=== PATIENT | male | born 1960 | race Caucasian/White ===

== ENCOUNTER 2018-08-15 10:07 | Outpatient (REF) | payer MEDICAID, SELFPAY ==
[2018-08-15 12:31] LABS: HCT 42.4 % (40.0-50.0); HGB 14.6 g/dL (13.5-17.5); Mean Corp. HGB Concentration 34.4 g/dL (32.0-36.0); Mean Corpuscular Hemoglobin 33.4 pg (27.0-33.0); Mean Platelet Volume 11.3 fL (8.0-11.0); Platelet Count 315 x1000/uL (130-400); RBC 4.37 m/cumm (4.50-6.00); RBC Distribution Width 13.1 % (11.8-14.1); White Blood Cell Count 11.29 k/cumm (4.4-10.8)
[2018-08-15 13:15] LABS: ALT 32 U/L (12-78); AST 19 U/L (15-37); Albumin 4.2 g/dL (3.4-5.0); Alkaline Phosphatase 64 U/L (46-116); Anion Gap 7.3 mmol/L (3-11); BUN 10 mg/dL (7-18); Bilirubin, Total 0.5 mg/dL (0.2-1.0); CO2 28.7 mmol/L (21.0-32.0); CREATININE 0.86 mg/dL (0.70-1.30); Calcium 9.1 mg/dL (8.5-10.1); Chloride 99 mmol/L (98-107); Folate 10.2 ng/mL (8.6-20.0); Glucose 83 mg/dL (70-100); Potassium 5.2 mmol/L (3.5-5.1); Sodium 135 mmol/L (136-145); Total Protein 7.4 g/dL (6.4-8.2); Vitamin B12 463 pg/mL (193-986)
[2018-08-15 13:32] LABS: ESR 15 MM/HR (1-20)
[2018-08-16 09:24] LABS: Cyclic Citrullinated Peptide <2.5 U/mL (<5.0)
== END 2018-08-15 10:27 ==
LOC: NCHCN 10:07
PROVIDERS: PCP Nurse Practitioner Family; Visit Provider Family Medicine
DX: M79.641 Pain in right hand (principal)
CPT/HCPCS: 80053; 85027; 85652; 86200; 82607; 82746; 85025

== ENCOUNTER 2018-09-18 15:27 | Outpatient (CLI) | payer MEDICAID, SELFPAY ==
--- NOTE | 2018-09-18 15:16 | DI.RAD_ITS ---
SYMPTOMS/DIAGNOSIS: RIGHT WRIST PAIN, RIGHT SHOULDER PAIN RIGHT SHOULDER: Mild degenerative changes involving the glenohumeral joint are demonstrated. Moderate AC joint DJD is identified. There is no evidence of a fracture or dislocation. RIGHT WRIST: There are severe degenerative changes at the 1st metacarpal multangular and multangular navicular joints. Elsewhere, mild DJD is evident. There is no evidence of a superimposed acute fracture or dislocation.
== END 2018-09-18 15:47 ==
PROVIDERS: PCP Nurse Practitioner Family; Visit Provider Physician Assistant
DX: M25.531 Pain in right wrist (principal); M19.031 Primary osteoarthritis, right wrist; M25.511 Pain in right shoulder; M19.011 Primary osteoarthritis, right shoulder
CPT/HCPCS: 73030; 73110

== ENCOUNTER 2019-02-26 13:21 | Outpatient (CLI) | payer MEDICAID, SELFPAY ==
--- NOTE | 2019-02-26 13:16 | DI.RAD_ITS ---
SYMPTOM/DIAGNOSIS: LT SHOULDER PAIN LEFT SHOULDER: Three views. There are no priors. Old post surgical or post traumatic changes are seen in the distal left clavicle. There is a 2.5 cm. distal left clavicular fragment noted. The cortical surfaces are well maintained suggesting an old injury. No evidence of an acute fracture or dislocation is seen. There are mild degenerative changes see at the acromioclavicular joint and the greater tuberosity. The glenohumeral joint appears well maintained. The bones are normally mineralized. The soft tissues are unremarkable. IMPRESSION: 1. Mild osteoarthritis of the left shoulder. 2. Non united old fracture or post surgical changes involving the distal left clavicle. These findings appear chronic. Please correlate with the patient's traumatic or surgical history.
== END 2019-02-26 13:41 ==
PROVIDERS: PCP Nurse Practitioner Family; Visit Provider Physician Assistant
DX: M25.512 Pain in left shoulder (principal); M19.012 Primary osteoarthritis, left shoulder
CPT/HCPCS: 73030

== ENCOUNTER 2019-03-18 07:48 | Outpatient (REF) | payer MEDICAID, SELFPAY ==
[2019-03-18 12:29] LABS: HCT 44.1 % (40.0-50.0); HGB 15.1 g/dL (13.5-17.5); Mean Corp. HGB Concentration 34.2 g/dL (32.0-36.0); Mean Corpuscular Hemoglobin 33.1 pg (27.0-33.0); Mean Corpuscular Volume 96.7 fL (80-95); Mean Platelet Volume 11.7 fL (8.0-11.0); Platelet Count 266 x1000/uL (130-400); RBC 4.56 m/cumm (4.50-6.00); RBC Distribution Width 13.9 % (11.8-14.1); White Blood Cell Count 13.53 k/cumm (4.4-10.8)
[2019-03-18 13:24] LABS: ALT 42 U/L (12-78); AST 22 U/L (15-37); Alkaline Phosphatase 56 U/L (46-116); Anion Gap 11.9 mmol/L (3-11); BUN 9 mg/dL (7-18); Bilirubin, Total 0.5 mg/dL (0.2-1.0); CO2 26.1 mmol/L (21.0-32.0); CREATININE 0.84 mg/dL (0.70-1.30); Calcium 9.5 mg/dL (8.5-10.1); Chloride 100 mmol/L (98-107); Cholesterol 165 mg/dL (50-200); Glucose 107 mg/dL (70-100); HDL Cholesterol 50 mg/dL (40-60); LDL CHOLESTEROL 104 mg/dL (<100); Potassium 4.7 mmol/L (3.5-5.1); Sodium 138 mmol/L (136-145); Total Protein 7.2 g/dL (6.4-8.2); Triglyceride 108 mg/dL (30-150)
== END 2019-03-18 08:08 ==
LOC: NCHCN 07:48
PROVIDERS: PCP Nurse Practitioner Family; Visit Provider Nurse Practitioner Family
DX: R68.89 Other general symptoms and signs (principal); I10 Essential (primary) hypertension; E78.5 Hyperlipidemia, unspecified
CPT/HCPCS: 80053; 80061; 83721; 85027

== ENCOUNTER 2019-04-29 08:10 | Outpatient (REF) | payer MEDICAID, SELFPAY ==
[2019-04-29 12:39] LABS: Abs Immature Grans 0.03 k/cumm (0.0-0.09); Absolute Basophil Count 0.07 k/cumm (0.0-0.2); Absolute Eosinophil Count 0.05 k/cumm (0.0-0.7); Absolute Lymphocyte Count 1.68 k/cumm (1.2-3.4); Absolute Monocyte Count 1.41 k/cumm (0.11-0.7); Absolute Neutrophil Count 5.82 k/cumm (1.2-6.7); Basophils % 0.8; Eosinophils % 0.6; HCT 44.2 % (40.0-50.0); HGB 15.8 g/dL (13.5-17.5); Immature Grans % 0.3; Lymphocytes % 18.5; Mean Corp. HGB Concentration 35.7 g/dL (32.0-36.0); Mean Corpuscular Hemoglobin 33.8 pg (27.0-33.0); Mean Corpuscular Volume 94.4 fL (80-95); Mean Platelet Volume 11.8 fL (8.0-11.0); Monocytes % 15.6; Neutrophils % 64.2; Platelet Count 167 x1000/uL (130-400); RBC 4.68 m/cumm (4.50-6.00); White Blood Cell Count 9.06 k/cumm (4.4-10.8)
[2019-04-29 13:22] LABS: Anion Gap 15.4 mmol/L (3-11); BUN 12 mg/dL (7-18); CO2 23.6 mmol/L (21.0-32.0); CREATININE 0.88 mg/dL (0.70-1.30); Calcium 9.5 mg/dL (8.5-10.1); Chloride 90 mmol/L (98-107); Glucose 124 mg/dL (70-100); Potassium 4.1 mmol/L (3.5-5.1); Sodium 129 mmol/L (136-145)
[2019-04-29 13:57] LABS: Hemoglobin A1C 5.8 % (4.5-6.2)
== END 2019-04-29 08:30 ==
LOC: NCHCN 08:10
PROVIDERS: PCP Nurse Practitioner Family; Visit Provider Nurse Practitioner Family
DX: R68.89 Other general symptoms and signs (principal); R73.9 Hyperglycemia, unspecified; I10 Essential (primary) hypertension
CPT/HCPCS: 80048; 83036; 85025

== ENCOUNTER 2020-10-19 12:46 | Outpatient (REF) | payer MEDICAID, SELFPAY ==
[2020-10-19 18:27] LABS: HGB 14.8 g/dL (13.5-17.5); MCH 37.2 pg (27.0-33.0); MCHC 36.1 % (32.0-36.0); MPV 10.9 fL (8.0-11.0); Platelet Count 305 10^3/uL (130-400); RBC 3.98 10^6/uL (4.36-5.78); RDW 12.5 % (11.8-14.1); RDW-SD 47.5 fL; WBC 12.81 10^3/uL (4.4-10.8)
[2020-10-19 19:33] LABS: ALT 87 U/L (16-63); AST 52 U/L (15-37); Albumin 4.3 g/dL (3.4-5.0); Alkaline Phosphatase 56 U/L (46-116); Anion Gap 11.3 mmol/L (3-11); BUN 9 mg/dL (7-18); Bilirubin, Total 0.6 mg/dL (0.2-1.0); CO2 23.7 mmol/L (21.0-32.0); CREATININE 0.82 mg/dL (0.70-1.30); Calcium 9.4 mg/dL (8.5-10.1); Calculated LDL 120 mg/dL (<100); Chloride 95 mmol/L (98-107); Cholesterol 197 mg/dL (<200); Glucose 107 mg/dL (74-106); HDL Cholesterol 60 mg/dL (40-60); Potassium 4.6 mmol/L (3.5-5.1); Sodium 130 mmol/L (136-145); Total Protein 7.7 g/dL (6.4-8.2); Triglyceride 89 mg/dL (<150)
[2020-10-19 20:16] LABS: Hemoglobin A1C 5.2 % (<5.7)
== END 2020-10-19 13:06 ==
LOC: NCHCN 12:46
PROVIDERS: PCP Nurse Practitioner Family; Visit Provider Nurse Practitioner Family
DX: I10 Essential (primary) hypertension (principal); E78.5 Hyperlipidemia, unspecified; R73.03 Prediabetes; F10.10 Alcohol abuse, uncomplicated; F17.209 Nicotine dependence, unspecified, with unspecified nicotine-induced disorders; J44.9 Chronic obstructive pulmonary disease, unspecified; Z00.00 Encounter for general adult medical examination without abnormal findings
CPT/HCPCS: 80053; 80061; 85027; 83036

== ENCOUNTER 2020-10-28 09:12 | Outpatient (REF) | payer MEDICAID, SELFPAY ==
[2020-10-28 19:07] LABS: Abs Immature Grans 0.06 10^3/uL (0.0-0.06); Absolute Basophil Count 0.15 10^3/uL (0.0-0.2); Absolute Eosinophil Count 0.42 10^3/uL (0.0-0.7); Absolute Lymphocyte Count 2.49 10^3/uL (1.2-3.4); Absolute Monocyte Count 1.13 10^3/uL (0.1-0.8); Absolute Neutrophil Count 8.03 10^3/uL (1.2-6.7); Basophils % 1.2; Eosinophils % 3.4; HCT 42.7 % (40.0-50.0); HGB 14.9 g/dL (13.5-17.5); Immature Grans % 0.5; Lymphocytes % 20.3; MCH 36.3 pg (27.0-33.0); MCHC 34.9 % (32.0-36.0); MCV 103.9 fL (80-95); MPV 10.5 fL (8.0-11.0); Monocytes % 9.2; Neutrophils % 65.4; Nucleated RBC 0 %; Platelet Count 332 10^3/uL (130-400); RBC 4.11 10^6/uL (4.36-5.78); RDW 12.6 % (11.8-14.1); WBC 12.28 10^3/uL (4.4-10.8)
== END 2020-10-28 09:32 ==
LOC: NCHCN 09:12
PROVIDERS: PCP Nurse Practitioner Family; Visit Provider Nurse Practitioner Family
DX: D72.829 Elevated white blood cell count, unspecified (principal)
CPT/HCPCS: 85025

== ENCOUNTER 2021-01-05 11:32 | Outpatient (REF) | payer MEDICAID, SELFPAY ==
--- NOTE | 2021-01-05 10:30 | SKI_PTH ---
PATIENT: Vipin Massey LOC: [facility] U#:[id number] AGE/SX: 60/M ROOM: RE01/05/[address]: Subhash Alfaro : 1960 BED: DIS: 01/05/2021 SPEC #: [id number] RECD: 01/05/21 12:51 STATUS: DONOVAN REDaniella #: [id number] FENG: 01/05/21 10:[address]: Subhash Alfaro DEPT: Surgical Specimen RECD BY: Shannan Cortez ENTERED: 01/05/21 12:51 SP TYPE: ANDRES HYLTON DR: Madison Tineo Tissues: 1 - SKIN BIOPSY(SHAVE/PUNCH) Procedures: SKIN LEVEL 4 Comments: [id number]
== END 2021-01-05 11:33 | disposition home or self-care (01) ==
LOC: NCHCN 11:32
PROVIDERS: PCP Nurse Practitioner Family; Visit Provider Family Medicine
DX: L30.8 Other specified dermatitis (principal)
CPT/HCPCS: 88305

== ENCOUNTER 2021-07-19 11:48 | Outpatient (REF) | payer MEDICAID, SELFPAY ==
[2021-07-19 15:07] LABS: Abs Immature Grans 0.03 10^3/uL (0.0-0.06); Absolute Eosinophil Count 0.02 10^3/uL (0.0-0.7); Absolute Lymphocyte Count 1.11 10^3/uL (1.2-3.4); Absolute Monocyte Count 0.87 10^3/uL (0.1-0.8); Absolute Neutrophil Count 5.95 10^3/uL (1.2-6.7); Basophils % 1.2; Eosinophils % 0.2; HCT 43.5 % (40.0-50.0); HGB 15.6 g/dL (13.5-17.5); Immature Grans % 0.4; Lymphocytes % 13.7; MCH 35.1 pg (27.0-33.0); MCHC 35.9 % (32.0-36.0); MPV 12.5 fL (8.0-11.0); Monocytes % 10.8; Neutrophils % 73.7; Nucleated RBC 0 %; Platelet Count 135 10^3/uL (130-400); RBC 4.44 10^6/uL (4.36-5.78); RDW 14.6 % (11.8-14.1); RDW-SD 52.9 fL; WBC 8.08 10^3/uL (4.4-10.8)
[2021-07-19 15:50] LABS: ALT 214 U/L (16-63); AST 146 U/L (15-37); Albumin 4.4 g/dL (3.4-5.0); Alkaline Phosphatase 85 U/L (46-116); Anion Gap 17.2 mmol/L (3-11); BUN 4 mg/dL (7-18); Bilirubin, Total 0.6 mg/dL (0.2-1.0); CO2 24.8 mmol/L (21.0-32.0); CREATININE 0.7 mg/dL (0.70-1.30); Calcium 9.2 mg/dL (8.5-10.1); Calculated LDL 123 mg/dL (<100); Chloride 96 mmol/L (98-107); Cholesterol 239 mg/dL (<200); Glucose 141 mg/dL (74-106); HDL Cholesterol 105 mg/dL (40-60); Potassium 3.5 mmol/L (3.5-5.1); Sodium 138 mmol/L (136-145); Triglyceride 57 mg/dL (<150)
== END 2021-07-19 11:49 | disposition home or self-care (01) ==
LOC: NCHCN 11:48
PROVIDERS: PCP Nurse Practitioner Family; Visit Provider Nurse Practitioner Family
DX: D72.829 Elevated white blood cell count, unspecified (principal); I10 Essential (primary) hypertension; E78.5 Hyperlipidemia, unspecified; F10.10 Alcohol abuse, uncomplicated
CPT/HCPCS: 80053; 80061; 85025

== ENCOUNTER 2021-07-28 01:46 | Outpatient (CLI) | payer MEDICAID, SELFPAY ==
--- NOTE | 2021-07-28 | DI.CTLCSR_ITS ---
Exam(s) CT CHEST LUNG CANCER SCREEN EXAM: CT CHEST LUNG CANCER SCREEN CLINICAL HISTORY: SCREENING FOR LUNG CA, CURRENT SMOKER, F17.209. TECHNIQUE: Imaging Protocol: Low Dose Technique CONTRAST MATERIAL: None COMPARISON: CT CHEST ABD PELVIS WITH CONTRAST from 04/08/2017 FINDINGS: CHEST: LUNGS: There is a small thin-walled bulla in the sub apical region of the left upper lobe, unchanged from 2017.. There benign-appearing subpleural markings in the anterior basal segment of the right lo wer lobe, these so seated with a subpleural bulla at this level, unchanged. No new right lung findin gs nor pleural effusion. In the opposite-left lung there is mild increased markings in the inferior lingular segment, more prominent than previous. Few tiny calcified granulomas lung. MEDIASTINUM: There is no obvious hilar nor mediastinal adenopathy. Calcified subcarinal lymph nodes are again noted. Shotty lymph nodes in both axillary regions noted. CARDIAC: Heart size is normal. There is no pericardial effusion.Coronary artery calcifications noted . Diameter of the ascending thoracic aorta is enlarged, measuring 4 cm. This has increased since 2016 study OTHER: OSSEOUS: No significant osseous lesions.. IMPRESSION: 1. No new significant pulmonary findings. Stable benign-appearing findings as described above. Calc ified subcarinal lymph nodes are again noted. 2. Compared to 2017 the diameter of the ascending thoracic aorta is now appears enlarged, measuring 4 cm. This requires appropriate cardiology follow-up. 3. Lung RADS Cat 1 - Negative: No nodules and definitely benign nodules. However, needs cardiology f ollow-up for enlarged ascending thoracic aorta. Lung-RADS 1.0 CATEGORIES: Category 0 - Prior chest CT exam(s) being located for comparison. Category 1 - Annual screening in 12 months. No nodules or definitely benign nodules. Category 2 - Annual screening in 12 months. Benign appearance. Nodules with low likelihood of becomin g active cancer. Category 3 - 6-month follow-up. Probably benign. Short-term follow-up suggested. Nodules with low lik elihood of becoming active cancer. Category 4A - 3-month follow-up and CT/PET if >8 mm in size. Suspicious finding. Findings which requi re additional testing. Category 4B - Findings which require additional testing and tissue sampling. Modifier S- Potentially clinically significant findings (non lung cancer) RADIATION DOSE DELIVERED: 77.61mGy.cm Total DLP CTDIvol DATA REPOSITORY: All CT scans at this facility are submitted to the National Radiology Data Registry (NRDR) Dose Index Registry (DIR) with the [employer] (ACR). RADIATION OPTIMIZATION: All CT scans at this facility use at least one of these dose optimization te chniques: automated exposure control; mA and/or kV adjustment per patient size (includes targeted exa ms where dose is matched to clinical indication); or iterative reconstruction.
== END 2021-07-28 02:06 ==
PROVIDERS: PCP Nurse Practitioner Family; Visit Provider Nurse Practitioner Family
DX: F17.209 Nicotine dependence, unspecified, with unspecified nicotine-induced disorders (principal); Z12.2 Encounter for screening for malignant neoplasm of respiratory organs; I89.8 Other specified noninfective disorders of lymphatic vessels and lymph nodes; I77.810 Thoracic aortic ectasia
CPT/HCPCS: 71271

== ENCOUNTER 2021-10-17 02:46 | Outpatient (CLI) | payer MEDICAID, SELFPAY ==
[2021-10-17 11:03] LABS: Source Nasal/Nares
[2021-10-17 14:01] LABS: COVID-19 PCR Negative (Negative)
== END 2021-10-17 02:47 | disposition home or self-care (01) ==
LOC: LBO 02:47
PROVIDERS: PCP Nurse Practitioner Family; Visit Provider Student in an Organized Health Care Education/Training Program
DX: Z20.822 Contact with and (suspected) exposure to COVID-19 (principal)
CPT/HCPCS: 87635

== ENCOUNTER 2021-10-18 06:09 | Day surgery (SDC) | payer MEDICAID, SELFPAY ==
[2021-10-18 06:15] VITALS: BP 153/91; PULSE 90; RESP 18; TEMP 36.5; O2SAT 96
[2021-10-18] MEDS: Lactated Ringers 1,000 ML 80 ML IV (06:46)
--- NOTE | 2021-10-18 07:02 | W.ANESPRE ---
General Info Date of Service Date Performed: 10/18/21 Height: 5 ft 8 in Weight: 73.2 kg Body Mass Index (BMI): 24.5 Surgical Procedure: Operation Date: 10/18/21 07:40 Proposed Procedures Side Surgeon p Wrist ECTR Left Ezio Gonzales MD Meds Allergies and Home Medications Allergies Allergy/AdvReac Type Severity Reaction Status Date / Time No Known Allergies Allergy Unverified 10/18/21 06:12 Home Medication Medication Instructions Recorded metoprolol tartrate 100 mg PO BID 08/28/14 acetaminophen [Acetaminophen Extra 1,000 mg PO TID PRN PRN #60 tab 12/25/17 Strength] ibuprofen 600 mg PO TID PRN PRN #60 tab 12/25/17 fluticasone propionate 44 2 puff IH BID 01/19/20 mcg/actuation HFA aerosol inhaler albuterol sulfate 90 mcg/actuation 1 inh INHALATION Q6H 08/01/21 aerosol inhaler amlodipine 10 mg tablet 10 mg PO DAILY 08/01/21 triamcinolone acetonide 0.1 % 1 applic TOPICAL TID 08/01/21 topical cream lisinopril 30 mg PO DAILY 10/17/21 pravastatin 20 mg PO DAILY 10/17/21 Current Visit Medications: Current Medications Generic Name Dose Route Start Last Admin Trade Name Freq PRN Reason Stop Dose Admin Ringer's Solution 1,000 mls @ 80 mls/hr 10/18/21 06:00 10/18/21 06:46 IV 11/16/21 23:59 80 mls/hr INFUSION MING Administration Cefazolin Sodium/Dextrose 2 gm in 50 mls @ 100 mls/hr 10/18/21 06:00 Ancef Duplex IVPB 11/16/21 23:59 PREOP MING IV Miscellaneous Supplies 1 each 10/18/21 06:00 Iv Access IV 11/16/21 23:59 DIRECTED MING Sodium Chloride 0 ml 10/18/21 06:00 Normal Saline Flush 10 Ml Syr IV 11/16/21 23:59 PRN PRN Sodium Chloride 0 ml 10/18/21 06:00 Normal Saline 10 Ml Vial IJ 11/16/21 23:59 DIRECTED PRN Sterile Water 0 ml 10/18/21 06:00 Water,Injection,Sterile 10 Ml Vial IJ 12/29/21 23:59 DIRECTED PRN PFSH Active Problems Active Problems: Problem Status Onset Code Right rotator cuff tendonitis M75.81 Arthritis of orktti-mwpteatoa-qdzzcjxmw joint M19.039 Arthritis of right acromioclavicular joint M19.011 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 Osteoarthritis of left AC (acromioclavicular) joint M19.012 Hypertension I10 Hyperlipidemia E78.5 Trigger index finger of right hand M65.321 Trigger thumb of right hand M65.311 Right carpal tunnel syndrome G56.01 Ascending aorta dilation I77.810 Leukocytosis D72.829 Prediabetes R73.03 COPD (chronic obstructive pulmonary disease) J44.9 Chronic depression F32.9 Tobacco use disorder F17.200 Hx of traumatic brain injury Z87.820 Alcohol abuse F10.10 PTSD (post-traumatic stress disorder) F43.10 Bilateral carpal tunnel syndrome G56.03 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 Medical History Active Problem List Left carpal tunnel syndrome (Acute) Right rotator cuff tendonitis (Chronic) Arthritis of mokdbx-ncrridimk-xkrfamxps joint (Chronic) Arthritis of right acromioclavicular joint (Chronic) 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) Hypertension (Chronic) Hyperlipidemia (Acute) Trigger index finger of right hand (Acute) Trigger thumb of right hand (Acute) Right carpal tunnel syndrome (Acute) Ascending aorta dilation (Acute) Leukocytosis (Acute) Prediabetes (Acute) COPD (chronic obstructive pulmonary disease) (Chronic) Chronic depression (Acute) Tobacco use disorder (Acute) Hx of traumatic brain injury (Acute) Alcohol abuse (Chronic) PTSD (post-traumatic stress disorder) (Acute) Bilateral carpal tunnel syndrome (Acute) Ulnar neuropathy at elbow of left upper extremity (Acute) History of bilateral total hip arthroplasty (Acute) Surgical History Surgical History Hx of splenectomy Tobacco Smoking/Tobacco Use Status: Current every day Tobacco Type: cigarettes Alcohol Alcohol Intake: current Alcohol intake frequency: 3 or more drinks per day Alcohol type: beer Substance Use Substance use: Occasionally Substance use type: does not use Details: Per sample case porter he has days where is very intoxicated, and others he practices sobriety Vital Signs and Lab Results Vital Signs Most Recent Vital Signs in EMR: Most Recent Vital Signs Temp Pulse Resp BP Pulse Ox 36.5 C 90 18 153/91 H 96 10/18/21 06:15 10/18/21 06:15 10/18/21 06:15 10/18/21 06:15 10/18/21 06:15 Lab Results Blood Type / Crossmatch: No Data to Display Complete Blood Count: No Data to Display Complete Metabolic Panel: No Data to Display Liver Function Panel: No Data to Display Coagulation Panel: No Data to Display Cardiac Panel: No Data to Display Arterial Blood Gas: No Data to Display Venous Blood Gas: No Data to Display Pancreas Panel: No Data to Display Thyroid Panel: No Data to Display Infectious Disease: Coronavirus (COVID-19)(PCR) Negative (Negative) 10/17/21 10:25 10/17/21 Coronavirus 2019 Source Nasal/Nares 10/17/21 10:25 10/17/21 Blood Cultures: No Data to Display Toxicology Panel: No Data to Display Anesthesia Assessment and Plan Anesthesia History Personal History: No History of Anesthesia Complications Family History: No Family History of Anesthesia Complications and Family History Unknown Exercise Tolerance Exercise Tolerance: Metabolic Equivalents>4 Pertinent Negatives Pertinent Negatives: No Symptoms of GERD, No Major Cardiovascular Symptoms or Complaints, No Major Pulmonary Symptoms or Complaints and No History of CVA/TIA Cardiac & Pulmonary Exam Cardiac Exam: Normal S1/S2 Heart Sounds Pulmonary Exam: Clear Bilateral Breath Sounds Cardiac and Pulmonary Comment:: Smoker with occ smoker?s cough Implantable Cardiac Device Does patient have a Pacemaker or an ICD?: No Airway Exam Known Difficult Airway: No Mallampati Class: 3 Mouth Opening: Normal (> 3cm) Thyromental Distance: Greater than 3 cm Neck Range of Motion: Full ROM Neck Circumference: Normal Teeth Condition: Generalized Poor Dentition Airway Comments: None loose per patient ASA Classification ASA Score: ASA 2 Emergency Case?: No NPO Status NPO Status: NPO Clears >2 hours, Solids >8 hours Anesthesia Plan Resuscitation Status: Full Code Anesthesia Technique: General Anesthesia Airway Planned: Natural Airway Monitors Used: Standard Monitors
[2021-10-18 07:10] VITALS: BMI 24.5
--- NOTE | 2021-10-18 07:11 | W.PREOPHP ---
Date of service: 10/18/21 Time of Service: 07:11 Assessment and Plan Assessment and plan (1) Left carpal tunnel syndrome: Status: Acute Assessment and plan: Vipin is a 61-year-old who has carpal tunnel syndrome of both hands he is here today for left carpal tunnel. I have previously discussed treatment options with him in the office and he desires to proceed with endoscopic carpal tunnel release. After a review of clinical history, exam findings, and nerve conduction testing, carpal tunnel syndrome is the most reasonable diagnosis. We discussed possible treatment options to include nighttime splinting, anti-inflammatories, carpal tunnel injections, and eventually surgery. Due to the persistence of symptoms and their daily limitations with normal function, I offered a carpal tunnel release. I discussed the technical details of carpal tunnel release and that I perform an endoscopic release, but would make a larger, open, incision if necessary for visualization. I discussed the risks of the procedure to include, but not limited to, bleeding, infection, palmar pain, stiffness, damage to nerves, damage to vessels, damage to tendons, weakness, recurrence, and incomplete release. Given these risks, Vipin desires to proceed. We will plan to proceed with right carpal tunnel release along with trigger finger releases of the right thumb and right index finger within the next few weeks. (2) Trigger index finger of right hand: Status: Acute (3) Trigger thumb of right hand: Status: Acute (4) Right carpal tunnel syndrome: Status: Acute History of Present Illness History of Present Illness Chief Complaint: Left Carpal Tunnel Syndrome Narrative: Vipin is a 51-year-old who had seen previously in the clinic for left carpal tunnel syndrome. He has failed nonoperative treatment and desires to proceed with endoscopic carpal tunnel release of the left side. He has had no change to his clinical symptoms as noted in office visit. He has had no sick contacts. He was COVID-19 negative. Additionally, in the office he was diagnosed with right carpal tunnel syndrome in addition to trigger fingers of the right thumb and right index. 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) Hypertension (Chronic) Hyperlipidemia (Acute) Trigger index finger of right hand (Acute) Trigger thumb of right hand (Acute) Right carpal tunnel syndrome (Acute) Ascending aorta dilation (Acute) Leukocytosis (Acute) Prediabetes (Acute) COPD (chronic obstructive pulmonary disease) (Chronic) Chronic depression (Acute) Tobacco use disorder (Acute) Hx of traumatic brain injury (Acute) Alcohol abuse (Chronic) PTSD (post-traumatic stress disorder) (Acute) Bilateral carpal tunnel syndrome (Acute) Ulnar neuropathy at elbow of left upper extremity (Acute) History of bilateral total hip arthroplasty (Acute) Surgical History Hx of splenectomy Social History Smoking/Tobacco Use Status: Current every day Tobacco Type: cigarettes Smoking risk assessment performed?: Yes Alcohol Intake: current Alcohol Intake frequency: 3 or more drinks per day Alcohol type: beer Drug use: Occasionally Substance use type: does not use Details: Per bilingual case manager he has days where is very intoxicated, and others he practices sobriety Current gender identity: male Do you feel safe at home: Yes Additional Social history: unable to asess [employer] Allergies and Home Medications Allergies Allergy/AdvReac Type Severity Reaction Status Date / Time No Known Allergies Allergy Unverified 10/18/21 06:12 Home Medications Medication Instructions Recorded Confirmed Type metoprolol tartrate 100 mg PO BID 08/28/14 10/18/21 History acetaminophen [Acetaminophen Extra 1,000 mg PO TID PRN PRN #60 tab 12/25/17 10/17/21 Rx Strength] ibuprofen 600 mg PO TID PRN PRN #60 tab 12/25/17 10/17/21 Rx fluticasone propionate 44 2 puff IH BID 01/19/20 10/18/21 History mcg/actuation HFA aerosol inhaler albuterol sulfate 90 mcg/actuation 1 inh INHALATION Q6H 08/01/21 10/17/21 History aerosol inhaler amlodipine 10 mg tablet 10 mg PO DAILY 08/01/21 10/18/21 History triamcinolone acetonide 0.1 % 1 applic TOPICAL TID 08/01/21 10/17/21 History topical cream lisinopril 30 mg PO DAILY 10/17/21 History pravastatin 20 mg PO DAILY 10/17/21 History Exam Resp Effort & Inspection: normal respiratory effort Auscultation: clear to auscultation bilaterally Cardio Rate: regular rate Rhythm: regular rhythm Results Last Vital Signs Temp 36.5 C 10/18/21 06:15 Pulse 90 10/18/21 06:15 Resp 18 10/18/21 06:15 BP 153/91 H 10/18/21 06:15 Pulse Ox 96 10/18/21 06:15
[2021-10-18] MEDS: ceFAZolin 2 GM/50 ML BAG IVPB (07:26)
--- NOTE | 2021-10-18 07:26 | PDOC.DSDIS_ITS ---
Discharge Plan Disposition Patient Disposition: HOME Condition: Good Discharge Details Reason For Visit: Left Carpal Tunnel Syndrome Attending Provider: Ezio Gonzales Primary Care Provider: Madison Tineo Home Meds and New Rx's Prescriptions: New hydrocodone-acetaminophen 5-325 mg tablet 1 tab PO Q6H PRN (Reason: pain) Qty: 4 RF: 0 Continued Flovent HFA 44 mcg/actuation HFA aerosol inhaler 2 puff IH BID RF: 0 amlodipine 10 mg tablet 10 mg PO DAILY RF: 0 albuterol sulfate [ProAir HFA] 90 mcg/actuation HFA aerosol inhaler 1 inh inhalation Q6H RF: 0 triamcinolone acetonide 0.1 % cream 1 applic topical TID RF: 0 metoprolol tartrate 100 MG tablet 100 mg PO BID RF: 0 lisinopril 30 mg Tablet 30 mg PO DAILY RF: 0 pravastatin 20 mg Tablet 20 mg PO DAILY RF: 0 acetaminophen [Acetaminophen Extra Strength] 500 MG tablet 1,000 mg PO TID PRN PRNQty: 60 RF: 3 ibuprofen 600 MG tablet 600 mg PO TID PRN PRNQty: 60 RF: 3 Discharge Instructions Stand Alone Forms: Christian Casey Tunnel Release Referrals: Ezio Gonzales MD [ [facility] STAFF PHYSICIAN] - Activity:: Elevate Remove Dressings/Wound Care:: 48 hours Shower/Bathe:: 48 hours Diet:: As Tolerated Discharge Orders Discharge Orders: Discharge Order (Routine); Ordered 10/18/21 Ordered By: Ezio Gonzales DS: Diagnosis Discharge Diagnosis (1) Left carpal tunnel syndrome: Status: Acute (2) Trigger index finger of right hand: Status: Acute (3) Trigger thumb of right hand: Status: Acute (4) Right carpal tunnel syndrome: Status: Acute
[2021-10-18] MEDS: Sodium Bicarbonate 50 MEQ/50 ML VIAL (07:33)
[2021-10-18 07:48] VITALS: BP 136/96; PULSE 94; RESP 16; TEMP 36.3; O2SAT 97
--- NOTE | 2021-10-18 08:09 | W.ANESPOSTOP ---
Postoperative Evaluation Date, Time and Location Date Performed: 10/18/21 Time Performed: 07:48 Patient Location: Day Surgery Unit Vital Signs Most Recent Imported Vital Signs: Most Recent Vital Signs Temp Pulse Resp BP Pulse Ox 36.3 C L 94 H 16 136/96 H 97 10/18/21 07:48 10/18/21 07:48 10/18/21 07:48 10/18/21 07:48 10/18/21 07:48 Pain Score Most Recent Pain Score: Most Recent Pain Score Pain Level 0 10/18/21 07:48 Assessment Mental Status: Awake (Alert & Oriented to Patient Baseline) Airway and Respiratory Function: Patent airway with normal (patient baseline) respiratory exam Cardiovascular Function: Hemodynamically Stable Hydration Status: Adequately Hydrated Nausea & Vomiting: No Nausea or Vomiting Pain: Pt. Denies Any Pain Peripheral Nerve Block: Patient did not receive a nerve block
--- NOTE | 2021-10-18 09:18 | W.PM.OP ---
Date of service: 10/18/21 Time of Service: 07:40 Operative Note Operative Note DATE OF PROCEDURE: 10/18/21 PRE-OP DIAGNOSIS: Left Carpal Tunnel Syndrome POST-OP DIAGNOSIS: same PROCEDURE: Left Endoscopic Carpal Tunnel Release SURGEON: Ezio Gonzales ANESTHESIA TYPE: General:No Airway Refer to Anesthesia Record ESTIMATED BLOOD LOSS: 0 PATHOLOGY: none sent TOURNIQUET TIME: 6 COMPLICATIONS: None Patient was transported to: same day Patient's condition: stable Indications: I have seen Jasmine in clinic for symptoms of carpal tunnel syndrome. The numbness, tingling, and pain limited function. Clinical exam findings with nerve conduction tests confirmed the diagnosis of carpal tunnel syndrome. Nonoperative measures such as bracing, time, activity modifications had been tried but disability and pain persisted. I discussed carpal tunnel release with the patient. I reviewed the risks of the procedure to include, but not limited to, bleeding, infection, pain, stiffness, incomplete release, damage to nerves or vessels, persistent numbness, recurrence. Despite these risks, the patient elected to proceed. Findings: There was tightened carpal tunnel. This was dilated and released successfully with the endoscopic with increased space within the tunnel. The antebrachial fascia was released proximally freeing the median nerve at the wrist. Procedure Description: Jasmine was greeted in the preoperative holding area where the correct side was identified and marked. The consent was reviewed with the patient and signed. The history and physical was updated. All questions were answered. Jasmine was taken back to the operating room. The patient was placed into the supine position on the operating room table with the left arm on an arm board. A nonsterile tourniquet was placed high onto the arm. All bony prominences were well padded. Prophylactic antibiotics in the form of Cefazolin were administered. The left arm was then prepped with Chloraprep and draped in a standard fashion with stockinette and extremity drape. A timeout to confirm correct identity, side and site, procedure, allergies, anesthesia, and medical concerns was performed. The surgical site was marked in the volar wrist creases in line with the radial border of the fourth ray. This area was anesthetized with approximately 6cc of 1% Lidocaine. The limb was then exsanguinated with an Esmarch. The skin was incised with a 15 blade, approximately 1cm. The skin only was cut and the deeper tissue was dissected bluntly with a tenotomy scissor, avoiding passing nerve and venous structures. The fascia was penetrated and opened bluntly. A two-prong skin hook was placed under this proximal fascial edge. A series of hamate finders were used to identify and dilate the carpal tunnel. Synovial elevator was used to free synovial attachments to the underside of the transverse carpal ligament. My thumb was kept in the palm to jasmine the distal extent of the carpal tunnel and correctly position the hand. The [employer]aire endoscope was inserted without difficulty and without resistance. Excellent visualization showed horizontally running fibers of the transverse carpal ligament (TCL). The distal extent of the TCL was visualized and the end of the scope palpated with the thumb. The blade was elevated and withdrawn from distal to proximal. The TCL was split into two flaps. The endoscope was reinserted to confirm complete release and any remnant ligament was incised. The scope was withdrawn and the proximal aspect of the carpal tunnel was grossly inspected and appeared release with the median nerve visible. The antebrachial fascia at the level of the wrist was then freed from the overlying skin and then the underlying median nerve with blunt dissection. This was transected longitudinally for about 3cm proximal to the wrist incision. The wound was then irrigated with easy flow of irrigant distally and proximally. The incision was closed with a single 4-0 Nylon suture. The wound was dressed with Xeroform, Gauze, Kerlix and Brandon. The tourniquet was deflated with the initial dressing and held with some pressure. Blood flow returned easily to all digits with capillary refill less than 2 seconds. The patient tolerated the procedure well and was returned to the Same Day Surgery area in a stable condition suffering no known complication.
== END 2021-10-18 08:35 | disposition home or self-care (01) ==
PROVIDERS: PCP Nurse Practitioner Family; Visit Provider Student in an Organized Health Care Education/Training Program
PROC: 01N54ZZ Release Median Nerve, Percutaneous Endoscopic Approach (ICD-10-PCS; CPT 29848; principal; 2021-10-18 07:30)
DX: G56.02 Carpal tunnel syndrome, left upper limb (principal); J44.9 Chronic obstructive pulmonary disease, unspecified; R73.03 Prediabetes
CPT/HCPCS: 29848; J0690; J2001; J2250

== ENCOUNTER 2022-01-02 01:21 | Outpatient (CLI) | payer MEDICAID, SELFPAY ==
[2022-01-02 20:12] LABS: COVID-19 PCR Negative (Negative)
[2022-01-02 20:13] LABS: Source Nasal/Nares
== END 2022-01-02 01:22 | disposition home or self-care (01) ==
LOC: LBO 01:22
PROVIDERS: PCP Nurse Practitioner Family; Visit Provider Student in an Organized Health Care Education/Training Program
DX: Z20.822 Contact with and (suspected) exposure to COVID-19 (principal); Z01.818 Encounter for other preprocedural examination
CPT/HCPCS: 87635

== ENCOUNTER 2022-01-04 11:49 | Day surgery (SDC) | payer MEDICAID, SELFPAY ==
--- NOTE | 2022-01-04 06:49 | PDOC.DSDIS_ITS ---
Discharge Plan Disposition Patient Disposition: HOME Condition: Stable Discharge Details Reason For Visit: Right ECTR, Trigger Finger Release Attending Provider: Ezio Gonzales Primary Care Provider: Madison Tineo Home Meds and New Rx's Prescriptions: No Action Flovent HFA 44 mcg/actuation HFA aerosol inhaler 2 puff IH BID 0RF amlodipine 10 mg tablet 10 mg PO DAILY 0RF albuterol sulfate [ProAir HFA] 90 mcg/actuation HFA aerosol inhaler 1 inh inhalation Q6H 0RF triamcinolone acetonide 0.1 % cream 1 applic topical TID 0RF metoprolol tartrate 100 MG tablet 100 mg PO BID 0RF lisinopril 30 mg Tablet 30 mg PO DAILY 0RF pravastatin 20 mg Tablet 20 mg PO DAILY 0RF acetaminophen [Acetaminophen Extra Strength] 500 MG tablet 1,000 mg PO TID PRN PRNQty: 60 3RF ibuprofen 600 MG tablet 600 mg PO TID PRN PRNQty: 60 3RF Discharge Instructions Stand Alone Forms: [place] C. Tunnel Release, [place] T. Finger Release Referrals: Ezio Gonzales MD [ [facility] STAFF PHYSICIAN] - Activity:: Activity as Tolerated Remove Dressings/Wound Care:: 72 hours Shower/Bathe:: 72 hours Diet:: As Tolerated Discharge Orders Discharge Orders: Discharge Order (Routine); Ordered 01/04/22 Ordered By: Areli Perez
[2022-01-04 12:07] VITALS: BP 159/93; PULSE 83; RESP 18; TEMP 36.4; O2SAT 97
[2022-01-04] MEDS: Lactated Ringers 1,000 ML 80 ML IV (12:22)
--- NOTE | 2022-01-04 12:27 | ANES.PREOP_ITS ---
General Info Date of Service Date Performed: 01/04/22 Height: 5 ft 8 in Weight: 76.8 kg Body Mass Index (BMI): 25.7 Surgical Procedure: Operation Date: 01/04/22 14:25 Proposed Procedure Side Surgeon p Wrist ECTR,Rt Trigger Thumb Right Ezio Gonzales MD Meds Allergies and Home Medications Allergies Allergy/AdvReac Type Severity Reaction Status Date / Time No Known Allergies Allergy Unverified 01/04/22 12:12 Home Medication Medication Instructions Recorded metoprolol tartrate 100 mg tablet 100 mg PO BID 08/28/14 fluticasone propionate 44 2 puff IH BID 01/19/20 mcg/actuation HFA aerosol inhaler (Flovent HFA) albuterol sulfate 90 mcg/actuation 1 inh INHALATION Q6H 08/01/21 aerosol inhaler (ProAir HFA) amlodipine 10 mg tablet 10 mg PO DAILY 08/01/21 triamcinolone acetonide 0.1 % 1 applic TOPICAL TID 08/01/21 topical cream acetaminophen 500 mg tablet 1,000 mg PO TID PRN PRN #60 tab 10/18/21 (Acetaminophen Extra Strength) ibuprofen 600 mg tablet 600 mg PO TID PRN PRN #60 tab 10/18/21 Current Visit Medications: Current Medications Generic Name Dose Route Start Last Admin Trade Name Freq PRN Reason Stop Dose Admin Acetaminophen 650 mg 01/04/22 06:51 Acetaminophen 325 Mg Tab PO Q4H PRN PRN Ringer's Solution 1,000 mls @ 80 mls/hr 01/04/22 06:00 01/04/22 12:22 IV 01/16/22 23:59 80 mls/hr INFUSION MING Administration Cefazolin Sodium/Dextrose 2 gm in 50 mls @ 100 mls/hr 01/04/22 06:00 Ancef Duplex IVPB 01/04/22 23:59 PREOP MING Ondansetron HCl 4 mg/ Sodium 52 mls @ 200 mls/hr 01/04/22 06:51 Chloride IVPB Q6H PRN PRN IV Miscellaneous Supplies 1 each 01/04/22 06:00 Iv Access IV 01/16/22 23:59 DIRECTED MING Oxycodone HCl 5 mg 01/04/22 06:51 Oxycodone 5 Mg Tab PO Q3H PRN PRN Pain Sodium Chloride 0 ml 01/04/22 06:00 Normal Saline Flush 10 Ml Syr IV 01/16/22 23:59 PRN PRN Sodium Chloride 0 ml 01/04/22 06:00 Normal Saline 10 Ml Vial IJ 01/16/22 23:59 DIRECTED PRN Sterile Water 0 ml 01/04/22 06:00 Water,Injection,Sterile 10 Ml Vial IJ 01/16/22 23:59 DIRECTED PRN PFSH Active Problems Active Problems: Problem Status Onset Code Left carpal tunnel syndrome G56.02 Right rotator cuff tendonitis M75.81 Arthritis of rshxim-gsfcnaurv-tztxyegbk joint M19.039 Arthritis of right acromioclavicular joint M19.011 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 Osteoarthritis of left AC (acromioclavicular) joint M19.012 Hypertension I10 Hyperlipidemia E78.5 Trigger index finger of right hand M65.321 Trigger thumb of right hand M65.311 Right carpal tunnel syndrome G56.01 Ascending aorta dilation I77.810 Leukocytosis D72.829 Prediabetes R73.03 COPD (chronic obstructive pulmonary disease) J44.9 Chronic depression F32.9 Tobacco use disorder F17.200 Hx of traumatic brain injury Z87.820 Alcohol abuse F10.10 PTSD (post-traumatic stress disorder) F43.10 Bilateral carpal tunnel syndrome G56.03 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 Medical History Active Problem List Right rotator cuff tendonitis (Chronic) Arthritis of wvzcrp-ocqfpvrqe-gsaeoesov joint (Chronic) Arthritis of right acromioclavicular joint (Chronic) 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) Hypertension (Chronic) Hyperlipidemia (Acute) Trigger index finger of right hand (Acute) Trigger thumb of right hand (Acute) Right carpal tunnel syndrome (Acute) Ascending aorta dilation (Acute) Leukocytosis (Acute) Prediabetes (Acute) COPD (chronic obstructive pulmonary disease) (Chronic) Chronic depression (Acute) Tobacco use disorder (Acute) Hx of traumatic brain injury (Acute) Alcohol abuse (Chronic) PTSD (post-traumatic stress disorder) (Acute) Bilateral carpal tunnel syndrome (Acute) Ulnar neuropathy at elbow of left upper extremity (Acute) History of bilateral total hip arthroplasty (Acute) Surgical History Surgical History Hx of splenectomy Tobacco Smoking/Tobacco Use Status: Current every day Tobacco Type: cigarettes Alcohol Alcohol Intake: current Alcohol intake frequency: 3 or more drinks per day Alcohol type: beer Substance Use Substance use: Occasionally Substance use type: does not use Details: Per employment case manager he has days where is very intoxicated, and others he practices sobriety Vital Signs and Lab Results Vital Signs Most Recent Vital Signs in EMR: Most Recent Vital Signs Temp Pulse Resp BP Pulse Ox 36.4 C L 83 18 159/93 H 97 01/04/22 12:07 01/04/22 12:07 01/04/22 12:07 01/04/22 12:07 01/04/22 12:07 Lab Results Blood Type / Crossmatch: 2 No Data to Display Complete Blood Count: No Data to Display Complete Metabolic Panel: No Data to Display Liver Function Panel: No Data to Display Coagulation Panel: No Data to Display Cardiac Panel: No Data to Display Arterial Blood Gas: No Data to Display Venous Blood Gas: No Data to Display Pancreas Panel: No Data to Display Thyroid Panel: No Data to Display Infectious Disease: Coronavirus (COVID-19)(PCR) Negative (Negative) 01/02/22 08:40 01/02/22 Coronavirus 2019 Source Nasal/Nares 01/02/22 08:40 01/02/22 Blood Cultures: No Data to Display Toxicology Panel: No Data to Display Anesthesia Assessment and Plan Anesthesia History Personal History: No History of Anesthesia Complications Family History: No Family History of Anesthesia Complications and Family History Unknown Exercise Tolerance Exercise Tolerance: Metabolic Equivalents>4 Cardiac & Pulmonary Exam Cardiac Exam: Normal S1/S2 Heart Sounds Pulmonary Exam: Clear Bilateral Breath Sounds Cardiac and Pulmonary Comment:: Smoker with occ smoker?s cough Implantable Cardiac Device Does patient have a Pacemaker or an ICD?: No Airway Exam Known Difficult Airway: No Mallampati Class: 3 Mouth Opening: Normal (> 3cm) Thyromental Distance: Greater than 3 cm Neck Range of Motion: Full ROM Neck Circumference: Normal Teeth Condition: Generalized Poor Dentition Airway Comments: None loose per patient ASA Classification ASA Score: ASA 2 Emergency Case?: No NPO Status NPO Status: NPO Clears >2 hours, Solids >8 hours Anesthesia Plan Resuscitation Status: Full Code Anesthesia Technique: General Anesthesia Airway Planned: Natural Airway Monitors Used: Standard Monitors Preoperative Comments:: 61 yo for ECTR, just had the other done a few weeks ago. no health history change. midaz 2 mg, ketamine 50 mg, and prop for last without issue.
[2022-01-04 12:30] VITALS: BMI 25.7
--- NOTE | 2022-01-04 14:28 | W.PREOPHP ---
Assessment and Plan Assessment and plan (1) Trigger thumb of right hand: Status: Acute (2) Right carpal tunnel syndrome: Status: Acute Assessment and plan: Vipin is a 61 year old male who has carpal tunnel syndrome of the right hand and a trigger thumb. He has had an injection of the thumb and has treated the carpal tunnel with splints but continues to be limited by both. After a review of clinical history, exam findings, and nerve conduction testing,I discssued the carpal tunnel release and trigger thumb release. I discussed the technical details and I discussed the risks of the procedure to include, but not limited to, bleeding, infection, palmar pain, stiffness, damage to nerves, damage to vessels, damage to tendons, weakness, recurrence, and incomplete release. Given these risks, Vipin desires to proceed. History of Present Illness Narrative: Vipin is a 61 year old male who has seen me in the office for a right carpal tunnel and a right trigger thumb. He continues to have symptoms. He has failed nonoperative options. He has no CP or SOB. 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) Injection: 01/19/2020; 02/26/2019 Hypertension (Chronic) Hyperlipidemia (Acute) Trigger index finger of right hand (Acute) Injection: 06/02/2021 Trigger thumb of right hand (Acute) Injection: 06/02/2021 Right carpal tunnel syndrome (Acute) Ascending aorta dilation (Acute) Leukocytosis (Acute) Prediabetes (Acute) COPD (chronic obstructive pulmonary disease) (Chronic) Chronic depression (Acute) Tobacco use disorder (Acute) Hx of traumatic brain injury (Acute) Alcohol abuse (Chronic) PTSD (post-traumatic stress disorder) (Acute) Bilateral carpal tunnel syndrome (Acute) Ulnar neuropathy at elbow of left upper extremity (Acute) History of bilateral total hip arthroplasty (Acute) DOS: 9/22/21 Surgical History Hx of splenectomy Social History Smoking/Tobacco Use Status: Current every day Tobacco Type: cigarettes Smoking risk assessment performed?: Yes Alcohol Intake: current Alcohol Intake frequency: 3 or more drinks per day Alcohol type: beer Drug use: Occasionally Substance use type: does not use Details: Per case advocate he has days where is very intoxicated, and others he practices sobriety Current gender identity: male Do you feel safe at home: Yes Do you feel safe in your relationship?: Yes Meds Allergies and Home Medications Allergies Allergy/AdvReac Type Severity Reaction Status Date / Time No Known Allergies Allergy Unverified 01/04/22 12:12 Home Medications Medication Instructions Recorded Confirmed Type metoprolol tartrate 100 mg tablet 100 mg PO BID 08/28/14 01/04/22 History fluticasone propionate 44 2 puff IH BID 01/19/20 01/04/22 History mcg/actuation HFA aerosol inhaler (Flovent HFA) albuterol sulfate 90 mcg/actuation 1 inh INHALATION Q6H 08/01/21 01/04/22 History aerosol inhaler (ProAir HFA) amlodipine 10 mg tablet 10 mg PO DAILY 08/01/21 01/04/22 History triamcinolone acetonide 0.1 % 1 applic TOPICAL TID 08/01/21 01/04/22 History topical cream acetaminophen 500 mg tablet 1,000 mg PO TID PRN PRN #60 tab 10/18/21 01/04/22 Rx (Acetaminophen Extra Strength) ibuprofen 600 mg tablet 600 mg PO TID PRN PRN #60 tab 10/18/21 01/04/22 Rx Exam Resp Auscultation: clear to auscultation bilaterally Cardio Rate: regular rate Rhythm: regular rhythm Results Last Vital Signs Temp 36.4 C L 01/04/22 12:07 Pulse 83 01/04/22 12:07 Resp 18 01/04/22 12:07 BP 159/93 H 01/04/22 12:07 Pulse Ox 97 01/04/22 12:07
[2022-01-04] MEDS: ceFAZolin 2 GM/50 ML BAG IVPB (14:33)
[2022-01-04] MEDS: Sodium Bicarbonate 50 MEQ/50 ML VIAL (14:40)
[2022-01-04 15:09] VITALS: BP 122/72; PULSE 86; RESP 18; TEMP 36.5; O2SAT 95
--- NOTE | 2022-01-04 15:23 | W.ANESPOSTOP ---
Postoperative Evaluation Date, Time and Location Date Performed: 01/04/22 Time Performed: 15:23 Patient Location: Day Surgery Unit Vital Signs Most Recent Imported Vital Signs: Most Recent Vital Signs Temp Pulse Resp BP Pulse Ox 36.5 C 86 18 122/72 95 01/04/22 15:09 01/04/22 15:09 01/04/22 15:09 01/04/22 15:09 01/04/22 15:09 Pain Score Most Recent Pain Score: Most Recent Pain Score Pain Level 0 01/04/22 15:09 Assessment Mental Status: Awake (Alert & Oriented to Patient Baseline) Airway and Respiratory Function: Patent airway with normal (patient baseline) respiratory exam Cardiovascular Function: Hemodynamically Stable Hydration Status: Adequately Hydrated Nausea & Vomiting: No Nausea or Vomiting Pain: Pt. Denies Any Pain Peripheral Nerve Block: Patient did not receive a nerve block
[2022-01-04 15:30] VITALS: BP 129/83; PULSE 77; RESP 20; TEMP 36.8; O2SAT 96
--- NOTE | 2022-01-04 21:02 | W.PM.OP ---
Date of service: 01/04/22 Time of Service: 14:40 Operative Note Operative Note DATE OF PROCEDURE: 01/04/22 PRE-OP DIAGNOSIS: Right Carpal Tunnel Syndrome and Right Trigger Thumb POST-OP DIAGNOSIS: same PROCEDURE: Right Endoscopic Carpal Tunnel Release and Right Trigger Thumb Release SURGEON: Ezio Gonzales ANESTHESIA TYPE: General:No Airway Refer to Anesthesia Record ESTIMATED BLOOD LOSS: 0 PATHOLOGY: none sent TOURNIQUET TIME: 10 COMPLICATIONS: None Patient was transported to: same day Patient's condition: stable Indications: I have seen Jasmine in clinic for symptoms of carpal tunnel syndrome and a right trigger thumb. The numbness, tingling, and pain limited function. Clinical exam findings with nerve conduction tests confirmed the diagnosis of carpal tunnel syndrome. Nonoperative measures such as bracing, time, activity modifications had been tried but disability and pain persisted. I discussed carpal tunnel release with the patient. I reviewed the risks of the procedure to include, but not limited to, bleeding, infection, pain, stiffness, incomplete release, damage to nerves or vessels, persistent numbness, recurrence. Despite these risks, the patient elected to proceed. Findings: There was a tightened carpal tunnel. This was dilated and released successfully with the endoscopic with increased space within the tunnel. The antebrachial fascia was released proximally freeing the median nerve at the wrist. The A1 macie of the thumb was released without difficulty. Procedure Description: Jasmine was greeted in the preoperative holding area where the correct side was identified and marked. The consent was reviewed with the patient and signed. The history and physical was updated. All questions were answered. He was taken back to the operating room. The patient was placed into the supine position on the operating room table with the right arm on an arm board. A nonsterile tourniquet was placed high onto the arm. All bony prominences were well padded. Prophylactic antibiotics in the form of Cefazolin were administered. The right arm was then prepped with Chloraprep and draped in a standard fashion with stockinette and extremity drape. A timeout to confirm correct identity, side and site, procedure, allergies, anesthesia, and medical concerns was performed. The surgical site was marked in the volar wrist creases in line with the radial border of the fourth ray as well as overlying the A1 macie of the thumb. These two areas were anesthetized with approximately 10cc of 1% Lidocaine. The limb was then exsanguinated with an Esmarch. Starting with the carpal tunnel, the skin was incised with a 15 blade, approximately 1cm. The skin only was cut and the deeper tissue was dissected bluntly with a tenotomy scissor, avoiding passing nerve and venous structures. The fascia was penetrated and opened bluntly. A two-prong skin hook was placed under this proximal fascial edge. A series of hamate finders were used to identify and dilate the carpal tunnel. Synovial elevator was used to free synovial attachments to the underside of the transverse carpal ligament. My thumb was kept in the palm to jasmine the distal extent of the carpal tunnel and correctly position the hand. The Microaire endoscope was inserted without difficulty and without resistance. Excellent visualization showed horizontally running fibers of the transverse carpal ligament (TCL). The distal extent of the TCL was visualized and the end of the scope palpated with the thumb. The blade was elevated and withdrawn from distal to proximal. The TCL was split into two flaps. The endoscope was reinserted to confirm complete release and any remnant ligament was incised. The scope was withdrawn and the proximal aspect of the carpal tunnel was grossly inspected and appeared release with the median nerve visible. The antebrachial fascia at the level of the wrist was then freed from the overlying skin and then the underlying median nerve with blunt dissection. This was transected longitudinally for about 3cm proximal to the wrist incision. The wound was then irrigated with easy flow of irrigant distally and proximally. The incision was closed with a single 4-0 Nylon suture. Attention was then turned to the trigger thumb. A longiudinal incision was made over lying the A1 macie. The skin was incised and the deeper tissues were bluntly dissected to expose the A1 macie. The macie was then incised with a tenotomy scissor. Derek was inspected proximally and distally. THere were no other sites of compression. The tendon was removed from the wound and insepected. The wound was then irrigated. The wound was closed with a 4-0 Nylon. The wounds were dressed with Xeroform, Gauze, Kerlix and Brandon. The tourniquet was deflated with the initial dressing and held with some pressure. Blood flow returned easily to all digits with capillary refill less than 2 seconds. The patient tolerated the procedure well and was returned to the Same Day Surgery area in a stable condition suffering no known complication.
== END 2022-01-04 16:03 | disposition home or self-care (01) ==
LOC: SUR 11:49
PROVIDERS: PCP Nurse Practitioner Family; Visit Provider Student in an Organized Health Care Education/Training Program
PROC: 01N54ZZ Release Median Nerve, Percutaneous Endoscopic Approach (ICD-10-PCS; CPT 29848; principal; 2022-01-04 14:15)
DX: M65.311 Trigger thumb, right thumb (principal); G56.01 Carpal tunnel syndrome, right upper limb; I10 Essential (primary) hypertension; R73.03 Prediabetes; E78.5 Hyperlipidemia, unspecified
CPT/HCPCS: 29848; 26055; J0690; J1885; J2001

== ENCOUNTER 2022-09-14 15:38 | Outpatient (REF) | payer MEDICAID, SELFPAY ==
[2022-09-14 14:52] LABS: HCT 41.3 % (40.0-50.0); MCHC 36.3 % (32.0-36.0); MCV 99 fL (80-95); MPV 10.4 fL (8.0-11.0); Platelet Count 262 10^3/uL (130-400); RBC 4.17 10^6/uL (4.36-5.78); RDW 15.8 % (11.8-14.1); RDW-SD 57.6 fL; WBC 6.66 10^3/uL (4.4-10.8)
[2022-09-14 15:26] LABS: ALT 59 U/L (16-63); AST 51 U/L (15-37); Albumin 4.3 g/dL (3.4-5.0); Alkaline Phosphatase 65 U/L (46-116); Anion Gap 8.5 mmol/L (3-11); BUN 6 mg/dL (7-18); Bilirubin, Total 0.5 mg/dL (0.2-1.0); CO2 27.5 mmol/L (21.0-32.0); CREATININE 0.6 mg/dL (0.70-1.30); Calcium 9.1 mg/dL (8.5-10.1); Chloride 96 mmol/L (98-107); Estimated GFR 109.14 (mL/min/1.73m2); Glucose 87 mg/dL (74-106); Magnesium 2.1 mg/dL (1.8-2.4); Potassium 4.2 mmol/L (3.5-5.1); Sodium 132 mmol/L (136-145); Total Protein 7.6 g/dL (6.4-8.2)
[2022-09-15 09:37] LABS: HIV-1/2 Ag & Ab Screen Negative (Negative)
[2022-09-15 09:38] LABS: Hepatitis C Ab w Rflx HCV PCR Negative (Negative)
[2022-09-15 11:59] LABS: Syphilis Serology (RPR) Negative (Negative)
[2022-09-15 16:03] LABS: Chlamydia Result Negative (Negative); GC Result Negative (Negative)
== END 2022-09-14 15:39 | disposition home or self-care (01) ==
LOC: NCHCN 15:38
PROVIDERS: PCP Nurse Practitioner Family; Visit Provider Nurse Practitioner Family
DX: D72.829 Elevated white blood cell count, unspecified (principal); R73.03 Prediabetes; F10.10 Alcohol abuse, uncomplicated; I10 Essential (primary) hypertension; Z11.3 Encounter for screening for infections with a predominantly sexual mode of transmission; Z11.4 Encounter for screening for human immunodeficiency virus [HIV]; Z11.59 Encounter for screening for other viral diseases
CPT/HCPCS: 80053; 85027; 86803; 87389; 87491; 87591; 82746; 83735; 86592

== ENCOUNTER 2022-10-20 09:29 | Outpatient (CLI) | payer MEDICAID, SELFPAY ==
--- NOTE | 2022-10-20 09:15 | RT.EKG_ITS ---
APPROVED REPORT Exam: Resting ECG Reason for Exam: CAD Patient Location: O HR:80 bpm ECG Measurements Heart Rate 80 AXIS IN 186 P 72 QRSd 135 QRS 64 QT 407 T -6 QTc 470 Conclusion Sinus rhythm...normal P axis, V-rate 50- 99 Right bundle branch block...QRSd>120, terminal axis(90,270) Voltage for left ventricular hypertrophy
== END 2022-10-20 09:30 | disposition home or self-care (01) ==
LOC: DI.CARD 09:48
PROVIDERS: PCP Nurse Practitioner Family; Visit Provider Internal Medicine Cardiovascular Disease
DX: I25.10 Atherosclerotic heart disease of native coronary artery without angina pectoris (principal); R94.31 Abnormal electrocardiogram [ECG] [EKG]; I45.19 Other right bundle-branch block
CPT/HCPCS: 93010

== ENCOUNTER 2023-01-08 14:13 | Outpatient (CLI) | payer MEDICAID, SELFPAY ==
--- NOTE | 2023-01-08 14:00 | DI.RAD_ITS ---
Exam(s) XR SHOULDER RT COMPLETE 2+V EXAM: XR SHOULDER RT COMPLETE 2+V CLINICAL HISTORY: right shoulder pain. TECHNIQUE: 2D digital imaging was performed. Two views. COMPARISON: CR XR shoulder RT complete 2+V from 09/18/2018 CR XR shoulder LT complete 2+V from 02/26/2019 CR XR SHOULDER LT COMPLETE 2+V from 01/08/2023 FINDINGS: BONES: No acute fracture is present. No bony destructive lesion is seen. JOINTS: No dislocation present. Mild spurring at AC joint. Spurring at the undersurface of the acro mion and greater tuberosity. Minimal glenoid spurring. SOFT TISSUE: Normal. IMPRESSION: Stable degenerative changes. DATA REPOSITORY: RADIATION DOSE DELIVERED:
--- NOTE | 2023-01-08 14:00 | DI.RAD_ITS ---
Exam(s) XR SHOULDER LT COMPLETE 2+V EXAM: XR SHOULDER LT COMPLETE 2+V CLINICAL HISTORY: left shoulder pain. TECHNIQUE: 2D digital imaging was performed. Two views. COMPARISON: CR XR shoulder LT complete 2+V from 02/26/2019 FINDINGS: BONES: No acute fracture is present. No bony destructive lesion is seen. Old nonunited fracture of t he distal clavicle. Spurring at the tip of the acromion. JOINTS: No dislocation present. Glenohumeral joint space is maintained. Minimal spurring at the gle noid. SOFT TISSUE: Normal. IMPRESSION: No acute abnormality. DATA REPOSITORY: RADIATION DOSE DELIVERED:
== END 2023-01-08 14:14 | disposition home or self-care (01) ==
LOC: DIORS 14:14
PROVIDERS: PCP Nurse Practitioner Family; Referring Provider Nurse Practitioner Family; Visit Provider Physician Assistant
DX: M19.011 Primary osteoarthritis, right shoulder (principal); M75.81 Other shoulder lesions, right shoulder; S42.002K Fracture of unspecified part of left clavicle, subsequent encounter for fracture with nonunion
CPT/HCPCS: 73030

== ENCOUNTER → 2023-11-05 01:17 | Outpatient (CLI) | payer MEDICAID, SELFPAY ==
[2023-11-05 09:30] LABS: CREATININE 0.9 mg/dL (0.70-1.30); Estimated GFR 95.97 (mL/min/1.73m2)
--- NOTE | 2023-11-05 10:00 | DI.CT_ITS ---
Exam(s) CT THORAX CTA EXAM: CT THORAX CTA CLINICAL HISTORY: Dilated ascending aorta,HYPERTENSION,I77.810. TECHNIQUE: Imaging Protocol: Axial CT angiography was performed with multi-slice acquisition and mu lti-planar and/or 3D reconstructions. CONTRAST MATERIAL: Intravenous: Omnipaque 350 contrast volume:100 mL COMPARISON: CT CHEST ABD PELVIS WITH CONTRAST from 04/08/[address] CHEST LUNG CANCER SCREEN from 07/28/2021 FINDINGS: The examination is limited due to patient motion artifact. Tracheobronchial tree: Patent where visualized. Pulmonary parenchyma: There is again seen a small bleb in the left apex. No focal consolidating infi ltrates are seen. Atelectasis or scarring is seen in the lung bases. No pulmonary nodules are present . Pulmonary Arteries: No evidence of filling defect to suggest pulmonary emboli. Mediastinum and Karen: No dominant adenopathy or fluid collection. The esophagus is unremarkable. Visualized thyroid gland: Unremarkable. Pleura: No effusion or pneumothorax. Heart: The heart is not dilated. Coronary artery calcification is present. No pericardial effusion. Aorta: The ascending thoracic aorta measures 4.1 x 3.5 cm. This compares to 4 cm on the prior examina tion. No evidence of dissection. Atherosclerosis. Upper abdomen: Unremarkable. Soft tissues: Unremarkable. Bones: Within normal limits for the patient's age.Old healed bilateral rib fractures. IMPRESSION: 1. Ascending thoracic aorta measuring 4.1 x 3.5 cm. This compares to 4 cm on the prior examination. 2. No acute pulmonary process. RADIATION DOSE DELIVERED: Total DLP Total DLP DATA REPOSITORY: All CT scans at this facility are submitted to the National Radiology Data Registry (NRDR) Dose Index Registry (DIR) with the [employer] (ACR). RADIATION OPTIMIZATION: All CT scans at this facility use at least one of these dose optimization te chniques: automated exposure control; mA and/or kV adjustment per patient size (includes targeted exa ms where dose is matched to clinical indication); or iterative reconstruction.
[2023-11-05] MEDS: Normal Saline - Diluent 50 ML VIAL IJ (10:09)
[2023-11-05] MEDS: Omnipaque 350 MG/ML 500 ML BTL-Imaging package 100 ML IJ (10:11)
== END ==
PROVIDERS: PCP Nurse Practitioner Family; Visit Provider Internal Medicine Cardiovascular Disease
DX: Z01.812 Encounter for preprocedural laboratory examination (principal); I10 Essential (primary) hypertension; I77.810 Thoracic aortic ectasia
CPT/HCPCS: 71275; 82565

== ENCOUNTER → 2023-11-30 02:32 | Outpatient (CLI) | payer MEDICAID, SELFPAY ==
--- NOTE | 2023-11-30 07:45 | DI.US_ITS ---
APPROVED REPORT EXAM: Comprehensive 2D, Doppler, and color-flow Echocardiogram Patient Location: Out-Patient Stock Driver: Lucien Eller RDCS (AE) Indications: dilated ascending aorta Conclusion 1. LA upper limits, other chambers normal sizes. 2. Normal LV function EF 60-65%.Normal RV function. 3. Anatomically normal valves. Mild MR,TR without phtn. 4. Normal aortic root. Mildly dilated ascending aorta. 5. No pericardial effusion. Wall motion Left Ventricle The left ventricle is normal size. The left ventricular systolic function is normal. The left ventric ular ejection fraction is within the normal range. There is normal left ventricular wall thickness. T here is normal LV segmental wall motion. There is no ventricular septal defect visualized. LVEF is 57 -60%. Right Ventricle The right ventricle is normal size. Right ventricular systolic function is grossly normal. Atria Left atrium is borderline dilated. The right atrium size is normal. The interatrial septum is intact with no evidence for an atrial septal defect. Aortic Valve The aortic valve is normal in structure. Aortic valve is trileaflet. There is no aortic valvular sten osis. No aortic regurgitation is present. Mitral Valve The mitral valve is normal in structure. No evidence of mitral valve stenosis. Mild mitral regurgitat ion. Tricuspid Valve The tricuspid valve is normal in structure. There is no tricuspid valve stenosis. Moderate tricuspid regurgitation.The RVSP is 29.0 mmHg. Pulmonic Valve The pulmonary valve is normal in structure. There is no pulmonic valvular stenosis. There is no pulmo mayela valvular regurgitation. Great Vessels The aortic root is normal in size. The ascending aorta is mildly dilated. Aortic arch is normal in ca liber. IVC is normal in size and collapses >50% with inspiration. Pericardium There is no pericardial effusion. 2D Dimensions IVSD d PLAX 0.93 cm M: 0.6-1.2 Ao Root d 3.50 cm M: 3.1 - 3.7 LVPW d PLAX 0.94 cm M: 0.6 - 1.2 Ao Asc Diam d 3.75 cm M: 2.6 - 3.4 LVID d PLAX 4.84 cm M: 4.2 - 5.8 LVDs 3.31 cm M: 2.5 - 4.0 LV EF Teichholz 59.6 % FS 31.70 % LV EDV (Teich) 109.6 mL LV ESV (Teich) 44.3 mL Stroke Vol Index (Teich) 34.74 M-Mode TAPSE 1.52 cm (M/F) >1.7 Auto EF LV EDV A4C 110.4 mL LV EDV A2C 100.5 mL LV EDV BP 107.1 mL LV ESV A4C 47.5 mL LV ESV A2C 40.4 mL LV ESV BP 43.4 mL LVEF(%) A4C 56.9 % LVEF(%) A2C 59.8 % LVEF(%) BP 59.5 % LV SV A4C 62.9 ml LV SV A2C 60.1 ml LV SV BP 63.7 ml LV CO A4C 4.5 L/min LV CO A2C 4.1 L/min LV CO BP 4.3 L/min HR A4C 71.71 BPM HR A2C 67.80 BPM LV EDV Index (BP) LA Volume LA Length A4C 4.3 cm LA Length A2C 4.7 cm LA Area A4C s 14.13 cm2 LA Area A2C s 12.75 cm2 LA Vol A4C A-L 39.47 mL LA Vol A2C A-L 29.48 mL LA Vol Biplane A-L 35.6 mL LA Vol/BSA A4C A-L LA Vol/BSA A2C A-L LA Vol/BSA BP A-L 18.9 mL/m2 LA Vol A4C MOD 36.6 mL LA Vol A2C MOD 27.8 mL LA Vol BP MOD 32.8 mL RA Volume RA Area A4C 11.3 cm2 RA ESV A4C (A-L) 22.5mL RA Vol/BSA A4C A-L RA Length A4C 4.8 cm RA ESV A4C (MOD) 21.3mL LV Diastology MV E' medial 0.064 (>0.07 m/s) MV E Vmax 0.68 (0.4-1.3 m/s) MV E/E' MED 10.72 (<14) MV A Vmax 0.70 (0.4-1.3 m/s) MV E' lateral 0.086 (>0.1 m/s) E/A Ratio 1.0 MV E/E' LAT 7.98 (<14) MV E' Average 0.075 m/s MV E/E'(average) 9.15 Aortic Valve AoV Vmax 1.28 m/s LVOT Vmax 0.82 m/s AoV Peak Grad 6.5 mmHg LVOT Peak Grad 2.7 mmHg AoV Area (Vmax) 1.63 cm2 LVOT VTI 0.197 m AoV VTI 0.316 m LVOT Mean Grad 1.4 mmHg AoV Mean Leonidas. 0.89 m/s LVOT SV 50.31 mL AoV Mean Grad 3.6 mmHg LVOT Diam s 1.80 cm AoV Area (VTI) 1.59 cm2 Velocity Ratio 0.64 Mitral Valve MV DT 158 (160-240 msec) Pulmonary Valve PV Vmax 0.67 (0.5-1.5 m/s) RVOT Vmax 0.65 m/s PV Peak Grad 1.8 mmHg RVOT Peak Gr. 1.7 mmHg PV Mean Leonidas 0.49 m/s RVOT VTI 0.133 m PV Mean Grad 1.1 mmHg RVOT Mean Gr. 1.0 mmHg Tricuspid Valve RA Pressure 3.00 mmHg TR Vmax 2.55 m/s TR Peak Grad 26.0 mmHg RVSP (TR) 29.0 mmHg
== END ==
PROVIDERS: PCP Nurse Practitioner Family; Visit Provider Internal Medicine Cardiovascular Disease
DX: I10 Essential (primary) hypertension (principal); I77.810 Thoracic aortic ectasia
CPT/HCPCS: 93306

== ENCOUNTER 2024-06-01 12:12 | Observation (INO) | payer MEDICAID, SELFPAY ==
[2024-06-01] VITALS (31 sets, daily range): BP systolic 93–171; BP diastolic 60–83; PULSE 85–98; RESP 12–26; TEMP 36–39.6; O2SAT 91–97; BMI 25.0
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
--- OUTSIDE RECORDS SUMMARY | 2024-06-01 12:28 | XMS_ITS | Encounter Summary ---
Author Organization [facility] Address [facility] [place] [address] Care Team Providers Care Bridge Expert Name Role Phone Madison Tineo APRN Primary Care Provider Reason for Visit * Reason Comments Medication Refill Encounter Details Date Type Department Care Team (Late st Contact Info) Description 05/17/2021 Refill Dermatology at [address] [facility] [place] [id number] Yariel Bowles MD [address] [facility] DER[facility] [place], [place] [id number] Social History Tobacco Use Types Packs/Day Years Used Date Smoking Tobacco: Some Days Cigarettes Smokeless Tobacco: Current Alcohol Use Standard Drinks/Week Comments Yes 0 (1 standard drink = 0.6 oz pur e alcohol) unknown Sex and Gender Information Value Date Recorded Sex Assigned at Not on file Gender Identity Not on file Sexual Orientation Not on file documented as of this encounter Miscellaneous Notes * Telephone Encounter - Roseanna Terrazas LPN - 05/17/2021 5:23 PM EDT Pt case aide reports the rash is back. Same exact rash. Hasn't started any new medications or changed anything. Not sure why its returned. Wants him to start back on the medication he was takingbefore. Reviewed with Dr. Bowles: Recommendation: Hold Pravastatin for two weeks, then call us back with his progress. Restart Cyclosporin modify 100mg take one capsule by mouth twice daily Disp. 60 No refills Return call to case aide. Reviewed Dr. Reyna recommendations with her. She request medication be sent to [facility] in [place], [place]. Voiced understanding. documented in this encounter Plan of Treatment Not on file documented as of this encounter Visit Diagnoses Not on filedocumented in this encounter Care Teams Bridge Expert Relationship Specialty Start Date End Date Madison Tineo, [employer] [address] [place] [address] PCP - General Family Medicine 01/31/21 documented as of this encounter
--- OUTSIDE RECORDS SUMMARY | 2024-06-01 12:28 | XMS_ITS | Encounter Summary ---
Author Organization [facility] Address [facility] [place] [address] Care Team Providers Care Gum Machine Operator Name Role Phone Izzy Tompkins PROCESSING TALC AND BORATE SUPERVISOR Primary Care Provider Encounter Details Date Type Department Care Team (Latest Contact Info) Description 05/29/2012 9:05 AM EDT - 05/29/2012 11:59 PM EDT Hospital Encounter XRay at [address] [place] [address] Great Toe fracture, right Social History Tobacco Use Types Packs/Day Years Used Date Smoking Tobacco: Some Days Cigarettes Smokeless Tobacco: Current Alcohol Use Standard Drinks/Week Comments No 0 (1 standard drink = 0.6 oz pur e alcohol) Sex and Gender Information Value Date Recorded Sex Assigned at Not on file Gender Identity Not on file Sexual Orientation Not on file documented as of this encounter Medications at Time of Discharge Medication Sig Dispensed Refills Start Date End Date acetaminophen (TYLENOL) 325 mg tablet Take 2 tablets by mouth every 4 hours as needed for Pain. 30 tablet 05/07/2012 chlordiazePOXIDE (LIBRIUM) 5 mg capsule Take 1 capsule by mouth. Take 1 tablet po tid for two days, then take 1 tablet po bid for two days, then stop 10 capsule 0 05/07/2012 06/04/2012 metoprolol tartrate (LOPRESSOR) 50 mg tablet Take 1 tablet by mouth every 8 hours. 60 tablet 0 05/07/2012 05/09/2021 nicotine (NICODERM CQ) 21 mg/[address] 1 patch onto the skin daily. 28 patch 0 05/07/2012 06/04/2012 documented as of this encounter Plan of Treatment Not on file documented as of this encounter Procedures Procedure Name Priority Date/Time Associated Diagnosis Comments XR FOOT MINIMUM 3 VIEWS STAT 05/29/2012 9:23 AM EDT Great Toe fracture, right documented in this encounter Results * XR foot minimum 3 views (05/29/2012 9:23 AM EDT) Anatomical Region Laterality Modality Foot N/A Radiographic Ellen ging 05/29/2012 9:23 AM EDT Narrative 05/29/2012 9:38 AM EDT Examination FOOT MIN 3 VIEWS/RIGHT Clinical History Reason for exam and clinical history: followup right great toe fracture; Comparison 04/23/2012. ?? Findings There is no interval change, specifically in the appearance of the small minimally displaced fracture involving the medial aspect of the base of the 1st distal phalanx. ??No other fracture or traumatic finding is seen. Impression No interval change in fracture involving base of 1st distal phalanx. Procedure Note Josias Irwin MD - 05/29/2012 Examination FOOT MIN 3 VIEWS/RIGHT Clinical History Reason for exam and clinical history: followup right great toe fracture; Comparison 04/23/2012. Findings There is no interval change, specifically in the appearance of the small minimally displaced fracture involving the medial aspect of the base ofthe 1st distal phalanx. No other fracture or traumatic finding is seen. Impression No interval change in fracture involving base of 1st distal phalanx. Joshua Fink MD IMG DX ORDERABLES documented in this encounter Visit Diagnoses Diagnosis Great Toe fracture, right Closed fracture of one or more phalanges of foot documented in this encounter Care Teams Gum Machine Operator Relationship Specialty Start Date End Date Izzy Tompkins APRN [address] [place] [address] PCP - General 05/23/12 02/13/13 documented as of this encounter
--- OUTSIDE RECORDS SUMMARY | 2024-06-01 12:28 | XMS_ITS | Encounter Summary ---
Author Organization [facility] [place] [address] Care Team Providers Care Home Companion Name Role Phone Madison Tineo APRN Primary Care Provider [phone] Reason for Visit * Reason Comments Skin Check * Consultation (Routine) - Specialty Diagnoses / Procedures Referred By Adan estrada Referred To Contact Dermatology Diagnoses Dermatitis, unspecified Generalized skin eruption due to drugs and medicaments taken internally Dermatitis, Drug Eruption; New Patient-Notes Received Procedures Consult Madison Tineo APRN [address] [place] [address] [place] [address] Yariel Bowles MD [address] [place] [address] [place] [address] Referral ID Status Reason Start Date Expiration Date V isits Requested Visits Authorized [id number] Consult, Test & Treat PCP Updated and/or Approved 01/27/2021 07/30/2021 6 6 Encounter Details Date Type Department Care Team (Late st Contact Info) Description 01/31/2021 11:15 AM EDT Office Visit Dermatology at [address] [phone] Yariel Bowles MD [address] [place] [address] [place] [address] Dermatitis Social History Tobacco Use Types Packs/Day Years [...] as of this encounter Progress Notes * Yariel Bowles MD - 01/31/2021 11:15 AM EDT Problem: New patient, initial visit, possible drug eruption Vipin is a 68-year-old gentleman who comes today with his life skills aid Annika. He states that about the last 2 months he been having a rash that is now confluent over his back and are present on his chest and arms. His primary present from the waist up. He was given triamcinolone to use for thisbut has not been helpful. It was thought to be due to lisinopril and that was held at this point nosubsequent improvement in his condition. Patient been through 2 courses of prednisone each about 2 weeks in length but without lasting improvement. A punch biopsy was done and sent to [facility] and this apparently showed superficial perivascular dermatitis with spongiosis and interface inflammation. Patient is seen in consultation today for Madison Tineo APRN Physical examination reveals a 68-year-old gentleman who has confluent erythema and papulosquamous dermatitis of the entire upper back. He has patchy involvement on his arms and chest. His legs and face are spared. He has no involvement over the elbows or knees. Assessment plan: Papulosquamous dermatitis of 2 months duration 1. Pruritic, and steroid responsive 2. Today begin cyclosporine modified 100 mg take 1 p.o. nightly for a week, then 1 p.o. twice daily. Dispense #30 with 0 refills 3. Today punch biopsy obtained from right arm. Differential can certainly include allergic drug eruption allergic contact dermatitis, or psoriasis triggered by lisinopril. 4. Return to clinic in 2 weeks for suture removal and biopsy results. CC: Madison Tineo APRN documented in this encounter Plan of Treatment Not on file documented as of this encounter Visit Diagnoses Diagnosis Dermatitis Contact dermatitis and other eczema, due to unspecified cause documented in this encounter Care Teams Home Companion Relationship Specialty Start Date End Date Madison Tineo APRN [address] [place] [address] PCP - General Family Medicine 01/31/21 documented as of this encounter
--- OUTSIDE RECORDS SUMMARY | 2024-06-01 12:28 | XMS_ITS | Encounter Summary ---
Author Organization [facility] [place] [address] Care Team Providers Care Development Technologist Name Role Phone Madison Tineo APRN Primary Care Provider [phone] Encounter Details Date Type Department Care Team (Late st Contact Info) Description 02/14/2021 Refill Dermatology at [address] [place] [phone] Roseanna Terrazas, CRYPTOLOGIC TECHNICIAN Social History Tobacco Use Types Packs/Day Years Used Date Smoking Tobacco: Some Days Cigarettes Smokeless Tobacco: Current Alcohol Use Standard Drinks/Week Comments No 0 (1 standard drink = 0.6 oz pur e alcohol) Sex and Gender Information Value Date Recorded Sex Assigned at Not on file Gender Identity Not on file Sexual Orientation Not on file documented as of this encounter Plan of Treatment Not on file documented as of this encounter Visit Diagnoses Not on filedocumented in this encounter Care Teams Development Technologist Relationship Specialty Start Date End Date Madison Tineo APRN [address] [place] [address] PCP - General Family Medicine 01/31/21 documented as of this encounter
--- OUTSIDE RECORDS SUMMARY | 2024-06-01 12:28 | XMS_ITS | Encounter Summary ---
[place] [address] Care Team Providers Care Load Dispatcher Local Name Role Phone Madison Tineo APRN Primary Care Provider [phone] Reason for Visit * Reason Comments Medication Refill Encounter Details Date Type Department Care Team (Late st Contact Info) Description 05/20/2021 Refill Dermatology at [address] [facility] [place] [address] Yariel Bowles MD [address] [facility] [place] [address] Social History Tobacco Use Types Packs/Day Years [...] on filedocumented in this encounter Care Teams Load Dispatcher Local Relationship Specialty Start Date End Date Madison Tineo APRN [address] [place] [address] PCP - General Family Medicine 01/31/21 documented as of this encounter
--- OUTSIDE RECORDS SUMMARY | 2024-06-01 12:28 | XMS_ITS | Encounter Summary ---
Author Organization [facility] [place] [address] Care Team Providers Care Clinical Support Nurse Name Role Phone Madison Tineo APRN Primary Care Provider [phone] Encounter Details Date Type Department Care Team (Latest Contact Info) Description 01/31/2021 9:33 PM EDT - 01/31/2021 11:59 PM EDT Hospital [place] [address] Discharge Disposition: Home Social History Tobacco Use Types Packs/Day Years [...] Sig Dispensed Refills Start Date End Date hydrOXYzine (ATARAX) 50 mg Tablet TAKE 1 TABLET BY MOUTH THREE TIMES DAILY NEEDED FOR ITCHING 01/21/2021 pravastatin (Pravachol) 20 mg Tablet TAKE 1 TABLET BY MOUTH AT BEDTIME 12/01/2020 triamcinolone (KENALOG) 0.1 % Cream APPLY EXTERNALLY TO THE AFFECTED AREA TWICE DAILY 12/30/2020 amLODIPine (Norvasc) 10 mg Tablet TAKE 1 TABLET BY MOUTH EVERY DAY 01/29/2021 fluticasone propionate (FLOVENT) 44 mcg/actuation HFA Aerosol Inhaler Inhale into the lungs. 01/19/2020 acetaminophen (TYLENOL) 325 mg tablet Take 2 tablets by mouth every 4 hours as needed for Pain. 30 tablet 05/07/2012 lisinopriL (PRINIVIL;ZESTRIL) 30 mg Tablet TK 1 T PO QD 10/08/2020 05/09/2021 cycloSPORINE modified (Neoral) 100 mg Capsule Take one capsule by mouth nightly for one week then one capsule by mouth twice daily 30 capsule 02/10/2021 02/14/2021 metoprolol tartrate (LOPRESSOR) 50 mg tablet Take 1 tablet by mouth every 8 hours. 60 tablet 0 05/07/2012 05/09/2021 documented as of this encounter Plan of Treatment Not on file documented as of this encounter Procedures Procedure Name Priority Date/Time Associated Diagnosis Comments SURGICAL PATHOLOGY REPORT Routine 01/31/2021 12:00 PM EDT documented in this encounter Results * Surgical Pathology Report (01/31/2021 12:00 PM EDT) Surgical Pathology Report [id number] ? Location: [facility] The signing pathologist has (i) examined the relevant preparation(s) for the specimen(s) and (ii) rendered or confirmed the diagnosis(es). . ?Surgical Pathology DIAGNOSIS Right arm, skin punch ?? biopsy: - ??Spongiotic dermatitis with eosinophils (see discussion) Electronically signed by: ??Harvey Stewart MD Verified: ??02/07/2021 ?Dermatopatholog ist Performed at: ??-[facility] Dept. of Pathology, [place], [place] DISCUSSION The findings could be compatible with an atopic, allergic contact, or spongiotic drug reaction. Features of psoriasis are not identified. ADDITIONAL STUDIES PASd staining was performed to assess for the possibility of fungal infection, and was negative for intracorneal fungal elements. ?Multiple step-leveled sections were reviewed. SPECIMEN(S) SUBMITTED A - R arm, skin punch (1) CLINICAL INFORMATION Two-month history of pruritic papulosquamous dermatitis contiguous over back, patchy involvement ??arm/chest steroid responsive clinical diagnosis: Spongiotic dermatitis/ allergic drug eruption/psoriasi s SPECIMEN PROCESSING A - Labeled/Fixative: Patient demographics, formalin. Quantity/Size: ??Single, 0.4 cm in diameter, excised to a depth of 0.4 cm. Tissue Description: Goldman-pink skin punch. Sections/Processi ng: Bisected and entirely submitted in 1 cassette labeled A1. ??ajw [facility] 01/31/2021 12:0 0 PM EDT Yariel Bowles MD PATHOLOGY/CYTOLOGY O RDERABLES [facility] [place] [address] documented in this encounter Visit Diagnoses Not on filedocumented in this encounter Care Teams Clinical Support Nurse Relationship Specialty Start Date End Date Madison Tineo, GENET [address] [place] [address] PCP - General Family Medicine 01/31/21 documented as of this encounter
--- OUTSIDE RECORDS SUMMARY | 2024-06-01 12:28 | XMS_ITS | Encounter Summary ---
Author Organization [facility] [place] [address] Care Team Providers Care Chef Passenger Vessel Name Role Phone Madison Tineo APRN Primary Care Provider [phone] Encounter Details Date Type Department Care Team (Late st Contact Info) Description 01/31/2021 Refill Dermatology at [address] [place] [phone] Roseanna Terrazas, MD ALLERGY IMMUNOLOGY Social History Tobacco Use Types Packs/Day Years [...] on filedocumented in this encounter Care Teams Chef Passenger Vessel Relationship Specialty Start Date End Date Madison Tineo APRN [address] [place] [address] PCP - General Family Medicine 01/31/21 documented as of this encounter
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
--- OUTSIDE RECORDS SUMMARY | 2024-06-01 12:28 | XMS_ITS | Encounter Summary ---
Author Organization [facility] [place] [address] Care Team Providers Care Fuel Dock Attendant Name Role Phone Madison Tineo APRN Primary Care Provider [phone] Encounter Details Date Type Department Care Team (Late st Contact Info) Description 05/25/2021 Telephone Dermatology at [address] [address] Roseanna Terrazas LPN Social History Tobacco Use Types Packs/Day Years [...] Telephone Encounter - Roseanna Terrazas LPN - 05/25/2021 9:41 AM EDT Called nurse outreach case manager/pt for update: Annika & pt reports the rash is going away. No more pain. Stopped Pravastatin on 05/17/21. Currently taking cyclosporin [address] Bowles updated. documented in this encounter Plan of Treatment Not on file documented as of this encounter Visit Diagnoses Not on filedocumented in this encounter Care Teams Fuel Dock Attendant Relationship Specialty Start Date End Date Madison Tineo APRN [address] [place] [address] PCP - General Family Medicine 01/31/21 documented as of this encounter
--- OUTSIDE RECORDS SUMMARY | 2024-06-01 12:28 | XMS_ITS | Encounter Summary ---
[place] [address] Care Team Providers Care Maintenance Engineer Name Role Phone Noman Madison GENET Primary Care Provider [phone] Reason for Referral * Consultation (Routine) - Authorized Specialty Diagnoses / Procedures Referred By Adan estrada Referred To Contact Ophthalmology Diagnoses Ptosis of eyelid, bilateral María Silva APRN [address] [place] [address] [facility] Ophthalmology [address] [place] [phone] Referral ID Status Reason Start Date Expiration Date Visits Requested Visits Authorized [id number] Authorized Consult, Test & Treat PCP Updated and/or Approved 06/22/2023 06/22/2024 12 12 Encounter Details Date Type Department Care Team (Latest Contact Info) Description 06/28/2023 Transcribe Orders eDH Incoming Referrals [phone] María Silva APRN [address] [place], [place] [id number] Ptosis of eyelid, bilateral Social History Tobacco Use Types Packs/Day Years [...] as of this encounter Plan of Treatment Scheduled Referrals Name Type Priority Associated Diagnoses Order Schedule Referral to Ophthalmology Outpatient Referral Routine Ptosis of eyelid, bilateral Ordered: 06/28/2023 documented as of this encounter Visit Diagnoses Diagnosis Ptosis of eyelid, bilateral Unspecified ptosis of eyelid documented in this encounter Care Teams Maintenance Engineer Relationship Specialty Start Date End Date Madison Tineo, BAG INSPECTOR [address] [place] [address] PCP - General Family Medicine 01/31/21 documented as of this encounter
--- OUTSIDE RECORDS SUMMARY | 2024-06-01 12:28 | XMS_ITS | Encounter Summary ---
Author Organization [facility] [place] [address] Care Team Providers Care Teacher Of The Visually Impaired Name Role Phone Madison Tineo APRN Primary Care Provider [phone] Encounter Details Date Type Department Care Team (Late st Contact Info) Description 05/26/2021 Telephone Dermatology at [address] [place] [address] Roseanna Terrazas LPN Social History Tobacco [...] Telephone Encounter - Roseanna Terrazas LPN - 05/26/2021 8:[address] Bowles request patient finish course of cyclosporin then D/C. Do NOT restart pravastatin. Return to clinic in 1.5 months. Return call to manager rn case Annika. Reviewed above information with her. Appointment scheduled forJuly 18. Voiced understanding. documented in this encounter Plan of Treatment Not on file documented as of this encounter Visit Diagnoses Not on filedocumented in this encounter Care Teams Teacher Of The Visually Impaired Relationship Specialty Start Date End Date Madison Tineo APRN [address] [place] [address] PCP - General Family Medicine 01/31/21 documented as of this encounter
--- OUTSIDE RECORDS SUMMARY | 2024-06-01 12:28 | XMS_ITS | Encounter Summary ---
Author Organization [facility] [place] [address] Care Team Providers Care Refractory Manager Name Role Phone Madison Tineo APRN Primary Care Provider [phone] Reason for Visit * Reason Comments Follow-up Encounter Details Date Type Department Care Team (Late Contact [facility]) Description 02/14/2021 10:00 AM EDT Office Visit Dermatology at [address] [place] [address] Yariel Bowles MD [address] [place] [address] [place] [address] Dermatitis Social History Tobacco Use Types Packs/Day [...] Progress Notes * Yariel Bowles MD - 02/14/2021 10:00 AM EDT Problem: Follow-up pruritic dermatitis of 2 months duration Vipin follows up with Annika his life skills aide. The punch biopsy from his right arm came back showing spongiotic dermatitis with eosinophils, consistent with possible atopic allergic contact or spongiotic drug eruption. Review of the patient's medications reveals that he has been on all of his current meds since late 2018: Amlodipine, metoprolol, pravastatin and fluticasone propionate. He has been taking cyclosporine 100 mg 1 p.o. first once daily for a week then 1 p.o. twice daily thereafter. His itching is much better and the erythema is decreased but not cleared. He was given 2 tapering courses of prednisone: In November 23 and in January 05. His alcohol intake remains high according to his life skills aid. Physical examination reveals a pleasant 60-year-old gentleman who still has patches of spongiotic dermatitis on the flanks becoming confluent over the arms his back and upper chest. It is less erythematous. His legs and face again are spared. Assessment and plan: Spongiotic dermatitis with eosinophils 1. Continue cyclosporine 100 mg 1 p.o. twice daily blood pressure today was 122/76. Will dispense #60 with 1 refill 2. Continue all current meds. If no improvement by time of return visit in 1 month, will then suggest holding patient's pravastatin. 3. Again reviewed all of patient's current creams lotions soaps and none of these are suspicious astriggers/allergens for his current dermatitis. 4. Return to clinic in 1 month for repeat check. CC: Madison Tineo APRN documented in this encounter Plan of Treatment Not on file documented as of this encounter Visit Diagnoses Diagnosis Dermatitis Contact dermatitis and other eczema, due to unspecified cause documented in this encounter Care Teams Refractory Manager Relationship Specialty Start Date End Date Madison Tineo APRN [address] [place] [address] PCP - General Family Medicine 01/31/21 documented as of this encounter
--- OUTSIDE RECORDS SUMMARY | 2024-06-01 12:28 | XMS_ITS | Encounter Summary ---
Author Organization [facility] [place] [address] Care Team Providers Care Babbitter Name Role Phone Madison Tineo APRN Primary Care Provider [phone] Reason for Visit * Reason Comments Dermatitis Encounter Details Date Type Department Care Team (Late st Contact Info) Description 05/09/2021 4:45 PM EDT Office Visit Dermatology at [address] [phone] Yariel Bowles MD [address] [facility] DERMATOLOGY [place], [place] [id number] Dermatitis Social History Tobacco Use Types Packs/Day [...] Progress Notes * Yariel Bowles MD - 05/09/2021 4:45 PM EDT Problem: 1. Follow-up pruritic dermatitis since November 2020 2. Punch biopsy showed spongiotic dermatitis with eosinophils Vipin follows up today with his life skills aide, Annika. He has been off cyclosporine now for about a week. He has not had any itching for some time. He remains on metoprolol pravastatin amlodipine and Flovent, meds that he has been on for the last 3 years. Lisinopril was stopped a number of months ago. Physical examination reveals a pleasant 60-year-old gentleman who has some erythema present on the upper back extending down but decreasing inferiorly and clearing before the mid back. He has no dermatitis on the chest. His arms are clear. Has been getting some sun and this has been certainly helping his skin. Assessment and plan: Spongiotic dermatitis with eosinophils 1. Discontinue cyclosporine 2. Continue all current meds 3. If pruritus recurs will hold pravastatin 4. Patient has not been using any creams or lotions recently 5. Exact etiology of pruritus/dermatitis remains somewhat of a mystery. CC: Madison Tineo APRN documented in this encounter Plan of Treatment Not on file documented as of this encounter Visit Diagnoses Diagnosis Dermatitis Contact dermatitis and other eczema, due to unspecified cause documented in this encounter Care Teams Babbitter Relationship Specialty Start Date End Date Madison Tineo APRN [address] [place] [address] [place] [address] PCP - General Family Medicine 01/31/21 documented as of this encounter
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
--- NOTE | 2024-06-01 12:30 | DI.CT_ITS ---
Exam(s) CT THORAX ABD/PEL CTA EXAM: CT THORAX ABD/PEL CTA CLINICAL HISTORY: severe RLQ abdominal pain. TECHNIQUE: Imaging Protocol: Axial CT angiography was performed with multi-slice acquisition and m ulti-planar and/or 3D reconstructions. CONTRAST MATERIAL: Intravenous: Omnipaque 350 Contrast volume:100 mL Oral: / no COMPARISON: CT CT THORAX CTA from 11/05/2023 FINDINGS: CHEST: Pulmonary Arteries: No evidence of filling defect to suggest pulmonary emboli. Tracheobronchial tree: Patent where visualized. Mediastinum and Karen: No dominant adenopathy or fluid collection. Pulmonary parenchyma: No consolidation or dominant measurable mass. No architectural distortion. Pleura: No effusion or pneumothorax. Heart: The heart is not dilated. Moderate coronary artery calcifications are seen. Aorta: Ascending aorta measures 4 cm, unchanged from prior. Bones: Unremarkable for age. Tubes, Catheters, and Lines: None ABDOMEN AND PELVIS: Abdomen: Celiac axis/mesenteric arteries: No evidence of occlusion or significant stenosis. Renal Arteries: No evidence of occlusion or significant stenosis. There is a single renal artery per fusing each kidney. Aorta: No evidence of occlusion or significant stenosis. No aneurysm or dissection. Pelvis: Iliac Arteries: No evidence of occlusion or significant stenosis. Common Femoral Arteries: Heavy calcific plaque at the distal common femoral arteries and proximal sup erficial femoral arteries, causing severe stenosis on the right and moderate stenosis on the left. ABDOMEN: Liver: Normal density. No measurable mass. Portal, Superior Mesenteric, and Splenic Veins: Unremarkable. Gallbladder and Biliary Tract: No radiodense calculus or dilation. Pancreas: Normal density, no abnormal calcifications or inflammatory process. Spleen: Normal. Adrenals: No masses seen. Kidneys: Normal size, contour and axis. No radiodense stones or obstructive uropathy. No masses seen. Bowel: Markedly dilated appendix with marked surrounding edema as well as multiple air bubbles in the adjacent peritoneum, consistent with perforated appendicitis. There is some adjacent inflammation o f loops of small bowel. No obstruction . Peritoneal Cavity: Free peritoneal air bubbles around the apparent discitis consistent with perforate d appendicitis. No ascites or focal collection. Sigmoid diverticulosis. No diverticulitis. Bones: Unremarkable. Soft Tissues: Fatty containing umbilical hernia. PELVIS: Bladder: Symmetric distention, no gross wall thickening. Reproductive Organs: Unremarkable as visualized. Lymph Nodes: Several mildly enlarged lymph nodes in the pelvis, consistent with reactive lymph nodes. Bones: Within normal limits. IMPRESSION: Findings consistent with perforated appendicitis. No abscess. Inflammation of adjacent loops of sma ll bowel. No acute abnormality in the chest. Severe atherosclerotic changes causing significant narrowing of the common femoral and superficial fe moral arteries. Findings called to Silas Gutiérrez, Emergency Department provider. RADIATION DOSE DELIVERED: Total DLP DATA REPOSITORY: All CT scans at this facility are submitted to the National Radiology Data Registry (NRDR) Dose Index Registry (DIR) with the [employer] (ACR). RADIATION OPTIMIZATION: All CT scans at this facility use at least one of these dose optimization te chniques: automated exposure control; mA and/or kV adjustment per patient size (includes targeted exa ms where dose is matched to clinical indication); or iterative reconstruction.
--- OUTSIDE RECORDS SUMMARY | 2024-06-01 12:30 | XMS_ITS | Encounter Summary ---
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 separator tube (gold top) for subsequent determinations. ??Contact the Clinical Chemistry Laboratory if there are any questions. Chloride 102 98 - 107 mmol/L CERNER MILLENNIUM CO2 22 22 - 31 mmol/L CERNER MILLENNIUM Anion Gap 12 5 - 15 mmol/L CERNER MILLENNIUM Calcium 9.4 8.5 - 10.5 mg/dL CERNER MILLENNIUM Estimated GFR >60 >=60 CERNER MILLENNIUM Comment: The National Kidney Disease Education Program (NKDEP) has recommended all laboratories report estimated GFR (eGFR) along with plasma creatinine measurements to assist you with recognition of early kidney disease. Caveats: ??Plasma creatinine should be at steady-state (unchanged within the past week). For patients multiply eGFR by 1.2. The MDRD equation was developed using patients between the ages of 18 and 70 years. ?? The MDRD equation has not been validated for patients < 18 years of age and should not be used to assess renal function in the pediatric population. ??The MDRD eGFR equation will also overestimate the true GFR of patients above the age of 70. ??This overestimation is variable but increases with age. At present, NKDEP does NOT recommend using the MDRD equation for drug dosing purposes and pharmacists should continue to use their current dosing methods. In addition, numerical eGFR values greater than 60 ml/min/1.73 square meters should be treated as > 60, and not an exact number due to greater inaccuracies at these higher values. Per NKDEP, they classify normal renal function as any GFR >60ml/min/1.73 square meters; chronic kidney disease when GFR <60, and renal failure when GFR <15. ??This calculation may not be valid for patients with atypical muscle mass (very lean or obese), acute renal failure, and in patients with diabetic kidney disease. References: http://nkdep.nih.gov/resources/NKDEP_Suggestn4Labs_0606_508.pdf http://www.kidney.org/professionals/kls/pdf/faq_gfr.pdf Lila K, Matt NA, Gaviota AK, Viet TS, Sania AD, Shagufta RAMIRO. Relative performance of the MDRD and CKD-EPI equations for estimating glomerular filtration rate among patients with varied clinical presentations. Clin J Am Soc Nephrol;6:1963-72. Blood specimen (specimen) 05/06/2012 4:21 AM EDT 05/06/2012 4:34 AM EDT Narrative Resulting Agency Comment Spec In Lab Win Cordoba MD [employer] S Performing Organization Address [facility] de Phone Number Uversity * (ABNORMAL) Prealbumin (05/06/2012 4:21 AM EDT) Prealbumin 44(H) 20 - 40 mg/dL VILLA TempronicsSHERICEIUM Comment: Prealbumin levels are generally lower in the pediatric population; adult concentrations are usually attained near puberty. Blood specimen (specimen) 05/06/2012 4:21 AM EDT 05/06/2012 4:34 AM EDT Narrative Resulting Agency Comment Spec In Lab Win Cordoba MD [employer] S Performing Organization Address [facility] de Phone Number Uversity * (ABNORMAL) DIFFERENTIAL, MANUAL (05/05/2012 3:14 AM EDT) Neutrophil % 58 34 - 71 % CERNER MILLENNIUM Band % 3 0 - 12 % CERNER MILLENNIUM Lymphocyte % 26 19 - 53 % CERNER MILLENNIUM Monocyte % 6 4 - 13 % CERNER MILLENNIUM Eosinophil % 5 0 - 7 % CERNER MILLENNIUM Metamyelo % 1(H) 0 - 0 % CERNER MILLENNIUM Myelocyte % 1(H) 0 - 0 % CERNER MILLENNIUM Neutrophil Abs 8.3(H) 1.5 - 6.3 x10(3)/mc L CERNER MILLENNIUM Band Abs 0.4 0.2 - 0.6 x10(3)/mc L CERNER MILLENNIUM Neutr Abs (ANC) 8.70(H) 1.50 - 6.30 x10(3)/mc L CERNER MILLENNIUM Lymphocyte Abs 3.7(H) 1.0 - 3.6 x10(3)/mc L CERNER MILLENNIUM Monocyte Abs 0.9 0.2 - 1.0 x10(3)/mc L CERNER MILLENNIUM Eosinophil Abs 0.7(H) 0.0 - 0.5 x10(3)/mc L CERNER MILLENNIUM Metamyelo Abs 0.1(H) 0.0 - 0.0 x10(3)/mc L CERNER MILLENNIUM Myelocyte Abs 0.1(H) 0.0 - 0.0 x10(3)/mc L CERNER MILLENNIUM Tot Diff Cell Ct 100 CER NER MILLENNIUM Plat Estimate Increased CERNER MILLENNIUM RBC Morphology Abnormal CERNE R MILLENNIUM Polychromasia Present >5/HPF CERNER MILLENNIUM [place] Bdy Present >1/HPF CER NER MILLENNIUM Giant Platelets Less than 1 /HPF CE RNER MILLENNIUM Blood specimen (specimen) 05/05/2012 3:14 AM EDT 05/05/2012 3:18 AM EDT Narrative Resulting Agency Comment Spec In Lab Win Cordoba MD HEMATOLOGY ORDERABL ES CERNER MILLENNIUM * (ABNORMAL) CBC (with Diff) (05/05/2012 3:14 AM EDT) WBC 14.3(H) 4.0 - 10.0 x10(3)/mcL CERNER MILLENNIUM RBC 3.41(L) 4.63 - 6.08 x10(6)/mcL CERNER MILLENNIUM Hemoglobin 11.4(L) 13.7 - 17.5 gm/dL CERNER MILLENNIUM Hematocrit 34.0(L) 40.0 - 51.0 % CERNER MILLENNIUM MCV 99.7(H) 79.0 - 92.0 fL CERNER MILLENNIUM MCH 33.4(H) 25.6 - 32.2 pg CERNER MILLENNIUM MCHC 33.5 32.0 - 36.5 gm/dL CERNER MILLENNIUM Platelets 968(H) 145 - 370 x10(3)/mcL CERNER MILLENNIUM RDWSD 51.2(H) 35.0 - 46.0 fL CERNER MILLENNIUM RDWCV 14.2 10.9 - 14.4 % CERNER MILLENNIUM MPV 10.4 9.0 - 12.0 fL CERNER MILLENNIUM Blood specimen (specimen) 05/05/2012 3:14 AM EDT 05/05/2012 3:18 AM EDT Narrative Resulting Agency Comment Spec In Lab Win Cordoba MD HEMATOLOGY ORDERABL ES VILLA LIGHTENNIUM * Phosphorus (05/05/2012 3:14 AM EDT) Phosphorus 4.2 2.5 - 4.5 mg/dL CERNER MILLENNIUM Blood specimen (specimen) 05/05/2012 3:14 AM EDT 05/05/2012 3:18 AM EDT Narrative Resulting Agency Comment Spec In Lab Win Cordoba MD CHEMISTRY ORDERABLE S [facility] N[facility] * Magnesium (05/05/2012 3:14 AM EDT) Magnesium 0.83 0.69 - 1.07 mmol/L CERNER MILLENNIUM Blood specimen (specimen) 05/05/2012 3:14 AM EDT 05/05/2012 3:18 AM EDT Narrative Resulting Agency Comment Spec In Lab Win Cordoba MD CHEMISTRY ORDERABLE S CERNER NADEGEENNIUM * (ABNORMAL) Basic Metabolic Panel (non-fasting) (05/05/2012 3:14 AM EDT) Glucose Lvl 121 60 - 199 mg/dL CERNER MILLENNIUM Comment:Diabetes: >=200 mg/d L plus symptoms BUN 13 10 - 20 mg/dL CERNER MILLENNIUM Creatinine 0.57(L) 0.80 - 1.50 mg/dL CERNER MILLENNIUM Comment: Please note that the pediatric reference intervals supplied above were not validated at [facility]. Results from pediatric patients should be interpreted in conjunction to the patient's age, height and muscle mass. Sodium 137 135 - 145 mmol/L CERNER MILLENNIUM Potassium 3.8 3.5 - 5.0 mmol/L CERNER MILLENNIUM Comment: Please note: ??Patients with WBC >100,000 may have falsely elevated Potassium levels. ??For accurate Potassium quantification in these patients send serum separator tube (gold top) for subsequent determinations. ??Contact the Clinical Chemistry Laboratory if there are any questions. Chloride 104 98 - 107 mmol/L CERNER MILLENNIUM CO2 21(L) 22 - 31 mmol/L CERNER MILLENNIUM Anion Gap 12 5 - 15 mmol/L CERNER MILLENNIUM Calcium 9.0 8.5 - 10.5 mg/dL CERNER MILLENNIUM Estimated GFR >60 >=60 CERNER MILLENNIUM Comment: The National Kidney Disease Education Program (NKDEP) has recommended all laboratories report estimated GFR (eGFR) along with plasma creatinine measurements to assist you with recognition of early kidney disease. Caveats: ??Plasma creatinine should be at steady-state (unchanged within the past week). For patients multiply eGFR by 1.2. The MDRD equation was developed using patients between the ages of 18 and 70 years. ?? The MDRD equation has not been validated for patients < 18 years of age and should not be used to assess renal function in the pediatric population. ??The MDRD eGFR equation will also overestimate the true GFR of patients above the age of 70. ??This overestimation is variable but increases with age. At present, NKDEP does NOT recommend using the MDRD equation for drug dosing purposes and pharmacists should continue to use their current dosing methods. In addition, numerical eGFR values greater than 60 ml/min/1.73 square meters should be treated as > 60, and not an exact number due to greater inaccuracies at these higher values. Per NKDEP, they classify normal renal function as any GFR >60ml/min/1.73 square meters; chronic kidney disease when GFR <60, and renal failure when GFR <15. ??This calculation may not be valid for patients with atypical muscle mass (very lean or obese), acute renal failure, and in patients with diabetic kidney disease. References: http://nkdep.nih.gov/resources/NKDEP_Suggestn4Labs_0606_508.pdf http://www.kidney.org/professionals/kls/pdf/faq_gfr.pdf Lila K, Matt NA, Gav[place] AK, Viet TS, Sania AD, Shagufta RAMIRO. Relative performance of the MDRD and CKD-EPI equations for estimating glomerular filtration rate among patients with varied clinical presentations. Clin J Am Soc Nephrol;6:1963-72. Blood specimen (specimen) 05/05/2012 3:14 AM EDT 05/05/2012 3:18 AM EDT Narrative Resulting Agency Comment Spec In Lab Win Cordoba MD CHEMISTRY ORDERABLE S [facility]pr[facility]icsCOBALT RE[facility] HOSPITALIUM * Urinalysis with microscopic (05/04/2012 5:00 AM EDT) Glucose UA Negative Negative mg/dL CERNER MILLENNIUM Protein UA Negative mg/dL CERNER MILLENNIUM Bilirubin UA Negative Negative mg/dL CERNER MILLENNIUM Urobilinogen UA Normal mg/dL CERN ER MILLENNIUM pH UA 5.5 5.0 - 8.0 CERNER MILLENNIUM Blood UA Negative mg/dL CERNER MILLENNIUM Ketones UA Negative mg/dL CERNER MILLENNIUM Nitrite UA Negative CERNER MILLENNIUM Leukocytes UA Negative mcL CERNER MILLENNIUM Appearance UA Clear Clear CERNER MILLENNIUM Spec [place] UA 1.019 1.002 - 1.030 CERNER MILLENNIUM Color UA Yellow Yellow CERNER MILLENNIUM RBC UA Not Present 0 - 3 CERNER MILLENNIUM WBC UA Not Present 0 - 3 CERNER MILLENNIUM Squam Epith UA <1 <=4 /HPF CERNE R MILLENNIUM Urine specimen (specimen) 05/04/2012 5:00 AM EDT 05/04/2012 7:09 AM EDT Narrative Resulting Agency Comment Spec In Lab Win Cordoba MD URINE ORDERABLES Performing Organization Address City/[facility]/ZIP Co de Phone Number CERNER NADEGEENNIUM * SCAN, PERIPHERAL BLOOD (05/04/2012 2:10 AM EDT) Plat Estimate Increased CERNER MILLENNIUM RBC Morphology Abnormal CERNE R MILLENNIUM Polychromasia Present >5/HPF CERNER MILLENNIUM [place] Bdy Present >1/HPF CER NER MILLENNIUM Siderocytes Present >1/HPF CERNER MILLENNIUM Giant Platelets Less than 1 /HPF CE RNER MILLENNIUM Blood specimen (specimen) 05/04/2012 2:10 AM EDT 05/04/2012 2:43 AM EDT Narrative Resulting Agency Comment Spec In Lab Win Cordoba MD HEMATOLOGY ORDERABL ES CERNER NADEGEENNIUM * (ABNORMAL) DIFFERENTIAL, AUTOMATED (05/04/2012 2:10 AM EDT) Neutrophils % 70.0 34.0 - 71.0 % CERNER MILLENNIUM Neutr Abs (ANC) 16.03(H) 1.50 - 6.30 x10(3)/mc L CERNER MILLENNIUM Lymphocytes % 21.1 19.0 - 53.0 % CERNER MILLENNIUM Lymphocytes Abs 4.8(H) 1.0 - 3.6 x10(3)/mc L CERNER MILLENNIUM Monocytes % 5.5 4.0 - 13.0 % CERNER MILLENNIUM Monocyte Abs 1.3(H) 0.2 - 1.0 x10(3)/mc L CERNER MILLENNIUM Eosinophils % 2.3 0.0 - 7.0 % CERNER MILLENNIUM Eosinophils Abs 0.5 0.0 - 0.5 x10(3)/mc L CERNER MILLENNIUM Basophils % 0.6 0.0 - 2.0 % CERNER MILLENNIUM Basophils Abs 0.1 0.0 - 0.2 x10(3)/mc L CERNER MILLENNIUM Immature Gran % 0.50 0.00 - 0.66 % CERNER MILLENNIUM Comment: Immature granulocytes(IG's)percentage and absolute count will include metamyelocytes, myelocytes, and promyelocytes. Blood smears from CBCs yielding IG's will be scanned manually for concordance. If this scan disagrees with the automated IG or if promyelocytes are noted, a manual differential will be performed. Stephani Gran Abs 0.12(H) 0.00 - 0.05 x10(3)/mc L CERNER MILLENNIUM Blood specimen (specimen) 05/04/2012 2:10 AM EDT 05/04/2012 2:43 AM EDT Win Cordoba MD HEMATOLOGY ORDERABL ES [facility] * (ABNORMAL) CBC (with Diff) (05/04/2012 2:10 AM EDT) WBC 22.9(H) 4.0 - 10.0 x10(3)/mcL CERNER MILLENNIUM RBC 3.40(L) 4.63 - 6.08 x10(6)/mcL CERNER MILLENNIUM Hemoglobin 11.5(L) 13.7 - 17.5 gm/dL CERNER MILLENNIUM Hematocrit 33.9(L) 40.0 - 51.0 % CERNER MILLENNIUM MCV 99.7(H) 79.0 - 92.0 fL CERNER MILLENNIUM MCH 33.8(H) 25.6 - 32.2 pg CERNER MILLENNIUM MCHC 33.9 32.0 - 36.5 gm/dL VILLA TYIUM Platelets 911(H) 145 - 370 x10(3)/mcL VILLA TYIUM RDWSD 51.5(H) 35.0 - 46.0 fL VILLA TYIUM RDWCV 14.2 10.9 - 14.4 % VILLA TYIUM MPV 10.9 9.0 - 12.0 fL VILLA TYIUM Blood specimen (specimen) 05/04/2012 2:10 AM EDT 05/04/2012 2:43 AM EDT Narrative Resulting Agency Comment Spec In Lab Win Cordoba MD HEMATOLOGY ORDERABL ES Performing Organization Address [facility] de Phone Number VILLA LINN * Phosphorus (05/04/2012 2:10 AM EDT) Phosphorus 3.9 2.5 - 4.5 mg/dL VILLA LINN Blood specimen (specimen) 05/04/2012 2:10 AM EDT 05/04/2012 2:43 AM EDT Narrative Resulting Agency Comment Spec In Lab Win Cordoba MD CHEMISTRY ORDERABLE S Performing Organization Address [facility] de Phone Number [facility] * Magnesium (05/04/2012 2:10 AM EDT) Magnesium 0.82 0.69 - 1.07 mmol/L VILLA LINN Blood specimen (specimen) 05/04/2012 2:10 AM EDT 05/04/2012 2:43 AM EDT Narrative Resulting Agency Comment Spec In Lab Win Cordoba MD CHEMISTRY ORDERABLE S Performing Organization Address [facility] de Phone Number VILLA LINN * (ABNORMAL) Basic Metabolic Panel (non-fasting) (05/04/2012 2:10 AM EDT) Glucose Lvl 108 60 - 199 mg/dL [facility]PITAL[facility]ANIQUA Comment:Diabetes: >=200 mg/d L plus symptoms BUN 14 10 - 20 mg/dL CERNER MILLENNIUM Creatinine 0.62(L) 0.80 - 1.50 mg/dL CERNER MILLENNIUM Comment: Please note that the pediatric reference intervals supplied above were not validated at [facility]. Results from pediatric patients should be interpreted in conjunction to the patient's age, height and muscle mass. Sodium 137 135 - 145 mmol/L CERNER MILLENNIUM Potassium 3.6 3.5 - 5.0 mmol/L CERNER MILLENNIUM Comment: Please note: ??Patients with WBC >100,000 may have falsely elevated Potassium levels. ??For accurate Potassium quantification in these patients send serum separator tube (gold top) for subsequent determinations. ??Contact the Clinical Chemistry Laboratory if there are any questions. Chloride 104 98 - 107 mmol/L CERNER MILLENNIUM CO2 22 22 - 31 mmol/L CERNER MILLENNIUM Anion Gap 11 5 - 15 mmol/L CERNER MILLENNIUM Calcium 8.8 8.5 - 10.5 mg/dL CERNER MILLENNIUM Estimated GFR >60 >=60 CERNER MILLENNIUM Comment: The National Kidney Disease Education Program (NKDEP) has recommended all laboratories report estimated GFR (eGFR) along with plasma creatinine measurements to assist you with recognition of early kidney disease. Caveats: ??Plasma creatinine should be at steady-state (unchanged within the past week). For patients multiply eGFR by 1.2. The MDRD equation was developed using patients between the ages of 18 and 70 years. ?? The MDRD equation has not been validated for patients < 18 years of age and should not be used to assess renal function in the pediatric population. ??The MDRD eGFR equation will also overestimate the true GFR of patients above the age of 70. ??This overestimation is variable but increases with age. At present, NKDEP does NOT recommend using the MDRD equation for drug dosing purposes and pharmacists should continue to use their current dosing methods. In addition, numerical eGFR values greater than 60 ml/min/1.73 square meters should be treated as > 60, and not an exact number due to greater inaccuracies at these higher values. Per NKDEP, they classify normal renal function as any GFR >60ml/min/1.73 square meters; chronic kidney disease when GFR <60, and renal failure when GFR <15. ??This calculation may not be valid for patients with atypical muscle mass (very lean or obese), acute renal failure, and in patients with diabetic kidney disease. References: http://nkdep.nih.gov/resources/NKDEP_Suggestn4Labs_0606_508.pdf http://www.kidney.org/professionals/kls/pdf/faq_gfr.pdf Tariqata K, Matt NA, Gaviota AK, Viet TS, Sania AD, Shagufta RAMIRO. Relative performance of the MDRD and CKD-EPI equations for estimating glomerular filtration rate among patients with varied clinical presentations. Clin J Am Soc Nephrol;6:1963-72. Blood specimen (specimen) 05/04/2012 2:10 AM EDT 05/04/2012 2:43 AM EDT Narrative Resulting Agency Comment Spec In Lab Win Cordoba MD CHEMISTRY ORDERABLE S Performing Organization Address City/State/[facility] Co mn Phone Number VILLA [employer] * XR CHEST PA OR AP- 1 VIEW (05/03/2012 7:58 AM EDT) Anatomical Region Laterality Modality Chest N/A Radiographic Ellen ging 05/03/2012 7:58 AM EDT Narrative 05/03/2012 9:27 AM EDT Examination CHEST AP/XPORT Clinical History Reason for exam and clinical history: elevated WBC, altered mental status ?PNA; Comparison 04/30/2012. Technique Findings There is a slightly better degree of inflation of the lungs overall but some persistent hazy opacity in the left lung base. ??This latter finding is nonspecific but a small area of pneumonia cannot be entirely excluded. ??The left upper lung zone and right lung are grossly clear. Impression 1. ??Slightly improved inflation. 2. ??Cannot exclude small area pneumonia and left base. Procedure Note Josias Irwin MD - 05/03/2012 Examination CHEST AP/XPORT Clinical History Reason for exam and clinical history: elevated WBC, altered mental status?PNA; Comparison 04/30/2012. Technique Findings There is a slightly better degree of inflation of the lungs overall butsome persistent hazy opacity in the left lung base. This latter finding is nonspecific but a small area of pneumonia cannot be entirely excluded.The left upper lung zone and right lung are grossly clear. Impression 1. Slightly improved inflation. 2. Cannot exclude small area pneumonia and left base. Win Cordoba MD IMG DX ORDERABLES * (ABNORMAL) DIFFERENTIAL, AUTOMATED (05/03/2012 2:32 AM EDT) Neutrophils % 68.7 34.0 - 71.0 % CERNER MILLENNIUM Neutr Abs (ANC) 16.20(H) 1.50 - 6.30 x10(3)/mc L CERNER MILLENNIUM Lymphocytes % 20.3 19.0 - 53.0 % CERNER MILLENNIUM Lymphocytes Abs 4.8(H) 1.0 - 3.6 x10(3)/mc L CERNER MILLENNIUM Monocytes % 6.6 4.0 - 13.0 % CERNER MILLENNIUM Monocyte Abs 1.6(H) 0.2 - 1.0 x10(3)/mc L CERNER MILLENNIUM Eosinophils % 2.6 0.0 - 7.0 % CERNER MILLENNIUM Eosinophils Abs 0.6(H) 0.0 - 0.5 x10(3)/mc L CERNER MILLENNIUM Basophils % 0.6 0.0 - 2.0 % CERNER MILLENNIUM Basophils Abs 0.2 0.0 - 0.2 x10(3)/mc L CERNER MILLENNIUM Immature Gran % 1.20(H) 0.00 - 0.66 % CERNER MILLENNIUM Comment: Immature granulocytes(IG's)percentage and absolute count will include metamyelocytes, myelocytes, and promyelocytes. Blood smears from CBCs yielding IG's will be scanned manually for concordance. If this scan disagrees with the automated IG or if promyelocytes are noted, a manual differential will be performed. Stephani Gran Abs 0.29(H) 0.00 - 0.05 x10(3)/mc L CERNER MILLENNIUM Blood specimen (specimen) 05/03/2012 2:32 AM EDT 05/03/2012 2:50 AM EDT Win Cordoba MD HEMATOLOGY ORDERABL ES Performing Organization Address [facility] de Phone Number CERNER MILLENNIUM * NUCLEATED RED BLOOD CELLS (05/03/2012 2:32 AM EDT) nRBC % Auto 0.0 0.0 - 0.2 % CERNER MILLENNIUM nRBC Abs Auto 0.000 0.000 - 0.012 x10(3)/mcL CERNER MILLENNIUM Blood specimen (specimen) 05/03/2012 2:32 AM EDT 05/03/2012 2:50 AM EDT Narrative Resulting Agency Comment Spec In Lab Win Cordoba MD HEMATOLOGY ORDERABL ES Performing Organization Address [facility] de Phone Number CERNER MILLENNIUM * SCAN, PERIPHERAL BLOOD (05/03/2012 2:32 AM EDT) Plat Estimate Increased CERNER MILLENNIUM RBC Morphology Abnormal CERNE R MILLENNIUM Polychromasia Present >5/HPF CERNER MILLENNIUM Ovalocytes 1-5 /HPF CERNER MILLENNIUM Prakash Cells 1-5 /HPF CERNER MILLENNIUM [place] Bdy Present >1/HPF CER NER MILLENNIUM Siderocytes Present >1/HPF CERNER MILLENNIUM Giant Platelets Less than 1 /HPF CE RNER MILLENNIUM Blood specimen (specimen) 05/03/2012 2:32 AM EDT 05/03/2012 2:50 AM EDT Narrative Resulting Agency Comment Spec In Lab Win Cordoba MD HEMATOLOGY ORDERABL ES Performing Organization Address [facility]/ZIP Co de Phone Number CERNER MILLENNIUM * (ABNORMAL) CBC (with Diff) (05/03/2012 2:32 AM EDT) WBC 23.6(H) 4.0 - 10.0 x10(3)/mcL CERNER MILLENNIUM RBC 3.62(L) 4.63 - 6.08 x10(6)/mcL CERNER MILLENNIUM Hemoglobin 12.6(L) 13.7 - 17.5 gm/dL CERNER MILLENNIUM Hematocrit 36.7(L) 40.0 - 51.0 % CERNER MILLENNIUM MCV 101.4(H) 79.0 - 92.0 fL CERNER MILLENNIUM MCH 34.8(H) 25.6 - 32.2 pg CERNER MILLENNIUM MCHC 34.3 32.0 - 36.5 gm/dL CERNER MILLENNIUM Platelets 891(H) 145 - 370 x10(3)/mcL CERNER MILLENNIUM RDWSD 51.6(H) 35.0 - 46.0 fL CERNER MILLENNIUM RDWCV 14.1 10.9 - 14.4 % CERNER MILLENNIUM MPV 11.3 9.0 - 12.0 fL CERLG LIGHTENNIUM Blood specimen (specimen) 05/03/2012 2:32 AM EDT 05/03/2012 2:50 AM EDT Narrative Resulting Agency Comment Spec In Lab Win Cordoba MD HEMATOLOGY ORDERABL ES Performing Organization Address [facility] de Phone Number VILAL TYIUM * (ABNORMAL) Phosphorus (05/03/2012 2:32 AM EDT) Phosphorus 5.2(H) 2.5 - 4.5 mg/dL VILLA TYIUM Blood specimen (specimen) 05/03/2012 2:32 AM EDT 05/03/2012 2:50 AM EDT Narrative Resulting Agency Comment Spec In Lab Win Cordoba MD CHEMISTRY ORDERABLE S Performing Organization Address [facility] de Phone Number VILLA TYIUM * Magnesium (05/03/2012 2:32 AM EDT) Magnesium 0.83 0.69 - 1.07 mmol/L VILLA TYIUM Blood specimen (specimen) 05/03/2012 2:32 AM EDT 05/03/2012 2:50 AM EDT Narrative Resulting Agency Comment Spec In Lab Win Cordoba MD CHEMISTRY ORDERABLE S Performing Organization Address [facility]/ZIP Co de Phone Number CERNER MILLENNIUM * (ABNORMAL) Basic Metabolic Panel (non-fasting) (05/03/2012 2:32 AM EDT) [facility] Glucose Lvl 123 60 - 199 mg/dL CERNER MILLENNIUM Comment:Diabetes: >=200 mg/d L plus symptoms BUN 13 10 - 20 mg/dL CERNER MILLENNIUM Creatinine 0.74(L) 0.80 - 1.50 mg/dL CERNER MILLENNIUM Comment: Please note that the pediatric reference intervals supplied above were not validated at [facility]. Results from pediatric patients should be interpreted in conjunction to the patient's age, height and muscle mass. Sodium 138 135 - 145 mmol/L CERNER MILLENNIUM Potassium 3.7 3.5 - 5.0 mmol/L CERNER MILLENNIUM Comment: Please note: ??Patients with WBC >100,000 may have falsely elevated Potassium levels. ??For accurate Potassium quantification in these patients send serum separator tube (gold top) for subsequent determinations. ??Contact the Clinical Chemistry Laboratory if there are any questions. Chloride 103 98 - 107 mmol/L CERNER MILLENNIUM CO2 22 22 - 31 mmol/L CERNER MILLENNIUM Anion Gap 13 5 - 15 mmol/L CERNER MILLENNIUM Calcium 9.1 8.5 - 10.5 mg/dL CERNER MILLENNIUM Estimated GFR >60 >=60 CERNER MILLENNIUM Comment: The National Kidney Disease Education Program (NKDEP) has recommended all laboratories report estimated GFR (eGFR) along with plasma creatinine measurements to assist you with recognition of early kidney disease. Caveats: ??Plasma creatinine should be at steady-state (unchanged within the past week). For patients multiply eGFR by 1.2. The MDRD equation was developed using patients between the ages of 18 and 70 years. ?? The MDRD equation has not been validated for patients < 18 years of age and should not be used to assess renal function in the pediatric population. ??The MDRD eGFR equation will also overestimate the true GFR of patients above the age of 70. ??This overestimation is variable but increases with age. At present, NKDEP does NOT recommend using the MDRD equation for drug dosing purposes and pharmacists should continue to use their current dosing methods. In addition, numerical eGFR values greater than 60 ml/min/1.73 square meters should be treated as > 60, and not an exact number due to greater inaccuracies at these higher values. Per NKDEP, they classify normal renal function as any GFR >60ml/min/1.73 square meters; chronic kidney disease when GFR <60, and renal failure when GFR <15. ??This calculation may not be valid for patients with atypical muscle mass (very lean or obese), acute renal failure, and in patients with diabetic kidney disease. References: http://nkdep.nih.gov/resources/NKDEP_Suggestn4Labs_0606_508.pdf http://www.kidney.org/professionals/kls/pdf/faq_gfr.pdf Lila K, Matt NA, Gaviota AK, Viet TS, Sania AD, Shagufta RAMIRO. Relative performance of the MDRD and CKD-EPI equations for estimating glomerular filtration rate among patients with varied clinical presentations. Clin J Am Soc Nephrol;6:1963-72. Blood specimen (specimen) 05/03/2012 2:32 AM EDT 05/03/2012 2:50 AM EDT Narrative Resulting Agency Comment Spec In Lab Win Cordoba MD CHEMISTRY ORDERABLE S CERNER MILLENNIUM * (ABNORMAL) DIFFERENTIAL, MANUAL (05/02/2012 2:37 AM EDT) Neutrophil % 72(H) 34 - 71 % CERNER MILLENNIUM Lymphocyte % 15(L) 19 - 53 % CERNER MILLENNIUM Monocyte % 7 4 - 13 % CERNER MILLENNIUM Eosinophil % 4 0 - 7 % CERNER MILLENNIUM Metamyelo % 2(H) 0 - 0 % CERNER MILLENNIUM Neutrophil Abs 13.1(H) 1.5 - 6.3 x10(3)/mc L CERNER MILLENNIUM Neutr Abs (ANC) 13.14(H) 1.50 - 6.30 x10(3)/mc L CERNER MILLENNIUM Lymphocyte Abs 2.7 1.0 - 3.6 x10(3)/mc L CERNER MILLENNIUM Monocyte Abs 1.3(H) 0.2 - 1.0 x10(3)/mc L CERNER MILLENNIUM Eosinophil Abs 0.7(H) 0.0 - 0.5 x10(3)/mc L CERNER MILLENNIUM Metamyelo Abs 0.4(H) 0.0 - 0.0 x10(3)/mc L CERNER MILLENNIUM Tot Diff Cell Ct 100 CER NER MILLENNIUM Plat Estimate Increased CERNER MILLENNIUM RBC Morphology Abnormal CERNE R MILLENNIUM Polychromasia Present >5/HPF CERNER MILLENNIUM Ovalocytes 1-5 /HPF CERNER MILLENNIUM Giant Platelets Less than 1 /HPF CE RNER MILLENNIUM Blood specimen (specimen) 05/02/2012 2:37 AM EDT 05/02/2012 2:46 AM EDT Narrative Resulting Agency Comment Spec In Lab Win Cordoba MD HEMATOLOGY ORDERABL ES Performing Organization Address [facility] de Phone Number CERNER NADEGEENNIUM * NUCLEATED RED BLOOD CELLS (05/02/2012 2:37 AM EDT) nRBC % Auto 0.0 0.0 - 0.2 % CERNER MILLENNIUM nRBC Abs Auto 0.000 0.000 - 0.012 x10(3)/mcL CERNER MILLENNIUM Blood specimen (specimen) 05/02/2012 2:37 AM EDT 05/02/2012 2:46 AM EDT Narrative Resulting Agency Comment Spec In Lab Win Cordoba MD HEMATOLOGY ORDERABL ES Performing Organization Address City/[facility]/ZIP Co de Phone Number CERNER NADEGEENNIUM * (ABNORMAL) CBC (with Diff) (05/02/2012 2:37 AM EDT) WBC 18.2(H) 4.0 - 10.0 x10(3)/mcL CERNER MILLENNIUM RBC 3.48(L) 4.63 - 6.08 x10(6)/mcL CERNER MILLENNIUM Hemoglobin 12.1(L) 13.7 - 17.5 gm/dL CERNER MILLENNIUM Hematocrit 34.1(L) 40.0 - 51.0 % CERNER MILLENNIUM MCV 98.0(H) 79.0 - 92.0 fL CERLG LIGHTENNIUM MCH 34.8(H) 25.6 - 32.2 pg CERNER MILLENNIUM MCHC 35.5 32.0 - 36.5 gm/dL CERNER MILLENNIUM Platelets 905(H) 145 - 370 x10(3)/mcL CERLG LIGHTENNIUM RDWSD 48.9(H) 35.0 - 46.0 fL CERLG LIGHTENNIUM RDWCV 13.8 10.9 - 14.4 % CERLG LIGHTENNIUM MPV 10.9 9.0 - 12.0 fL CERLG LIGHTENNIUM Blood specimen (specimen) 05/02/2012 2:37 AM EDT 05/02/2012 2:46 AM EDT Narrative Resulting Agency Comment Spec In Lab Wni Cordoba MD HEMATOLOGY ORDERABL ES Performing Organization Address [facility] Co de Phone Number VILLA TYIUM * Phosphorus (05/02/2012 2:37 AM EDT) Phosphorus 4.5 2.5 - 4.5 mg/dL VILLA TYIUM Blood specimen (specimen) 05/02/2012 2:37 AM EDT 05/02/2012 2:46 AM EDT Narrative Resulting Agency Comment Spec In Lab Win Cordoba MD CHEMISTRY ORDERABLE S Performing Organization Address [facility] Co de Phone Number VILLA TYIUM * Magnesium (05/02/2012 2:37 AM EDT) Magnesium 0.91 0.69 - 1.07 mmol/L CERLG TYIUM Blood specimen (specimen) 05/02/2012 2:37 AM EDT 05/02/2012 2:46 AM EDT Narrative Resulting Agency Comment Spec In Lab Win Cordoba MD CHEMISTRY ORDERABLE S Performing Organization Address [facility] Co de Phone Number VILLA TYIUM * (ABNORMAL) Basic Metabolic Panel (non-fasting) (05/02/2012 2:37 AM EDT) [facility] Signature Glucose Lvl 134 60 - 199 mg/dL CERNER MILLENNIUM Comment:Diabetes: >=200 mg/d L plus symptoms BUN 10 10 - 20 mg/dL CERNER MILLENNIUM Creatinine 0.59(L) 0.80 - 1.50 mg/dL CERNER MILLENNIUM Comment: Please note that the pediatric reference intervals supplied above were not validated at [facility]. Results from pediatric patients should be interpreted in conjunction to the patient's age, height and muscle mass. Sodium 138 135 - 145 mmol/L CERNER MILLENNIUM Potassium 3.9 3.5 - 5.0 mmol/L CERNER MILLENNIUM Comment: Please note: ??Patients with WBC >100,000 may have falsely elevated Potassium levels. ??For accurate Potassium quantification in these patients send serum separator tube (gold top) for subsequent determinations. ??Contact the Clinical Chemistry Laboratory if there are any questions. Chloride 102 98 - 107 mmol/L CERNER MILLENNIUM CO2 21(L) 22 - 31 mmol/L CERNER MILLENNIUM Anion Gap 15 5 - 15 mmol/L CERNER MILLENNIUM Calcium 9.6 8.5 - 10.5 mg/dL CERNER MILLENNIUM Estimated GFR >60 >=60 CERNER MILLENNIUM Comment: The National Kidney Disease Education Program (NKDEP) has recommended all laboratories report estimated GFR (eGFR) along with plasma creatinine measurements to assist you with recognition of early kidney disease. Caveats: ??Plasma creatinine should be at steady-state (unchanged within the past week). For patients multiply eGFR by 1.2. The MDRD equation was developed using patients between the ages of 18 and 70 years. ?? The MDRD equation has not been validated for patients < 18 years of age and should not be used to assess renal function in the pediatric population. ??The MDRD eGFR equation will also overestimate the true GFR of patients above the age of 70. ??This overestimation is variable but increases with age. At present, NKDEP does NOT recommend using the MDRD equation for drug dosing purposes and pharmacists should continue to use their current dosing methods. In addition, numerical eGFR values greater than 60 ml/min/1.73 square meters should be treated as > 60, and not an exact number due to greater inaccuracies at these higher values. Per NKDEP, they classify normal renal function as any GFR >60ml/min/1.73 square meters; chronic kidney disease when GFR <60, and renal failure when GFR <15. ??This calculation may not be valid for patients with atypical muscle mass (very lean or obese), acute renal failure, and in patients with diabetic kidney disease. References: http://nkdep.nih.gov/resources/NKDEP_Suggestn4Labs_0606_508.pdf http://www.kidney.org/professionals/kls/pdf/faq_gfr.pdf Lila K, Matt NA, Gaviota AK, Viet TS, Sania AD, Shagufta RAMIRO. Relative performance of the MDRD and CKD-EPI equations for estimating glomerular filtration rate among patients with varied clinical presentations. Clin J Am Soc Nephrol;6:1963-72. Blood specimen (specimen) 05/02/2012 2:37 AM EDT 05/02/2012 2:46 AM EDT Narrative Resulting Agency Comment Spec In Lab Win oCrdoba MD CHEMISTRY ORDERABLE S Performing Organization Address [facility] Co de Phone Number CERLG MILLENNIUM * SCAN, PERIPHERAL BLOOD (05/01/2012 4:30 AM EDT) Plat Estimate Increased CERNER MILLENNIUM RBC Morphology Abnormal CERNE R MILLENNIUM Polychromasia Present >5/HPF CERNER MILLENNIUM Ovalocytes 1-5 /HPF CERNER MILLENNIUM Giant Platelets Less than 1 /HPF CE RNER MILLENNIUM Blood specimen (specimen) 05/01/2012 4:30 AM EDT 05/01/2012 4:32 AM EDT Narrative Resulting Agency Comment Spec In Lab Win Cordoba MD HEMATOLOGY ORDERABL ES Performing Organization Address City/[facility] Co de Phone Number CERNER MILLENNIUM * (ABNORMAL) DIFFERENTIAL, AUTOMATED (05/01/2012 4:30 AM EDT) Neutrophils % 70.5 34.0 - 71.0 % CERNER MILLENNIUM Neutr Abs (ANC) 14.14(H) 1.50 - 6.30 x10(3)/mc L CERNER MILLENNIUM Lymphocytes % 17.5(L) 19.0 - 53.0 % CERNER MILLENNIUM Lymphocytes Abs 3.5 1.0 - 3.6 x10(3)/mc L CERNER MILLENNIUM Monocytes % 8.3 4.0 - 13.0 % CERNER MILLENNIUM Monocyte Abs 1.7(H) 0.2 - 1.0 x10(3)/mc L CERNER MILLENNIUM Eosinophils % 1.4 0.0 - 7.0 % CERNER MILLENNIUM Eosinophils Abs 0.3 0.0 - 0.5 x10(3)/mc L CERNER MILLENNIUM Basophils % 1.1 0.0 - 2.0 % CERNER MILLENNIUM Basophils Abs 0.2 0.0 - 0.2 x10(3)/mc L CERNER MILLENNIUM Immature Gran % 1.20(H) 0.00 - 0.66 % CERNER MILLENNIUM Comment: Immature granulocytes(IG's)percentage and absolute count will include metamyelocytes, myelocytes, and promyelocytes. Blood smears from CBCs yielding IG's will be scanned manually for concordance. If this scan disagrees with the automated IG or if promyelocytes are noted, a manual differential will be performed. Stephani Gran Abs 0.24(H) 0.00 - 0.05 x10(3)/mc L CERNER MILLENNIUM Blood specimen (specimen) 05/01/2012 4:30 AM EDT 05/01/2012 4:32 AM EDT Win Cordoba MD HEMATOLOGY ORDERABL ES CERNER NADEGEENNIUM * (ABNORMAL) CBC (with Diff) (05/01/2012 4:30 AM EDT) WBC 20.0(H) 4.0 - 10.0 x10(3)/mcL CERNER MILLENNIUM RBC 3.35(L) 4.63 - 6.08 x10(6)/mcL CERNER MILLENNIUM Hemoglobin 11.5(L) 13.7 - 17.5 gm/dL CERNER MILLENNIUM Hematocrit 32.8(L) 40.0 - 51.0 % CERNER MILLENNIUM MCV 97.9(H) 79.0 - 92.0 fL CERNER MILLENNIUM MCH 34.3(H) 25.6 - 32.2 pg CERNER MILLENNIUM MCHC 35.1 32.0 - 36.5 gm/dL CERNER MILLENNIUM Platelets 790(H) 145 - 370 x10(3)/mcL CERNER MILLENNIUM RDWSD 49.0(H) 35.0 - 46.0 fL CERNER MILLENNIUM RDWCV 13.6 10.9 - 14.4 % CERNER MILLENNIUM MPV 11.1 9.0 - 12.0 fL CERNER MILLENNIUM Blood specimen (specimen) 05/01/2012 4:30 AM EDT 05/01/2012 4:32 AM EDT Narrative Resulting Agency Comment Spec In Lab Win Cordoba MD HEMATOLOGY ORDERABL ES Performing Organization Address [facility] de Phone Number VILLA TYIUM * Phosphorus (05/01/2012 4:30 AM EDT) Phosphorus 3.3 2.5 - 4.5 mg/dL VILLA TYIUM Blood specimen (specimen) 05/01/2012 4:30 AM EDT 05/01/2012 4:32 AM EDT Narrative Resulting Agency Comment Spec In Lab Win Cordoba MD CHEMISTRY ORDERABLE S Performing Organization Address [facility] de Phone Number VILLA TYIUM * Magnesium (05/01/2012 4:30 AM EDT) Magnesium 0.76 0.69 - 1.07 mmol/L VILLA TYIUM Blood specimen (specimen) 05/01/2012 4:30 AM EDT 05/01/2012 4:32 AM EDT Narrative Resulting Agency Comment Spec In Lab Win Cordoba MD CHEMISTRY ORDERABLE S Performing Organization Address [facility]/State/ZIP Co de Phone Number CERNER MILLENNIUM * (ABNORMAL) Basic Metabolic Panel (non-fasting) (05/01/2012 4:30 AM EDT) Glucose Lvl 134 60 - 199 mg/dL CERNER MILLENNIUM Comment:Diabetes: >=200 mg/d L plus symptoms BUN 9(L) 10 - 20 mg/dL CERNER MILLENNIUM Creatinine 0.50(L) 0.80 - 1.50 mg/dL CERNER MILLENNIUM Comment: Please note that the pediatric reference intervals supplied above were not validated at [facility]. Results from pediatric patients should be interpreted in conjunction to the patient's age, height and muscle mass. Sodium 136 135 - 145 mmol/L CERNER MILLENNIUM Potassium 3.8 3.5 - 5.0 mmol/L CERNER MILLENNIUM Comment: Please note: ??Patients with WBC >100,000 may have falsely elevated Potassium levels. ??For accurate Potassium quantification in these patients send serum separator tube (gold top) for subsequent determinations. ??Contact the Clinical Chemistry Laboratory if there are any questions. Chloride 100 98 - 107 mmol/L CERNER MILLENNIUM CO2 20(L) 22 - 31 mmol/L CERNER MILLENNIUM Anion Gap 16(H) 5 - 15 mmol/L CERNER MILLENNIUM Calcium 9.1 8.5 - 10.5 mg/dL CERNER MILLENNIUM Estimated GFR >60 >=60 CERNER MILLENNIUM Comment: The National Kidney Disease Education Program (NKDEP) has recommended all laboratories report estimated GFR (eGFR) along with plasma creatinine measurements to assist you with recognition of early kidney disease. Caveats: ??Plasma creatinine should be at steady-state (unchanged within the past week). For patients multiply eGFR by 1.2. The MDRD equation was developed using patients between the ages of 18 and 70 years. ?? The MDRD equation has not been validated for patients < 18 years of age and should not be used to assess renal function in the pediatric population. ??The MDRD eGFR equation will also overestimate the true GFR of patients above the age of 70. ??This overestimation is variable but increases with age. At present, NKDEP does NOT recommend using the MDRD equation for drug dosing purposes and pharmacists should continue to use their current dosing methods. In addition, numerical eGFR values greater than 60 ml/min/1.73 square meters should be treated as > 60, and not an exact number due to greater inaccuracies at these higher values. Per NKDEP, they classify normal renal function as any GFR >60ml/min/1.73 square meters; chronic kidney disease when GFR <60, and renal failure when GFR <15. ??This calculation may not be valid for patients with atypical muscle mass (very lean or obese), acute renal failure, and in patients with diabetic kidney disease. References: http://nkdep.nih.gov/resources/NKDEP_Suggestn4Labs_0606_508.pdf http://www.kidney.org/professionals/kls/pdf/faq_gfr.pdf Lila K, Matt NA, Gaviota AK, Viet TS, Sania AD, Shagufta RAMIRO. Relative performance of the MDRD and CKD-EPI equations for estimating glomerular filtration rate among patients with varied clinical presentations. Clin J Am Soc Nephrol;6:1963-72. Blood specimen (specimen) 05/01/2012 4:30 AM EDT 05/01/2012 4:32 AM EDT Narrative Resulting Agency Comment Spec In Lab Win Cordoba MD CHEMISTRY ORDERABLE S [facility] * (ABNORMAL) BLOOD GAS 2 ARTERIAL (04/30/2012 5:13 AM EDT) pH Art 7.47(H) CERNER MILLENNIUM pCO2 Art 32(L) mmHg CERNER MILLENNIUM pO2 Art 86 mmHg CERNER MILLENNIUM HCO3 Art 22.7 mmol/L CERNER MILLENNIUM BE Art -1.0 mmol/L CERNER MILLENNIUM Hgb Blood Gas 11.7(L) gm/dL CERNER MILLENNIUM Comment: Total Hemoglobin (in gm/dL) ?Based on [facility] Hematology ranges: ?Age ?Reference Range Less than 3 days ?14.5 to 22.5 3 days to 2 weeks ? 12.5 to 20.5 2 weeks to 1 month ?10.0 to 18.0 1 to 6 months ?9.4 to 14.0 6 months to 2 years ? 10.5 to 13.5 2 to 6 years ?11.5 to 13.5 6 to 12 years ? 11.5 to 15.5 12 to 18 years (female) 12.0 to 16.0 ? (male) ?? 13.0 to 16.0 > 18 years ? (female) 11.2 to 15.7 ? (male) ?? 13.7 to 17.5 O2HB Art 95.3 % CERNER MILLENNIUM COHB Art 1.2 % CERNER MILLENNIUM Comment: Nonsmokers: 0.5-1.5% COHB Smokers: Variable, but usually less than 10% Toxic: 20-30% COHB Lethal: Greater than 60% COHB METHB Art 0.3 % CERNER MILLENNIUM Na Whole Blood 136 mmol/L CERNE R MILLENNIUM K Whole Blood 3.9 mmol/L CERNER MILLENNIUM Comment: Please note: Patients with WBC >100,000 may have falsely elevated Potassium levels. Contact the Clinical Chemistry Laboratory if there are any questions. ICa Whole Blood 1.15(L) mmol/L CERN ER MILLENNIUM Comment: Reference Ranges: ?? < 19 yrs: 1.22 - 1.37 mmol/L ? Adults: 1.15 - 1.33 mmol/L Note: ??Total bilirubin higher than 20 mg/dL may lead to falsely low ionized calcium. CL Whole Blood 102 mmol/L CERNE R MILLENNIUM Gluc Whole Bld 155 mg/dL CERNE R MILLENNIUM Comment:Diabetes: >=200 mg/d L plus symptoms. FIO2 Art 60 % CERNER MILLENNIUM PF Ratio Art 143 CERNER MILLENNIUM Blood specimen (specimen) 04/30/2012 5:13 AM EDT 04/30/2012 5:13 AM EDT Sravan Perez MD CHEMISTRY ORDERABLES CERNER NADEGEENNIUM * XR CHEST PA OR AP- 1 VIEW (04/30/2012 5:10 AM EDT) Anatomical Region Laterality Modality Chest N/A Radiographic Ellen ging 04/30/2012 5:10 AM EDT Narrative 04/30/2012 9:49 AM EDT Examination Single-view chest. Clinical History Increased work of breathing. ??No pneumonia. ??Increasing secretions. Comparison 04/29/2012 at 0725 hours. Technique Portable AP chest radiograph from 04/30/2012 at 0505 hours. Findings Improving airspace opacity at the left lung base. ??Right lung appears clear. ?? Cardiomediastinal silhouette and pulmonary vascular markings within normal limits. ??Question small left base effusion. Impression Persistent, but improved, indeterminate opacity at the left base. Procedure Note Diane Oscar MD - 04/30/2012 Examination Single-view chest. Clinical History Increased work of breathing. No pneumonia. Increasing secretions. Comparison 04/29/2012 at 0725 hours. Technique Portable AP chest radiograph from 04/30/2012 at 0505 hours. Findings Improving airspace opacity at the left lung base. Right lung appearsclear. Cardiomediastinal silhouette and pulmonary vascular markings within normal limits. Question small left base effusion. Impression Persistent, but improved, indeterminate opacity at the left base. Win Cordoba MD IMG DX ORDERABLES * (ABNORMAL) DIFFERENTIAL, MANUAL (04/30/2012 4:10 AM EDT) Neutrophil % 70 34 - 71 % CERNER MILLENNIUM Band % 3 0 - 12 % CERNER MILLENNIUM Lymphocyte % 19 19 - 53 % CERNER MILLENNIUM Monocyte % 6 4 - 13 % CERNER MILLENNIUM Basophil % 1 0 - 2 % CERNER MILLENNIUM Metamyelo % 1(H) 0 - 0 % CERNER MILLENNIUM Neutrophil Abs 13.8(H) 1.5 - 6.3 x10(3)/mc L CERNER MILLENNIUM Band Abs 0.6 0.2 - 0.6 x10(3)/mc L CERNER MILLENNIUM Neutr Abs (ANC) 14.35(H) 1.50 - 6.30 x10(3)/mc L CERNER MILLENNIUM Lymphocyte Abs 3.7(H) 1.0 - 3.6 x10(3)/mc L CERNER MILLENNIUM Monocyte Abs 1.2(H) 0.2 - 1.0 x10(3)/mc L CERNER MILLENNIUM Basophil Abs 0.2 0.0 - 0.2 x10(3)/mc L CERNER MILLENNIUM Metamyelo Abs 0.2(H) 0.0 - 0.0 x10(3)/mc L CERNER MILLENNIUM Tot Diff Cell Ct 100 CER NER MILLENNIUM Plat Estimate Increased CERNER MILLENNIUM RBC Morphology Abnormal CERNE R MILLENNIUM Polychromasia Present >5/HPF CERNER MILLENNIUM Stippled RBCs Present >1/HPF CERNER MILLENNIUM Blood specimen (specimen) 04/30/2012 4:10 AM EDT 04/30/2012 4:21 AM EDT Narrative Resulting Agency Comment Spec In Lab Joshua Fink MD HEMATOLOGY ORDERAB LES CERNER NADEGEENNIUM * NUCLEATED RED BLOOD CELLS (04/30/2012 4:10 AM EDT) Pathologist [facility] nRBC % Auto 0.0 0.0 - 0.2 % CERNER MILLENNIUM nRBC Abs Auto 0.000 0.000 - 0.012 x10(3)/mcL CERNER MILLENNIUM Blood specimen (specimen) 04/30/2012 4:10 AM EDT 04/30/2012 4:21 AM EDT Narrative Resulting Agency Comment Spec In Lab Joshua Fink MD HEMATOLOGY ORDERAB LES CERNER MILLENNIUM * (ABNORMAL) Basic Metabolic Panel (non-fasting) (04/30/2012 4:10 AM EDT) Glucose Lvl 138 60 - 199 mg/dL CERNER MILLENNIUM Comment:Diabetes: >=200 mg/d L plus symptoms BUN 7(L) 10 - 20 mg/dL CERNER MILLENNIUM Creatinine 0.42(L) 0.80 - 1.50 mg/dL CERNER MILLENNIUM Comment: Please note that the pediatric reference intervals supplied above were not validated at [facility]. Results from pediatric patients should be interpreted in conjunction to the patient's age, height and muscle mass. Sodium 136 135 - 145 mmol/L CERNER MILLENNIUM Potassium 4.1 3.5 - 5.0 mmol/L CERNER MILLENNIUM Comment: Please note: ??Patients with WBC >100,000 may have falsely elevated Potassium levels. ??For accurate Potassium quantification in these patients send serum separator tube (gold top) for subsequent determinations. ??Contact the Clinical Chemistry Laboratory if there are any questions. Chloride 99 98 - 107 mmol/L CERNER MILLENNIUM CO2 20(L) 22 - 31 mmol/L CERNER MILLENNIUM Anion Gap 17(H) 5 - 15 mmol/L CERNER MILLENNIUM Calcium 9.0 8.5 - 10.5 mg/dL CERNER MILLENNIUM Estimated GFR >60 >=60 CERNER MILLENNIUM Comment: The National Kidney Disease Education Program (NKDEP) has recommended all laboratories report estimated GFR (eGFR) along with plasma creatinine measurements to assist you with recognition of early kidney disease. Caveats: ??Plasma creatinine should be at steady-state (unchanged within the past week). For patients multiply eGFR by 1.2. The MDRD equation was developed using patients between the ages of 18 and 70 years. ?? The MDRD equation has not been validated for patients < 18 years of age and should not be used to assess renal function in the pediatric population. ??The MDRD eGFR equation will also overestimate the true GFR of patients above the age of 70. ??This overestimation is variable but increases with age. At present, NKDEP does NOT recommend using the MDRD equation for drug dosing purposes and pharmacists should continue to use their current dosing methods. In addition, numerical eGFR values greater than 60 ml/min/1.73 square meters should be treated as > 60, and not an exact number due to greater inaccuracies at these higher values. Per NKDEP, they classify normal renal function as any GFR >60ml/min/1.73 square meters; chronic kidney disease when GFR <60, and renal failure when GFR <15. ??This calculation may not be valid for patients with atypical muscle mass (very lean or obese), acute renal failure, and in patients with diabetic kidney disease. References: http://nkdep.nih.gov/resources/NKDEP_Suggestn4Labs_0606_508.pdf http://www.kidney.org/professionals/kls/pdf/faq_gfr.pdf Lila K, Matt NA, Gaviota AK, Viet TS, Sania AD, Shagufta RAMIRO. Relative performance of the MDRD and CKD-EPI equations for estimating glomerular filtration rate among patients with varied clinical presentations. Clin J Am Soc Nephrol;6:1963-72. Blood specimen (specimen) 04/30/2012 4:10 AM EDT 04/30/2012 4:21 AM EDT Narrative Resulting Agency Comment Spec In Lab Joshua Fink MD CHEMISTRY ORDERABL ES Performing Organization Address City/[facility] Co de Phone Number [facility] * Magnesium (04/30/2012 4:10 AM EDT) Magnesium 0.74 0.69 - 1.07 mmol/L [facility] Blood specimen (specimen) 04/30/2012 4:10 AM EDT 04/30/2012 4:21 AM EDT Narrative Resulting Agency Comment Spec In Lab Joshua Fink MD CHEMISTRY ORDERABL ES Performing Organization Address [facility]/ZIP Co de Phone Number [facility] * Phosphorus (04/30/2012 4:10 AM EDT) Phosphorus 4.1 2.5 - 4.5 mg/dL [facility] Blood specimen (specimen) 04/30/2012 4:10 AM EDT 04/30/2012 4:21 AM EDT Narrative Resulting Agency Comment Spec In Lab Joshua Fink MD CHEMISTRY ORDERABL ES Performing Organization Address [facility]/ZIP Co de Phone Number VILLA TYIUM * (ABNORMAL) CBC (with Diff) (04/30/2012 4:10 AM EDT) WBC 19.7(H) 4.0 - 10.0 x10(3)/mcL CERNER MILLENNIUM RBC 3.33(L) 4.63 - 6.08 x10(6)/mcL CERNER MILLENNIUM Hemoglobin 11.4(L) 13.7 - 17.5 gm/dL CERNER MILLENNIUM Hematocrit 33.0(L) 40.0 - 51.0 % CERNER MILLENNIUM MCV 99.1(H) 79.0 - 92.0 fL CERNER MILLENNIUM MCH 34.2(H) 25.6 - 32.2 pg CERNER MILLENNIUM MCHC 34.5 32.0 - 36.5 gm/dL CERNER MILLENNIUM Platelets 658(H) 145 - 370 x10(3)/mcL CERNER MILLENNIUM RDWSD 49.1(H) 35.0 - 46.0 fL CERNER MILLENNIUM RDWCV 13.6 10.9 - 14.4 % CERNER MILLENNIUM MPV 11.6 9.0 - 12.0 fL CERNER MILLENNIUM Blood specimen (specimen) 04/30/2012 4:10 AM EDT 04/30/2012 4:21 AM EDT Narrative Resulting Agency Comment Spec In Lab Joshua Fink MD HEMATOLOGY ORDERAB LES [facility] TYIUM * Potassium (04/29/2012 9:50 PM EDT) Potassium 4.2 3.5 - 5.0 mmol/L CERNER MILLENNIUM Comment: Result rechecked. Please note: ??Patients with WBC >100,000 may have falsely elevated Potassium levels. ??For accurate Potassium quantification in these patients send serum separator tube (gold top) for subsequent determinations. ??Contact the Clinical Chemistry Laboratory if there are any questions. Blood specimen (specimen) 04/29/2012 9:50 PM EDT 04/29/2012 9:50 PM EDT Narrative Resulting Agency Comment Spec In Lab Joshua Fink MD CHEMISTRY ORDERABL ES Performing Organization Address [facility] de Phone Number VILLA LINN * (ABNORMAL) Potassium (04/29/2012 2:18 PM EDT) Potassium 2.9(Criti shade) 3.5 - 5.0 mmol/L VILLA LINN Comment: called by/read back by (full name)/date-time Please note: ??Patients with WBC >100,000 may have falsely elevated Potassium levels. ??For accurate Potassium quantification in these patients send serum separator tube (gold top) for subsequent determinations. ??Contact the Clinical Chemistry Laboratory if there are any questions. Blood specimen (specimen) 04/29/2012 2:18 PM EDT 04/29/2012 2:22 PM EDT Narrative Resulting Agency Comment Spec In Lab Joshua Fink MD CHEMISTRY ORDERABL ES Performing Organization Address [facility] de Phone Number VILLA LINN * XR chest PA or AP- 1 view (04/29/2012 7:48 AM EDT) Anatomical Region Laterality Modality Chest N/A Radiographic Ellen ging 04/29/2012 7:48 AM EDT Narrative 04/29/2012 8:41 AM EDT Examination CHEST AP/XPORT Clinical History Reason for exam and clinical history: s/p L chest tube removal; Comparison With the film 04/25/2012. Technique Findings All of the support lines have been removed. ??The continues to be infiltrate in both lower lung carrasco more significant on the left than the right. ??The heart and mediastinum are within normal limits. Impression Better inflation but residual infiltrate both lower lung carrasco particularly of the left lower lobe compatible with pneumonia. Procedure Note Franco Bran MD - 04/29/2012 Examination CHEST AP/XPORT Clinical History Reason for exam and clinical history: s/p L chest tube removal; Comparison With the film 04/25/2012. Technique Findings All of the support lines have been removed. The continues to beinfiltrate in both lower lung carrasco more significant on the left than the right. Theheart and mediastinum are within normal limits. Impression Better inflation but residual infiltrate both lower lung fieldsparticularly of the left lower lobe compatible with pneumonia. Joshua Fink MD IMG DX ORDERABLES * (ABNORMAL) DIFFERENTIAL, AUTOMATED (04/29/2012 5:45 AM EDT) Neutrophils % 67.5 34.0 - 71.0 % CERNER MILLENNIUM Neutr Abs (ANC) 10.11(H) 1.50 - 6.30 x10(3)/mc L CERNER MILLENNIUM Lymphocytes % 19.5 19.0 - 53.0 % CERNER MILLENNIUM Lymphocytes Abs 2.9 1.0 - 3.6 x10(3)/mc L CERNER MILLENNIUM Monocytes % 8.8 4.0 - 13.0 % CERNER MILLENNIUM Monocyte Abs 1.3(H) 0.2 - 1.0 x10(3)/mc L CERNER MILLENNIUM Eosinophils % 2.0 0.0 - 7.0 % CERNER MILLENNIUM Eosinophils Abs 0.3 0.0 - 0.5 x10(3)/mc L CERNER MILLENNIUM Basophils % 1.2 0.0 - 2.0 % CERNER MILLENNIUM Basophils Abs 0.2 0.0 - 0.2 x10(3)/mc L CERNER MILLENNIUM Immature Gran % 1.00(H) 0.00 - 0.66 % CERNER MILLENNIUM Comment: Immature granulocytes(IG's)percentage and absolute count will include metamyelocytes, myelocytes, and promyelocytes. Blood smears from CBCs yielding IG's will be scanned manually for concordance. If this scan disagrees with the automated IG or if promyelocytes are noted, a manual differential will be performed. Stephani Gran Abs 0.15(H) 0.00 - 0.05 x10(3)/mc L CERNER MILLENNIUM Blood specimen (specimen) 04/29/2012 5:45 AM EDT 04/29/2012 5:47 AM EDT Joshua Fink MD HEMATOLOGY ORDERAB LES CERNER MILLENNIUM * SCAN, PERIPHERAL BLOOD (04/29/2012 5:45 AM EDT) Plat Estimate Increased CERNER MILLENNIUM RBC Morphology Abnormal CERNE R MILLENNIUM Polychromasia Present >5/HPF CERNER MILLENNIUM Spherocytes 1-5 /HPF CERNER MILLENNIUM Siderocytes Present >1/HPF CERNER MILLENNIUM Giant Platelets Less than 1 /HPF CE RNER MILLENNIUM Blood specimen (specimen) 04/29/2012 5:45 AM EDT 04/29/2012 5:47 AM EDT Narrative Resulting Agency Comment Spec In Lab Joshua Fink MD HEMATOLOGY ORDERAB LES Performing Organization Address City/[facility]/ZIP Co de Phone Number CERNER MILLENNIUM * (ABNORMAL) CBC (with Diff) (04/29/2012 5:45 AM EDT) WBC 15.0(H) 4.0 - 10.0 x10(3)/mcL CERNER MILLENNIUM RBC 3.16(L) 4.63 - 6.08 x10(6)/mcL CERNER MILLENNIUM Hemoglobin 10.8(L) 13.7 - 17.5 gm/dL CERNER MILLENNIUM Hematocrit 30.7(L) 40.0 - 51.0 % CERNER MILLENNIUM MCV 97.2(H) 79.0 - 92.0 fL CERNER MILLENNIUM MCH 34.2(H) 25.6 - 32.2 pg CERNER MILLENNIUM MCHC 35.2 32.0 - 36.5 gm/dL CERNER MILLENNIUM Platelets 502(H) 145 - 370 x10(3)/mcL CERNER MILLENNIUM RDWSD 47.5(H) 35.0 - 46.0 fL CERNER MILLENNIUM RDWCV 13.3 10.9 - 14.4 % CERNER MILLENNIUM MPV 11.2 9.0 - 12.0 fL CERNER MILLENNIUM Blood specimen (specimen) 04/29/2012 5:45 AM EDT 04/29/2012 5:47 AM EDT Narrative Resulting Agency Comment Spec In Lab Joshua Fink MD HEMATOLOGY ORDERAB LES Performing Organization Address [facility] Co de Phone Number CERNER MILLENNIUM * (ABNORMAL) Phosphorus (04/29/2012 5:45 AM EDT) Phosphorus 4.7(H) 2.5 - 4.5 mg/dL CERNER MILLENNIUM Blood specimen (specimen) 04/29/2012 5:45 AM EDT 04/29/2012 5:47 AM EDT Narrative Resulting Agency Comment Spec In Lab Joshua Fink MD CHEMISTRY ORDERABL ES Performing Organization Address [facility] Phone Number CERNER MILLENNIUM * (ABNORMAL) Magnesium (04/29/2012 5:45 AM EDT) Magnesium 0.65(L) 0.69 - 1.07 mmol/L CERNER MILLENNIUM Blood specimen (specimen) 04/29/2012 5:45 AM EDT 04/29/2012 5:47 AM EDT Narrative Resulting Agency Comment Spec In Lab Joshua Fink MD CHEMISTRY ORDERABL ES Performing Organization Address [facility] de Phone Number CERNER MILLENNIUM * (ABNORMAL) Basic Metabolic Panel (non-fasting) (04/29/2012 5:45 AM EDT) Glucose Lvl 119 60 - 199 mg/dL CERNER MILLENNIUM Comment:Diabetes: >=200 mg/d L plus symptoms BUN 8(L) 10 - 20 mg/dL CERNER MILLENNIUM Creatinine 0.43(L) 0.80 - 1.50 mg/dL CERNER MILLENNIUM Comment: Please note that the pediatric reference intervals supplied above were not validated at [facility]. Results from pediatric patients should be interpreted in conjunction to the patient's age, height and muscle mass. Sodium 138 135 - 145 mmol/L CERNER MILLENNIUM Potassium 3.7 3.5 - 5.0 mmol/L CERNER MILLENNIUM Comment: Please note: ??Patients with WBC >100,000 may have falsely elevated Potassium levels. ??For accurate Potassium quantification in these patients send serum separator tube (gold top) for subsequent determinations. ??Contact the Clinical Chemistry Laboratory if there are any questions. Chloride 100 98 - 107 mmol/L CERNER MILLENNIUM CO2 21(L) 22 - 31 mmol/L CERNER MILLENNIUM Anion Gap 17(H) 5 - 15 mmol/L CERNER MILLENNIUM Calcium 8.7 8.5 - 10.5 mg/dL CERNER MILLENNIUM Estimated GFR >60 >=60 CERNER MILLENNIUM Comment: The National Kidney Disease Education Program (NKDEP) has recommended all laboratories report estimated GFR (eGFR) along with plasma creatinine measurements to assist you with recognition of early kidney disease. Caveats: ??Plasma creatinine should be at steady-state (unchanged within the past week). For patients multiply eGFR by 1.2. The MDRD equation was developed using patients between the ages of 18 and 70 years. ?? The MDRD equation has not been validated for patients < 18 years of age and should not be used to assess renal function in the pediatric population. ??The MDRD eGFR equation will also overestimate the true GFR of patients above the age of 70. ??This overestimation is variable but increases with age. At present, NKDEP does NOT recommend using the MDRD equation for drug dosing purposes and pharmacists should continue to use their current dosing methods. In addition, numerical eGFR values greater than 60 ml/min/1.73 square meters should be treated as > 60, and not an exact number due to greater inaccuracies at these higher values. Per NKDEP, they classify normal renal function as any GFR >60ml/min/1.73 square meters; chronic kidney disease when GFR <60, and renal failure when GFR <15. ??This calculation may not be valid for patients with atypical muscle mass (very lean or obese), acute renal failure, and in patients with diabetic kidney disease. References: http://nkdep.nih.gov/resources/NKDEP_Suggestn4Labs_0606_508.pdf http://www.kidney.org/professionals/kls/pdf/faq_gfr.pdf Matt Neal NA, Gaviota AK, Viet TS, Sania AD, Shagufta RAMIRO. Relative performance of the MDRD and CKD-EPI equations for estimating glomerular filtration rate among patients with varied clinical presentations. Clin J Am Soc Nephrol;6:1963-72. Blood specimen (specimen) 04/29/2012 5:45 AM EDT 04/29/2012 5:47 AM EDT Narrative Resulting Agency Comment Spec In Lab Joshua Fink MD CHEMISTRY ORDERABL ES Performing Organization Address [facility] Co de Phone Number [facility]pr[facility]icsCOMM[facility] * (ABNORMAL) Prealbumin (04/29/2012 5:45 AM EDT) Prealbumin 8(L) 20 - 40 mg/dL [facility] Comment: Prealbumin levels are generally lower in the pediatric population; adult concentrations are usually attained near puberty. Blood specimen (specimen) 04/29/2012 5:45 AM EDT 04/29/2012 5:47 AM EDT Narrative Resulting Agency Comment Spec In Lab Joshua Fink MD CHEMISTRY ORDERABL ES Performing Organization Address [facility] de Phone Number CERLG LIGHTENNIUM * Potassium (04/28/2012 5:36 PM EDT) Potassium 4.1 3.5 - 5.0 mmol/L [facility] Comment: Please note: ??Patients with WBC >100,000 may have falsely elevated Potassium levels. ??For accurate Potassium quantification in these patients send serum separator tube (gold top) for subsequent determinations. ??Contact the Clinical Chemistry Laboratory if there are any questions. Blood specimen (specimen) 04/28/2012 5:36 PM EDT 04/28/2012 5:41 PM EDT Narrative Resulting Agency Comment Spec In Lab Joshua Fink MD CHEMISTRY ORDERABL ES Performing Organization Address [facility] Co de Phone Number CERLG LIGHTENNIUM * Potassium (04/28/2012 6:45 AM EDT) Potassium 3.9 3.5 - 5.0 mmol/L CERNER MILLENNIUM Comment: Please note: ??Patients with WBC >100,000 may have falsely elevated Potassium levels. ??For accurate Potassium quantification in these patients send serum separator tube (gold top) for subsequent determinations. ??Contact the Clinical Chemistry Laboratory if there are any questions. Blood specimen (specimen) 04/28/2012 6:45 AM EDT 04/28/2012 6:54 AM EDT Narrative Resulting Agency Comment Spec In Lab Joshua Fink MD CHEMISTRY ORDERABL ES CERNER MILLENNIUM * (ABNORMAL) DIFFERENTIAL, AUTOMATED (04/28/2012 2:45 AM EDT) Pathologist [facility] Neutrophils % 62.5 34.0 - 71.0 % CERNER MILLENNIUM Neutr Abs (ANC) 9.17(H) 1.50 - 6.30 x10(3)/mc L CERNER MILLENNIUM Lymphocytes % 15.9(L) 19.0 - 53.0 % CERNER MILLENNIUM Lymphocytes Abs 2.3 1.0 - 3.6 x10(3)/mc L CERNER MILLENNIUM Monocytes % 17.0(H) 4.0 - 13.0 % CERNER MILLENNIUM Monocyte Abs 2.5(H) 0.2 - 1.0 x10(3)/mc L CERNER MILLENNIUM Eosinophils % 3.2 0.0 - 7.0 % CERNER MILLENNIUM Eosinophils Abs 0.5 0.0 - 0.5 x10(3)/mc L CERNER MILLENNIUM Basophils % 0.7 0.0 - 2.0 % CERNER MILLENNIUM Basophils Abs 0.1 0.0 - 0.2 x10(3)/mc L CERNER MILLENNIUM Immature Gran % 0.70(H) 0.00 - 0.66 % CERNER MILLENNIUM Comment: Immature granulocytes(IG's)percentage and absolute count will include metamyelocytes, myelocytes, and promyelocytes. Blood smears from CBCs yielding IG's will be scanned manually for concordance. If this scan disagrees with the automated IG or if promyelocytes are noted, a manual differential will be performed. Stephani Gran Abs 0.11(H) 0.00 - 0.05 x10(3)/mc L CERNER MILLENNIUM Blood specimen (specimen) 04/28/2012 2:45 AM EDT 04/28/2012 2:50 AM EDT Joshua Fink MD HEMATOLOGY ORDERAB LES Performing Organization Address City/[facility]/ZIP Co de Phone Number CERLG TYIUM * NUCLEATED RED BLOOD CELLS (04/28/2012 2:45 AM EDT) nRBC % Auto 0.0 0.0 - 0.2 % CERNER MILLENNIUM nRBC Abs Auto 0.000 0.000 - 0.012 x10(3)/mcL CERNER MILLENNIUM Blood specimen (specimen) 04/28/2012 2:45 AM EDT 04/28/2012 2:50 AM EDT Narrative Resulting Agency Comment Spec In Lab Joshua Fink MD HEMATOLOGY ORDERAB LES Performing Organization Address [facility] de Phone Number CERLG TYIUM * SCAN, PERIPHERAL BLOOD (04/28/2012 2:45 AM EDT) Plat Estimate Normal CERNER MILLENNIUM RBC Morphology Normal CERNE R MILLENNIUM Giant Platelets Less than 1 /HPF CERNER NADEGEENNIUM Blood specimen (specimen) 04/28/2012 2:45 AM EDT 04/28/2012 2:50 AM EDT Narrative Resulting Agency Comment Spec In Lab Joshua Fink MD HEMATOLOGY ORDERAB LES Performing Organization Address City/[facility] Co de Phone Number CERNER NADEGEENNIUM * (ABNORMAL) CBC (with Diff) (04/28/2012 2:45 AM EDT) WBC 14.7(H) 4.0 - 10.0 x10(3)/mcL CERNER MILLENNIUM RBC 2.89(L) 4.63 - 6.08 x10(6)/mcL CERNER MILLENNIUM Hemoglobin 10.0(L) 13.7 - 17.5 gm/dL CERNER MILLENNIUM Hematocrit 28.8(L) 40.0 - 51.0 % CERNER MILLENNIUM MCV 99.7(H) 79.0 - 92.0 fL CERNER MILLENNIUM MCH 34.6(H) 25.6 - 32.2 pg CERNER MILLENNIUM MCHC 34.7 32.0 - 36.5 gm/dL CERNER MILLENNIUM Platelets 395(H) 145 - 370 x10(3)/mcL CERNER MILLENNIUM RDWSD 50.5(H) 35.0 - 46.0 fL CERNER MILLENNIUM RDWCV 13.9 10.9 - 14.4 % CERNER MILLENNIUM MPV 11.5 9.0 - 12.0 fL [facility] Blood specimen (specimen) 04/28/2012 2:45 AM EDT 04/28/2012 2:50 AM EDT Narrative Resulting Agency Comment Spec In Lab Joshua Fink MD HEMATOLOGY ORDERAB LES VILLA TYIUM * Phosphorus (04/28/2012 2:45 AM EDT) Phosphorus 3.5 2.5 - 4.5 mg/dL VILLA TYIUM Blood specimen (specimen) 04/28/2012 2:45 AM EDT 04/28/2012 2:50 AM EDT Narrative Resulting Agency Comment Spec In Lab Joshua Fink MD CHEMISTRY ORDERABL ES VILLA TYIUM * Magnesium (04/28/2012 2:45 AM EDT) Magnesium 0.89 0.69 - 1.07 mmol/L CERLG LIGHTENNIUM Blood specimen (specimen) 04/28/2012 2:45 AM EDT 04/28/2012 2:50 AM EDT Narrative Resulting Agency Comment Spec In Lab Joshua Fink MD CHEMISTRY ORDERABL ES CERNER MILLENNIUM * (ABNORMAL) Basic Metabolic Panel (non-fasting) (04/28/2012 2:45 AM EDT) Glucose Lvl 101 60 - 199 mg/dL CERNER MILLENNIUM Comment:Diabetes: >=200 mg/d L plus symptoms BUN 8(L) 10 - 20 mg/dL CERNER MILLENNIUM Creatinine 0.35(L) 0.80 - 1.50 mg/dL CERNER MILLENNIUM Comment: Please note that the pediatric reference intervals supplied above were not validated at [facility]. Results from pediatric patients should be interpreted in conjunction to the patient's age, height and muscle mass. Sodium 132(L) 135 - 145 mmol/L CERNER MILLENNIUM Potassium 4.0 3.5 - 5.0 mmol/L CERNER MILLENNIUM Comment: Please note: ??Patients with WBC >100,000 may have falsely elevated Potassium levels. ??For accurate Potassium quantification in these patients send serum separator tube (gold top) for subsequent determinations. ??Contact the Clinical Chemistry Laboratory if there are any questions. Chloride 96(L) 98 - 107 mmol/L CERNER MILLENNIUM CO2 26 22 - 31 mmol/L CERNER MILLENNIUM Anion Gap 10 5 - 15 mmol/L CERNER MILLENNIUM Calcium 8.6 8.5 - 10.5 mg/dL CERNER MILLENNIUM Estimated GFR >60 >=60 CERNER MILLENNIUM Comment: The National Kidney Disease Education Program (NKDEP) has recommended all laboratories report estimated GFR (eGFR) along with plasma creatinine measurements to assist you with recognition of early kidney disease. Caveats: ??Plasma creatinine should be at steady-state (unchanged within the past week). For patients multiply eGFR by 1.2. The MDRD equation was developed using patients between the ages of 18 and 70 years. ?? The MDRD equation has not been validated for patients < 18 years of age and should not be used to assess renal function in the pediatric population. ??The MDRD eGFR equation will also overestimate the true GFR of patients above the age of 70. ??This overestimation is variable but increases with age. At present, NKDEP does NOT recommend using the MDRD equation for drug dosing purposes and pharmacists should continue to use their current dosing methods. In addition, numerical eGFR values greater than 60 ml/min/1.73 square meters should be treated as > 60, and not an exact number due to greater inaccuracies at these higher values. Per NKDEP, they classify normal renal function as any GFR >60ml/min/1.73 square meters; chronic kidney disease when GFR <60, and renal failure when GFR <15. ??This calculation may not be valid for patients with atypical muscle mass (very lean or obese), acute renal failure, and in patients with diabetic kidney disease. References: http://nkdep.nih.gov/resources/NKDEP_Suggestn4Labs_0606_508.pdf http://www.kidney.org/professionals/kls/pdf/faq_gfr.pdf Lila K, Matt NA, Gaviota AK, Viet TS, Sania AD, Shagufta RAMIRO. Relative performance of the MDRD and CKD-EPI equations for estimating glomerular filtration rate among patients with varied clinical presentations. Clin J Am Soc Nephrol;6:1963-72. Blood specimen (specimen) 04/28/2012 2:45 AM EDT 04/28/2012 2:50 AM EDT Narrative Resulting Agency Comment Spec In Lab Joshua Fink MD CHEMISTRY ORDERABL ES [facility] * Potassium (04/27/2012 5:00 PM EDT) [facility] Signature Potassium 3.8 3.5 - 5.0 mmol/L [facility] Comment: Please note: ??Patients with WBC >100,000 may have falsely elevated Potassium levels. ??For accurate Potassium quantification in these patients send serum separator tube (gold top) for subsequent determinations. ??Contact the Clinical Chemistry Laboratory if there are any questions. Blood specimen (specimen) 04/27/2012 5:00 PM EDT 04/27/2012 5:19 PM EDT Narrative Resulting Agency Comment Spec In Lab Joshua Fink MD CHEMISTRY ORDERABL ES CERNER MILLENNIUM * Potassium (04/27/2012 10:15 AM EDT) Potassium 4.0 3.5 - 5.0 mmol/L CERNER MILLENNIUM Comment: Please note: ??Patients with WBC >100,000 may have falsely elevated Potassium levels. ??For accurate Potassium quantification in these patients send serum separator tube (gold top) for subsequent determinations. ??Contact the Clinical Chemistry Laboratory if there are any questions. Blood specimen (specimen) 04/27/2012 10:15 AM EDT 04/27/2012 10:23 AM EDT Narrative Resulting Agency Comment Spec In Lab Joshua Fink MD CHEMISTRY ORDERABL ES Performing Organization Address [facility]/ZIP Co de Phone Number CERNER MILLENNIUM * (ABNORMAL) BLOOD GAS 2 ARTERIAL (04/27/2012 5:07 AM EDT) pH Art 7.43 CERNER MILLENNIUM pCO2 Art 44 mmHg CERNER MILLENNIUM pO2 Art 69(L) mmHg CERNER MILLENNIUM HCO3 Art 28.4(H) mmol/L CERNER MILLENNIUM BE Art 4.1(H) mmol/L CERNER MILLENNIUM Hgb Blood Gas 10.8(L) gm/dL CERNER MILLENNIUM Comment: Total Hemoglobin (in gm/dL) ?Based on [facility] Hematology ranges: ?Age ?Reference Range Less than 3 days ?14.5 to 22.5 3 days to 2 weeks ? 12.5 to 20.5 2 weeks to 1 month ?10.0 to 18.0 1 to 6 months ?9.4 to 14.0 6 months to 2 years ? 10.5 to 13.5 2 to 6 years ?11.5 to 13.5 6 to 12 years ? 11.5 to 15.5 12 to 18 years (female) 12.0 to 16.0 ? (male) ?? 13.0 to 16.0 > 18 years ? (female) 11.2 to 15.7 ? (male) ?? 13.7 to 17.5 O2HB Art 91.9(L) % CERNER MILLENNIUM COHB Art 1.7 % CERNER MILLENNIUM Comment: Nonsmokers: 0.5-1.5% COHB Smokers: Variable, but usually less than 10% Toxic: 20-30% COHB Lethal: Greater than 60% COHB METHB Art 0.3 % CERNER MILLENNIUM Na Whole Blood 135 mmol/L CERNE R MILLENNIUM K Whole Blood 3.9 mmol/L CERNER MILLENNIUM Comment: Please note: Patients with WBC >100,000 may have falsely elevated Potassium levels. Contact the Clinical Chemistry Laboratory if there are any questions. ICa Whole Blood 1.12(L) mmol/L CERN ER MILLENNIUM Comment: Reference Ranges: ?? < 19 yrs: 1.22 - 1.37 mmol/L ? Adults: 1.15 - 1.33 mmol/L Note: ??Total bilirubin higher than 20 mg/dL may lead to falsely low ionized calcium. CL Whole Blood 102 mmol/L CERNE R MILLENNIUM Gluc Whole Bld 99 mg/dL CERNE R MILLENNIUM Comment:Diabetes: >=200 mg/d L plus symptoms. FIO2 Art 30 % CERNER MILLENNIUM PF Ratio Art 230 CERNER MILLENNIUM Blood specimen (specimen) 04/27/2012 5:07 AM EDT 04/27/2012 5:07 AM EDT Sravan Perez MD CHEMISTRY ORDERABLES CERNER MILLENNIUM * (ABNORMAL) DIFFERENTIAL, MANUAL (04/27/2012 3:00 AM EDT) Neutrophil % 63 34 - 71 % CERNER MILLENNIUM Band % 3 0 - 12 % CERNER MILLENNIUM Lymphocyte % 16(L) 19 - 53 % CERNER MILLENNIUM Monocyte % 15(H) 4 - 13 % CERNER MILLENNIUM Eosinophil % 3 0 - 7 % CERNER MILLENNIUM Neutrophil Abs 9.8(H) 1.5 - 6.3 x10(3)/mc L CERNER MILLENNIUM Band Abs 0.5 0.2 - 0.6 x10(3)/mc L CERNER MILLENNIUM Neutr Abs (ANC) 10.30(H) 1.50 - 6.30 x10(3)/mc L CERNER MILLENNIUM Lymphocyte Abs 2.5 1.0 - 3.6 x10(3)/mc L CERNER MILLENNIUM Monocyte Abs 2.3(H) 0.2 - 1.0 x10(3)/mc L CERNER MILLENNIUM Eosinophil Abs 0.5 0.0 - 0.5 x10(3)/mc L CERNER MILLENNIUM Tot Diff Cell Ct 100 CER NER MILLENNIUM Plat Estimate Normal CERNER MILLENNIUM RBC Morphology Abnormal CERNE R MILLENNIUM [place] Bdy Present >1/HPF CER NER MILLENNIUM Pappenheimer Bdy Present >1/HPF CER NER MILLENNIUM Comment:To be confirmed by I johnie Stain. Blood specimen (specimen) 04/27/2012 3:00 AM EDT 04/27/2012 3:04 AM EDT Narrative Resulting Agency Comment Spec In Lab Joshua Fink MD HEMATOLOGY ORDERAB LES CERNER MILLENNIUM * (ABNORMAL) CBC (with Diff) (04/27/2012 3:00 AM EDT) WBC 15.6(H) 4.0 - 10.0 x10(3)/mcL CERNER MILLENNIUM RBC 2.86(L) 4.63 - 6.08 x10(6)/mcL CERNER MILLENNIUM Hemoglobin 9.8(L) 13.7 - 17.5 gm/dL CERNER MILLENNIUM Hematocrit 28.5(L) 40.0 - 51.0 % CERNER MILLENNIUM MCV 99.7(H) 79.0 - 92.0 fL CERNER MILLENNIUM MCH 34.3(H) 25.6 - 32.2 pg CERNER MILLENNIUM MCHC 34.4 32.0 - 36.5 gm/dL CERLG MILLENNIUM Platelets 286 145 - 370 x10(3)/mcL CERNER MILLENNIUM RDWSD 50.9(H) 35.0 - 46.0 fL CERLG MILLENNIUM RDWCV 14.0 10.9 - 14.4 % CERLG LIGHTENNIUM MPV 11.5 9.0 - 12.0 fL CERLG LIGHTENNIUM Blood specimen (specimen) 04/27/2012 3:00 AM EDT 04/27/2012 3:04 AM EDT Narrative Resulting Agency Comment Spec In Lab Joshua Fink MD HEMATOLOGY ORDERAB LES Performing Organization Address [facility] [facility] Co de Phone Number VILLA TYIUM * Phosphorus (04/27/2012 3:00 AM EDT) Phosphorus 4.3 2.5 - 4.5 mg/dL VILLA TYIUM Blood specimen (specimen) 04/27/2012 3:00 AM EDT 04/27/2012 3:04 AM EDT Narrative Resulting Agency Comment Spec In Lab Joshua Fink MD CHEMISTRY ORDERABL ES Performing Organization Address [facility] de Phone Number VILLA TYIUM * Magnesium (04/27/2012 3:00 AM EDT) Magnesium 0.75 0.69 - 1.07 mmol/L VILLA TYIUM Blood specimen (specimen) 04/27/2012 3:00 AM EDT 04/27/2012 3:04 AM EDT Narrative Resulting Agency Comment Spec In Lab Joshua Fink MD CHEMISTRY ORDERABL ES Performing Organization Address [facility] Co de Phone Number VILLA TYIUM * (ABNORMAL) Basic Metabolic Panel (non-fasting) (04/27/2012 3:00 AM EDT) Glucose Lvl 105 60 - 199 mg/dL CERNER MILLENNIUM Comment:Diabetes: >=200 mg/d L plus symptoms BUN 8(L) 10 - 20 mg/dL CERNER MILLENNIUM Creatinine 0.40(L) 0.80 - 1.50 mg/dL CERNER MILLENNIUM Comment: Please note that the pediatric reference intervals supplied above were not validated at [facility]. Results from pediatric patients should be interpreted in conjunction to the patient's age, height and muscle mass. Sodium 139 135 - 145 mmol/L CERNER MILLENNIUM Potassium 3.8 3.5 - 5.0 mmol/L CERNER MILLENNIUM Comment: Please note: ??Patients with WBC >100,000 may have falsely elevated Potassium levels. ??For accurate Potassium quantification in these patients send serum separator tube (gold top) for subsequent determinations. ??Contact the Clinical Chemistry Laboratory if there are any questions. Chloride 102 98 - 107 mmol/L CERNER MILLENNIUM CO2 26 22 - 31 mmol/L CERNER MILLENNIUM Anion Gap 11 5 - 15 mmol/L CERNER MILLENNIUM Calcium 8.3(L) 8.5 - 10.5 mg/dL CERNER MILLENNIUM Estimated GFR >60 >=60 CERNER MILLENNIUM Comment: The National Kidney Disease Education Program (NKDEP) has recommended all laboratories report estimated GFR (eGFR) along with plasma creatinine measurements to assist you with recognition of early kidney disease. Caveats: ??Plasma creatinine should be at steady-state (unchanged within the past week). For patients multiply eGFR by 1.2. The MDRD equation was developed using patients between the ages of 18 and 70 years. ?? The MDRD equation has not been validated for patients < 18 years of age and should not be used to assess renal function in the pediatric population. ??The MDRD eGFR equation will also overestimate the true GFR of patients above the age of 70. ??This overestimation is variable but increases with age. At present, NKDEP does NOT recommend using the MDRD equation for drug dosing purposes and pharmacists should continue to use their current dosing methods. In addition, numerical eGFR values greater than 60 ml/min/1.73 square meters should be treated as > 60, and not an exact number due to greater inaccuracies at these higher values. Per NKDEP, they classify normal renal function as any GFR >60ml/min/1.73 square meters; chronic kidney disease when GFR <60, and renal failure when GFR <15. ??This calculation may not be valid for patients with atypical muscle mass (very lean or obese), acute renal failure, and in patients with diabetic kidney disease. References: http://nkdep.nih.gov/resources/NKDEP_Suggestn4Labs_0606_508.pdf http://www.kidney.org/professionals/kls/pdf/faq_gfr.pdf Lila K, Matt NA, Gaviota AK, Viet TS, Sania AD, Shagufta RAMIRO. Relative performance of the MDRD and CKD-EPI equations for estimating glomerular filtration rate among patients with varied clinical presentations. Clin J Am Soc Nephrol;6:1963-72. Blood specimen (specimen) 04/27/2012 3:00 AM EDT 04/27/2012 3:04 AM EDT Narrative Resulting Agency Comment Spec In Lab Joshua Fink MD CHEMISTRY ORDERABL ES [facility] * Blood culture (04/26/2012 6:52 AM EDT) Blood Culture ? Patient Name: KADEN STONER ? Ordered By: JOSHUA FINK ? MR#: [id number] ?LOC: ??ISCU ? /Sex: ??1960 (51 years), ? Male ? PROCEDURE: Blood Culture ?SOURCE: Blood Pedi ? COLLECTED: 04/26/2012 06:52 ? BODY SITE: Left Antecubital ? STARTED: 04/26/2012 08:02 ? FINAL REPORT ? Final Report ? Verified:2011 15:08 ? No growth at 5 days. ? PRELIMINARY REPORT ? Preliminary Report ? Verified:2011 15:08 ? No growth at 4 days. ? CERNER MILLENNIUM Blood specimen (specimen) ANTECUBITAL REGION STRUCTURE / Unknown 04/26/2012 6:52 AM EDT 04/26/2012 8:02 AM EDT Narrative Resulting Agency Comment Spec In Lab Joshua Fink MD MICROBIOLOGY - BLO OD ORDERABLES CERNER MILLENNIUM * (ABNORMAL) BLOOD GAS 2 ARTERIAL (04/26/2012 6:19 AM EDT) pH Art 7.43 CERNER MILLENNIUM pCO2 Art 41 mmHg CERNER MILLENNIUM pO2 Art 85 mmHg CERNER MILLENNIUM HCO3 Art 26.5(H) mmol/L CERNER MILLENNIUM BE Art 2.3 mmol/L CERNER MILLENNIUM Hgb Blood Gas 10.6(L) gm/dL CERNER MILLENNIUM Comment: Total Hemoglobin (in gm/dL) ?Based on [facility] Hematology ranges: ?Age ?Reference Range Less than 3 days ?14.5 to 22.5 3 days to 2 weeks ? 12.5 to 20.5 2 weeks to 1 month ?10.0 to 18.0 1 to 6 months ?9.4 to 14.0 6 months to 2 years ? 10.5 to 13.5 2 to 6 years ?11.5 to 13.5 6 to 12 years ? 11.5 to 15.5 12 to 18 years (female) 12.0 to 16.0 ? (male) ?? 13.0 to 16.0 > 18 years ? (female) 11.2 to 15.7 ? (male) ?? 13.7 to 17.5 O2HB Art 94.7 % CERNER MILLENNIUM COHB Art 1.5 % CERNER MILLENNIUM Comment: Nonsmokers: 0.5-1.5% COHB Smokers: Variable, but usually less than 10% Toxic: 20-30% COHB Lethal: Greater than 60% COHB METHB Art 0.3 % CERNER MILLENNIUM Na Whole Blood 139 mmol/L CERNE R MILLENNIUM K Whole Blood 4.3 mmol/L CERNER MILLENNIUM Comment: Please note: Patients with WBC >100,000 may have falsely elevated Potassium levels. Contact the Clinical Chemistry Laboratory if there are any questions. ICa Whole Blood 1.08(L) mmol/L CERN ER MILLENNIUM Comment: Reference Ranges: ?? < 19 yrs: 1.22 - 1.37 mmol/L ? Adults: 1.15 - 1.33 mmol/L Note: ??Total bilirubin higher than 20 mg/dL may lead to falsely low ionized calcium. CL Whole Blood 105 mmol/L CERNE R MILLENNIUM Gluc Whole Bld 116 mg/dL CERNE R MILLENNIUM Comment:Diabetes: >=200 mg/d L plus symptoms. FIO2 Art 40 % CERNER MILLENNIUM PF Ratio Art 212 CERNER MILLENNIUM Blood specimen (specimen) 04/26/2012 6:19 AM EDT 04/26/2012 6:19 AM EDT Sravan Perez MD CHEMISTRY ORDERABLES CERNER MILLENNIUM * Urine culture Indwelling Catheter Urine (04/26/2012 6:15 AM EDT) Urine Culture ? Patient Name: KADEN STONER ? Ordered By: JOSHUA FINK ? MR#: [id number] ?LOC: ??ICUS ? /Sex: ?? 0 (51 years), ? Male ? PROCEDURE: Urine Culture ?SOURCE: T ICa ? COLLECTED: 04/26/2012 06:15 ? STARTED: 04/26/2012 07:26 ? FINAL REPORT ? Final Report ? Verified: 07:47 ? No growth (Less than 1,000 cfu/ml). ? ____ VILLA LINN Urine specimen obtained via indwelling urinary catheter (specimen) 04/26/2012 6:15 AM EDT 04/26/2012 7:26 AM EDT Narrative Resulting Agency Comment Spec In Lab Joshua Fink MD MICROBIOLOGY - GEN ERAL ORDERABLES [facility]ILL[facility] LINN * Lower Respiratory Culture Tracheal Aspirate (04/26/2012 6:14 AM EDT) Lower Respiratory Culture ? Patient Name: KADEN STONER ? Ordered By: JOSHUA FINK ? MR#: [id number] ?LOC: ??ICUS ? /Sex: ??1960 (51 years), ? Male ? PROCEDURE: Lower Respiratory Culture ?SOURCE: Trach Asp ? COLLECTED: 04/26/2012 06:14 ? STARTED: 04/26/2012 08:02 ? STAINS / PREPARATIONS ? Gram Stain Report ? Verified:04/26/2012 09:45 ? Moderate White Blood Cells seen ? Few squamous epithelial cells seen ? Rare Gram Positive Cocci in clusters seen ? Rare Gram Negative Rods seen ? FINAL REPORT ? Final Report ? Verified:04/28/2012 08:59 ? Few Staphylococcus aureus ? Susceptibilities previously reported ? Moderate Klebsiella pneumoniae ? PRELIMINARY REPORT ? Preliminary Report ? Verified:04/27/2012 08:37 ? Few Staphylococcus aureus ? Susceptibilities previously reported ? Moderate Gram Negative Rods ? Patient: HERBIE, KADEN ? MR#: [id number] ? SUSCEPTIBILITY RESULTS ? Klebsiella pneumoniae ? __ ?DEREJE Interp ? Ampicillin ? R ? Ampicillin/Sulbacta m ? S ? Aztreonam ?S ? Cefazolin ?S ? Cefoxitin ?S ? Ceftazidime ?S ? Ceftriaxone ?S ? Cefuroxime ? S ? Ciprofloxacin ?S ? Doripenem ?S ? Gentamicin ? S ? Meropenem ?S ? Piperacillin/[place] ctam ?S ? Trimethoprim/Sulfa ? S ? Tetracycline ? S ? Tobramycin ? S ? CERNER MILLENNIUM Specimen from trachea obtained by aspiration (specimen) 04/26/2012 6:14 AM EDT 04/26/2012 8:01 AM EDT Narrative Resulting Agency Comment Spec In Lab Joshua Fink MD MICROBIOLOGY - GEN ERAL ORDERABLES CERNER MILLENNIUM * (ABNORMAL) DIFFERENTIAL, AUTOMATED (04/26/2012 3:30 AM EDT) Neutrophils % 71.5(H) 34.0 - 71.0 % CERNER MILLENNIUM Neutr Abs (ANC) 10.70(H) 1.50 - 6.30 x10(3)/mc L CERNER MILLENNIUM Lymphocytes % 18.2(L) 19.0 - 53.0 % CERNER MILLENNIUM Lymphocytes Abs 2.7 1.0 - 3.6 x10(3)/mc L CERNER MILLENNIUM Monocytes % 7.0 4.0 - 13.0 % CERNER MILLENNIUM Monocyte Abs 1.0 0.2 - 1.0 x10(3)/mc L CERNER MILLENNIUM Eosinophils % 2.3 0.0 - 7.0 % CERNER MILLENNIUM Eosinophils Abs 0.4 0.0 - 0.5 x10(3)/mc L CERNER MILLENNIUM Basophils % 0.3 0.0 - 2.0 % CERNER MILLENNIUM Basophils Abs 0.1 0.0 - 0.2 x10(3)/mc L CERNER MILLENNIUM Immature Gran % 0.70(H) 0.00 - 0.66 % CERNER MILLENNIUM Comment: Immature granulocytes(IG's)percentage and absolute count will include metamyelocytes, myelocytes, and promyelocytes. Blood smears from CBCs yielding IG's will be scanned manually for concordance. If this scan disagrees with the automated IG or if promyelocytes are noted, a manual differential will be performed. Stephani Gran Abs 0.10(H) 0.00 - 0.05 x10(3)/mc L CERNER MILLENNIUM Blood specimen (specimen) 04/26/2012 3:30 AM EDT 04/26/2012 3:38 AM EDT Joshua Fink MD HEMATOLOGY ORDERAB LES MARIA ISABELNER MILLENNIUM * (ABNORMAL) CBC (with Diff) (04/26/2012 3:30 AM EDT) WBC 15.0(H) 4.0 - 10.0 x10(3)/mcL CERNER MILLENNIUM RBC 2.85(L) 4.63 - 6.08 x10(6)/mcL CERNER MILLENNIUM Hemoglobin 10.0(L) 13.7 - 17.5 gm/dL CERNER MILLENNIUM Hematocrit 28.4(L) 40.0 - 51.0 % CERNER MILLENNIUM MCV 99.6(H) 79.0 - 92.0 fL CERNER MILLENNIUM MCH 35.1(H) 25.6 - 32.2 pg CERNER MILLENNIUM MCHC 35.2 32.0 - 36.5 gm/dL CERNER MILLENNIUM Platelets 240 145 - 370 x10(3)/mcL CERNER MILLENNIUM RDWSD 50.5(H) 35.0 - 46.0 fL CERNER MILLENNIUM RDWCV 13.9 10.9 - 14.4 % CERNER MILLENNIUM MPV 11.1 9.0 - 12.0 fL CERNER MILLENNIUM Blood specimen (specimen) 04/26/2012 3:30 AM EDT 04/26/2012 3:38 AM EDT Narrative Resulting Agency Comment Spec In Lab Joshua Fink MD HEMATOLOGY ORDERAB LES Performing Organization Address [facility] de Phone Number CERNER MILLENNIUM * Phosphorus (04/26/2012 3:30 AM EDT) Phosphorus 3.9 2.5 - 4.5 mg/dL CERNER MILLENNIUM Blood specimen (specimen) 04/26/2012 3:30 AM EDT 04/26/2012 3:38 AM EDT Narrative Resulting Agency Comment Spec In Lab Joshua Fink MD CHEMISTRY ORDERABL ES Performing Organization Address [facility] Co de Phone Number CERNER MILLENNIUM * Magnesium (04/26/2012 3:30 AM EDT) Magnesium 0.80 0.69 - 1.07 mmol/L CERNER MILLENNIUM Blood specimen (specimen) 04/26/2012 3:30 AM EDT 04/26/2012 3:38 AM EDT Narrative Resulting Agency Comment Spec In Lab Joshua Fink MD CHEMISTRY ORDERABL ES CERNER MILLENNIUM * (ABNORMAL) Basic Metabolic Panel (non-fasting) (04/26/2012 3:30 AM EDT) Glucose Lvl 120 60 - 199 mg/dL CERNER MILLENNIUM Comment:Diabetes: >=200 mg/d L plus symptoms BUN 10 10 - 20 mg/dL CERNER MILLENNIUM Creatinine 0.36(L) 0.80 - 1.50 mg/dL CERNER MILLENNIUM Comment: Please note that the pediatric reference intervals supplied above were not validated at [facility]. Results from pediatric patients should be interpreted in conjunction to the patient's age, height and muscle mass. Sodium 135 135 - 145 mmol/L CERNER MILLENNIUM Potassium 4.2 3.5 - 5.0 mmol/L CERNER MILLENNIUM Comment: Please note: ??Patients with WBC >100,000 may have falsely elevated Potassium levels. ??For accurate Potassium quantification in these patients send serum separator tube (gold top) for subsequent determinations. ??Contact the Clinical Chemistry Laboratory if there are any questions. Chloride 101 98 - 107 mmol/L CERNER MILLENNIUM CO2 25 22 - 31 mmol/L CERNER MILLENNIUM Anion Gap 9 5 - 15 mmol/L CERNER MILLENNIUM Calcium 8.0(L) 8.5 - 10.5 mg/dL CERNER MILLENNIUM Estimated GFR >60 >=60 CERNER MILLENNIUM Comment: The National Kidney Disease Education Program (NKDEP) has recommended all laboratories report estimated GFR (eGFR) along with plasma creatinine measurements to assist you with recognition of early kidney disease. Caveats: ??Plasma creatinine should be at steady-state (unchanged within the past week). For patients multiply eGFR by 1.2. The MDRD equation was developed using patients between the ages of 18 and 70 years. ?? The MDRD equation has not been validated for patients < 18 years of age and should not be used to assess renal function in the pediatric population. ??The MDRD eGFR equation will also overestimate the true GFR of patients above the age of 70. ??This overestimation is variable but increases with age. At present, NKDEP does NOT recommend using the MDRD equation for drug dosing purposes and pharmacists should continue to use their current dosing methods. In addition, numerical eGFR values greater than 60 ml/min/1.73 square meters should be treated as > 60, and not an exact number due to greater inaccuracies at these higher values. Per NKDEP, they classify normal renal function as any GFR >60ml/min/1.73 square meters; chronic kidney disease when GFR <60, and renal failure when GFR <15. ??This calculation may not be valid for patients with atypical muscle mass (very lean or obese), acute renal failure, and in patients with diabetic kidney disease. References: http://nkdep.nih.gov/resources/NKDEP_Suggestn4Labs_0606_508.pdf http://www.kidney.org/professionals/kls/pdf/faq_gfr.pdf Lila K, Matt NA, Gaviota AK, Viet TS, Sania AD, Shagufta RAMIRO. Relative performance of the MDRD and CKD-EPI equations for estimating glomerular filtration rate among patients with varied clinical presentations. Clin J Am Soc Nephrol;6:1963-72. Blood specimen (specimen) 04/26/2012 3:30 AM EDT 04/26/2012 3:38 AM EDT Narrative Resulting Agency Comment Spec In Lab Joshua Fink MD CHEMISTRY ORDERABL ES [employer] * Potassium (04/25/2012 8:30 PM EDT) Potassium 4.1 3.5 - 5.0 mmol/L VILLA LINN Comment: Please note: ??Patients with WBC >100,000 may have falsely elevated Potassium levels. ??For accurate Potassium quantification in these patients send serum separator tube (gold top) for subsequent determinations. ??Contact the Clinical Chemistry Laboratory if there are any questions. Blood specimen (specimen) 04/25/2012 8:30 PM EDT 04/25/2012 8:34 PM EDT Narrative Resulting Agency Comment Spec In Lab Joshua Fink MD CHEMISTRY ORDERABL ES [facility] * Blood culture (04/25/2012 6:50 AM EDT) Blood Culture ? Patient Name: HERBIE, KADEN ? Ordered By: JOSHUA FINK ? MR#: [id number] ?LOC: ??ICUS ? /Sex: ??1960 (51 years), ? Male ? PROCEDURE: Blood Culture ?SOURCE: Blood ? COLLECTED: 04/25/2012 06:50 ? BODY SITE: Left Arm ? STARTED: 04/25/2012 07:15 ? FINAL REPORT ? Final Report ? Verified:2011 15:08 ? No growth at 5 days. ? PRELIMINARY REPORT ? Preliminary Report ? Verified:2011 15:09 ? No growth at 4 days. ? VILLA LINN Blood specimen (specimen) STRUCTURE OF LEFT UPPER LIMB / Unknown 04/25/2012 6:50 AM EDT 04/25/2012 7:15 AM EDT Narrative Resulting Agency Comment Spec In Lab Joshua Fink MD MICROBIOLOGY - BLO OD ORDERABLES [facility] * Blood culture (04/25/2012 6:37 AM EDT) Blood Culture ? Patient Name: HERBIE, KADEN ? Ordered By: JOSHUA FINK ? MR#: [id number] ?LOC: ??ICUS ? /Sex: ??1960 (51 years), ? Male ? PROCEDURE: Blood Culture ?SOURCE: Blood Pedi ? COLLECTED: 04/25/2012 06:37 ? BODY SITE: Left Hand ? STARTED: 04/25/2012 07:10 ? FINAL REPORT ? Final Report ? Verified:2011 15:08 ? No growth at 5 days. ? PRELIMINARY REPORT ? Preliminary Report ? Verified:2011 15:09 ? No growth at 4 days. ? CERNER MILLENNIUM Blood specimen (specimen) STRUCTURE OF LEFT HAND / Unknown 04/25/2012 6:37 AM EDT 04/25/2012 7:10 AM EDT Narrative Resulting Agency Comment Spec In Lab Joshua Fink MD MICROBIOLOGY - BLO OD ORDERABLES CERNER MILLENNIUM * (ABNORMAL) BLOOD GAS 2 ARTERIAL (04/25/2012 6:32 AM EDT) pH Art 7.46(H) CERNER MILLENNIUM pCO2 Art 32(L) mmHg CERNER MILLENNIUM pO2 Art 90 mmHg CERNER MILLENNIUM HCO3 Art 21.7 mmol/L CERNER MILLENNIUM BE Art -2.1 mmol/L CERNER MILLENNIUM Hgb Blood Gas 10.7(L) gm/dL CERNER MILLENNIUM Comment: Total Hemoglobin (in gm/dL) ?Based on [facility] Hematology ranges: ?Age ?Reference Range Less than 3 days ?14.5 to 22.5 3 days to 2 weeks ? 12.5 to 20.5 2 weeks to 1 month ?10.0 to 18.0 1 to 6 months ?9.4 to 14.0 6 months to 2 years ? 10.5 to 13.5 2 to 6 years ?11.5 to 13.5 6 to 12 years ? 11.5 to 15.5 12 to 18 years (female) 12.0 to 16.0 ? (male) ?? 13.0 to 16.0 > 18 years ? (female) 11.2 to 15.7 ? (male) ?? 13.7 to 17.5 O2HB Art 96.0 % CERNER MILLENNIUM COHB Art 1.2 % CERNER MILLENNIUM Comment: Nonsmokers: 0.5-1.5% COHB Smokers: Variable, but usually less than 10% Toxic: 20-30% COHB Lethal: Greater than 60% COHB METHB Art 0.3 % CERNER MILLENNIUM Na Whole Blood 132(L) mmol/L CERNE R MILLENNIUM K Whole Blood 3.8 mmol/L CERNER MILLENNIUM Comment: Please note: Patients with WBC >100,000 may have falsely elevated Potassium levels. Contact the Clinical Chemistry Laboratory if there are any questions. ICa Whole Blood 1.06(L) mmol/L CERN ER MILLENNIUM Comment: Reference Ranges: ?? < 19 yrs: 1.22 - 1.37 mmol/L ? Adults: 1.15 - 1.33 mmol/L Note: ??Total bilirubin higher than 20 mg/dL may lead to falsely low ionized calcium. CL Whole Blood 102 mmol/L CERNE R MILLENNIUM Gluc Whole Bld 117 mg/dL CERNE R MILLENNIUM Comment:Diabetes: >=200 mg/d L plus symptoms. FIO2 Art 40 % CERNER MILLENNIUM PF Ratio Art 225 CERNER MILLENNIUM Blood specimen (specimen) 04/25/2012 6:32 AM EDT 04/25/2012 6:32 AM EDT Sravan Perez MD CHEMISTRY ORDERABLES CERNER MILLENNIUM * XR CHEST PA OR AP- 1 VIEW (04/25/2012 6:25 AM EDT) Anatomical Region Laterality Modality Chest N/A Radiographic Ellen ging 04/25/2012 6:25 AM EDT Narrative 04/25/2012 9:22 AM EDT Examination CHEST AP/XPORT Clinical History Reason for exam and clinical history: pneumonia, vent requirement; Comparison April 24, 2012. ?? Technique Single portable AP semi upright view of the chest. Findings Stable support tubes and lines. Hazy and patchy airspace opacification in the left lower lung as before and slightly increased patchy opacifications at the right lung base, which is worrisome for worsening pneumonic infiltrate or recurrent aspiration. Stable cardiomediastinal silhouette. Procedure Note Elaine Nelson MD - 04/25/2012 Examination CHEST AP/XPORT Clinical History Reason for exam and clinical history: pneumonia, vent requirement; Comparison April 24, 2012. Technique Single portable AP semi upright view of the chest. Findings Stable support tubes and lines. Hazy and patchy airspace opacification inthe left lower lung as before and slightly increased patchy opacifications atthe right lung base, which is worrisome for worsening pneumonic infiltrate or recurrent aspiration. Stable cardiomediastinal silhouette. Joshua Fink MD IMG DX ORDERABLES * Urine culture Indwelling Catheter Urine (04/25/2012 6:15 AM EDT) Urine Culture ? Patient Name: KADEN STONER ? Ordered By: JOSHUA FINK ? MR#: [id number] ?LOC: ??ICUS ? /Sex: ?? 0 (51 years), ? Male ? PROCEDURE: Urine Culture ?SOURCE: [facility] ? COLLECTED: 04/25/2012 06:15 ? STARTED: 04/25/2012 07:12 ? FINAL REPORT ? Final Report ? Verified: 07:04 ? No growth (Less than 1,000 cfu/ml). ? ____ [facility] Urine specimen obtained via indwelling urinary catheter (specimen) 04/25/2012 6:15 AM EDT 04/25/2012 7:12 AM EDT Narrative Resulting Agency Comment Spec In Lab Joshua Fink MD MICROBIOLOGY - GEN ERAL ORDERABLES [facility] * Lower Respiratory Culture Tracheal Aspirate (04/25/2012 6:15 AM EDT) Lower Respiratory Culture ? Patient Name: KADEN STONER ? Ordered By: JOSHUA FINK ? MR#: [id number] ?LOC: ??ICUS ? /Sex: ??1960 (51 years), ? Male ? PROCEDURE: Lower Respiratory Culture ?SOURCE: Trach Asp ? COLLECTED: 04/25/2012 06:15 ? STARTED: 04/25/2012 08:17 ? STAINS / PREPARATIONS ? Gram Stain Report ? Verified:04/25/20 12 10:05 ? Many White Blood Cells seen ? No squamous epithelial cells seen ? Rare Gram Negative Rods ? FINAL REPORT ? Final Report ? Verified:04/27/20 12 10:00 ? Rare Staphylococcus aureus ? Rare mixed bacterial morphotypes suggestive of normal upper respiratory ? jaimee ? PRELIMINARY REPORT ? Preliminary Report ? Verified:04/26/20 12 07:40 ? Rare Staphylococcus aureus ? Rare mixed bacterial morphotypes suggestive of normal upper respiratory ? jaimee ? Patient: KADEN STONER ? MR#: [id number] ? SUSCEPTIBILITY RESULTS ? Staphylococcus aureus ? ____ ? DEREJE Interp ? Ampicillin ?R ? Cefazolin ? S ? Ceftriaxone ? S ? Ciprofloxacin ? S ? Clindamycin ? S ? Erythromycin ?R ? Gentamicin ?S ? Meropenem ? S ? Moxifloxacin ?S ? Oxacillin ? S ? Penicillin(1) ? R ? Trimethoprim/Sulf a ?S ? Tetracycline ?S ? Vancomycin ?S ? FOOTNOTES ? (1) ? Penicillin resistant, Nafcillin susceptible Staphylococci are resistant to ? B-lactamase labile ? Penicillins including Ampicillin and Piperacillin, but susceptible to B- ? lactamase bj Penicillins ? (Nafcillin), B-lactamase inhibitor combinations, first and second ? generation Cephalosporins including ? Cefazolin, and to Cefepime and Meropenem. ? CERNER MILLENNIUM Specimen from trachea obtained by aspiration (specimen) 04/25/2012 6:15 AM EDT 04/25/2012 8:17 AM EDT Narrative Resulting Agency Comment Spec In Lab Joshua Fink MD MICROBIOLOGY - GEN ERAL ORDERABLES CERNER MILLENNIUM * (ABNORMAL) BLOOD GAS 2 ARTERIAL (04/25/2012 5:37 AM EDT) pH Art 7.46(H) CERNER MILLENNIUM pCO2 Art 37 mmHg CERNER MILLENNIUM pO2 Art 56(L) mmHg CERNER MILLENNIUM HCO3 Art 25.4 mmol/L CERNER MILLENNIUM BE Art 1.5 mmol/L CERNER MILLENNIUM Hgb Blood Gas 10.8(L) gm/dL CERNER MILLENNIUM Comment: Total Hemoglobin (in gm/dL) ?Based on [facility] Hematology ranges: ?Age ?Reference Range Less than 3 days ?14.5 to 22.5 3 days to 2 weeks ? 12.5 to 20.5 2 weeks to 1 month ?10.0 to 18.0 1 to 6 months ?9.4 to 14.0 6 months to 2 years ? 10.5 to 13.5 2 to 6 years ?11.5 to 13.5 6 to 12 years ? 11.5 to 15.5 12 to 18 years (female) 12.0 to 16.0 ? (male) ?? 13.0 to 16.0 > 18 years ? (female) 11.2 to 15.7 ? (male) ?? 13.7 to 17.5 O2HB Art 90.3(L) % CERNER MILLENNIUM COHB Art 1.3 % CERNER MILLENNIUM Comment: Nonsmokers: 0.5-1.5% COHB Smokers: Variable, but usually less than 10% Toxic: 20-30% COHB Lethal: Greater than 60% COHB METHB Art 0.3 % CERNER MILLENNIUM Na Whole Blood 132(L) mmol/L CERNE R MILLENNIUM K Whole Blood 3.4(L) mmol/L CERNER MILLENNIUM Comment: Please note: Patients with WBC >100,000 may have falsely elevated Potassium levels. Contact the Clinical Chemistry Laboratory if there are any questions. ICa Whole Blood 1.03(L) mmol/L CERN ER MILLENNIUM Comment: Reference Ranges: ?? < 19 yrs: 1.22 - 1.37 mmol/L ? Adults: 1.15 - 1.33 mmol/L Note: ??Total bilirubin higher than 20 mg/dL may lead to falsely low ionized calcium. CL Whole Blood 104 mmol/L CERNE R MILLENNIUM Gluc Whole Bld 129 mg/dL CERNE R MILLENNIUM Comment:Diabetes: >=200 mg/d L plus symptoms. FIO2 Art 30 % CERNER MILLENNIUM PF Ratio Art 187 CERNER MILLENNIUM Blood specimen (specimen) 04/25/2012 5:37 AM EDT 04/25/2012 5:37 AM EDT Sravan Perez MD CHEMISTRY ORDERABLES CERNER MILLENNIUM * (ABNORMAL) DIFFERENTIAL, AUTOMATED (04/25/2012 3:00 AM EDT) Neutrophils % 76.4(H) 34.0 - 71.0 % CERNER MILLENNIUM Neutr Abs (ANC) 11.27(H) 1.50 - 6.30 x10(3)/mc L CERNER MILLENNIUM Lymphocytes % 13.2(L) 19.0 - 53.0 % CERNER MILLENNIUM Lymphocytes Abs 2.0 1.0 - 3.6 x10(3)/mc L CERNER MILLENNIUM Monocytes % 9.1 4.0 - 13.0 % CERNER MILLENNIUM Monocyte Abs 1.4(H) 0.2 - 1.0 x10(3)/mc L CERNER MILLENNIUM Eosinophils % 0.9 0.0 - 7.0 % CERNER MILLENNIUM Eosinophils Abs 0.1 0.0 - 0.5 x10(3)/mc L CERNER MILLENNIUM Basophils % 0.1 0.0 - 2.0 % CERNER MILLENNIUM Basophils Abs 0.0 0.0 - 0.2 x10(3)/mc L CERNER MILLENNIUM Immature Gran % 0.30 0.00 - 0.66 % CERNER MILLENNIUM Comment: Immature granulocytes(IG's)percentage and absolute count will include metamyelocytes, myelocytes, and promyelocytes. Blood smears from CBCs yielding IG's will be scanned manually for concordance. If this scan disagrees with the automated IG or if promyelocytes are noted, a manual differential will be performed. Stephani Gran Abs 0.04 0.00 - 0.05 x10(3)/mc L CERNER MILLENNIUM Blood specimen (specimen) 04/25/2012 3:00 AM EDT 04/25/2012 3:04 AM EDT Joshua Fink MD HEMATOLOGY ORDERAB LES CERNER MILLENNIUM * SCAN, PERIPHERAL BLOOD (04/25/2012 3:00 AM EDT) Plat Estimate Normal CERNER MILLENNIUM RBC Morphology Abnormal CERNE R MILLENNIUM Macrocytes 1-5 /HPF CERNER MILLENNIUM Ovalocytes 1-5 /HPF CERNER MILLENNIUM [place] Bdy Present >1/HPF CER NER MILLENNIUM Pappenheimer Bdy Present >1/HPF CER NER MILLENNIUM Comment:To be confirmed by I johnie Stain. Dohle Bodies Present CERNER MILLENNIUM Giant Platelets Less than 1 /HPF CE RNER MILLENNIUM Blood specimen (specimen) 04/25/2012 3:00 AM EDT 04/25/2012 3:04 AM EDT Narrative Resulting Agency Comment Spec In Lab Joshua Fink MD HEMATOLOGY ORDERAB LES CERNER NADEGEENNIUM * (ABNORMAL) CBC (with Diff) (04/25/2012 3:00 AM EDT) WBC 14.8(H) 4.0 - 10.0 x10(3)/mcL CERNER MILLENNIUM RBC 2.97(L) 4.63 - 6.08 x10(6)/mcL CERNER MILLENNIUM Hemoglobin 10.3(L) 13.7 - 17.5 gm/dL CERNER MILLENNIUM Hematocrit 29.2(L) 40.0 - 51.0 % CERNER MILLENNIUM MCV 98.3(H) 79.0 - 92.0 fL CERNER MILLENNIUM MCH 34.7(H) 25.6 - 32.2 pg CERNER MILLENNIUM MCHC 35.3 32.0 - 36.5 gm/dL CERNER MILLENNIUM Platelets 233 145 - 370 x10(3)/mcL CERNER MILLENNIUM RDWSD 48.5(H) 35.0 - 46.0 fL CERNER MILLENNIUM RDWCV 13.5 10.9 - 14.4 % CERNER MILLENNIUM MPV 10.9 9.0 - 12.0 fL CERNER MILLENNIUM Blood specimen (specimen) 04/25/2012 3:00 AM EDT 04/25/2012 3:04 AM EDT Narrative Resulting Agency Comment Spec In Lab Joshua Fink MD HEMATOLOGY ORDERAB LES CERNER MILLENNIUM * (ABNORMAL) Phosphorus (04/25/2012 3:00 AM EDT) Phosphorus 2.4(L) 2.5 - 4.5 mg/dL CERNER MILLENNIUM Blood specimen (specimen) 04/25/2012 3:00 AM EDT 04/25/2012 3:04 AM EDT Narrative Resulting Agency Comment Spec In Lab Joshua Fink MD CHEMISTRY ORDERABL ES Performing Organization Address [facility] Co de Phone Number CERNER MILLENNIUM * (ABNORMAL) Magnesium (04/25/2012 3:00 AM EDT) Magnesium 0.64(L) 0.69 - 1.07 mmol/L CERNER MILLENNIUM Blood specimen (specimen) 04/25/2012 3:00 AM EDT 04/25/2012 3:04 AM EDT Narrative Resulting Agency Comment Spec In Lab Joshua Fink MD CHEMISTRY ORDERABL ES Performing Organization Address [facility] de Phone Number CERNER MILLENNIUM * (ABNORMAL) Basic Metabolic Panel (non-fasting) (04/25/2012 3:00 AM EDT) Glucose Lvl 152 60 - 199 mg/dL CERNER MILLENNIUM Comment:Diabetes: >=200 mg/d L plus symptoms BUN 9(L) 10 - 20 mg/dL CERNER MILLENNIUM Creatinine 0.38(L) 0.80 - 1.50 mg/dL CERNER MILLENNIUM Comment: Please note that the pediatric reference intervals supplied above were not validated at [facility]. Results from pediatric patients should be interpreted in conjunction to the patient's age, height and muscle mass. Sodium 135 135 - 145 mmol/L CERNER MILLENNIUM Potassium 3.2(L) 3.5 - 5.0 mmol/L CERNER MILLENNIUM Comment: Please note: ??Patients with WBC >100,000 may have falsely elevated Potassium levels. ??For accurate Potassium quantification in these patients send serum separator tube (gold top) for subsequent determinations. ??Contact the Clinical Chemistry Laboratory if there are any questions. Chloride 103 98 - 107 mmol/L CERNER MILLENNIUM CO2 22 22 - 31 mmol/L CERNER MILLENNIUM Anion Gap 10 5 - 15 mmol/L CERNER MILLENNIUM Calcium 7.4(L) 8.5 - 10.5 mg/dL CERNER MILLENNIUM Estimated GFR >60 >=60 [facility] Comment: The National Kidney Disease Education Program (NKDEP) has recommended all laboratories report estimated GFR (eGFR) along with plasma creatinine measurements to assist you with recognition of early kidney disease. Caveats: ??Plasma creatinine should be at steady-state (unchanged within the past week). For patients multiply eGFR by 1.2. The MDRD equation was developed using patients between the ages of 18 and 70 years. ?? The MDRD equation has not been validated for patients < 18 years of age and should not be used to assess renal function in the pediatric population. ??The MDRD eGFR equation will also overestimate the true GFR of patients above the age of 70. ??This overestimation is variable but increases with age. At present, NKDEP does NOT recommend using the MDRD equation for drug dosing purposes and pharmacists should continue to use their current dosing methods. In addition, numerical eGFR values greater than 60 ml/min/1.73 square meters should be treated as > 60, and not an exact number due to greater inaccuracies at these higher values. Per NKDEP, they classify normal renal function as any GFR >60ml/min/1.73 square meters; chronic kidney disease when GFR <60, and renal failure when GFR <15. ??This calculation may not be valid for patients with atypical muscle mass (very lean or obese), acute renal failure, and in patients with diabetic kidney disease. References: http://nkdep.nih.gov/resources/NKDEP_Suggestn4Labs_0606_508.pdf http://www.kidney.org/professionals/kls/pdf/faq_gfr.pdf Lila K, Matt NA, Gaviota AK, Viet TS, Sania AD, Shagufta RAMIRO. Relative performance of the MDRD and CKD-EPI equations for estimating glomerular filtration rate among patients with varied clinical presentations. Clin J Am Soc Nephrol;6:1963-72. Blood specimen (specimen) 04/25/2012 3:00 AM EDT 04/25/2012 3:04 AM EDT Narrative Resulting Agency Comment Spec In Lab Joshua Fink MD CHEMISTRY ORDERABL ES [facility] * POCT GLUCOSE LAB USE ONLY (04/24/2012 10:19 PM EDT) POC Glucose 180 60 - 199 mg/dL [facility] Comment: Supplemental ranges: <110 mg/dL before meals <200 mg/dL all other times of the day Blood specimen (specimen) 04/24/2012 10:19 PM EDT 04/24/2012 10:19 PM EDT Sravan Perez MD POINT OF CARE TEST O RDDEVORA Performing Organization Address [facility] de Phone Number [facility] * POCT GLUCOSE LAB USE ONLY (04/24/2012 4:34 PM EDT) POC Glucose 173 60 - 199 mg/dL [facility] Comment: Supplemental ranges: <110 mg/dL before meals <200 mg/dL all other times of the day Blood specimen (specimen) 04/24/2012 4:34 PM EDT 04/24/2012 4:34 PM EDT Sravan Perez MD POINT OF CARE TEST O TIM Performing Organization Address [facility] de Phone Number [facility] * POCT GLUCOSE LAB USE ONLY (04/24/2012 12:10 PM EDT) POC Glucose 161 60 - 199 mg/dL [facility] Comment: Supplemental ranges: <110 mg/dL before meals <200 mg/dL all other times of the day Blood specimen (specimen) 04/24/2012 12:10 PM EDT 04/24/2012 12:10 PM EDT Sravan Perez MD POINT OF CARE TEST O RDERALEILA Performing Organization Address [facility] de Phone Number [facility] * XR CHEST PA OR AP- 1 VIEW (04/24/2012 10:18 AM EDT) Anatomical Region Laterality Modality Chest N/A Radiographic Ellen ging 04/24/2012 10:1 8 AM EDT Narrative 04/24/2012 10:28 AM EDT Examination CHEST AP/XPORT Clinical History Reason for exam and clinical history: intubated; Comparison Is made with the study of 04/23/2012 Technique Findings Endotracheal gastric and left thoracostomy lines unchanged. ??The gastric line is seen to enter the stomach. ??The infiltrate at the left base has worsened. ?? There is more diffuse interstitial infiltrate in the mid zone as well as the lower portion of the right lung. ??This could be inflammatory in nature. ??The heart and mediastinum are not changed. ??There are tiny bilateral pleural effusions. . ??Somewhat limited due to Impression Findings suggests lesser sac worsened particularly in the left base from the prior study. ??It should be noted that there is no longer any pneumothorax and subcutaneous emphysema is not present. Procedure Note Franco Bran MD - 04/24/2012 Examination CHEST AP/XPORT Clinical History Reason for exam and clinical history: intubated; Comparison Is made with the study of 04/23/2012 Technique Findings Endotracheal gastric and left thoracostomy lines unchanged. The gastricline is seen to enter the stomach. The infiltrate at the left base hasworsened. There is more diffuse interstitial infiltrate in the mid zone as well asthe lower portion of the right lung. This could be inflammatory in nature.The heart and mediastinum are not changed. There are tiny bilateral pleural effusions. . Somewhat limited due to Impression Findings suggests lesser sac worsened particularly in the left base fromthe prior study. It should be noted that there is no longer any pneumothoraxand subcutaneous emphysema is not present. Joshua Fink MD IMG DX ORDERABLES * POCT GLUCOSE LAB USE ONLY (04/24/2012 8:42 AM EDT) POC Glucose 173 60 - 199 mg/dL [facility] Comment: Supplemental ranges: <110 mg/dL before meals <200 mg/dL all other times of the day Blood specimen (specimen) 04/24/2012 8:42 AM EDT 04/24/2012 8:42 AM EDT Sravan Perez MD POINT OF CARE TEST O RDERABLES CERNER MILLENNIUM * (ABNORMAL) BLOOD GAS 2 ARTERIAL (04/24/2012 5:05 AM EDT) pH Art 7.43 CERNER MILLENNIUM pCO2 Art 32(L) mmHg CERNER MILLENNIUM pO2 Art 70(L) mmHg CERNER MILLENNIUM HCO3 Art 21.0 mmol/L CERNER MILLENNIUM BE Art -3.3(L) mmol/L CERNER MILLENNIUM Hgb Blood Gas 10.5(L) gm/dL CERNER MILLENNIUM Comment: Total Hemoglobin (in gm/dL) ?Based on [facility] Hematology ranges: ?Age ?Reference Range Less than 3 days ?14.5 to 22.5 3 days to 2 weeks ? 12.5 to 20.5 2 weeks to 1 month ?10.0 to 18.0 1 to 6 months ?9.4 to 14.0 6 months to 2 years ? 10.5 to 13.5 2 to 6 years ?11.5 to 13.5 6 to 12 years ? 11.5 to 15.5 12 to 18 years (female) 12.0 to 16.0 ? (male) ?? 13.0 to 16.0 > 18 years ? (female) 11.2 to 15.7 ? (male) ?? 13.7 to 17.5 O2HB Art 93.2(L) % CERNER MILLENNIUM COHB Art 1.1 % CERNER MILLENNIUM Comment: Nonsmokers: 0.5-1.5% COHB Smokers: Variable, but usually less than 10% Toxic: 20-30% COHB Lethal: Greater than 60% COHB METHB Art 0.3 % CERNER MILLENNIUM Na Whole Blood 134(L) mmol/L CERNE R MILLENNIUM K Whole Blood 3.5 mmol/L CERNER MILLENNIUM Comment: Please note: Patients with WBC >100,000 may have falsely elevated Potassium levels. Contact the Clinical Chemistry Laboratory if there are any questions. ICa Whole Blood 0.97(L) mmol/L CERN ER MILLENNIUM Comment: Reference Ranges: ?? < 19 yrs: 1.22 - 1.37 mmol/L ? Adults: 1.15 - 1.33 mmol/L Note: ??Total bilirubin higher than 20 mg/dL may lead to falsely low ionized calcium. CL Whole Blood 110(H) mmol/L CERNE R MILLENNIUM Gluc Whole Bld 129 mg/dL CERNE R MILLENNIUM Comment:Diabetes: >=200 mg/d L plus symptoms. FIO2 Art 40 % CERNER MILLENNIUM PF Ratio Art 175 CERNER MILLENNIUM Blood specimen (specimen) 04/24/2012 5:05 AM EDT 04/24/2012 5:05 AM EDT Sravan Perez MD CHEMISTRY ORDERABLES CERNER MILLENNIUM * (ABNORMAL) DIFFERENTIAL, MANUAL (04/24/2012 3:30 AM EDT) Neutrophil % 80(H) 34 - 71 % CERNER MILLENNIUM Band % 3 0 - 12 % CERNER MILLENNIUM Lymphocyte % 10(L) 19 - 53 % CERNER MILLENNIUM Monocyte % 6 4 - 13 % CERNER MILLENNIUM Metamyelo % 1(H) 0 - 0 % CERNER MILLENNIUM Neutrophil Abs 15.6(H) 1.5 - 6.3 x10(3)/mc L CERNER MILLENNIUM Band Abs 0.6 0.2 - 0.6 x10(3)/mc L CERNER MILLENNIUM Neutr Abs (ANC) 16.18(H) 1.50 - 6.30 x10(3)/mc L CERNER MILLENNIUM Lymphocyte Abs 2.0 1.0 - 3.6 x10(3)/mc L CERNER MILLENNIUM Monocyte Abs 1.2(H) 0.2 - 1.0 x10(3)/mc L CERNER MILLENNIUM Metamyelo Abs 0.2(H) 0.0 - 0.0 x10(3)/mc L CERNER MILLENNIUM Tot Diff Cell Ct 100 CER NER MILLENNIUM Plat Estimate Normal CERNER MILLENNIUM RBC Morphology Abnormal CERNE R MILLENNIUM Macrocytes 1-5 /HPF CERNER MILLENNIUM Ovalocytes 1-5 /HPF CERNER MILLENNIUM [place] Cells 1-5 /HPF CERNER MILLENNIUM [place] Bdy Present >1/HPF CER NER MILLENNIUM Pappenheimer Bdy Present >1/HPF CER NER MILLENNIUM Comment:To be confirmed by Juliano Dunne. Blood specimen (specimen) 04/24/2012 3:30 AM EDT 04/24/2012 4:17 AM EDT Narrative Resulting Agency Comment Spec In Lab Joshua Fink MD HEMATOLOGY ORDERAB LES CERNER MILLENNIUM * (ABNORMAL) CBC (with Diff) (04/24/2012 3:30 AM EDT) WBC 19.5(H) 4.0 - 10.0 x10(3)/mcL CERNER MILLENNIUM RBC 3.13(L) 4.63 - 6.08 x10(6)/mcL CERNER MILLENNIUM Hemoglobin 10.9(L) 13.7 - 17.5 gm/dL CERNER MILLENNIUM Hematocrit 30.9(L) 40.0 - 51.0 % CERNER MILLENNIUM MCV 98.7(H) 79.0 - 92.0 fL CERNER MILLENNIUM MCH 34.8(H) 25.6 - 32.2 pg CERNER MILLENNIUM MCHC 35.3 32.0 - 36.5 gm/dL CERNER MILLENNIUM Platelets 257 145 - 370 x10(3)/mcL CERNER MILLENNIUM RDWSD 49.1(H) 35.0 - 46.0 fL CERNER MILLENNIUM RDWCV 13.6 10.9 - 14.4 % CERNER MILLENNIUM MPV 10.9 9.0 - 12.0 fL CERNER MILLENNIUM Blood specimen (specimen) 04/24/2012 3:30 AM EDT 04/24/2012 4:17 AM EDT Narrative Resulting Agency Comment Spec In Lab Joshua Fink MD HEMATOLOGY ORDERAB LES Performing Organization Address [facility] de Phone Number [facility] * Lactic acid, plasma (04/24/2012 3:30 AM EDT) Lactate 1.2 0.5 - 2.2 mmol/L [facility] Blood specimen (specimen) 04/24/2012 3:30 AM EDT 04/24/2012 4:17 AM EDT Narrative Resulting Agency Comment Spec In Lab Joshua Fink MD CHEMISTRY ORDERABL ES Performing Organization Address [facility] Phone Number [facility] * Phosphorus (04/24/2012 3:30 AM EDT) Phosphorus 2.8 2.5 - 4.5 mg/dL [facility] Blood specimen (specimen) 04/24/2012 3:30 AM EDT 04/24/2012 4:17 AM EDT Narrative Resulting Agency Comment Spec In Lab Joshua Fink MD CHEMISTRY ORDERABL ES Performing Organization Address [facility] Phone Number [facility] * (ABNORMAL) Magnesium (04/24/2012 3:30 AM EDT) Magnesium 0.66(L) 0.69 - 1.07 mmol/L [facility] Blood specimen (specimen) 04/24/2012 3:30 AM EDT 04/24/2012 4:17 AM EDT Narrative Resulting Agency Comment Spec In Lab Joshua Fink MD CHEMISTRY ORDERABL ES Performing Organization Address [facility] de Phone Number [facility] * (ABNORMAL) Basic Metabolic Panel (non-fasting) (04/24/2012 3:30 AM EDT) Glucose Lvl 147 60 - 199 mg/dL CERNER MILLENNIUM Comment:Diabetes: >=200 mg/d L plus symptoms BUN 7(L) 10 - 20 mg/dL CERNER MILLENNIUM Creatinine 0.49(L) 0.80 - 1.50 mg/dL CERNER MILLENNIUM Comment: Please note that the pediatric reference intervals supplied above were not validated at [facility]. Results from pediatric patients should be interpreted in conjunction to the patient's age, height and muscle mass. Sodium 134(L) 135 - 145 mmol/L CERNER MILLENNIUM Potassium 4.1 3.5 - 5.0 mmol/L CERNER MILLENNIUM Comment: Please note: ??Patients with WBC >100,000 may have falsely elevated Potassium levels. ??For accurate Potassium quantification in these patients send serum separator tube (gold top) for subsequent determinations. ??Contact the Clinical Chemistry Laboratory if there are any questions. Chloride 102 98 - 107 mmol/L CERNER MILLENNIUM CO2 22 22 - 31 mmol/L CERNER MILLENNIUM Anion Gap 10 5 - 15 mmol/L CERNER MILLENNIUM Calcium 7.7(L) 8.5 - 10.5 mg/dL CERNER MILLENNIUM Estimated GFR >60 >=60 CERNER MILLENNIUM Comment: The National Kidney Disease Education Program (NKDEP) has recommended all laboratories report estimated GFR (eGFR) along with plasma creatinine measurements to assist you with recognition of early kidney disease. Caveats: ??Plasma creatinine should be at steady-state (unchanged within the past week). For patients multiply eGFR by 1.2. The MDRD equation was developed using patients between the ages of 18 and 70 years. ?? The MDRD equation has not been validated for patients < 18 years of age and should not be used to assess renal function in the pediatric population. ??The MDRD eGFR equation will also overestimate the true GFR of patients above the age of 70. ??This overestimation is variable but increases with age. At present, NKDEP does NOT recommend using the MDRD equation for drug dosing purposes and pharmacists should continue to use their current dosing methods. In addition, numerical eGFR values greater than 60 ml/min/1.73 square meters should be treated as > 60, and not an exact number due to greater inaccuracies at these higher values. Per NKDEP, they classify normal renal function as any GFR >60ml/min/1.73 square meters; chronic kidney disease when GFR <60, and renal failure when GFR <15. ??This calculation may not be valid for patients with atypical muscle mass (very lean or obese), acute renal failure, and in patients with diabetic kidney disease. References: http://nkdep.nih.gov/resources/NKDEP_Suggestn4Labs_0606_508.pdf http://www.kidney.org/professionals/kls/pdf/faq_gfr.pdf Lila K, Matt NA, Gaviota AK, Viet TS, Sania AD, Shagufta RAMIRO. Relative performance of the MDRD and CKD-EPI equations for estimating glomerular filtration rate among patients with varied clinical presentations. Clin J Am Soc Nephrol;6:1963-72. Blood specimen (specimen) 04/24/2012 3:30 AM EDT 04/24/2012 4:17 AM EDT Narrative Resulting Agency Comment Spec In Lab Joshua Fink MD CHEMISTRY ORDERABL ES Performing Organization Address [facility] Co de Phone Number [employer] * Potassium (04/23/2012 1:30 PM EDT) Pathologist [facility] Potassium 4.1 3.5 - 5.0 mmol/L [facility] Comment: Please note: ??Patients with WBC >100,000 may have falsely elevated Potassium levels. ??For accurate Potassium quantification in these patients send serum separator tube (gold top) for subsequent determinations. ??Contact the Clinical Chemistry Laboratory if there are any questions. Blood specimen (specimen) 04/23/2012 1:30 PM EDT 04/23/2012 1:34 PM EDT Narrative Resulting Agency Comment Spec In Lab Joshua Fink MD CHEMISTRY ORDERABL ES Performing Organization Address [facility] Co de Phone Number [facility] * Echocardiogram with Bubble Study (04/23/2012 1:06 PM EDT) EF 60 [facility] [facility] Anatomical Region Laterality Modality Other 04/23/2012 Narrative 04/23/2012 1:50 PM EDT Procedure: ? Transthoracic Echocardiogram Patient: ? HERBIE KADEN ?(Age): 1960(51) Med Rec#: ?[id number] ? Sex: ?M ? Site Loc: ?[facility] ? Ht / Wt: ??(cm)/74(kg) ? Pt. Loc: ? ICU ?BSA: ? Study Date: ?04/23/2012 ? Pt. Type: Inpatient Tape: ? Referring: Joshua Fink Referring: JESSICA CYR [employer] Business [employer]: Kolton Lam [facility] [employer] 2: Margot Boss Diagnosis: ??SVT (427.0) CPT Code(s): ??Echo Full (49073), ??Spectral Doppler (08281), ??Color Doppler (38828), ??Saline Contrast (000), Indication(s): ??Tachycardia Rhythm: HR ?BP ?114/53 ?? SUMMARY: 1. There is normal global left ventricular systolic function. ??Ejection fraction is estimated to be 60%. ??There are no left ventricular segmental wall motion abnormalities. 2. There is no hemodynamically significant valve disease. 3. See remainder of report for additional findings. FINDINGS: Left Ventricle ?The left ventricular chamber size is normal. ?Mild concentric left ventricular hypertrophy is observed. ?There is normal global left ventricular systolic function. ??Ejection fraction is estimated to be 60%. ?There are no left ventricular segmental wall motion abnormalities. ?Doppler assessment is consistent with normal left sided filling pressure. Left Atrium ?The left atrium is normal in size. ?There is no evidence of a patent foramen ovale with agitated saline contrast. ?Inter-pulmonary shunting is not present. Right Ventricle ?The right ventricle is probably normal in size. ?Right ventricular global systolic function is probably normal. ?The estimated pulmonary artery systolic pressure is 30 mmHg. ?The estimated right atrial pressure is 3 mmHg. Right Atrium ?The right atrium is mildly dilated. Aortic Valve ?The aortic valve is probably tricuspid. ?There is no evidence of aortic valve thickening. ?There is no evidence of aortic regurgitation. Mitral Valve ?The mitral valve appears normal in structure and function. ?There is trace mitral regurgitation present. Tricuspid Valve ?The tricuspid valve appears normal in structure and function. ?There is mild (1+/4+) tricuspid regurgitation present. Pulmonic Valve ?The pulmonic valve is not well visualized. ?There is trace pulmonic regurgitation present. Pericardium ?The pericardium appears normal and there is no evidence of a pericardial effusion. Aorta ?The aortic root is normal in size. ?The ascending aorta is normal in size. Pulmonary Artery ?The main pulmonary artery appears normal. Venous ?The inferior vena cava appears normal in size. ?There is a greater than 50% respiratory change in the inferior vena cava dimension. Misc ?Two-dimensional echo, spectral Doppler and color Doppler performed. Wall Motion: Segment Name ?Rest ? Base-Anteroseptal ?? Normal ? Base-Anterior ? Normal ? Base-Anterolateral ??Normal ? Base-Posterolateral Normal ? Base-Inferior ? Normal ? Base-Inferoseptal ?? Normal ? Mid-Anteroseptal ?Normal ? Mid-Anterior ?Normal ? Mid-Anterolateral ?? Normal ? Mid-Posterolateral ??Normal ? Mid-Inferior ?Normal ? Mid-Inferoseptal ?Normal ? Crenshaw-Septal ? Normal ? C[place]-Anterior ? Normal ? [place]-Lateral ?Normal ? [place]-Inferior ? Normal ? [place]-Tip ?Normal ? Chambers ?Value ?Units (Range) ? LV EF Est ? 60 ? % (55 to 80) ? EF ??Bi-p Simp ? 57 ? % (55 to 80) ? IVSd 2D ? 1.2 ?cm ? LVIDd 2D ?4.4 ?cm ? PWd 2D ?1.2 ?cm ? LVIDs 2D ?2.2 ?cm ? LVFS 2D ? 50 ? % ? LA area ? 14 ? cm2 (<21) ? RA area ? 20 ? cm2 (<18) ? Ao root ? 3.5 ?cm (2.1 to 3.6) ? Asc Ao ?3.2 ?cm (2 to 3.5) ? Mitral Valve ?Value ?Units (Range) ? E peak ?0.6 ?m/sec ? E/A ratio ? 0.8 ?ratio ? MVDT ?208 ?msec ? E1 ?0.14 ? m/sec ? E/E1 ?4 ?ratio ? Tricuspid/Pulmonic Valves ?Value ?Units (Range) ? TR peak mandi ? 2.6 ?m/sec ? RAP ? 3 ?mmHg ? RVSP/PASP ? 30 ? mmHg ? This report has been electronically signed by: Alvin Lyle MD ? 04/23/2012 13:50:10 Images reviewed and interpretation verified [facility] Cardiac Ultrasound Laboratory Procedure Note Alvin Lyle MD - 04/23/2012 Procedure: Transthoracic Echocardiogram Patient: HERBIE CLAUDIO(Age): 1960(51) Med Rec#: [id number] Sex: M Site Loc: [facility] Ht / Wt: (cm)/74(kg) Pt. Loc: ICU BSA: Study Date: 04/23/2012 Pt. Type: Inpatient Tape: Referring: Joshua Fink Referring: JESSICA CYR [employer] Business Development: Kolton Lam [facility] [employer] 2: Margot Boss Diagnosis: SVT (427.0) CPT Code(s): Echo Full (76198), Spectral Doppler (69834), Color Doppler (23617), Saline Contrast (000), Indication(s): Tachycardia Rhythm: HR BP 114/53 SUMMARY: 1. There is normal global left ventricular systolic function. Ejection fraction is estimated to be 60%. There are no left ventricular segmental wall motion abnormalities. 2. There is no hemodynamically significant valve disease. 3. See remainder of report for additional findings. FINDINGS: Left Ventricle The left ventricular chamber size is normal. Mild concentric left ventricular hypertrophy is observed. There is normal global left ventricular systolic function. Ejection fraction is estimated to be 60%. There are no left ventricular segmental wall motion abnormalities. Doppler assessment is consistent with normal left sided filling pressure. Left Atrium The left atrium is normal in size. There is no evidence of a patent foramen ovale with agitated saline contrast. Inter-pulmonary shunting is not present. Right Ventricle The right ventricle is probably normal in size. Right ventricular global systolic function is probably normal. The estimated pulmonary artery systolic pressure is 30 mmHg. The estimated right atrial pressure is 3 mmHg. Right Atrium The right atrium is mildly dilated. Aortic Valve The aortic valve is probably tricuspid. There is no evidence of aortic valve thickening. There is no evidence of aortic regurgitation. Mitral Valve The mitral valve appears normal in structure and function. There is trace mitral regurgitation present. Tricuspid Valve The tricuspid valve appears normal in structure and function. There is mild (1+/4+) tricuspid regurgitation present. Pulmonic Valve The pulmonic valve is not well visualized. There is trace pulmonic regurgitation present. Pericardium The pericardium appears normal and there is no evidence of a pericardial effusion. Aorta The aortic root is normal in size. The ascending aorta is normal in size. Pulmonary Artery The main pulmonary artery appears normal. Venous The inferior vena cava appears normal in size. There is a greater than 50% respiratory change in the inferior vena cava dimension. [facility] [place], spectral Doppler and color Doppler performed. Wall Motion: Segment Name Rest Base-Anteroseptal Normal Base-Anterior Normal Base-Anterolateral Normal Base-Posterolateral Normal Base-Inferior Normal Base-Inferoseptal Normal Mid-Anteroseptal Normal Mid-Anterior Normal Mid-Anterolateral Normal Mid-Posterolateral Normal Mid-Inferior Normal Mid-Inferoseptal Normal Crenshaw-Septal Normal Crenshaw-Anterior Normal Crenshaw-Lateral Normal Crenshaw-Inferior Normal Crenshaw-Tip Normal Chambers Value Units (Range) LV EF Est 60 % (55 to 80) EF Bi-p Simp 57 % (55 to 80) IVSd 2D 1.2 cm LVIDd 2D 4.4 cm PWd 2D 1.2 cm LVIDs 2D 2.2 cm LVFS 2D 50 % LA area 14 cm2 (<21) RA area 20 cm2 (<18) Ao root 3.5 cm (2.1 to 3.6) Asc Ao 3.2 cm (2 to 3.5) Mitral Valve Value Units (Range) E peak 0.6 m/sec E/A ratio 0.8 ratio MVDT 208 msec E1 0.14 m/sec E/E1 4 ratio Tricuspid/Pulmonic Valves Value Units (Range) TR peak mandi 2.6 m/sec RAP 3 mmHg RVSP/PASP 30 mmHg This report has been electronically signed by: Alvin Lyle MD 04/23/2012 13:50:10 Images reviewed and interpretation verified [facility] Cardiac Ultrasound Laboratory Joshua Fink MD ECHO ORDERABLES * (ABNORMAL) BLOOD GAS 2 ARTERIAL (04/23/2012 10:05 AM EDT) pH Art 7.43 CERNER MILLENNIUM pCO2 Art 33(L) mmHg CERNER MILLENNIUM pO2 Art 66(L) mmHg CERNER MILLENNIUM HCO3 Art 21.0 mmol/L CERNER MILLENNIUM BE Art -3.4(L) mmol/L CERNER MILLENNIUM Hgb Blood Gas 10.7(L) gm/dL CERNER MILLENNIUM Comment: Total Hemoglobin (in gm/dL) ?Based on [facility] Hematology ranges: ?Age ?Reference Range Less than 3 days ?14.5 to 22.5 3 days to 2 weeks ? 12.5 to 20.5 2 weeks to 1 month ?10.0 to 18.0 1 to 6 months ?9.4 to 14.0 6 months to 2 years ? 10.5 to 13.5 2 to 6 years ?11.5 to 13.5 6 to 12 years ? 11.5 to 15.5 12 to 18 years (female) 12.0 to 16.0 ? (male) ?? 13.0 to 16.0 > 18 years ? (female) 11.2 to 15.7 ? (male) ?? 13.7 to 17.5 O2HB Art 92.0(L) % CERNER MILLENNIUM COHB Art 1.1 % CERNER MILLENNIUM Comment: Nonsmokers: 0.5-1.5% COHB Smokers: Variable, but usually less than 10% Toxic: 20-30% COHB Lethal: Greater than 60% COHB METHB Art 0.3 % CERNER MILLENNIUM Na Whole Blood 158(H) mmol/L CERNE R MILLENNIUM K Whole Blood 4.5 mmol/L CERNER MILLENNIUM Comment: Please note: Patients with WBC >100,000 may have falsely elevated Potassium levels. Contact the Clinical Chemistry Laboratory if there are any questions. ICa Whole Blood 1.01(L) mmol/L CERN ER MILLENNIUM Comment: Reference Ranges: ?? < 19 yrs: 1.22 - 1.37 mmol/L ? Adults: 1.15 - 1.33 mmol/L Note: ??Total bilirubin higher than 20 mg/dL may lead to falsely low ionized calcium. CL Whole Blood 129(H) mmol/L CERNE R MILLENNIUM Gluc Whole Bld 90 mg/dL CERNE R MILLENNIUM Comment:Diabetes: >=200 mg/d L plus symptoms. FIO2 Art 50 % CERNER MILLENNIUM PF Ratio Art 132 CERNER MILLENNIUM Blood specimen (specimen) 04/23/2012 10:05 AM EDT 04/23/2012 10:05 AM EDT Sravan Perez MD CHEMISTRY ORDERABLES CERNER MILLENNIUM * Duplex Study for DVT, Bilat legs (04/23/2012 9:16 AM EDT) VB Text Report Department: Vascular Surgery Lab Patient: [id number] (KADEN STONER) CPT Code: 01207 ICD-9: 959.8 Referring Physician: JOSHUA FINK Indication: ??trauma; family history of DVT; surveillance ICD9 Diagnosis Code: 959.8 RIGHT: Patent common femoral vein and popliteal vein with spontaneous, respirophasic Doppler waveforms that respond normally to augmentation maneuvers. The common femoral vein, saphenofemoral junction, femoral vein through the thigh and the popliteal vein are fully compressible. Patent posterior tibial and peroneal veins with no evidence of thrombus. LEFT: Patent common femoral vein and popliteal vein with spontaneous, respirophasic Doppler waveforms that respond normally to augmentation maneuvers. The common femoral vein, saphenofemoral junction, femoral vein through the thigh and the popliteal vein are fully compressible. Patent posterior tibial and peroneal veins with no evidence of thrombus. Interpretation: RIGHT: No evidence of lower extremity deep vein thrombosis. LEFT: No evidence of lower extremity deep vein thrombosis. Comparison: No previous study in our vascular lab database for comparison. Signed by JOSIAS MORAN III, MD on 2012-04-24 11:17:13 AM [facility] VB Text Report End of Report [facility] 04/23/2012 9:16 AM EDT Joshua Fink MD VASCULAR ORDERABLE S Performing Organization Address [facility] de Phone Number [facility] * Lipase (04/23/2012 9:15 AM EDT) Lipase 8 0 - 60 unit/L CERNER MILLENNIUM Blood specimen (specimen) 04/23/2012 9:15 AM EDT 04/23/2012 9:31 AM EDT Narrative Resulting Agency Comment Spec In Lab Joshua Fink MD CHEMISTRY ORDERABL ES Performing Organization Address [facility] de Phone Number [facility] * Amylase (04/23/2012 9:15 AM EDT) Amylase 28 28 - 100 unit/L CERNER MILLENNIUM Blood specimen (specimen) 04/23/2012 9:15 AM EDT 04/23/2012 9:31 AM EDT Narrative Resulting Agency Comment Spec In Lab Joshua Fink MD CHEMISTRY ORDERABL ES Performing Organization Address [facility] de Phone Number [facility] * INTUBATION (04/23/2012 7:52 AM EDT) Narrative 04/23/2012 7:52 AM EDT Intubation Procedure Note Reason for Intubation: ?Hypoxemia. Location of Procedure: [facility]. Risks and Benefits: The risks and benefits of this procedure were reviewed and informed consent was obtained obtained. Time Out: Prior to the start of the procedure, the patient's identity, intended procedure, site/side, correct patient positioning and presence of the site kaden was confirmed as applicable. The medical history and chart were reviewed to rule out potential contraindications to the planned procedure. Intubation Assessment: ?? Cervical spine precautions Additional Intubation Assessment: Preoxygenation was administered. Cricoid pressure was applied. Cervical spine was stabilized. Bag/mask ventilation was ??easy with oral airway Laryngoscope Blade and Size: glide 3 The endotracheal tube size was 8 mm. The tube was cuffed. Common Adjuvant Equipment: A stylet was used. An oral airway was used. Size: 2. A nasal airway was not used. ?? Additional Adjuvant Equipment: Type scope: glidescope Other: c spine collar remained on, c spine stabilization held throughout Intubation Method: other: glidescope IV Medications: ?? 100 mg Propofol ?? 50 mg Rocuronium Other Medications: ?? Other: none Insertion Attempts: There was 1 attempt. Visualization of Vocal Chords: A Grade I view of the vocal cords was observed. Confirmation of Tube Placement: ?Chest X-ray ordered ?? end tidal CO2 ?? bilateral breath sounds Status Post Intubation: ?? The patient was hemodynamically stable. ?? The procedure was uncomplicated and atraumatic. Tube secured (at lip or nares): 23 cm Other post intubation status comments: Dr Baez present throughout procedure I was the attending physician supervising the resident in the above care and I was present with the resident for the entire procedure. CAROLEE PATEL MD 04/23/2012 Procedure Note Dev Baez MD - 04/23/2012 12:11 AM EDT Intubation Procedure Note Reason for Intubation: ?? Hypoxemia. Location of Procedure: ICU [facility]. Risks and Benefits: The risks and benefits of this procedure were reviewed and informedconsent was obtained obtained. Time Out: Prior to the start of the procedure, the patient's identity,intended procedure, site/side, correct patient positioning and presence ofthe site kaden was confirmed as applicable. The medical history and chartwere reviewed to rule out potential contraindications to the plannedprocedure. Intubation Assessment: ?? Cervical spine precautions Additional Intubation Assessment: Preoxygenation was administered. Cricoid pressure was applied. Cervical spine was stabilized. Bag/mask ventilation was easy with oral airway Laryngoscope Blade and Size: glide 3 The endotracheal tube size was 8 mm. The tube was cuffed. Common Adjuvant Equipment: A stylet was used. An oral airway was used. Size: 2. A nasal airway was not used. Additional Adjuvant Equipment: Type scope: glidescope Other: c spine collar remained on, c spine stabilization held throughout Intubation Method: other: glidescope IV Medications: ?? 100 mg Propofol ?? 50 mg Rocuronium Other Medications: ?? Other: none Insertion Attempts: There was 1 attempt. Visualization of Vocal Chords: A Grade I view of the vocal cords was observed. Confirmation of Tube Placement: ?? Chest X-ray ordered ?? end tidal CO2 ?? bilateral breath sounds Status Post Intubation: ?? The patient was hemodynamically stable. ?? The procedure was uncomplicated and atraumatic. Tube secured (at lip or nares): 23 cm Other post intubation status comments: Dr Baez present throughoutprocedure I was the attending physician supervising the resident in the above careand I was present with the resident for the entire procedure. CAROLEE PATEL MD 04/23/2012 Joshua Fink MD PROCEDURE/MINOR [place] RGICAL ORDERABLES * Insert Arterial Line (04/23/2012 7:52 AM EDT) Narrative 04/23/2012 7:52 AM EDT Arterial Line Placement Procedure Note Indication for Procedure: Arterial line was placed for invasive blood pressure monitoring, arterial blood gases and access. Location of Procedure: Critical Care. Risks and Benefits: The risks and benefits of this procedure were reviewed and informed consent was obtained. ?? Time Out: Prior to the start of the procedure, the patient's identity, intended procedure, site/side, correct patient positioning and presence of the site kaden was confirmed as applicable. The medical history and chart were reviewed to rule out potential contraindications to the planned procedure. ?? Hand Hygiene: The strip machine tender did perform hand hygiene prior to arterial line insertion. Procedure Prep: Sterile draping was applied. Skin was prepped with chlorhexidine. Procedure Details: A 20 gauge, 2 inch catheter was placed in the right radial artery and secured with tape. Tegaderm was applied. ?? A guidewire was used. There was 1 attempt. ?? Findings: There were no procedure complications. Blood was drawn with ease. Good wave form. Procedure Comments: pt tolerated procedure well. I was the attending physician supervising the resident in the above care and I was not present for the driscoll components of the ?? procedure. Procedure Note Dev Baez MD - 04/22/2012 11:33 PM EDT Arterial Line Placement Procedure Note Indication for Procedure: Arterial line was placed for invasive bloodpressure monitoring, arterial blood gases and access. Location of Procedure: Critical Care. Risks and Benefits: The risks and benefits of this procedure were reviewedand informed consent was obtained. Time Out: Prior to the start of the procedure, the patient's identity,intended procedure, site/side, correct patient positioning and presence ofthe site kaden was confirmed as applicable. The medical history and chartwere reviewed to rule out potential contraindications to the plannedprocedure. Hand Hygiene: The strip machine tender did perform hand hygiene prior to arterial lineinsertion. Procedure Prep: Sterile draping was applied. Skin was prepped withchlorhexidine. Procedure Details: A 20 gauge, 2 inch catheter was placed in the rightradial artery and secured with tape. Tegaderm was applied. A guidewirewas used. There was 1 attempt. Findings: There were no procedure complications. Blood was drawn withease. Good wave form. Procedure Comments: pt tolerated procedure well. I was the attending physician supervising the resident in the above careand I was not present for the driscoll components of the procedure. Joshua Fink MD PROCEDURE/MINOR [place] RGICAL ORDERABLES * XR ABDOMEN 1 VIEW (04/23/2012 6:20 AM EDT) Anatomical Region Laterality Modality Abdomen N/A Radiographic Ellen ging 04/23/2012 6:20 AM EDT Narrative 04/23/2012 8:10 AM EDT Examination DIAG ABDOMEN SINGLE VIEW/XPORT Clinical History Reason for exam and clinical history: ogt placement; tRAUMATIC HEAD INJURY, known left ptx. Comparison Chest 04/23/[address] scan 04/22/2012. Technique Portable supine film at 0615 hours. Findings An esophagogastric tube has been placed with the tip in the region of the stomach. ??Images are significantly degraded by patient motion and lower. ??There is apparent subcutaneous emphysema overlying the left chest wall and left upper quadrant. ??Bowel gas pattern is nonspecific. ??Subsegmental atelectasis is noted at the left lung base. Impression Esophagogastric catheter tip within the stomach. Degraded image by patient motion. ?? Procedure Note Esther Clinton MD - 04/23/2012 Examination DIAG ABDOMEN SINGLE VIEW/XPORT Clinical History Reason for exam and clinical history: ogt placement; tRAUMATIC HEADINJURY, known left ptx. Comparison Chest 04/23/[address] scan 04/22/2012. Technique Portable supine film at 0615 hours. Findings An esophagogastric tube has been placed with the tip in the region of the stomach. Images are significantly degraded by patient motion and lower.There is apparent subcutaneous emphysema overlying the left chest wall and leftupper quadrant. Bowel gas pattern is nonspecific. Subsegmental atelectasis isnoted at the left lung base. Impression Esophagogastric catheter tip within the stomach. Degraded image by patient motion. Joshua Fink MD IMG DX ORDERABLES * Urine culture Indwelling Catheter Urine (04/23/2012 5:03 AM EDT) Urine Culture ? Patient Name: KADEN STONER ? Ordered By: BERNARDO COOLEY ? MR#: [id number] ?LOC: ??ICUS ? /Sex: ?? 0 (51 years), ? Male ? PROCEDURE: Urine Culture ?SOURCE: [facility] ? COLLECTED: 04/23/2012 05:03 ? STARTED: 04/23/2012 08:47 ? FINAL REPORT ? Final Report ? Verified: 08:27 ? No growth (Less than 1,000 cfu/ml). ? [facility] Urine specimen obtained via indwelling urinary catheter (specimen) 04/23/2012 5:03 AM EDT 04/23/2012 8:47 AM EDT Narrative Resulting Agency Comment Spec In Lab Bernardo Cooley MD MICROBIOLOGY - GEN ERAL ORDERABLES VILLA LINN * Lower Respiratory Culture Tracheal Aspirate (04/23/2012 4:32 AM EDT) Lower Respiratory Culture ? Patient Name: KADEN STONER ? Ordered By: JOSHUA FINK ? MR#: [id number] ?LOC: ??ICUS ? /Sex: ??1960 (51 years), ? Male ? PROCEDURE: Lower Respiratory Culture ?SOURCE: Trach Asp ? COLLECTED: 04/23/2012 04:32 ? STARTED: 04/23/2012 08:47 ? STAINS / PREPARATIONS ? Gram Stain Report ? Verified:04/23/20 12 10:47 ? Many White Blood Cells ? No squamous epithelial cells ? Moderate Gram Positive lancet-shaped Diplococci ? Few mixed bacterial morphotypes suggestive of normal upper respiratory ? jaimee ? Reviewed Stain Report ? Verified:04/23/20 12 10:48 ? Many White Blood Cells seen ? No squamous epithelial cells seen ? Moderate Gram Positive lancet-shaped Diplococci ? Rare mixed bacterial morphotypes suggestive of normal upper respiratory ? jaimee ? FINAL REPORT ? Final Report ? Verified:04/27/20 12 15:33 ? Many Streptococcus pneumoniae ? Many Neisseria meningitidis ? Many mixed bacterial morphotypes suggestive of normal upper respiratory ? jaimee ? PRELIMINARY REPORT ? Preliminary Report ? Verified:04/27/20 12 09:58 ? Many Streptococcus pneumoniae ? Many Neisseria species ? Many mixed bacterial morphotypes suggestive of normal upper respiratory ? jaimee ? Patient: KADEN STONER ? MR#: [id number] ? SUSCEPTIBILITY RESULTS ? Streptococcus pneumoniae ?DEREJE Interp ? Azithromycin ? S ? Ceftriaxone - Meningitis ? S ? Ceftriaxone - Nonmeningitis ?S ? Cefuroxime ? R ? Levofloxacin ? S ? Meropenem ?I ? Penicillin - Meningitis ?R ? Penicillin - Nonmeningitis ? S ? Trimethoprim/Sulf a ? S ? Tetracycline ? S ? Vancomycin ? S ? VILLA LINN Specimen from trachea obtained by aspiration (specimen) 04/23/2012 4:32 AM EDT 04/23/2012 8:47 AM EDT Narrative Resulting Agency Comment Spec In Lab Joshua Fink MD MICROBIOLOGY - GEN ERAL ORDERABLES Performing Organization Address [facility] Co de Phone Number [facility] * POCT GLUCOSE LAB USE ONLY (04/23/2012 4:24 AM EDT) POC Glucose 99 60 - 199 mg/dL [facility] Comment: Supplemental ranges: <110 mg/dL before meals <200 mg/dL all other times of the day Blood specimen (specimen) 04/23/2012 4:24 AM EDT 04/23/2012 4:24 AM EDT Sravan Perez MD POINT OF CARE TEST O RDERABLES Performing Organization Address [facility] Co mn Phone Number [facility] * XR TOES MINIMUM 2 VIEW (04/23/2012 4:04 AM EDT) Anatomical Region Laterality Modality N/A Radiographic Ellen ging 04/23/2012 4:04 AM EDT Impressions 04/25/2012 4:28 PM EDT IMPRESSION: Base of proximal phalanx fracture as above. Narrative 04/25/2012 4:28 PM EDT RIGHT TOES: INDICATION: ??Swelling and bruising right great toe. ?? TECHNIQUE: ??AP view of the foot and two additional views of the first toe. ?? COMPARISON: ??No priors. ?? FINDINGS: ??There is a small oblique fracture along the lateral aspect of the first toe distal phalanx extending to the articular surface with minimal displacement, best seen on the oblique view of the toes, less well seen on the AP view, but also visible on the lateral view allowing for soft tissue overlap from adjacent toes. ?? Procedure Note Diane Oscar MD - 04/25/2012 RIGHT TOES: INDICATION: Swelling and bruising right great toe. TECHNIQUE: AP view of the foot and two additional views of the first toe. COMPARISON: No priors. FINDINGS: There is a small oblique fracture along the lateral aspect ofthe first toe distal phalanx extending to the articular surface with minimal displacement, best seen on the oblique view of the toes, less well seen onthe AP view, but also visible on the lateral view allowing for soft tissueoverlap from adjacent toes. IMPRESSION IMPRESSION: Base of proximal phalanx fracture as above. Joshua Fink MD IMG DX ORDERABLES * XR KNEE DIAGNOSTIC 1 OR 2 VIEW (04/23/2012 4:04 AM EDT) Anatomical Region Laterality Modality Knee N/A Radiographic Ellen ging 04/23/2012 4:04 AM EDT Narrative 04/23/2012 9:43 AM EDT Examination KNEE 1 OR 2 VIEWS/RIGHT/XPORT Clinical History Reason for exam and clinical history: R knee; swelling ecchymosis s/p trauma; Comparison None Technique AP and cross table lateral views. Findings None findings: ??Examination demonstrates an 11 mm oval calcific or bone fragment in the soft tissues adjacent to the medial aspect of the medial femoral, suggestive of avulsion injury of the medial collateral ligament. Given the well-corticated appearance of this fragment, this likely represents old trauma. ??Clinical correlation is recommended as to site of pain. ??Soft tissue density seen in the suprapatellar region suggestive of a small joint effusion. ?? The bones are otherwise intact. Impression Soft tissue calcification vs bone fragment Right medial femoral condyle, consider avulsion injury/posttraumatic ossification of medial collateral ligament of indeterminate age. ??Otherwise bones appear intact. ??Possible small joint effusion. Procedure Note Mandie Llanos MD - 04/23/2012 Examination KNEE 1 OR 2 VIEWS/RIGHT/XPORT Clinical History Reason for exam and clinical history: R knee; swelling ecchymosis s/ptrauma; Comparison None Technique AP and cross table lateral views. Findings None findings: Examination demonstrates an 11 mm oval calcific or bone fragment in the soft tissues adjacent to the medial aspect of the medial femoral, suggestive of avulsion injury of the medial collateral ligament.Given the well-corticated appearance of this fragment, this likely representsold trauma. Clinical correlation is recommended as to site of pain. Softtissue density seen in the suprapatellar region suggestive of a small jointeffusion. The bones are otherwise intact. Impression Soft tissue calcification vs bone fragment Right medial femoral condyle, consider avulsion injury/posttraumatic ossification of medial collateral ligament of indeterminate age. Otherwise bones appear intact. Possiblesmall joint effusion. Joshua Fink MD IMG DX ORDERABLES * XR HAND DIAGNOSTIC MINIMUM 3 VIEWS (04/23/2012 4:03 AM EDT) Anatomical Region Laterality Modality Hand N/A Radiographic Ellen ging 04/23/2012 4:03 AM EDT Impressions 04/25/2012 4:28 PM EDT IMPRESSION: No definite acute fracture. Fifth metacarpal appearance suggests old healed deformity and indeterminate findings by 1st MCP, as above, please correlate for site of tenderness. Narrative 04/25/2012 4:28 PM EDT LEFT HAND: INDICATION: ??Status post trauma. TECHNIQUE: ??Three views of the left hand. COMPARISON: ??No comparison. FINDINGS: ??The bones appear normally mineralized and aligned. However, there appears to be healed fracture deformity of the fifth metacarpal. No acute fracture is identified. Note by the first metacarpophalangeal joint, tiny ossific fragments of indeterminate origin along the radial side (not a sesamoid). Please assess for site of tenderness. ??Mild degenerative changes at the interphalangeal joints and the basal joint. Lateral view is limited because of overlap of the fingers Procedure Note Diane Oscar MD - 04/25/2012 LEFT HAND: INDICATION: Status post trauma. TECHNIQUE: Three views of the left hand. COMPARISON: No comparison. FINDINGS: The bones appear normally mineralized and aligned. However,there appears to be healed fracture deformity of the fifth metacarpal. No acute fracture is identified. Note by the first metacarpophalangeal joint, tiny ossific fragments of indeterminate origin along the radial side (not a sesamoid). Please assess for site of tenderness. Mild degenerativechanges at the interphalangeal joints and the basal joint. Lateral view is limitedbecause of overlap of the fingers IMPRESSION IMPRESSION: No definite acute fracture. Fifth metacarpal appearance suggests oldhealed deformity and indeterminate findings by 1st MCP, as above, pleasecorrelate for site of tenderness. Joshua Fink MD IMG DX ORDERABLES * IRON STAIN, PERIPHERAL BLOOD (04/23/2012 3:40 AM EDT) Iron Stain PB See Comment CERN ER MILLENNIUM Comment:Siderocytes Present Blood specimen (specimen) 04/23/2012 3:40 AM EDT 04/23/2012 3:46 AM EDT Narrative Resulting Agency Comment Spec In Lab Joshua Fink MD HEMATOLOGY ORDERAB LES CERNER MILLENNIUM * (ABNORMAL) DIFFERENTIAL, AUTOMATED (04/23/2012 3:40 AM EDT) Neutrophils % 86.4(H) 34.0 - 71.0 % CERNER MILLENNIUM Neutr Abs (ANC) 15.35(H) 1.50 - 6.30 x10(3)/mc L CERNER MILLENNIUM Lymphocytes % 7.2(L) 19.0 - 53.0 % CERNER MILLENNIUM Lymphocytes Abs 1.3 1.0 - 3.6 x10(3)/mc L CERNER MILLENNIUM Monocytes % 5.9 4.0 - 13.0 % CERNER MILLENNIUM Monocyte Abs 1.0 0.2 - 1.0 x10(3)/mc L CERNER MILLENNIUM Eosinophils % 0.0 0.0 - 7.0 % CERNER MILLENNIUM Eosinophils Abs 0.0 0.0 - 0.5 x10(3)/mc L CERNER MILLENNIUM Basophils % 0.3 0.0 - 2.0 % CERNER MILLENNIUM Basophils Abs 0.0 0.0 - 0.2 x10(3)/mc L CERNER MILLENNIUM Immature Gran % 0.20 0.00 - 0.66 % CERNER MILLENNIUM Comment: Immature granulocytes(IG's)percentage and absolute count will include metamyelocytes, myelocytes, and promyelocytes. Blood smears from CBCs yielding IG's will be scanned manually for concordance. If this scan disagrees with the automated IG or if promyelocytes are noted, a manual differential will be performed. Stephani Gran Abs 0.03 0.00 - 0.05 x10(3)/mc L CERNER MILLENNIUM Blood specimen (specimen) 04/23/2012 3:40 AM EDT 04/23/2012 3:46 AM EDT Joshua Fink MD HEMATOLOGY ORDERAB LES Performing Organization Address [facility] Co de Phone Number CERNER NADEGEENNIUM * SCAN, PERIPHERAL BLOOD (04/23/2012 3:40 AM EDT) Plat Estimate Normal CERNER MILLENNIUM RBC Morphology Abnormal CERNE R MILLENNIUM Macrocytes 6-10 /HPF CERNER MILLENNIUM Ovalocytes 1-5 /HPF CERNER MILLENNIUM [place] Bdy Present >1/HPF CER NER MILLENNIUM Pappenheimer Bdy Present >1/HPF CER NER MILLENNIUM Comment:To be confirmed by I johnie Stain. Blood specimen (specimen) 04/23/2012 3:40 AM EDT 04/23/2012 3:46 AM EDT Narrative Resulting Agency Comment Spec In Lab Joshua Fink MD HEMATOLOGY ORDERAB LES Performing Organization Address [facility]/ZIP Co de Phone Number CERNER MILLENNIUM * (ABNORMAL) CBC (with Diff) (04/23/2012 3:40 AM EDT) WBC 17.8(H) 4.0 - 10.0 x10(3)/mcL CERNER MILLENNIUM RBC 3.17(L) 4.63 - 6.08 x10(6)/mcL CERNER MILLENNIUM Hemoglobin 11.1(L) 13.7 - 17.5 gm/dL CERNER MILLENNIUM Hematocrit 32.0(L) 40.0 - 51.0 % CERNER MILLENNIUM MCV 100.9(H) 79.0 - 92.0 fL CERNER MILLENNIUM MCH 35.0(H) 25.6 - 32.2 pg CERNER MILLENNIUM MCHC 34.7 32.0 - 36.5 gm/dL CERNER MILLENNIUM Platelets 238 145 - 370 x10(3)/mcL CERNER MILLENNIUM RDWSD 51.0(H) 35.0 - 46.0 fL CERNER MILLENNIUM RDWCV 13.8 10.9 - 14.4 % CERNER MILLENNIUM MPV 10.6 9.0 - 12.0 fL CERNER NADEGEENNIUM Blood specimen (specimen) 04/23/2012 3:40 AM EDT 04/23/2012 3:46 AM EDT Narrative Resulting Agency Comment Spec In Lab Joshua Fink MD HEMATOLOGY ORDERAB LES Performing Organization Address [facility] de Phone Number VILLA TYIUM * Lactic acid, plasma (04/23/2012 3:40 AM EDT) Lactate 1.0 0.5 - 2.2 mmol/L VILLA TYIUM Blood specimen (specimen) 04/23/2012 3:40 AM EDT 04/23/2012 3:46 AM EDT Narrative Resulting Agency Comment Spec In Lab Joshua Fink MD CHEMISTRY ORDERABL ES Performing Organization Address [facility] de Phone Number VILLA TYIUM * Phosphorus (04/23/2012 3:40 AM EDT) Phosphorus 3.3 2.5 - 4.5 mg/dL VILLA TYIUM Blood specimen (specimen) 04/23/2012 3:40 AM EDT 04/23/2012 3:46 AM EDT Narrative Resulting Agency Comment Spec In Lab Joshua Fink MD CHEMISTRY ORDERABL ES Performing Organization Address [facility]/ZIP Co de Phone Number CERNER NADEGEENNIUM * Magnesium (04/23/2012 3:40 AM EDT) Magnesium 0.72 0.69 - 1.07 mmol/L CERNER MILLENNIUM Blood specimen (specimen) 04/23/2012 3:40 AM EDT 04/23/2012 3:46 AM EDT Narrative Resulting Agency Comment Spec In Lab Joshua Fink MD CHEMISTRY ORDERABL ES VILLA TYIUM * (ABNORMAL) Basic Metabolic Panel (non-fasting) (04/23/2012 3:40 AM EDT) Glucose Lvl 101 60 - 199 mg/dL CERNER MILLENNIUM Comment:Diabetes: >=200 mg/d L plus symptoms BUN 8(L) 10 - 20 mg/dL CERNER MILLENNIUM Creatinine 0.66(L) 0.80 - 1.50 mg/dL CERNER MILLENNIUM Comment: Please note that the pediatric reference intervals supplied above were not validated at [facility]. Results from pediatric patients should be interpreted in conjunction to the patient's age, height and muscle mass. Sodium 133(L) 135 - 145 mmol/L CERNER MILLENNIUM Potassium 3.6 3.5 - 5.0 mmol/L CERNER MILLENNIUM Comment: Please note: ??Patients with WBC >100,000 may have falsely elevated Potassium levels. ??For accurate Potassium quantification in these patients send serum separator tube (gold top) for subsequent determinations. ??Contact the Clinical Chemistry Laboratory if there are any questions. Chloride 98 98 - 107 mmol/L CERNER MILLENNIUM CO2 23 22 - 31 mmol/L CERNER MILLENNIUM Anion Gap 12 5 - 15 mmol/L CERNER MILLENNIUM Calcium 8.0(L) 8.5 - 10.5 mg/dL CERNER MILLENNIUM Estimated GFR >60 >=60 CERNER MILLENNIUM Comment: The National Kidney Disease Education Program (NKDEP) has recommended all laboratories report estimated GFR (eGFR) along with plasma creatinine measurements to assist you with recognition of early kidney disease. Caveats: ??Plasma creatinine should be at steady-state (unchanged within the past week). For patients multiply eGFR by 1.2. The MDRD equation was developed using patients between the ages of 18 and 70 years. ?? The MDRD equation has not been validated for patients < 18 years of age and should not be used to assess renal function in the pediatric population. ??The MDRD eGFR equation will also overestimate the true GFR of patients above the age of 70. ??This overestimation is variable but increases with age. At present, NKDEP does NOT recommend using the MDRD equation for drug dosing purposes and pharmacists should continue to use their current dosing methods. In addition, numerical eGFR values greater than 60 ml/min/1.73 square meters should be treated as > 60, and not an exact number due to greater inaccuracies at these higher values. Per NKDEP, they classify normal renal function as any GFR >60ml/min/1.73 square meters; chronic kidney disease when GFR <60, and renal failure when GFR <15. ??This calculation may not be valid for patients with atypical muscle mass (very lean or obese), acute renal failure, and in patients with diabetic kidney disease. References: http://nkdep.nih.gov/resources/NKDEP_Suggestn4Labs_0606_508.pdf http://www.kidney.org/professionals/kls/pdf/faq_gfr.pdf Lila K, Matt NA, Gaviota AK, Viet TS, Sania AD, Shagufta RAMIRO. Relative performance of the MDRD and CKD-EPI equations for estimating glomerular filtration rate among patients with varied clinical presentations. Clin J Am Soc Nephrol;6:1963-72. Blood specimen (specimen) 04/23/2012 3:40 AM EDT 04/23/2012 3:46 AM EDT Narrative Resulting Agency Comment Spec In Lab Joshua Fink MD CHEMISTRY ORDERABL ES [facility] * (ABNORMAL) BLOOD GAS 2 ARTERIAL (04/23/2012 1:02 AM EDT) pH Art 7.37 CERNER MILLENNIUM pCO2 Art 39 mmHg CERNER MILLENNIUM pO2 Art 97 mmHg CERNER MILLENNIUM HCO3 Art 22.2 mmol/L CERNER MILLENNIUM BE Art -3.1(L) mmol/L CERNER MILLENNIUM Hgb Blood Gas 11.6(L) gm/dL CERNER MILLENNIUM Comment: Total Hemoglobin (in gm/dL) ?Based on [facility] Hematology ranges: ?Age ?Reference Range Less than 3 days ?14.5 to 22.5 3 days to 2 weeks ? 12.5 to 20.5 2 weeks to 1 month ?10.0 to 18.0 1 to 6 months ?9.4 to 14.0 6 months to 2 years ? 10.5 to 13.5 2 to 6 years ?11.5 to 13.5 6 to 12 years ? 11.5 to 15.5 12 to 18 years (female) 12.0 to 16.0 ? (male) ?? 13.0 to 16.0 > 18 years ? (female) 11.2 to 15.7 ? (male) ?? 13.7 to 17.5 O2HB Art 96.2 % CERNER MILLENNIUM COHB Art 1.2 % CERNER MILLENNIUM Comment: Nonsmokers: 0.5-1.5% COHB Smokers: Variable, but usually less than 10% Toxic: 20-30% COHB Lethal: Greater than 60% COHB METHB Art 0.3 % CERNER MILLENNIUM Na Whole Blood 133(L) mmol/L CERNE R MILLENNIUM K Whole Blood 3.2(L) mmol/L CERNER MILLENNIUM Comment: Please note: Patients with WBC >100,000 may have falsely elevated Potassium levels. Contact the Clinical Chemistry Laboratory if there are any questions. ICa Whole Blood 0.98(L) mmol/L CERN ER MILLENNIUM Comment: Reference Ranges: ?? < 19 yrs: 1.22 - 1.37 mmol/L ? Adults: 1.15 - 1.33 mmol/L Note: ??Total bilirubin higher than 20 mg/dL may lead to falsely low ionized calcium. CL Whole Blood 106 mmol/L CERNE R MILLENNIUM Gluc Whole Bld 92 mg/dL CERNE R MILLENNIUM Comment:Diabetes: >=200 mg/d L plus symptoms. FIO2 Art 100 % CERNER MILLENNIUM PF Ratio Art 97 CERNER MILLENNIUM Blood specimen (specimen) 04/23/2012 1:02 AM EDT 04/23/2012 1:02 AM EDT Sravan Perez MD CHEMISTRY ORDERABLES Performing Organization Address [facility] de Phone Number [facility] * POCT GLUCOSE LAB USE ONLY (04/23/2012 12:21 AM EDT) POC Glucose 106 60 - 199 mg/dL [facility] Comment: Supplemental ranges: <110 mg/dL before meals <200 mg/dL all other times of the day Blood specimen (specimen) 04/23/2012 12:21 AM EDT 04/23/2012 12:21 AM EDT Sravan Perez MD POINT OF CARE TEST O RDERABLES Performing Organization Address [facility] Phone Number [facility] * XR CHEST PA OR AP- 1 VIEW (04/23/2012 12:13 AM EDT) Anatomical Region Laterality Modality Chest N/A Radiographic Ellen ging 04/23/2012 12:1 3 AM EDT Narrative 04/23/2012 8:18 AM EDT Examination Single-view chest. Clinical History Endotracheal tube placement. ??Hypoxia. Comparison 04/22/2012 at 1525 hours. Technique Portable AP chest radiograph from 04/23/2012 at 0005 hours. Findings Interval placement of endotracheal tube, tip in approximately 6 cm above the george. ??Left chest tube in unchanged position. ??Increasing opacity in the retrocardiac left lower lung, question aspiration pneumonitis or pneumonia. ??On the right, hazy nodular opacities in the right mid to lower lung. ??Question aspiration pneumonitis or developing pneumonia. Procedure Note Czum, Diane M, MD - 04/23/2012 Examination Single-view chest. Clinical History Endotracheal tube placement. Hypoxia. Comparison 04/22/2012 at 1525 hours. Technique Portable AP chest radiograph from 04/23/2012 at 0005 hours. Findings Interval placement of endotracheal tube, tip in approximately 6 cm abovethe george. Left chest tube in unchanged position. Increasing opacity in the retrocardiac left lower lung, question aspiration pneumonitis orpneumonia. On the right, hazy nodular opacities in the right mid to lower lung.Question aspiration pneumonitis or developing pneumonia. Joshua Fink MD IMG DX ORDERABLES * (ABNORMAL) BLOOD GAS 2 ARTERIAL (04/22/2012 10:56 PM EDT) pH Art 7.44 CERNER MILLENNIUM pCO2 Art 34(L) mmHg CERNER MILLENNIUM pO2 Art 63(L) mmHg CERNER MILLENNIUM HCO3 Art 22.7 mmol/L CERNER MILLENNIUM BE Art -1.5 mmol/L CERNER MILLENNIUM Hgb Blood Gas 13.0(L) gm/dL CERNER MILLENNIUM Comment: Total Hemoglobin (in gm/dL) ?Based on [facility] Hematology ranges: ?Age ?Reference Range Less than 3 days ?14.5 to 22.5 3 days to 2 weeks ? 12.5 to 20.5 2 weeks to 1 month ?10.0 to 18.0 1 to 6 months ?9.4 to 14.0 6 months to 2 years ? 10.5 to 13.5 2 to 6 years ?11.5 to 13.5 6 to 12 years ? 11.5 to 15.5 12 to 18 years (female) 12.0 to 16.0 ? (male) ?? 13.0 to 16.0 > 18 years ? (female) 11.2 to 15.7 ? (male) ?? 13.7 to 17.5 O2HB Art 91.6(L) % CERNER MILLENNIUM COHB Art 1.6 % CERNER MILLENNIUM Comment: Nonsmokers: 0.5-1.5% COHB Smokers: Variable, but usually less than 10% Toxic: 20-30% COHB Lethal: Greater than 60% COHB METHB Art 0.3 % CERNER MILLENNIUM Na Whole Blood 132(L) mmol/L CERNE R MILLENNIUM K Whole Blood 3.6 mmol/L CERNER MILLENNIUM Comment: Please note: Patients with WBC >100,000 may have falsely elevated Potassium levels. Contact the Clinical Chemistry Laboratory if there are any questions. ICa Whole Blood 1.07(L) mmol/L CERN ER MILLENNIUM Comment: Reference Ranges: ?? < 19 yrs: 1.22 - 1.37 mmol/L ? Adults: 1.15 - 1.33 mmol/L Note: ??Total bilirubin higher than 20 mg/dL may lead to falsely low ionized calcium. CL Whole Blood 100 mmol/L CERNE R MILLENNIUM Gluc Whole Bld 97 mg/dL CERNE R MILLENNIUM Comment:Diabetes: >=200 mg/d L plus symptoms. FIO2 Art 100 % CERNER MILLENNIUM PF Ratio Art 63 CERNER MILLENNIUM Blood specimen (specimen) 04/22/2012 10:56 PM EDT 04/22/2012 10:56 PM EDT Sravan Perez MD CHEMISTRY ORDERABLES CERNER MILLENNIUM * (ABNORMAL) DIFFERENTIAL, AUTOMATED (04/22/2012 10:50 PM EDT) Neutrophils % 83.6(H) 34.0 - 71.0 % CERNER MILLENNIUM Neutr Abs (ANC) 19.18(H) 1.50 - 6.30 x10(3)/mc L CERNER MILLENNIUM Lymphocytes % 7.9(L) 19.0 - 53.0 % CERNER MILLENNIUM Lymphocytes Abs 1.8 1.0 - 3.6 x10(3)/mc L CERNER MILLENNIUM Monocytes % 7.9 4.0 - 13.0 % CERNER MILLENNIUM Monocyte Abs 1.8(H) 0.2 - 1.0 x10(3)/mc L CERNER MILLENNIUM Eosinophils % 0.0 0.0 - 7.0 % CERNER MILLENNIUM Eosinophils Abs 0.0 0.0 - 0.5 x10(3)/mc L CERNER MILLENNIUM Basophils % 0.3 0.0 - 2.0 % CERNER MILLENNIUM Basophils Abs 0.1 0.0 - 0.2 x10(3)/mc L CERNER MILLENNIUM Immature Gran % 0.30 0.00 - 0.66 % CERNER MILLENNIUM Comment: Immature granulocytes(IG's)percentage and absolute count will include metamyelocytes, myelocytes, and promyelocytes. Blood smears from CBCs yielding IG's will be scanned manually for concordance. If this scan disagrees with the automated IG or if promyelocytes are noted, a manual differential will be performed. Stephani Gran Abs 0.06(H) 0.00 - 0.05 x10(3)/mc L CERNER MILLENNIUM Blood specimen (specimen) 04/22/2012 10:50 PM EDT 04/22/2012 11:08 PM EDT Dev Baez MD HEMATOLOGY ORDERABLE S CERNER MILLENNIUM * SCAN, PERIPHERAL BLOOD (04/22/2012 10:50 PM EDT) Plat Estimate Normal CERNER MILLENNIUM RBC Morphology Abnormal CERNE R MILLENNIUM Macrocytes 6-10 /HPF CERNER MILLENNIUM Ovalocytes 1-5 /HPF CERNER MILLENNIUM [place] Bdy Present >1/HPF CER NER MILLENNIUM Pappenheimer Bdy Present >1/HPF CER NER MILLENNIUM Comment:To be confirmed by I johnie Stain. Blood specimen (specimen) 04/22/2012 10:50 PM EDT 04/22/2012 11:08 PM EDT Narrative Resulting Agency Comment Spec In Lab Dev Baez MD HEMATOLOGY ORDERABLE S [facility] * Blood culture (04/22/2012 10:50 PM EDT) Blood Culture ? Patient Name: KADEN STONER ? Ordered By: JOSHUA FINK ? MR#: [id number] ?LOC: ??ICUS ? /Sex: ??1960 (51 years), ? Male ? PROCEDURE: Blood Culture ?SOURCE: Blood ? COLLECTED: 04/22/2012 22:50 ? BODY SITE: Arterial Line ? STARTED: 04/23/2012 00:59 ? FINAL REPORT ? Final Report ? Verified:2011 15:08 ? No growth at 5 days. ? PRELIMINARY REPORT ? Preliminary Report ? Verified:2011 07:08 ? No growth at 4 days. ? VILLA LINN Blood specimen (specimen) ARTERIAL LINE / Unknown 04/22/2012 10:50 PM EDT 04/23/2012 12:59 AM EDT Narrative Resulting Agency Comment Spec In Lab Joshua Fink MD MICROBIOLOGY - BLO OD ORDERABLES Performing Organization Address City/[facility]/ZIP Co de Phone Number VILLA TYIUM * Phosphorus (04/22/2012 10:50 PM EDT) Pathologist [facility] Phosphorus 3.5 2.5 - 4.5 mg/dL CERNER MILLENNIUM Blood specimen (specimen) 04/22/2012 10:50 PM EDT 04/22/2012 11:08 PM EDT Narrative Resulting Agency Comment Spec In Lab Dev Baez MD CHEMISTRY ORDERABLES Performing Organization Address [facility] Co de Phone Number VILLA TYIUM * Magnesium (04/22/2012 10:50 PM EDT) Pathologist [facility] Magnesium 0.75 0.69 - 1.07 mmol/L [facility] Blood specimen (specimen) 04/22/2012 10:50 PM EDT 04/22/2012 11:08 PM EDT Narrative Resulting Agency Comment Spec In Lab Dev Baez MD CHEMISTRY ORDERABLES Performing Organization Address [facility] Co de Phone Number [facility] * (ABNORMAL) Basic Metabolic Panel (non-fasting) (04/22/2012 10:50 PM EDT) Pathologist [facility] Glucose Lvl 96 60 - 199 mg/dL [facility] MILLENNIUM Comment:Diabetes: >=200 mg/d L plus symptoms BUN 7(L) 10 - 20 mg/dL [facility] Creatinine 0.61(L) 0.80 - 1.50 mg/dL CERNER MILLENNIUM Comment: Please note that the pediatric reference intervals supplied above were not validated at [facility]. Results from pediatric patients should be interpreted in conjunction to the patient's age, height and muscle mass. Sodium 132(L) 135 - 145 mmol/L [facility] MILL[facility] Potassium 3.4(L) 3.5 - 5.0 mmol/L CERNER MILLENNIUM Comment: Please note: ??Patients with WBC >100,000 may have falsely elevated Potassium levels. ??For accurate Potassium quantification in these patients send serum separator tube (gold top) for subsequent determinations. ??Contact the Clinical Chemistry Laboratory if there are any questions. Chloride 96(L) 98 - 107 mmol/L CERNER MILLENNIUM CO2 23 22 - 31 mmol/L CERNER MILLENNIUM Anion Gap 13 5 - 15 mmol/L CERNER MILLENNIUM Calcium 8.4(L) 8.5 - 10.5 mg/dL CERNER MILLENNIUM Estimated GFR >60 >=60 CERNER MILLENNIUM Comment: The National Kidney Disease Education Program (NKDEP) has recommended all laboratories report estimated GFR (eGFR) along with plasma creatinine measurements to assist you with recognition of early kidney disease. Caveats: ??Plasma creatinine should be at steady-state (unchanged within the past week). For patients multiply eGFR by 1.2. The MDRD equation was developed using patients between the ages of 18 and 70 years. ?? The MDRD equation has not been validated for patients < 18 years of age and should not be used to assess renal function in the pediatric population. ??The MDRD eGFR equation will also overestimate the true GFR of patients above the age of 70. ??This overestimation is variable but increases with age. At present, NKDEP does NOT recommend using the MDRD equation for drug dosing purposes and pharmacists should continue to use their current dosing methods. In addition, numerical eGFR values greater than 60 ml/min/1.73 square meters should be treated as > 60, and not an exact number due to greater inaccuracies at these higher values. Per NKDEP, they classify normal renal function as any GFR >60ml/min/1.73 square meters; chronic kidney disease when GFR <60, and renal failure when GFR <15. ??This calculation may not be valid for patients with atypical muscle mass (very lean or obese), acute renal failure, and in patients with diabetic kidney disease. References: http://nkdep.nih.gov/resources/NKDEP_Suggestn4Labs_0606_508.pdf http://www.kidney.org/professionals/kls/pdf/faq_gfr.pdf Lila K, Matt NA, Gav[place] AK, Viet TS, Sania AD, Shagufta RAMIRO. Relative performance of the MDRD and CKD-EPI equations for estimating glomerular filtration rate among patients with varied clinical presentations. Clin J Am Soc Nephrol;6:1963-72. Blood specimen (specimen) 04/22/2012 10:50 PM EDT 04/22/2012 11:08 PM EDT Narrative Resulting Agency Comment Spec In Lab Dev Baez MD CHEMISTRY ORDERABLES Performing Organization Address [facility] Co de Phone Number CERNER MILLENNIUM * (ABNORMAL) CBC (with Diff) (04/22/2012 10:50 PM EDT) WBC 23.0(H) 4.0 - 10.0 x10(3)/mcL CERNER MILLENNIUM RBC 3.55(L) 4.63 - 6.08 x10(6)/mcL CERNER MILLENNIUM Hemoglobin 12.5(L) 13.7 - 17.5 gm/dL CERNER MILLENNIUM Hematocrit 35.5(L) 40.0 - 51.0 % CERNER MILLENNIUM MCV 100.0(H) 79.0 - 92.0 fL CERNER MILLENNIUM MCH 35.2(H) 25.6 - 32.2 pg CERNER MILLENNIUM MCHC 35.2 32.0 - 36.5 gm/dL CERNER MILLENNIUM Platelets 276 145 - 370 x10(3)/mcL CERNER MILLENNIUM RDWSD 50.8(H) 35.0 - 46.0 fL CERNER MILLENNIUM RDWCV 13.8 10.9 - 14.4 % CERNER MILLENNIUM MPV 11.0 9.0 - 12.0 fL CERNER MILLENNIUM Blood specimen (specimen) 04/22/2012 10:50 PM EDT 04/22/2012 11:08 PM EDT Narrative Resulting Agency Comment Spec In Lab Dev Baez MD HEMATOLOGY ORDERABLE S Performing Organization Address City/[facility]/ZIP Co de Phone Number [facility] MILLENNI[facility] * (ABNORMAL) APTT (04/22/2012 10:50 PM EDT) PTT 37(H) 25 - 35 sec CERNER MILLENNIUM Comment: Recommended therapeutic PTT range for full dose unfractionated heparin is 80-114 seconds. Blood specimen (specimen) 04/22/2012 10:50 PM EDT 04/22/2012 11:08 PM EDT Narrative Resulting Agency Comment Spec In Lab Dev Baez MD HEMATOLOGY ORDERABLE S Performing Organization Address [facility] de Phone Number [facility] * Prothrombin Time (04/22/2012 10:50 PM EDT) PT 13.5 11.9 - 14.7 sec [facility] Comment: [facility] Transfusion Committee Guidelines: INR less than 2.0, PTT less than OR equal to 43.5 seconds, or Fibrinogen greater than or equal to 100 mg/dl indicate adequate procoagulant activity for hemostasis in patients without underlying bleeding disorders. INR 1.0 0.9 - 1.1 [facility] Blood specimen (specimen) 04/22/2012 10:50 PM EDT 04/22/2012 11:08 PM EDT Narrative Resulting Agency Comment Spec In Lab Dev Baez MD HEMATOLOGY ORDERABLE S Performing Organization Address [facility] de Phone Number [facility] * POCT GLUCOSE LAB USE ONLY (04/22/2012 8:05 PM EDT) Pathologist [facility] POC Glucose 105 60 - 199 mg/dL [facility] Comment: Supplemental ranges: <110 mg/dL before meals <200 mg/dL all other times of the day Blood specimen (specimen) 04/22/2012 8:05 PM EDT 04/22/2012 8:05 PM EDT Sravan Perez MD POINT OF CARE TEST O RDERABLES Performing Organization Address [facility] de Phone Number [facility] * URINE HOLD (04/22/2012 7:35 PM EDT) Pathologist [facility] Urine Hold Sample in lab. [facility] Urine specimen (specimen) 04/22/2012 7:35 PM EDT 04/22/2012 7:35 PM EDT Joshua Fink MD URINE ORDERABLES [facility] * (ABNORMAL) BLOOD GAS 2 ARTERIAL (04/22/2012 7:28 PM EDT) pH Art 7.47(H) CERNER MILLENNIUM pCO2 Art 33(L) mmHg CERNER MILLENNIUM pO2 Art 103 mmHg CERNER MILLENNIUM HCO3 Art 23.3 mmol/L CERNER MILLENNIUM BE Art -0.4 mmol/L CERNER MILLENNIUM Hgb Blood Gas 13.6(L) gm/dL CERNER MILLENNIUM Comment: Total Hemoglobin (in gm/dL) ?Based on [facility] Hematology ranges: ?Age ?Reference Range Less than 3 days ?14.5 to 22.5 3 days to 2 weeks ? 12.5 to 20.5 2 weeks to 1 month ?10.0 to 18.0 1 to 6 months ?9.4 to 14.0 6 months to 2 years ? 10.5 to 13.5 2 to 6 years ?11.5 to 13.5 6 to 12 years ? 11.5 to 15.5 12 to 18 years (female) 12.0 to 16.0 ? (male) ?? 13.0 to 16.0 > 18 years ? (female) 11.2 to 15.7 ? (male) ?? 13.7 to 17.5 O2HB Art 96.0 % CERNER MILLENNIUM COHB Art 2.0 % CERNER MILLENNIUM Comment: Nonsmokers: 0.5-1.5% COHB Smokers: Variable, but usually less than 10% Toxic: 20-30% COHB Lethal: Greater than 60% COHB METHB Art 0.3 % CERNER MILLENNIUM Na Whole Blood 131(L) mmol/L CERNE R MILLENNIUM K Whole Blood 3.7 mmol/L CERNER MILLENNIUM Comment: Please note: Patients with WBC >100,000 may have falsely elevated Potassium levels. Contact the Clinical Chemistry Laboratory if there are any questions. ICa Whole Blood 1.07(L) mmol/L CERN ER MILLENNIUM Comment: Reference Ranges: ?? < 19 yrs: 1.22 - 1.37 mmol/L ? Adults: 1.15 - 1.33 mmol/L Note: ??Total bilirubin higher than 20 mg/dL may lead to falsely low ionized calcium. CL Whole Blood 98 mmol/L CERNE R MILLENNIUM Gluc Whole Bld 96 mg/dL CERNE R MILLENNIUM Comment:Diabetes: >=200 mg/d L plus symptoms. FIO2 Art 100 % CERNER MILLENNIUM PF Ratio Art 103 [facility] Blood specimen (specimen) 04/22/2012 7:28 PM EDT 04/22/2012 7:28 PM EDT Sravan Perez MD CHEMISTRY ORDERABLES [facility] * (ABNORMAL) Urinalysis with microscopic (04/22/2012 7:27 PM EDT) Glucose UA Negative Negative mg/dL CERNER MILLENNIUM Protein UA Trace(A) Neg mg/dL CERNER MILLENNIUM Bilirubin UA Negative Negative mg/dL CERNER MILLENNIUM Urobilinogen UA Normal mg/dL CERN ER MILLENNIUM pH UA 5.5 5.0 - 8.0 CERNER MILLENNIUM Blood UA Trace(A) Neg CERNER MILLENNIUM Ketones UA 150(Critica l) Neg mg/dL CERNER MILLENNIUM Comment:GLUCOSE IS NEGATIVE Nitrite UA Negative CERNER MILLENNIUM Leukocytes UA Negative mcL CERNER MILLENNIUM Appearance UA Clear Clear CERNER MILLENNIUM Spec [place] UA >1.035(H) 1.002 - 1.030 CERNER MILLENNIUM Color UA Yellow Yellow CERNER MILLENNIUM RBC UA 1 0 - 3 /HPF CERNER MILLENNIUM WBC UA 1 0 - 3 /HPF CERNER MILLENNIUM Urine specimen (specimen) 04/22/2012 7:27 PM EDT 04/22/2012 7:35 PM EDT Narrative Resulting Agency Comment Spec In Lab Joshua Fink MD URINE ORDERABLES [facility] * Blood culture (04/22/2012 6:26 PM EDT) Blood Culture ? Patient Name: KADEN STONER ? Ordered By: JOSHUA FINK ? MR#: [id number] ?LOC: ??ICUS ? /Sex: ??1960 (51 years), ? Male ? PROCEDURE: Blood Culture ?SOURCE: Blood ? COLLECTED: 04/22/2012 18:26 ?FREE TEXT SOURCE: RA ? STARTED: 04/22/2012 18:41 ? FINAL REPORT ? Final Report ? Verified:2011 15:08 ? No growth at 5 days. ? PRELIMINARY REPORT ? Preliminary Report ? Verified:2011 23:07 ? No growth at 4 days. ? IVLLA LINN Blood specimen (specimen) 04/22/2012 6:26 PM EDT 04/22/2012 6:41 PM EDT Narrative Resulting Agency Comment Spec In Lab Joshua Fink MD MICROBIOLOGY - BLO OD ORDERABLES [facility] * Blood culture (04/22/2012 6:26 PM EDT) Blood Culture ? Patient Name: KADEN STONER ? Ordered By: JOSHUA FINK ? MR#: [id number] ?LOC: ??ICUS ? /Sex: ??1960 (51 years), ? Male ? PROCEDURE: Blood Culture ?SOURCE: Blood ? COLLECTED: 04/22/2012 18:26 ?FREE TEXT SOURCE: L ac ? STARTED: 04/22/2012 18:41 ? FINAL REPORT ? Final Report ? Verified:2011 15:08 ? No growth at 5 days. ? PRELIMINARY REPORT ? Preliminary Report ? Verified:2011 23:07 ? No growth at 4 days. ? [facility] LINN Blood specimen (specimen) 04/22/2012 6:26 PM EDT 04/22/2012 6:41 PM EDT Narrative Resulting Agency Comment Spec In Lab Joshua Fink MD MICROBIOLOGY - BLO OD ORDERABLES [facility] * CT chest pulmonary embolism with contrast (04/22/2012 5:49 PM EDT) Anatomical Region Laterality Modality Chest Computed Tomogra phy 04/22/2012 5:49 PM EDT Narrative 04/23/2012 8:[address] Chest for Pulmonary Embolus With Contrast Clinical History Reason for exam and clinical history: new onset SOB, tachycardia, increased oxygen requirement, Aa gradient; Comparison None Technique Helical images were acquired of the chest after the administration of Omnipaque 350, 95 mL intravenously. Findings Motion artifact is present particularly at the lung bases which obscures visualization of the pulmonary arteries but no large or central pulmonary embolus is identified. There is been interval exchange of the left-sided chest tube with only a trace residual left pneumothorax present. The chest tube terminates at the apex of the left lung. There are new tree-in-bud opacities within the right middle lobe and the right lower lobe. ??Dependent atelectasis is also seen within both lungs. Moderate subcutaneous emphysema remains. ??The lung bases and upper abdomen are excluded from the examination. Impression Limited examination secondary to motion artifact but no pulmonary embolus is identified. New tree-in-bud opacities within the right lung which may represent infection, hemorrhage, or inflammatory process. Small residual left pneumothorax. Film and interpretation reviewed by the attending Procedure Note Santiago Conde MD - 04/23/[address] Chest for Pulmonary Embolus With Contrast Clinical History Reason for exam and clinical history: new onset SOB, tachycardia,increased oxygen requirement, Aa gradient; Comparison None Technique Helical images were acquired of the chest after the administration ofOmnipaque 350, 95 mL intravenously. Findings Motion artifact is present particularly at the lung bases which obscures visualization of the pulmonary arteries but no large or central pulmonary embolus is identified. There is been interval exchange of the left-sided chest tube with only atrace residual left pneumothorax present. The chest tube terminates at the apexof the left lung. There are new tree-in-bud opacities within the right middlelobe and the right lower lobe. Dependent atelectasis is also seen within bothlungs. Moderate subcutaneous emphysema remains. The lung bases and upper abdomenare excluded from the examination. Impression Limited examination secondary to motion artifact but no pulmonary embolusis identified. New tree-in-bud opacities within the right lung which may representinfection, hemorrhage, or inflammatory process. Small residual left pneumothorax. Film and interpretation reviewed by the attending Joshua Fink MD IMG CT ORDERABLES * (ABNORMAL) Cardiac Enzymes (04/22/2012 4:39 PM EDT) [facility] Troponin-T <0.03 <=0.03 ng/mL VILLA NADEGEWU Comment: 0.03 ng/mL: Represents the 99th percentile upper reference limit for normals. >0.03 ng/mL: Elevated cardiac troponin T level indicative of myocardial damage. Diagnosis of acute, evolving or recent UT requires a typical rise and gradual fall of cTnT with at least ONE of the following: a) Ischemic symptoms b) Development of pathologic Q waves on the ECG c) ECG changes indicative of eschemia (S-T segment elevation/depression) d) Coronary artery intervention Serial bloods should be obtained for testing on admission, at 6 to 9 hrs and again at 12 to 24 hrs if earlier samples are negative and the clinical index of suspicion is high. Reference: [Myocardial infarction redefined a consensus document of the Joint Society of Cardiology/[place] College of Cardiology Committee for the redefinition of myocardial infarction. Journal of the [place] College of Cardiology 2000; 36: 959-969] CK, Total 997(H) 0 - 200 unit/L [facility]N Blood specimen (specimen) 04/22/2012 4:39 PM EDT 04/22/2012 4:42 PM EDT Narrative Resulting Agency Comment Spec In Lab Joshua Fink MD CHEMISTRY ORDERABL ES [facility]N * EKG 12 Lead (04/22/2012 4:34 PM EDT) Pathologist [facility] Ventricular rate 134 BPM MUSE SYSTEM Atrial Rate 134 BPM MUSE SYSTEM P-R Interval 140 ms MUSE SYSTEM QRS Duration 96 ms MUSE SYSTEM Q-T Interval 306 ms MUSE SYSTEM QTC Calculated (Bezet) 456 ms MUSE SYSTEM Calculated P [place] 52 degrees MUSE SYSTEM Calculated R [place] 49 degrees MUSE SYSTEM Calculated T [place] 50 degrees MUSE SYSTEM INTERPRETATION Sinus tachycardia with Premature atrial complexes with Aberrant conduction Possible Left atrial enlargement Incomplete right bundle branch block Borderline ECG When compared with ECG of 22-APR-2012 13:44, ST no longer depressed in Lateral leads Confirmed by Leilani Marcum Mandeep S ([id number]) on 04/23/2012 9:54:32 PM MUSE SYSTEM 04/22/2012 4:34 PM EDT 04/23/2012 9:54 PM EDT Joshua Fink MD ECG ORDERABLES MUSE SYSTEM * (ABNORMAL) BLOOD GAS 2 ARTERIAL (04/22/2012 4:16 PM EDT) pH Art 7.45 CERNER MILLENNIUM pCO2 Art 37 mmHg CERNER MILLENNIUM pO2 Art 60(L) mmHg CERNER MILLENNIUM HCO3 Art 24.7 mmol/L CERNER MILLENNIUM BE Art 0.6 mmol/L CERNER MILLENNIUM Hgb Blood Gas 13.4(L) gm/dL CERNER MILLENNIUM Comment: Total Hemoglobin (in gm/dL) ?Based on [facility] Hematology ranges: ?Age ?Reference Range Less than 3 days ?14.5 to 22.5 3 days to 2 weeks ? 12.5 to 20.5 2 weeks to 1 month ?10.0 to 18.0 1 to 6 months ?9.4 to 14.0 6 months to 2 years ? 10.5 to 13.5 2 to 6 years ?11.5 to 13.5 6 to 12 years ? 11.5 to 15.5 12 to 18 years (female) 12.0 to 16.0 ? (male) ?? 13.0 to 16.0 > 18 years ? (female) 11.2 to 15.7 ? (male) ?? 13.7 to 17.5 O2HB Art 90.6(L) % CERNER MILLENNIUM COHB Art 2.2 % CERNER MILLENNIUM Comment: Nonsmokers: 0.5-1.5% COHB Smokers: Variable, but usually less than 10% Toxic: 20-30% COHB Lethal: Greater than 60% COHB METHB Art 0.0 % CERNER MILLENNIUM Na Whole Blood 131(L) mmol/L CERNE R MILLENNIUM K Whole Blood 3.5 mmol/L CERNER MILLENNIUM Comment: Please note: Patients with WBC >100,000 may have falsely elevated Potassium levels. Contact the Clinical Chemistry Laboratory if there are any questions. ICa Whole Blood 1.10(L) mmol/L CERN ER MILLENNIUM Comment: Reference Ranges: ?? < 19 yrs: 1.22 - 1.37 mmol/L ? Adults: 1.15 - 1.33 mmol/L Note: ??Total bilirubin higher than 20 mg/dL may lead to falsely low ionized calcium. CL Whole Blood 99 mmol/L CERNE R MILLENNIUM Gluc Whole Bld 95 mg/dL CERNE R MILLENNIUM Comment:Diabetes: >=200 mg/d L plus symptoms. Flow Art 3.0 LPM CERNER MILLENNIUM Blood specimen (specimen) 04/22/2012 4:16 PM EDT 04/22/2012 4:16 PM EDT Sravan Perez MD CHEMISTRY ORDERABLES CERNER MILLENNIUM * XR CHEST PA OR AP- 1 VIEW (04/22/2012 3:37 PM EDT) Anatomical Region Laterality Modality Chest N/A Radiographic Ellen ging 04/22/2012 3:37 PM EDT Narrative 04/22/2012 4:17 PM EDT Examination Single-view chest. Clinical History Increased oxygen requirement. ??Status post trauma. ?? Comparison 04/21/12 at 1240 hours Technique Portable AP chest radiograph from 04/22/12 at 1525 hours. Findings 1 of the 2 chest tubes has been removed. ??1 chest tube remains, tip near the apex. No large pneumothorax is identified on this semi recumbent view. No change in the overall appearance of both lungs. ??As before, body wall air on the left. ??No change in the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 HOURS, First dose on Sun04/21/12 at 1615, Until Discontinued, To brush teeth, Routine Given 05/07/2012 8:25 AM EDT 15 mLs Given 05/06/2012 8:02 AM EDT 15 mLs Given 05/05/2012 9:00 AM EDT 15 mLs dexmedetomidine (PRECEDEX) 1,000 mcg in sodium chloride 0.9% 250 mL infusion 0.1-1.7 mcg/kg/hr ? 74 kg (rounded to 1.9-31.5 mL/hr), Intravenous, CONTINUOUS, Starting on Sun04/23/12 at 1715, Until Sun04/24/12 at 1817, Maintenance, short term sedation for mechanically ventilated or non-intubated patient. Initial Bolus IV dose of 0 mcg/kg over 20 minutes followed by continuous IV infusion. 1.7 mcg\kg\hr New Bag 04/24/2012 12:13 PM EDT 1.7 mcg/kg/hr 31.5 mL/hr Rate/Dose Verify 04/24/2012 11:00 AM EDT 1.7 mcg/kg/hr 31. 5 mL/hr Rate/Dose Verify 04/24/2012 8:00 AM EDT 1.7 mcg/kg/hr 31.5 mL/hr dexmedetomidine (PRECEDEX) 1,000 mcg in sodium chloride 0.9% 250 mL infusion 0.1-1.7 mcg/kg/hr ? 74 kg (rounded to 1.9-31.5 mL/hr), Intravenous, CONTINUOUS, Starting on Sun04/24/12 at 1845, Until Sun04/27/12 at 1844, Maintenance, short term sedation for mechanically ventilated or non-intubated patient. Initial Bolus IV dose of 0 mcg/kg over 20 minutes followed by continuous IV infusion. 1.7 mcg\kg\hr New Bag 04/27/2012 6:14 PM EDT 1.7 mcg/kg/hr 31.5 mL/hr Rate/Dose Change 04/27/2012 4:00 PM EDT 1.7 mcg/kg/hr 31.5 mL/hr New Bag 04/27/2012 9:00 AM EDT 1.5 mcg/kg/hr 27.8 mL/hr dexmedetomidine (PRECEDEX) 1,000 mcg in sodium chloride 0.9% 250 mL infusion 0.1-1.7 mcg/kg/hr ? 75.2 kg (rounded to 1.9-32 mL/hr), Intravenous, CONTINUOUS, Starting on Sun04/28/12 at 1830, Until 04/29/12 at 1221, Titrate to RASS goal Rate/Dose Change 04/29/2012 12:30 PM EDT 1 mcg/kg/hr 18.8 mL/hr Rate/Dose Change 04/29/2012 12:00 PM EDT 1.3 mcg/kg/hr 24. 4 mL/hr Rate/Dose Change 04/29/2012 8:27 AM EDT 1.4 mcg/kg/hr 26.3 mL/hr dexmedetomidine (PRECEDEX) 400 mcg in sodium chloride 0.9% 100 mL infusion 0.1-1.7 mcg/kg/hr ? 74 kg (rounded to 1.9-31.5 mL/hr), Intravenous, CONTINUOUS, Starting on Sun04/23/12 at 0845, Until Sun04/23/12 at 1647, Maintenance, short term sedation for mechanically ventilated or non-intubated patient. Initial Bolus IV dose of 0 mcg/kg over 20 minutes followed by continuous IV infusion. 1.7 mcg\kg\hr New Bag 04/23/2012 1:30 PM EDT 1.7 mcg/kg/hr 31.5 mL/hr New Bag 04/23/2012 8:45 AM EDT 1.7 mcg/kg/hr 31.5 mL/hr dexmedetomidine (PRECEDEX) 400 mcg in sodium chloride 0.9% 100 mL infusion 0.1-1.7 mcg/kg/hr ? 75.2 kg (rounded to 1.9-32 mL/hr), Intravenous, CONTINUOUS, Starting on Sun04/28/12 at 0100, Until Sun04/28/12 at 1813, Titrate to RASS goal Rate/Dose Change 04/28/2012 3:11 PM EDT 1.4 mcg/kg/hr 26.3 mL/hr New Bag 04/28/2012 1:52 PM EDT 1.5 mcg/kg/hr 28.2 mL/hr Rate/Dose Change 04/28/2012 1:13 PM EDT 1.5 mcg/kg/hr 28.2 mL/hr docusate sodium (COLACE) oral liquid 50-200 mg 50-200 mg, Oral, 2 TIMES DAILY, First dose on Sun04/24/12 at 0900, Until Discontinued, Start with 1 tablet or liquid equivalent orally twice daily and titrate up to achieve: 1. one bowel movement at least every 48 hours, AND 2. without straining, Routine Given 05/07/2012 8:25 AM EDT 100 mg Given 04/27/2012 9:00 PM EDT 100 mg Given 04/27/2012 9:00 AM EDT 100 mg enoxaparin (LOVENOX) injection 30 mg 30 mg, Subcutaneous, EVERY 12 HOURS SCHEDULED (2 times per day), First dose on Sun04/21/12 at 2100, Until Discontinued, Routine Given 04/22/2012 9:00 PM EDT 30 mg Given 04/22/2012 8:35 AM EDT 30 mg Given 04/21/2012 9:00 PM EDT 30 mg enoxaparin (LOVENOX) injection 30 mg 30 mg, Subcutaneous, 2 TIMES DAILY, First dose on Sun04/23/12 at 0900, Until Discontinued, Routine Given 05/07/2012 8:26 AM EDT 30 mg Given 05/06/2012 9:00 PM EDT 30 mg Given 05/06/2012 8:02 AM EDT 30 mg famotidine (PEPCID) injection 20 mg 20 mg, Intravenous, 2 TIMES DAILY, First dose on Sun04/21/12 at 2100, Until Discontinued, Routine Given 04/22/2012 9:00 PM EDT 20 mg Given 04/22/2012 8:35 AM EDT 20 mg Given 04/21/2012 9:00 PM EDT 20 mg famotidine (PEPCID) injection 20 mg 20 mg, Intravenous, 2 TIMES DAILY, First dose on Sun04/23/12 at 0900, Until Discontinued, Routine Given 04/29/2012 10:00 AM EDT 20 mg Given 04/28/2012 9:33 PM EDT 20 mg Given 04/28/2012 11:15 AM EDT 20 mg famotidine (PEPCID) tablet 20 mg 20 mg, Oral, 2 TIMES DAILY, First dose on Sun04/23/12 at 0900, Until Discontinued, Routine Given 05/07/2012 8:26 AM EDT 20 mg Given 05/06/2012 9:00 PM EDT 20 mg Given 05/06/2012 8:02 AM EDT 20 mg fentaNYL 2.5 mg/50 mL infusion INFUSION 1 dose, Starting on Sun04/22/12 at 2341, Until Sun04/23/12 at 0011, ARELI ROACH: Cabinet Override fentaNYL 2500mcg/50mL infusion 0-200 mcg/hr (rounded to 0-4 mL/hr), Intravenous, CONTINUOUS, Starting on Sun04/23/12 at 0030, Until Sun04/29/12 at 1221, ARELI ROACH: Cabinet Override Rate/Dose Verify 04/29/2012 8:27 AM EDT 50 mcg/hr 1 mL/hr Rate/Dose Change 04/28/2012 9:30 AM EDT 50 mcg/hr 1 mL/hr Rate/Dose Verify 04/28/2012 7:50 AM EDT 200 mcg/hr 4 mL/hr fentaNYL 50mcg/mL injection 25 mcg, Intravenous, EVERY 1 HOUR PRN, Starting on Sun04/22/12 at 2241, Until Sun04/23/12 at 0252, Pain, PRN pain scale greater than goal or pre-procedure, Routine Given 04/23/2012 2:00 AM EDT 25 mcg Given 04/23/2012 1:00 AM EDT 25 mcg Given 04/23/2012 12:00 AM EDT 25 mcg fentaNYL 50mcg/mL injection 50-100 mcg, Intravenous, EVERY 30 MIN PRN, Starting on Sun04/23/12 at 0251, Until Sun04/29/12 at 1300, Pain, PRN pain scale greater than goal or pre-procedure, Routine Given 04/29/2012 2:20 AM EDT 50 mcg Given 04/29/2012 1:27 AM EDT 50 mcg Given 04/28/2012 9:31 PM EDT 50 mcg folic acid (FOLVITE) tablet 1,000 mcg 1,000 mcg (1 mg), Oral, DAILY, First dose on Sun04/25/12 at 0900, Until Discontinued, Routine Given 05/07/2012 8:26 AM EDT 1,000 mcg Given 05/06/2012 8:02 AM EDT 1,000 mcg Given 05/05/2012 9:00 AM EDT 1,000 mcg folic acid 1 mg in sodium chloride 0.9% 50.2 mL 1 mg, Intravenous, at 100.4 mL/hr, Administer over 30 Minutes, DAILY, First dose on Sun04/23/12 at 0900, Until Discontinued, Routine Given 04/24/2012 9:00 AM EDT 1 mg 100 .4 mL/hr Given 04/23/2012 9:00 AM EDT 1 mg 100.4 mL/hr gentamicin (GARAMYCIN) 0.3 % ophthalmic solution 1 drop 1 drop, Left Eye, EVERY 4 HOURS SCHEDULED, First dose on Sun04/21/12 at 2000, Until Discontinued, Routine Given 04/29/2012 4:00 AM EDT 1 drop Given 04/29/2012 12:00 AM EDT 1 drop Given 04/28/2012 8:00 PM EDT 1 drop guaifenesin ER tablet 600 mg 600 mg, Oral, EVERY 12 HOURS, First dose on Sun04/30/12 at 0900, Until Discontinued, Do not crush, Routine Given 05/07/2012 8:27 AM EDT 600 mg Given 05/06/2012 9:00 PM EDT 600 mg Given 05/06/2012 8:02 AM EDT 600 mg hydrALAZINE (APRESOLINE) 20 mg/mL injection 1 dose, Starting on Sun04/25/12 at 1021, Until Sun04/25/12 at 1030, DARIAN CORRIVEAU: Cabinet Override hydrALAZINE (APRESOLINE) injection 5-10 mg 5-10 mg, Intravenous, EVERY 4 HOURS PRN, Starting on Elena 04/25/12 at 1020, Until Sun05/07/12 at 1307, High Blood Pressure, For SP > 160 Given 04/27/2012 8:01 PM EDT 10 mg Given 04/27/2012 6:58 AM EDT 10 mg Given 04/25/2012 10:30 AM EDT 10 mg HYDROmorphone (DILAUDID) 1 mg/mL MOLYBDENUM STEAMER OPERATOR 30 mL Intravenous, MOLYBDENUM STEAMER OPERATOR ONLY, Starting on Sun04/21/12 at 1615, Until Sun04/22/12 at 2241 New Syringe/Cartridge 04/21/2012 4:15 PM EDT mL/hr HYDROmorphone (DILAUDID) injection 0.2 mg 0.2 mg, Intravenous, EVERY 4 HOURS PRN, Starting on Sun04/29/12 at 1220, Until Sun04/30/12 at 0844, Pain, mild pain, May give 0.2 mg in 30 minutes times 1 if pain not relieved. PLEASE USE PO OXYCODONE FIRST. THIS IS FOR BREAKTHROUGH PAIN., Routine Given 04/30/2012 4:53 AM EDT 0.2 mg iohexol (OMNIPAQUE) 350 mg/mL injection 38,500 mg 38,500 mg (110 mL), Intravenous, ONCE PRN, 1 dose, Starting on Sun04/21/12 at 1127, Until Sun04/21/12 at 1137, Per Protocol, Routine Given 04/21/2012 11:37 AM EDT 38,500 mg labetalol (NORMODYNE;TRANDATE) injection 10-20 mg 10-20 mg, Intravenous, EVERY 2 HOURS PRN, Starting on Sun04/23/12 at 1901, Until Sun05/07/12 at 1307, High Blood Pressure, SP > 160, hold for HR < 60, Routine Given 04/30/2012 4:43 AM EDT 10 mg Given 04/29/2012 10:26 PM EDT 10 mg Given 04/25/2012 8:29 AM EDT 20 mg lactated ringers 1,000 mL IV bolus Intravenous, ONCE, 1 dose, On Sun04/23/12 at 0845 Given 04/23/2012 8:45 AM EDT lactulose (CHRONULAC) 20 gram/30 mL oral solution 20-40 g 20-40 g (30-60 mL), Oral, DAILY PRN, Starting on Sun04/24/12 at 0834, Until Sun04/30/12 at 1115, Constipation, Administer if needed per patient's routine or if no bowel movement within 48 hours If no bowel movement within 24 hours may increase to 60 mL orally once daily PRN, Routine Given 04/26/2012 12:00 AM EDT 20 g lidocaine (LIDODERM) 5 %(700 mg/patch) patch 1 patch 1 patch, Transdermal, DAILY, First dose on Sun04/22/12 at 1630, Until Discontinued, Apply patch(es) for 12 hours, and then remove for 12 hours, Routine Given 05/07/2012 8:27 AM EDT 1 patch Given 05/06/2012 8:02 AM EDT 1 patch Given 05/05/2012 9:00 AM EDT 1 patch lidocaine (LIDODERM) patch REMOVAL Transdermal, NIGHTLY, First dose on Sun04/22/12 at 2100, Until Discontinued, Remove Lidocaine Patch Given 05/06/2012 9:00 PM EDT 1 patch Given 05/05/2012 8:54 PM EDT 1 patch Given 05/03/2012 9:30 PM EDT 1 patch LORazepam (ATIVAN) injection 0.5 mg 0.5 mg, Intravenous, ONCE, 1 dose, On Sun04/22/12 at 1615, May repeat one time if anxiety not relieved in 30 minutes. , Routine Given 04/22/2012 4:0 7 PM EDT 0.5 mg LORazepam (ATIVAN) injection 1-3 mg 1-3 mg, Intravenous, EVERY 2 HOURS PRN, Starting on Sun04/21/12 at 1457, Until Sun04/22/12 at 2241, Anxiety, withdrawal symptoms, When given intravenously, the rate of administration should not exceed 2 mg/minute with ermergency equipment available. Per assessment scale for uncomplicated withdrawal from alcohol. May give IV if unable to take PO. May give IM if no IV access. Medication should be administered at least every 4 hours: For withdrawal score of 5-7, give 1 mg PO or IV or IM: administer every 4 hours. For withdrawal score of 8-10, give 2 mg PO or IV or IM: administer every 4 hours. For withdrawal score of 11 or greater, give 3 mg PO or IV or IM: administer every 4 hours. + If withdrawal score remains 11 or greater for two consecutive assessment periods, medicate every 2 hours. + If patient has had seizures in previous 8 hours and has gone 4 hours without medications, give 3 mg PO or IV or IM. , Routine Given 04/22/2012 6:15 PM EDT 1 mg Given 04/22/2012 2:20 PM EDT 1 mg Given 04/22/2012 10:15 AM EDT 1 mg magnesium sulfate 1g in dextrose 5% 100mL 1 g, Intravenous, ONCE, 1 dose, On Sun04/29/12 at 0730, Administer over 60 Minutes Given 04/29/2012 8:27 AM EDT 1 g 100 mL/hr magnesium sulfate 2 g/50 mL IV 2 g, Intravenous, ONCE, 1 dose, On Sun04/24/12 at 0700, Administer over 120 Minutes Given 04/24/2012 7:48 AM EDT 2 g 25 mL/hr magnesium sulfate 2 g/50 mL IV 2 g, Intravenous, ONCE, 1 dose, On Sun04/25/12 at 0645, Administer over 120 Minutes Given 04/25/2012 6:45 AM EDT 2 g 25 mL/hr metoprolol tartrate (LOPRESSOR) tablet 25 mg 25 mg, Oral, EVERY 12 HOURS SCHEDULED (2 times per day), First dose on Sun04/24/12 at 0900, Until Discontinued, Hold for SP < 90, HR < 60, Routine Given 04/25/2012 9:00 AM EDT 25 mg Given 04/24/2012 9:00 PM EDT 25 mg Given 04/24/2012 9:44 AM EDT 25 mg metoprolol tartrate (LOPRESSOR) tablet 25 mg 25 mg, Oral, EVERY 6 HOURS SCHEDULED, First dose (after last modification) on Sun04/25/12 at 1400, Until Discontinued, Hold for SP < 90, HR < 60, Routine Given 04/30/2012 5:48 AM EDT 25 mg Given 04/30/2012 12:00 AM EDT 25 mg Given 04/29/2012 6:00 PM EDT 25 mg metoprolol tartrate (LOPRESSOR) tablet 50 mg 50 mg, Oral, EVERY 6 HOURS SCHEDULED, First dose (after last modification) on Sun04/30/12 at 1200, Until Discontinued, Hold for SP < 90, HR < 60, Routine Given by Other 05/07/2012 6:00 AM EDT 50 mg Given 05/07/2012 12:07 AM EDT 50 mg Given 05/06/2012 6:48 PM EDT 50 mg nicotine (NICODERM CQ) 21 mg/24 hr patch 21 mg 21 mg, Transdermal, DAILY, First dose on Sun05/01/12 at 0900, Until Discontinued, Routine Given 05/07/2012 8:28 AM EDT 21 mg Given 05/06/2012 8:02 AM EDT 21 mg Given 05/05/2012 9:00 AM EDT 21 mg nicotine (NICODERM CQ) patch REMOVAL Transdermal, DAILY, First dose on Sun05/02/12 at 0900, Until Discontinued, Remove Nicotine Patch Given 05/07/2012 8:28 AM EDT 1 patch Given 05/06/2012 8:02 AM EDT 1 patch Given 05/03/2012 9:00 AM EDT 1 patch OXYcodone (ROXICODONE) immediate release tablet 10 mg 10 mg, Oral, EVERY 4 HOURS PRN, Starting on Sun04/29/12 at 1220, Until Sun05/03/12 at 1305, Pain, severe pain, May give additional 5 mg in 30 minutes times 1 if pain not relieved., Routine Given 05/02/2012 2:40 AM EDT 10 mg OXYcodone (ROXICODONE) immediate release tablet 5 mg 5 mg, Oral, EVERY 4 HOURS PRN, Starting on Sun04/29/12 at 1220, Until Sun05/03/12 at 1305, Pain, mild to moderate pain, May give additional 5 mg in 30 minutes times 1 if pain not relieved. , Routine Given 05/02/2012 6:36 PM EDT 5 mg Given 05/01/2012 8:44 PM EDT 5 mg Given 04/30/2012 11:56 PM EDT 5 mg potassium chloride (KAYCIEL) 10 % oral solution 20-60 mEq 20-60 mEq, Per NG tube, EVERY 4 HOURS PRN, Starting on Sun04/25/12 at 0545, Until Sun05/05/12 at 1435, hypokalemia, For serum potassium: 3.9 - 4 mMol/L = 20 mEq. 3.6 - 3.8 mMol/L = 40 mEq. 3.3 - 3.5 mMol/L = 40 mEq. 2.8 - 3.2 mMol/L = 60 mEq. Less than 2.8 = Call physician, then begin potassium chloride replacement via central or peripheral IV route., Routine Given 04/27/2012 2:21 PM EDT 20 mEq Given 04/25/2012 6:58 AM EDT 60 mEq potassium chloride 10 mEq in 100 mL 10 mEq, Intravenous, EVERY 1 HOUR PRN, Starting on Sun04/23/12 at 0614, Until Sun05/05/12 at 1435, Administer over 60 Minutes, hypokalemia, Administer 2 times 10 meq/100 mL bags, each over 30-60 minutes for serum potassium (mMol/L) of 3.9 - 4 New Bag 04/28/2012 11:00 AM EDT 10 mEq 100 mL/hr New Bag 04/28/2012 9:38 AM EDT 10 mEq 100 mL/hr New Bag 04/28/2012 4:00 AM EDT 10 mEq 100 mL/hr potassium chloride 10 mEq in 100 mL 10 mEq, Intravenous, EVERY 1 HOUR PRN, Starting on Sun04/23/12 at 0614, Until Sun05/05/12 at 1435, Administer over 60 Minutes, hypokalemia, Administer 4 times 10 meq/100 mL bags, each over 30-60 minutes for serum potassium (mMol/L) of 3.3 - 3.8 New Bag 04/29/2012 10:11 AM EDT 10 mEq 100 mL/h r New Bag 04/29/2012 8:40 AM EDT 10 mEq 100 mL/hr New Bag 04/29/2012 7:30 AM EDT 10 mEq 100 mL/hr potassium chloride 10 mEq in 100 mL 10 mEq, Intravenous, EVERY 1 HOUR PRN, Starting on Sun04/23/12 at 0614, Until Sun05/05/12 at 1435, Administer over 60 Minutes, hypokalemia, Administer Administer 6 times 10 meq/100 mL bags, each over 30-60 minutes for serum potassium (mMol/L) of 2.8 - 3.2 New Bag 04/29/2012 5:46 PM EDT 10 mEq 100 mL/hr New Bag 04/29/2012 4:18 PM EDT 10 mEq 100 mL/hr New Bag 04/25/2012 5:32 AM EDT 10 mEq 100 mL/hr potassium chloride SA (K-DUR;KLOR-CON) tablet 20 mEq 20 mEq, Oral, EVERY 4 HOURS PRN, Starting on Sun04/29/12 at 1518, Until Sun05/05/12 at 1435, hypokalemia, Administer for serum potassium (mMol/L) of 3.9 - 4 , Routine Given 05/02/2012 8:00 AM EDT 20 m Eq potassium chloride SA (K-DUR;KLOR-CON) tablet 40 mEq 40 mEq, Oral, EVERY 4 HOURS PRN, Starting on Sun04/29/12 at 1518, Until Sun05/05/12 at 1435, hypokalemia, Administer for serum potassium (mMol/L) of 3.6 - 3.8 , Routine Given 05/01/2012 6:00 AM EDT 40 mEq Given 04/29/2012 4:18 PM EDT 40 mEq propofol (DIPRIVAN) infusion 0-100 mcg/kg/min ? 74 kg (rounded to 0-44.4 mL/hr), Intravenous, CONTINUOUS, Starting on Sun04/23/12 at 0030, Until Sun04/23/12 at 0827, ARELI ROACH: Cabinet Override, Routine Rate/Dose Change 04/23/2012 7:47 AM EDT 40 mcg/kg/min 17.8 mL/hr Rate/Dose Change 04/23/2012 6:56 AM EDT 30 mcg/kg/min 13.3 mL/hr Rate/Dose Verify 04/23/2012 6:00 AM EDT 50 mcg/kg/min 22.2 mL/hr propofol (DIPRIVAN) infusion 100 mg, Intravenous, ONCE, 1 dose, On Sun04/23/12 at 0015, Given by during stat intubation, STAT New Bag 04/23/2012 12:00 AM EDT 100 mg mL/hr QUEtiapine (SEROQUEL) tablet 25 mg 25 mg, Oral, ONCE, 1 dose, On Sun05/01/12 at 1345, Routine Given 05/01/2012 3:15 PM EDT 25 mg QUEtiapine (SEROQUEL) tablet 25 mg 25 mg, Oral, ONCE, 1 dose, On Sun05/01/12 at 2130, Routine Given 05/01/2012 9:18 PM EDT 25 mg QUEtiapine (SEROQUEL) tablet 25 mg 25 mg, Oral, ONCE, 1 dose, On Sun05/02/12 at 0130, Routine Given 05/02/2012 1:20 AM EDT 25 mg QUEtiapine (SEROQUEL) tablet 25 mg 25 mg, Oral, ONCE, 1 dose, On Sun05/02/12 at 0530, Routine Given 05/02/2012 6:00 AM EDT 25 mg QUEtiapine (SEROQUEL) tablet 25 mg 25 mg, Oral, 2 TIMES DAILY, First dose on Sun05/02/12 at 0900, Until Discontinued, Routine Given 05/04/2012 8:20 PM EDT 25 mg Given 05/04/2012 8:15 AM EDT 25 mg Given 05/03/2012 9:30 PM EDT 25 mg rocuronium (ZEMURON) injection 50 mg 50 mg, Intravenous, ONCE, 1 dose, On Sun04/23/12 at 0015, Given by during stat intubation, STAT Given 04/23/2012 12:00 AM EDT 50 mg senna-docusate (PERICOLACE) 8.6-50 mg per tablet 1-4 tablet 1-4 tablet, Oral, 2 TIMES DAILY, First dose on Sun04/22/12 at 2300, Until Discontinued, Start with 1 tablet or liquid equivalent orally twice daily and titrate up to achieve: 1. One bowel movement at least every 48 hours, AND 2. Without straining, Routine Given 04/23/2012 9:00 AM EDT 2 tablets sennosides (SENOKOT) 8.8 mg/5 mL oral syrup 8.8-35.2 mg 8.8-35.2 mg, Oral, 2 TIMES DAILY, First dose on Sun04/24/12 at 0900, Until Discontinued, Start with 1 tablet or liquid equivalent orally twice daily and titrate up to achieve: 1. One bowel movement at least every 48 hours, AND 2. Without straining, Routine Given 05/07/2012 8:26 AM EDT 8.8 mg Given 04/27/2012 9:00 PM EDT 17.6 mg Given 04/26/2012 9:13 PM EDT 8.8 mg sodium chloride 0.9 % flush 5 mL 5 mL, Intravenous, EVERY 12 HOURS, First dose on Sun04/21/12 at 1600, Until Discontinued Given 04/22/2012 4:00 PM EDT 5 mLs Given 04/22/2012 4:00 AM EDT 5 mLs Given 04/21/2012 4:00 PM EDT 5 mLs sodium chloride 0.9% 1,000 mL with multivitamin adult 10 mL, folic acid 1 mg, thiamine 100 mg infusion at 100 mL/hr, Intravenous, ONCE, 1 dose, On Sun04/21/12 at 1515 Rate/Dose Verify 04/21/2012 3:30 PM EDT 100 mL/hr sodium chloride 0.9% 500 mL IV bolus Intravenous, ONCE, 1 dose, On Sun04/23/12 at 0315 Given 04/23/2012 3:15 AM EDT sodium chloride 0.9% 500 mL IV bolus Intravenous, ONCE, 1 dose, On Sun04/23/12 at 0315 Given 04/23/2012 3:15 AM EDT sodium chloride 0.9% infusion 125 mL/hr, Intravenous, CONTINUOUS, Starting on Sun04/21/12 at 1600, Until Sun04/24/12 at 0604 New Bag 04/23/2012 6:57 PM EDT 125 mL/hr 125 mL/hr New Bag 04/23/2012 12:00 AM EDT 125 mL/hr 125 mL/hr New Bag 04/22/2012 4:48 PM EDT 125 mL/hr 125 mL/hr sodium chloride 0.9% infusion 10 mL/hr, Intravenous, CONTINUOUS, Starting on Sun04/23/12 at 2000, Until Sun04/30/12 at 1115 Rate/Dose Verify 04/28/2012 7:50 AM EDT 10 mL/hr 10 mL/hr New Bag 04/28/2012 2:39 AM EDT 10 mL/hr 10 mL/hr New Bag 04/27/2012 6:33 AM EDT 10 mL/hr 10 mL/hr sodium chloride 0.9% infusion 10 mL/hr, Intravenous, CONTINUOUS, Starting on Sun04/24/12 at 2330, Until Sun05/05/12 at 1435 Rate/Dose Verify 04/29/2012 8:27 AM EDT 10 mL/hr 10 mL/hr Rate/Dose Verify 04/28/2012 7:50 AM EDT 10 mL/hr 10 mL/h r New Bag 04/28/2012 2:39 AM EDT 10 mL/hr 10 mL/hr sodium chloride 0.9% infusion 5 mL/hr, Intravenous, CONTINUOUS, Starting on Sun04/25/12 at 0345, Until Sun04/28/12 at 1143, 500ml NS bag for Martina pressure Bag New Bag 04/27/2012 9:48 PM EDT 5 mL/hr 5 mL /hr New Bag 04/25/2012 3:45 AM EDT 5 mL/hr 5 mL/hr sodium phosphate 15 mMol in sodium chloride 0.9% 150 mL 15 mmol, Intravenous, ONCE, 1 dose, On Elena 04/25/12 at 0730, Administer over 4 Hours, Administer over 4-6 hours Given 04/25/2012 7:30 AM EDT 15 mmol 37.5 mL/hr tetracaine HCl (PF) (PONTOCAINE) ophthalmic solution 1 drop 1 drop, Left Eye, ONCE, 1 dose, On Vesper 04/21/12 at 1300, Routine Given by Other 04/21/2012 1:00 PM EDT 1 drop thiamine (B-1) injection 50 mg 50 mg, Intravenous, DAILY, First dose on Sun04/23/12 at 0900, Until Discontinued, Routine Given 04/24/2012 9:00 AM EDT 50 mg Given 04/23/2012 9:00 AM EDT 50 mg thiamine tablet 50 mg 50 mg, Oral, DAILY, First dose on Sun04/25/12 at 0900, Until Discontinued, Routine Given 05/07/2012 8:28 AM EDT 50 mg Given 05/06/2012 8:02 AM EDT 50 mg Given 05/05/2012 9:00 AM EDT 50 mg tube feeding diet Per NG tube, CONTINUOUS, Starting on Sun04/23/12 at 1845, Until Sun04/30/12 at 1115, Administer flushes and check residuals per policy, Which tube feed product? Peptamen Bariatric, Strength: , Initial Rate: (mL/hr): 10, Advance by: (mL): 20, Advance every: Q4H, Goal final rate: (mL/hr): 75 New Bag 04/25/2012 9:04 AM EDT mL mL/hr Rate/Dose Change 04/24/2012 6:00 PM EDT mL 75 mL/h r Rate/Dose Change 04/24/2012 2:00 PM EDT mL 60 mL/h r documented in this encounter Active and Recently Administered Medications Times are shown in EDT. Scheduled Medication Order 05/05/2012 05/06/2012 05/07/2012 bacitracin ointment (CANCELED) Topical, 4 TIMES DAILY, First dose on 04/21/12 at 1700, Until Discontinued, Apply to multiple facial lacerations 0900 (Given - Provider: Helen Schneider RN)1300 (Given - Provider: Helen Schneider RN)1700 (Not Given - Provider: Chika Miller, ISAEL - Reason: See comment - Comment: no open lacerations)2049 (Given - Provider: Sherry Casey RN) 0802 (Given - Provider: Ryann Novoa RN)1200 (Given - Provider: Ryann Novoa RN)1704 (Given - Provider: Ryann Novoa RN)2100 (Given - Provider: Zohra Curran RN) 0823 (Given - Provider: Fabrizio Marrero, ISAEL) bacitracin-polymyxin b (POLYSPORIN) ophthalmic ointment (CANCELED) Left Eye, EVERY 12 HOURS SCHEDULED (2 times per day), First dose on 04/21/12 at 1445, Until Discontinued 0900 (Given - Provider: Helen Schneider RN)2049 (Given - Provider: Sherry Casey, ISAEL) 08 (Given - Provider: Ryann Novoa RN)2100 (Given - Provider: Zohra Curran, ISAEL) 0825 (Given - Provider: Fabrizio Marrero, ISAEL) chlordiazePOXIDE (LIBRIUM) capsule 10 mg (CANCELED) 10 mg, Oral, 3 TIMES DAILY, First dose on Elena 05/02/12 at 1100, Until Discontinued, Routine 0900 (Given - Provider: Helen Schneider RN)1528 (Given - Provider: Chika Miller, ISAEL)2049 (Given - Provider: Sherry Casey, ISAEL) chlordiazePOXIDE (LIBRIUM) capsule 5 mg 5 mg, Oral, 3 TIMES DAILY, First dose (after last modification) on 05/06/12 at 0900, Until Discontinued, Routine 0930 (Given - Provider: Ryann Novoa RN)1458 (Given - Provider: Ryann Novoa RN)2099 (Given - Provider: Zohra Curran RN) 08 (Given - Provider: Fabrizio Marrero RN) chlorhexidine (PERIDEX) 0.12 % oral solution 15 mL (CANCELED) 15 mL, Oral, EVERY 12 HOURS, First dose on Sun04/21/12 at 1615, Until Discontinued, To brush teeth, Routine 0900 (Given - Provider: Helen Schneider RN)2051 (Not Given - Provider: Sherry Casey RN - Reason: Patient/family refused) 08 (Given - Provider: Ryann Novoa RN)2099 (Not Given - Provider: Zohra Curran RN - Reason: See comment) 0825 (Given - Provider: Fabrizio Marrero RN) docusate sodium (COLACE) oral liquid 50-200 mg (CANCELED)(Linked Group 1) 50-200 mg, Oral, 2 TIMES DAILY, First dose on Sun04/24/12 at 0900, Until Discontinued, Start with 1 tablet or liquid equivalent orally twice daily and titrate up to achieve: 1. one bowel movement at least every 48 hours, AND 2. without straining, Routine 0900 (Not Given - Provider: Helen Schneider RN - Reason: Contraindicated)2052 (Not Given - Provider: Sherry Casey RN - Reason: Patient/family refused) 08 (Not Given - Provider: Ryann Novoa RN - Reason: Patient/family refused)2099 (Not Given - Provider: Zohra Curran RN - Reason: Patient/family refused) 0825 (Given - Provider: Fabrizio Marrero RN) enoxaparin (LOVENOX) injection 30 mg (CANCELED) 30 mg, Subcutaneous, 2 TIMES DAILY, First dose on Sun04/23/12 at 0900, Until Discontinued, Routine 0900 (Given - Provider: Helen Schneider RN)2052 (Given - Provider: Sherry Casey RN) 08 (Given - Provider: Ryann Novoa RN)2099 (Given - Provider: Zohra Curran, ISAEL) 08 (Given - Provider: Fabrizio Marrero RN) famotidine (PEPCID) tablet 20 mg (CANCELED)(Linked Group 2) 20 mg, Oral, 2 TIMES DAILY, First dose on Sun04/23/12 at 0900, Until Discontinued, Routine 0900 (Given - Provider: Helen Schneider RN)2052 (Given - Provider: Sherry Casey RN) 08 (Given - Provider: Ryann Novoa RN)2099 (Given - Provider: Zohra Curran, ISAEL) 08 (Given - Provider: Fabrizio Marrero RN) folic acid (FOLVITE) tablet 1,000 mcg (CANCELED) 1,000 mcg (1 mg), Oral, DAILY, First dose on Sun04/25/12 at 0900, Until Discontinued, Routine 0900 (Given - Provider: Helen Schneider RN) 08 (Given - Provider: Ryann Novoa RN) 08 (Given - Provider: Fabrizio Marrero RN) guaifenesin ER tablet 600 mg (CANCELED) 600 mg, Oral, EVERY 12 HOURS, First dose on Sun04/30/12 at 0900, Until Discontinued, Do not crush, Routine 0900 (Given - Provider: Helen Schneider RN)2052 (Given - Provider: Sherry Casey, ISAEL) 08 (Given - Provider: Ryann Novoa RN)2099 (Given - Provider: Zohra Curran RN) 08 (Given - Provider: Fabrizio Marrero RN) lidocaine (LIDODERM) 5 %(700 mg/patch) patch 1 patch (CANCELED)(Linked Group 3) 1 patch, Transdermal, DAILY, First dose on Sun04/22/12 at 1630, Until Discontinued, Apply patch(es) for 12 hours, and then remove for 12 hours, Routine 0900 (Given - Provider: Helen Schneider RN) 08 (Given - Provider: Ryann Novoa RN) 08 (Given - Provider: Fabrizio Marrero RN) lidocaine (LIDODERM) patch REMOVAL (CANCELED)(Linked Group 3) Transdermal, NIGHTLY, First dose on Sun04/22/12 at 2100, Until Discontinued, Remove Lidocaine Patch 2053 (Given - Provider: Sherry Casey, ISAEL) 2099 (Given - Provider: Zohra Curran RN) metoprolol tartrate (LOPRESSOR) tablet 50 mg 50 mg, Oral, EVERY 6 HOURS SCHEDULED, First dose (after last modification) on Sun04/30/12 at 1200, Until Discontinued, Hold for SP < 90, HR < 60, Routine 0000 (Given - Provider: David Coley, ISAEL)0600 (Given - Provider: David Coley, ISAEL)1200 (Given - Provider: Helen Schneider, ISAEL)1800 (Given - Provider: Chika Miller RN) 0012 (Given - Provider: Sherry Casey, ISAEL)0600 (Given - Provider: Sherry Casey, ISAEL)1147 (Given - Provider: Ryann Novoa RN)1848 (Given - Provider: Ryann Novoa RN) 0007 (Given - Provider: Naomie Lunsford RN)0600 (Given by Other - Provider: Fabrizio Marrero RN) nicotine (NICODERM CQ) 21 mg/24 hr patch 21 mg(Linked Group 4) 21 mg, Transdermal, DAILY, First dose on Sun05/01/12 at 0900, Until Discontinued, Routine 0900 (Given - Provider: Helen Schneider RN) 0802 (Given - Provider: Ryann Novoa RN) 0828 (Given - Provider: Fabrizio Marrero RN) nicotine (NICODERM CQ) patch REMOVAL (CANCELED)(Linked Group 4) Transdermal, DAILY, First dose on Sun05/02/12 at 0900, Until Discontinued, Remove Nicotine Patch 0900 (Patch Removed - Provider: Helen Schneider RN) 0802 (Given - Provider: Ryann Novoa RN) 0828 (Given - Provider: Fabrizio Marrero RN) sennosides (SENOKOT) 8.8 mg/5 mL oral syrup 8.8-35.2 mg (CANCELED)(Linked Group 1) 8.8-35.2 mg, Oral, 2 TIMES DAILY, First dose on Sun04/24/12 at 0900, Until Discontinued, Start with 1 tablet or liquid equivalent orally twice daily and titrate up to achieve: 1. One bowel movement at least every 48 hours, AND 2. Without straining, Routine 0900 (Not Given - Provider: Helen Schneider RN - Reason: Patient/family refused)2100 (Not Given - Provider: Sherry Casey RN - Reason: Patient/family refused) 08 (Not Given - Provider: Ryann Novoa RN - Reason: Patient/family refused)2100 (Not Given - Provider: Zohra Curran RN - Reason: Patient/family refused) 0826 (Given - Provider: Fabrizio Marrero RN) thiamine tablet 50 mg (CANCELED) 50 mg, Oral, DAILY, First dose on Sun04/25/12 at 0900, Until Discontinued, Routine 0900 (Given - Provider: Helen Schneider RN) 08 (Given - Provider: Ryann Novoa RN) 0828 (Given - Provider: Fabrizio Marrero RN) PRN Medication Order 05/05/2012 05/06/2012 05/07/2012 acetaminophen (TYLENOL) tablet 650 mg 650 mg, Oral, EVERY 4 HOURS PRN, Starting on Sun04/25/12 at 1641, Until Sun05/07/12 at 1307, Pain, Maximum dose of acetaminophen is 4000 mg from all sources in 24 hours., Routine 1324 (Given - Provider: Ryann Novoa RN)2200 (Given - Provider: Zohra Curran RN) 0448 (Given - Provider: Naomie Lunsford RN) Linked Groups Order Group 1: docusate sodium (COLACE) oral liquid 50-200 mg (CANCELED)Jump to med 50-200 mg, Oral, 2 TIMES DAILY, First dose on Sun04/24/12 at 0900, Until Discontinued, Start with 1 tablet or liquid equivalent orally twice daily and titrate up to achieve: 1. one bowel movement at least every 48 hours, AND 2. without straining, Routine And sennosides (SENOKOT) 8.8 mg/5 mL oral syrup 8.8-35.2 mg (CANCELED)Jump to med 8.8-35.2 mg, Oral, 2 TIMES DAILY, First dose on Sun04/24/12 at 0900, Until Discontinued, Start with 1 tablet or liquid equivalent orally twice daily and titrate up to achieve: 1. One bowel movement at least every 48 hours, AND 2. Without straining, Routine Group 2: famotidine (PEPCID) tablet 20 mg (CANCELED)Jump to med 20 mg, Oral, 2 TIMES DAILY, First dose on Sun04/23/12 at 0900, Until Discontinued, Routine Or famotidine (PEPCID) injection 20 mg (CANCELED) 20 mg, Intravenous, 2 TIMES DAILY, First dose on Sun04/23/12 at 0900, Until Discontinued, Routine Group 3: lidocaine (LIDODERM) 5 %(700 mg/patch) patch 1 patch (CANCELED)Jump to med 1 patch, Transdermal, DAILY, First dose on Sun04/22/12 at 1630, Until Discontinued, Apply patch(es) for 12 hours, and then remove for 12 hours, Routine And lidocaine (LIDODERM) patch REMOVAL (CANCELED)Jump to med Transdermal, NIGHTLY, First dose on Sun04/22/12 at 2100, Until Discontinued, Remove Lidocaine Patch Group 4: nicotine (NICODERM CQ) 21 mg/24 hr patch 21 mgJump to med 21 mg, Transdermal, DAILY, First dose on Sun05/01/12 at 0900, Until Discontinued, Routine And nicotine (NICODERM CQ) patch REMOVAL (CANCELED)Jump to med Transdermal, DAILY, First dose on Sun05/02/12 at 0900, Until Discontinued, Remove Nicotine Patch documented in this encounter Care Teams Career Consultant Relationship Specialty Start Date End Date Unknown None PCP - General 04/21/12 05/22/12 documented as of this encounter
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
--- OUTSIDE RECORDS SUMMARY | 2024-06-01 12:31 | XMS_ITS | Encounter Summary ---
Author Organization [facility] Address [facility] JAJA Moran [address] Care Team Providers Care Plate Worker Helper Name Role Phone Unknown Primary Care Provider Unavailabl e Encounter Details Date Type Department Care Team (Late st Contact Info) Description 04/24/2012 External Results XRay at [address] [place] [address] Radha Vasques MD EMERGENCY DEPT [address] [place], [place] [address] [address] Social History Tobacco Use Types Packs/Day Years Used Date Smoking Tobacco: Every Day Cigarettes Sex and Gender Information Value Date Recorded Sex Assigned at Not on file Gender Identity Not on file Sexual Orientation Not on file documented as of this encounter Plan of Treatment Not on file documented as of this encounter Procedures Procedure Name Priority Date/Time Associated Diagnosis Comments CT SCAN (SCAN) Routine 04/21/2012 CT SCAN (SCAN) Routine 04/01/2012 documented in this encounter Results * Scan Doc: CT Scan (04/21/2012) Anatomical Region Laterality Modality Other Radha Vasques MD MEDIA MGR SCAN EXT ORDR/RSLT * Scan Doc: CT Scan (04/01/2012) Anatomical Region Laterality Modality Other Radha Vasques MD MEDIA MGR SCAN EXT ORDR/RSLT documented in this encounter Visit Diagnoses Not on filedocumented in this encounter Care Teams Plate Worker Helper Relationship Specialty Start Date End Date Unknown None PCP - General 6/3/12 7/4/12 documented as of this encounter
--- OUTSIDE RECORDS SUMMARY | 2024-06-01 12:31 | XMS_ITS | Encounter Summary ---
[place] [address] Care Team Providers Care Pot Tender Name Role Phone Unknown Primary Care Provider Unavailabl e Encounter Details Date Type Department Care Team (Late st Contact Info) Description 04/23/2012 1:30 PM EDT Office [place] [address] Areli Mckoy, [place] Social History Tobacco Use Types Packs/Day Years Used Date Smoking Tobacco: Every Day Cigarettes Sex and Gender Information Value Date Recorded Sex Assigned at Not on file Gender Identity Not on file Sexual Orientation Not on file documented as of this encounter Plan of Treatment Not on file documented as of this encounter Visit Diagnoses Not on filedocumented in this encounter Care Teams Pot Tender Relationship Specialty Start Date End Date Unknown None PCP - General 04/21/12 05/22/12 documented as of this encounter
--- OUTSIDE RECORDS SUMMARY | 2024-06-01 12:31 | XMS_ITS | Encounter Summary ---
Author Organization [facility] [place] [address] Care Team Providers Care Shoeshiner Name Role Phone Unknown Primary Care Provider Unavailabl e Encounter Details Date Type Department Care Team (Late st Contact Info) Description 04/21/2012 Orders [place] [address] Juan Wood MD [facility] [place] [address] Social History Tobacco Use Types Packs/Day Years Used Date Smoking Tobacco: Never Assessed Sex and Gender Information Value Date Recorded Sex Assigned at Not on file Gender Identity Not on file Sexual Orientation Not on file documented as of this encounter Plan of Treatment Not on file documented as of this encounter Visit Diagnoses Not on filedocumented in this encounter Care Teams Shoeshiner Relationship Specialty Start Date End Date Unknown None PCP - General 04/21/12 05/22/12 documented as of this encounter
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
--- OUTSIDE RECORDS SUMMARY | 2024-06-01 12:31 | XMS_ITS | Encounter Summary ---
Author Organization [facility] Address [address] [place] [address] Care Team Providers Care Sap Project Manager Name Role Phone NomanMadison AL Primary Care Provider [phone] Reason for Visit * Reason Comments Referral Request * Referral (Routine) - Receiving Office to Obtain Authorization Specialty Diagnoses / Procedures Referred By Adan estrada Referred To Contact Ophthalmology Diagnoses Ptosis, bilateral María Silva, [place] [address] [facility] [address] [place] [address] [place] [address] [address] [place] [id number] Referral ID Status Reason Start Date Expiration Date Visits Requested Visits Authorized [id number] Receiving Office to Obtain Authorization 1 1 Encounter Details Date Type Department Care Team (Late st Contact Info) Description 04/04/2024 12:45 EDT Office Visit [facility] Ophthalmology - Main [address] [phone] Princess Andino MD [address] [facility], [address] [place] [address] Social History Tobacco Use Types Packs/Day Years [...] as of this encounter Progress Notes * Princess Andino MD - 04/04/2024 1245 EDT Chief Complaint Patient presents with Referral Request HPI Referred by PCP for evaluation of bilateral upper eyelid Ptosis. Pt reports about 1 year ago the upper lids became droopy, case management specialist mentions that it seems to be interfering with his vision and gate. No complaint of dry eyes, he does mention some double vision distance and near when he looks quickly, it does go away after blinking. No known fhx of drooping eyelids. No use of drops. ROSEANN 01/2024. History of CE with PCIOL left eye (01/14/24) with Dr. Chrissy CK The patient is a 63 y.o. maleReferred by PCP for evaluation of bilateral upper eyelid Ptosis. Pt reports about 1 year ago the upper lids became droopy, case management specialist mentions that it seems to be interfering with his vision and gait. He holds his lids up manually when trying to read. No complaint of dry eyes, he does mention some double vision distance and near when he looks quickly, it does go away after blinking. No known fhx of drooping eyelids. No use of drops. ROSEANN 01/2024. History of CE with PCIOL left eye (01/14/24) with Dr. Chrissy XIE Constitutional: ENT/Mouth Cardiovascular: Respiratory: Gastrointestinal: Genitourinary: Musculoskeletal: Integumentary: Neurologic: Psychiatric: Endocrine: Hematologic: Immunologic: Cotton Weigher Operator: Exposures: Other: Attestation: Allergies include: Patient has no known allergies. Patient Active Problem List Diagnosis Concussion Pneumothorax on left Fracture of nasal bones Fracture of multiple ribs Alcohol abuse Mass of epiglottis Status post splenectomy Outpatient Medications Marked as Taking for the 04/04/24 encounter (Office Visit) with Princess Andino MD Medication Sig amLODIPine (NORVASC) 2.5 mg tablet Take 1 Tablet by mouth daily. fluticasone propionate (FLOVENT HFA) 44 mcg/actuation inhaler Inhale 2 Puffs as directed 2 times daily. metoprolol (LOPRESSOR) 25 mg tablet Take 1 Tab by mouth 2 times daily. naltrexone 1.5 mg capsule Take by mouth. naproxen (NAPROSYN) 250 mg tablet Take 1 Tablet by mouth 2 times daily. Base Eye Exam Visual Acuity (Snellen - Linear) Right Left Dist sc 20/40 20/30 -2 Dist ph sc 20/25 +1 20/30 +1 Tonometry (iCare, 13:05) Right Left Pressure 10 10 Pupils Dark Light Shape React APD Right 3 3.5 Round Minimal None Left 2 2.5 Round Minimal None Visual Yoder Right Left Full Full Extraocular Movement Right Left Full Full Neuro/Psych Oriented x3: Yes Mood/Affect: Normal Additional Tests Color Right Left Ishihara Slit Lamp and Fundus Exam External Exam Right Left External UL Dermatochalasis UL Dermatochalasis MRD1 1 mm 1 mm MRD2 5 mm 5 mm Levator 14 mm 14 mm Slit Lamp Exam Right Left Lids/Lashes UL Dermatochalasis, MGD UL Dermatochalasis, MGD Conjunctiva/Sclera White and quiet White and quiet Cornea Clear Clear Anterior Chamber Deep and quiet Deep and quiet Iris Normal Normal Lens NS PCIOL Fundus Exam Right Left Disc Intact Rim Intact Rim DIAGNOSTIC TESTS: Echeverria VF 64-2 - OU - Both Eyes Visual field: Superior 64 taped and untaped Indication: Bilateral upper eyelid Dermatochalasis Right eye: >30% improvement in superior VF with taping of the upper eyelid Left eye: >30% improvement in superior VF with taping of the upper eyelid External Photography - OU - Both Eyes Right Eye Findings include dermatochalasis. Left Eye Findings include dermatochalasis. IMPRESSION & PLAN: Encounter Diagnoses Name Primary? Dermatochalasis of both upper eyelids Yes Age-related nuclear cataract of right eye 1. Dermatochalasis of both upper eyelids This is visually significant and he is symptomatic. Discussed the possibility of bilateral upper eyelid blepharoplasty. Risks, including, but not limited to, pain, bleeding, infection, overcorrection, undercorrection, asymmetry, vision loss, scarring, need for additional surgery, dry eye; benefits and alternatives, including observation, were discussed with the patient. His questions were answered. The patient elected to proceed with bilateral blepharoplasty. Will plan for this in the procedureroom under local anesthetic - ECHEVERRIA VF 64-2 - OU - BOTH EYES 2. Age-related nuclear cataract of right eye May be approaching visual significance. Observe for now. I scribing for Princess Andino MD, while she is personally performing the service. Helen Garcia, DELANEY, 04/04/2024 14:20 I have reviewed the patient's past medical, family, social and surgical history. I have also reviewed the patient's medications, allergies, and problem list. I performed my own HPI and have reviewed the tech's ROS as well. I personally completed this exam myself. Princess Andino MD documented in this encounter Plan of Treatment Upcoming Encounters Date Type Department Care Team (Late st Contact Info) Description 07/29/2024 13:00 EDT Office Visit [facility] Ophthalmology [address] [phone] Princess Andino MD [address] [place] [phone] 08/08/2024 10:00 EDT Post-op Visit [facility] Ophthalmology [address] [phone] Princess Andino MD [address] [place] [phone] documented as of this encounter Procedures Procedure Name Priority Date/Time Associated Diagnosis Comments EXTERNAL PHOTOGRAPHY - OU - BOTH EYES Routine 04/04/2024 14:19 EDT Dermatochalasis of both upper eyelids ECHEVERRIA VF 64-2 - OU - BOTH EYES Routine 04/04/2024 14:19 EDT Dermatochalasis of both upper eyelids documented in this encounter Results * EXTERNAL PHOTOGRAPHY - OU - BOTH EYES (04/04/2024 14:19 EDT) Narrative [facility] - 04/04/2024 14:19 EDT Right Eye Findings include dermatochalasis. Left Eye Findings include dermatochalasis. Princess Andino MD OPH PHOTOGRAPHY Performing Organization Address [facility] de Phone Number [facility] * ECHEVERRIA VF 64-2 - OU - BOTH EYES (04/04/2024 14:19 EDT) Narrative [facility] - 04/04/2024 14:19 EDT Visual field: Superior 64 taped and untaped Indication: Bilateral upper eyelid Dermatochalasis Right eye: >30% improvement in superior VF with taping of the upper eyelid Left eye: >30% improvement in superior VF with taping of the upper eyelid Princess Andino MD OPH VISUAL FIELD Performing Organization Address [facility] Phone Number [facility] documented in this encounter Visit Diagnoses Diagnosis Dermatochalasis of both upper eyelids- Primary Age-related nuclear cataract of right eye Senile nuclear sclerosis documented in this encounter Historical Medications * This list may reflect changes made after this encounter. Medication Sig Dispensed Refills Start Date End Date fluticasone propionate (FLOVENT HFA) 44 mcg/actuation inhaler Inhale 2 Puffs as directed 2 times daily. amLODIPine (NORVASC) 2.5 mg tablet Take 1 Tablet by mouth daily. naltrexone 1.5 mg capsule Take by mouth. naproxen (NAPROSYN) 250 mg tablet Take 1 Tablet by mouth 2 times daily. added in this encounter Eye Exam Visual Acuity (Snellen - Linear) Right eye Left eye Dist sc 20/40 20/30 -2 Dist ph sc 20/25 +1 20/30 +1 Tonometry (iCare, 13:05) Right eye Left eye Pressure 10 10 Pupils Dark Light Shape React APD Right eye 3 3.5 Round Minimal None Left eye 2 2.5 Round Minimal None Visual Yoder Right eye Left eye Full Full Extraocular Movement Right eye Left eye Full Full Neuro/Psych Oriented x3: Yes Mood/Affect: Normal Color Right eye Left eye Ishihara External Exam Right eye Left eye External UL Dermatochalasis UL Dermatocha lasis Slit Lamp Exam Right eye Left eye Lids/Lashes UL Dermatochalasis, MGD UL [place] tochalasis, MGD Conjunctiva/Sclera White and quiet White and ori et Cornea Clear Clear Anterior Chamber Deep and quiet Deep and quiet Iris Normal Normal Lens NS PCIOL Fundus Exam Right eye Left eye Disc Intact Rim Intact Rim External Right eye Left eye MRD1 1 mm 1 mm MRD2 5 mm 5 mm Levator 14 mm 14 mm Care Teams Sap Project Manager Relationship Specialty Start Date End Date Madison Tineo FNP Adrien [place] [address] PCP - General 01/05/21 documented as of this encounter
--- OUTSIDE RECORDS SUMMARY | 2024-06-01 12:31 | XMS_ITS | Encounter Summary ---
Author Organization [facility] Address [facility] [place] [address] Care Team Providers Care Record Producer Name Role Phone Unknown Primary Care Provider Unavailabl e Encounter Details Date Type Department Care Team (Late st Contact Info) Description 04/21/2012 Orders Only [place] [address] Juan Wood MD [facility] [place] [address] Social History Tobacco Use Types Packs/Day Years Used Date Smoking Tobacco: Never Assessed Sex and Gender Information Value Date Recorded Sex Assigned at Not on file Gender Identity Not on file Sexual Orientation Not on file documented as of this encounter Plan of Treatment Not on file documented as of this encounter Procedures Procedure Name Priority Date/Time Associated Diagnosis Comments FILM LIBRARY STORAGE ONLY DX CHEST Routine 04/21/2012 8:15 AM EDT documented in this encounter Results * FILM LIBRARY- STORAGE ONLY DX CHEST (04/21/2012 8:15 AM EDT) 04/21/2012 8:15 AM EDT Narrative [facility] - 05/15/2014 1:51 AM EDT This is a non-reportable exam. Procedure Note Kemal Smith - 05/15/2014 This is a non-reportable exam. Juan oWod MD G FILM LIBRARY ORD ERABLES RAD [address] [facility] [place] [address] documented in this encounter Visit Diagnoses Not on filedocumented in this encounter Care Teams Record Producer Relationship Specialty Start Date End Date Unknown None PCP - General 04/21/12 05/22/12 documented as of this encounter
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
--- OUTSIDE RECORDS SUMMARY | 2024-06-01 12:31 | XMS_ITS | Encounter Summary ---
Author Organization [facility] Address [address] [place] [address] Care Team Providers Care Operator Cavity Pump Name Role Phone Madison Tineo SWEATBAND DECORATING MACHINE OPERATOR Primary Care Provider [phone] Encounter Details Date Type Department Care Team (Late st Contact Info) Description 01/05/2021 Lab Requisition [facility] Pathology & Laboratory Medicine [address] [address] Subhash Alfaro MD [address] [place] [address] Encounter for other general examination Social History Tobacco Use Types Packs/Day Years Used Date Smoking Tobacco: Never Assessed Sex and Gender Information Value Date Recorded Sex Assigned at Not on file Gender Identity Not on file Sexual Orientation Not on file documented as of this encounter Plan of Treatment Upcoming Encounters Date Type Department Care Team (Late Contact Info) Description 07/29/2024 13:00 EDT Office Visit [facility] Ophthalmology [address] [id number] Princess Andino MD [address] [place] [address], [address] [place] [phone] 08/08/2024 10:00 EDT Post-op Visit [address] [id number] Princess Andino MD [address] [facility], [address] [place] [phone] documented as of this encounter Procedures Procedure Name Priority Date/Time Associated Diagnosis Comments SURGICAL PATHOLOGY Today 01/05/2021 10 :30 EST Encounter for other general examination documented in this encounter Results * SURGICAL PATHOLOGY (01/05/2021 10:30 EST) Final Diagnosis A. 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 See comment. 01/07/2021 10:11 [facility] Diagnosis Comment The histopathologic features could represent a drug-related eruption. Given the extent of the spongiosis and scale crust, eczematous dermatitis (including allergic contact dermatitis) would also be included in the differential diagnosis. 01/07/2021 10:11 [facility] Attestation By the signature below, the attending physician certifies that they have 1) personally conducted a gross and/or microscopic examination of the described specimen(s), and/or personally interpreted the results of laboratory testing of the described specimen(s), and 2) personally rendered or confirmed the above diagnosis. 01/07/2021 10:11 [facility] at 1011 Microscopic Description Sections consist of a punch biopsy of skin to the deep reticular dermis. At the edge of the biopsy, there is confluent scale crust. The epidermis shows a moderate degree of irregular hyperplasia. Within the superficial dermis, there is a moderately dense lichenoid and, to a lesser extent, perivascular infiltrate. The infiltrate is composed primarily of lymphocytes but also includes eosinophils. There is exocytosis into the epidermis with interface vacuolar change and spongiosis. Rare degenerated keratinocytes are noted. There is erythrocyte extravasation. 01/07/2021 10:11 [facility] Clinical History Macular rash; ? drug eruption lisinopril 01/07/2021 10:11 [facility] Gross Description A. The requisition accompanying the specimen is initially received mislabeled. In accordance with the Laboratory Specimen Rejection Policy and Laboratory Accountability policy, Harvey IVORY spoke with Shannan Pathology Stephanie, at [facility], who was involved with the collection of the specimen. She has verified that the specimen was actually collected from back, and has taken full responsibility for identifying and re-labelling the requisition with the correct specimen site. Req labeled R thorax, corrected to ? back? . Received in formalin labelled with proper patient identification (initials P, M) and back is a punch biopsy of boucher wrinkled roughened skin (0.6 cm in diameter and 0.2 cm in thickness). Bisected and submitted in A1. Jorge Gabriel 01/06/2021 14:23 01/07/2021 10:11 EST [facility] Performing Lab [facility] 10:11 EST [facility] Scanned Images 01/07/2021 10:11 EST [facility] Tissue TISSUE SPECIMEN FROM SKIN / Unknown 01/05/2021 10:30 EST 01/05/2021 17:22 EST Subhash Alfaro MD PATHOLOGY ORDERABLES [facility] [address] [place] [address] documented in this encounter Visit Diagnoses Diagnosis Encounter for other general examination documented in this encounter Care Teams Operator Cavity Pump Relationship Specialty Start Date End Date Madison Tineo FNP [place] [address] [place] [address] PCP - General 01/05/21 documented as of this encounter
--- OUTSIDE RECORDS SUMMARY | 2024-06-01 12:31 | XMS_ITS | Encounter Summary ---
Author Organization [facility] Address [address] [place] [address] Care Team Providers Care Pickler Helper Name Role Phone Madison Tineo [place] Primary Care Provider [phone] Reason for Visit * Reason Onset Date Comments Appointment Related 10/31/2023 Encounter Details Date Type Department Care Team (Late st Contact Info) Description 10/31/2023 Telephone [facility] Ophthalmology - [address] [phone] Princess Andino MD [address] [facility], [address] [place] [phone] Appointment Related Social History Tobacco Use Types Packs/Day Years Used Date Smoking Tobacco: Former Cigarettes 1 30 0 04/21/1982 - 04/21/2012 Smokeless Tobacco: Never Comments:Pt reports having b een quit during hospitalization, and wants to remain a non-smoker. Reports good effect w/ nicotine inhaler, desires RX upon discharge. Sex and Gender Information Value Date Recorded Sex Assigned at Not on file Gender Identity Not on file Sexual Orientation Not on file documented as of this encounter Miscellaneous Notes * Telephone Encounter - Anila Walter - 11/01/2023 1530 EST LMOM * Telephone Encounter - Anila Walter - 10/31/2023 1213 EST LMOM asking for a call back to reschedule appt from 11/16 documented in this encounter Plan of Treatment Upcoming Encounters Date Type Department Care Team (Late st Contact Info) Description 07/29/2024 13:00 EDT Office Visit [address] [phone] Princess Andino MD [address] [place] [phone] 08/08/2024 10:00 EDT Post-op Visit [address] [phone] Princess Andino MD [address] [place] [phone] documented as of this encounter Visit Diagnoses Not on filedocumented in this encounter Care Teams Pickler Helper Relationship Specialty Start Date End Date [place] [address] PCP - General 01/05/21 documented as of this encounter
--- OUTSIDE RECORDS SUMMARY | 2024-06-01 12:31 | XMS_ITS | Encounter Summary ---
Author Organization [facility] Address [address] [place] [address] Care Team Providers Care Design Technician Name Role Phone Madison Tineo STOCK FEEDER Primary Care Provider [phone] Encounter Details Date Type Department Care Team (Late Contact Info) Description 09/14/2022 Lab Requisition [facility] Pathology & Laboratory Medicine [address] [address] Outr Resulting Lab, Provider Social History Tobacco Use Types Packs/Day Years [...] Info) Description 07/29/2024 13:00 EDT Office Visit [facility] Ophthalmology [address] [address] Princess Andino MD [address] [place] [address], [address] [place] [phone] 08/08/2024 10:00 EDT Post-op Visit [facility] Ophthalmology [address] [address] Princess Andino MD [address] [facility], [address] [place] [phone] documented as of this encounter Procedures Procedure Name Priority Date/Time Associated Diagnosis Comments CHLAMYDIA/N. GONORRHOEAE AMPLIFIED NUCLEIC ACID Routine 09/14/2022 10:00 EDT documented in this encounter Results * CHLAMYDIA/N. GONORRHOEAE AMPLIFIED RNA (09/14/2022 10:00 EDT) Neisseria gonorrhoeae Result Negative Negative 09/15/2022 15:59 EDT [facility] Chlamydia trachomatis Result Negative Negative 09/15/2022 15:59 EDT [facility] Urine URINE / Unknown 09/14/2022 1 0:00 EDT 09/14/2022 22:17 EDT Provider Outr Resulting Lab MICROBIOLOGY - GENERAL ORDERABLES [facility] [address] [place] [address] documented in this encounter Visit Diagnoses Not on filedocumented in this encounter Care Teams Design Technician Relationship Specialty Start Date End Date Madison Tineo FNP [facility] [address] PCP - General 01/05/21 documented as of this encounter
--- OUTSIDE RECORDS SUMMARY | 2024-06-01 12:31 | XMS_ITS | Encounter Summary ---
Author Organization [facility] Address [address] [place] [address] Care Team Providers Care Mortgage Closer Name Role Phone Izzy Tompkins APRN Primary Care Provider Unavailable Areli Tineoh AL Primary Care Provider [phone] Encounter Details Date Type Department Care Team (Late st Contact Info) Description 05/17/2012 Telephone [facility] Case Management - [address] [address] Ladi Gerard CSW [address] [place] [address] Social History Tobacco Use Types Packs/Day Years [...] encounter Miscellaneous Notes * Telephone Encounter - Ladi Gerard CSW - 05/17/2012 1124 EDT Social Work: This copywriter notified prescription for nicotine inhaler requires prior-authorization. Approval denied until patient trials nicotine gum. Dr. Reyes initiated a referral to [facility]. This copywriter notified patient that he needs to trial the gum; if it is ineffective, script for nicotine inhaler can be re-visited. CHRISTINE Fisher documented in this encounter Plan of Treatment Upcoming Encounters Date Type Department Care Team (Late st Contact Info) Description 07/29/2024 13:00 EDT Office Visit [address] 519151 Princess Andino MD [address] [place] [phone] 08/08/2024 10:00 EDT Post-op Visit [address] [phone] Princess Adnino MD [address] [place] [phone] documented as of this encounter Visit Diagnoses Not on filedocumented in this encounter Care Teams Mortgage Closer Relationship Specialty Start Date End Date Izzy Tompkins APRN PCP - General 05/07/12 01/04/21 Madison Tineo FNP [facility] [place] [address] PCP - General 01/05/21 documented as of this encounter
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
--- OUTSIDE RECORDS SUMMARY | 2024-06-01 12:31 | XMS_ITS | Encounter Summary ---
Author Organization [facility] Address [address] [place] [address] Care Team Providers Care Manager Food Beverage Name Role Phone Madison Tineo APARTMENT HOTEL MANAGER Primary Care Provider [phone] Encounter Details Date Type Department Care Team (Late Contact Info) Description 09/14/2022 Lab Requisition [facility] Pathology & Laboratory Medicine [address] [address] Outr Resulting Lab, Provider Social History Tobacco [...] Info) Description 07/29/2024 13:00 EDT Office Visit [facility] Ophthalmology [address] [id number] Princess Andino MD [address] [place] [address], [address] [place] [phone] 08/08/2024 10:00 EDT Post-op Visit [facility] Ophthalmology [address] [address] Princess Andino MD [address] [facility], [address] [place] [phone] documented as of this encounter Procedures Procedure Name Priority Date/Time Associated Diagnosis Comments HIV 1/2 ANTIGEN AND ANTIBODY, 4TH GENERATION Routine 09/14/2022 10:00 EDT documented in this encounter Results * HIV 1/2 ANTIGEN AND ANTIBODY, 4TH GENERATION (09/14/2022 10:00 EDT) HIV 1 and 2 Antibody/p24 Antigen, 4th Generation Negative Negative 09/15/2022 9:32 EDT [facility] Comment:If acute HIV-1 infec tion is suspected in a high risk patient, submit plasma specimen for HIV-1 RNA quantitation test. Blood VENOUS BLOOD / Unknown 09/14/2022 10:00 EDT 09/14/2022 21:27 EDT Narrative [facility] - 09/15/2022 9:32 EDT Fourth Generation assay performed on the Siemens Centaur XPT. Provider Outr Resulting Lab IMMUNOLOGY A ND SEROLOGY ORDERABLES [facility] [address] [place] [address] documented in this encounter Visit Diagnoses Not on filedocumented in this encounter Care Teams Manager Food Beverage Relationship Specialty Start Date End Date Madison Tineo FNP [facility] [place] [address] PCP - General 01/05/21 documented as of this encounter
--- OUTSIDE RECORDS SUMMARY | 2024-06-01 12:31 | XMS_ITS | Encounter Summary ---
Author Organization [facility] Address [address] [place] [address] Care Team Providers Care Tongue And Groove Machine Setter Name Role Phone Madison Tineo ORACLE HRMS CONSULTANT Primary Care Provider [phone] Encounter Details Date Type Department Care Team (Late Contact Info) Description 09/14/2022 Lab Requisition [facility] Pathology & Laboratory Medicine [address] [address] Outr Resulting Lab, Provider Social History Tobacco [...] 07/29/2024 13:00 EDT Office Visit [facility] Ophthalmology [address] [id number] Princess Andino MD [address] [place] [address], [address] [place] [phone] 08/08/2024 10:00 EDT Post-op Visit [facility] Ophthalmology [address] [address] Princess Andino MD [address] [facility], [address] [place] [address] documented as of this encounter Procedures Procedure Name Priority Date/Time Associated Diagnosis Comments HOLD SST Today 09/14/2022 10:00 EDT SYPHILIS SEROLOGY Today 09/14/2022 10: 00 EDT HEPATITIS C AB W REFLEX TO HCV RNA BY PCR Today 09/14/2022 10:00 EDT documented in this encounter Results * HOLD SST (09/14/2022 10:00 EDT) Hold Hold 09/14/2022 22:32 EDT [facility] Blood VENOUS BLOOD / Unknown 09/14/2022 10:00 EDT 09/14/2022 21:26 EDT Provider Outr Resulting Lab LAB INFO SER VICE AND SUPPORT & PHONE RESULT Performing Organization Address [facility]/ZIP Co de Phone Number [facility] [address] [place] [address] * SYPHILIS SEROLOGY (09/14/2022 10:00 EDT) Syphilis Serology Negative Negative 09/15/2022 11:55 EDT [facility] Blood VENOUS BLOOD / Unknown 09/14/2022 10:00 EDT 09/14/2022 21:26 EDT Provider Outr Resulting Lab IMMUNOLOGY A ND SEROLOGY ORDERABLES Performing Organization Address [facility]/ZIP Co de Phone Number [facility] [address] [place] [address] * HEPATITIS C AB W REFLEX TO HCV RNA BY PCR (09/14/2022 10:00 EDT) Hep C Antibody Negative Negative 09/15/2022 9:33 EDT [facility] Blood VENOUS BLOOD / Unknown 09/14/2022 10:00 EDT 09/14/2022 21:26 EDT Provider Outr Resulting Lab CHEMISTRY & BLOOD GAS ORDERABLES [facility] [address] [place] [address] documented in this encounter Visit Diagnoses Not on filedocumented in this encounter Care Teams Tongue And Groove Machine Setter Relationship Specialty Start Date End Date Madison Tineo [place] [address] PCP - General 01/05/21 documented as of this encounter
--- OUTSIDE RECORDS SUMMARY | 2024-06-01 12:31 | XMS_ITS | Encounter Summary ---
Author Organization [facility] Address [facility] [place] [address] Care Team Providers Care Inside Sales Advisor Name Role Phone Unknown Primary Care Provider Unavailabl e Encounter Details Date Type Department Care Team (Late st Contact Info) Description 04/01/2012 Orders [place] [phone] Juan Wood MD [facility] [place] [address] Social History Tobacco Use Types Packs/Day Years [...] Associated Diagnosis Comments FILM LIBRARY STORAGE ONLY CT HEAD Routine 04/01/2012 8:10 AM EDT documented in this encounter Results * FILM LIBRARY- STORAGE ONLY CT HEAD (04/01/2012 8:10 AM EDT) 04/01/2012 8:10 AM EDT Narrative [facility] - 05/15/2014 1:51 AM EDT This is a non-reportable exam. Procedure Note Kemal Smith - 05/15/2014 This is a non-reportable exam. Juan Wood MD G FILM LIBRARY ORD ERABLES RAD [address] [facility] [place] [address] documented in this encounter Visit Diagnoses Not on filedocumented in this encounter Care Teams Inside Sales Advisor Relationship Specialty Start Date End Date Unknown None PCP - General 04/21/12 05/22/12 documented as of this encounter
[2024-06-01] MEDS: ACETAMINOPHEN 1,000 MG/100 ML BTL 400 MG IVPB (13:09)
[2024-06-01] MEDS: Ketorolac 15 MG/ML VIAL IVP (13:10)
[2024-06-01] MEDS: Normal Saline 1,000 ML 1000 ML IV (13:11)
[2024-06-01] MEDS: Ondansetron 4 MG/2 ML VIAL IVP (13:11)
[2024-06-01 13:26] LABS: Abs Immature Grans 0.19 10^3/uL (0.0-0.06); Absolute Monocyte Count 1.93 10^3/uL (0.1-0.8); Basophils % 0.3 %; HCT 44.5 % (40.0-50.0); HGB 15.6 g/dL (13.5-17.5); Immature Grans % 0.7 %; Lymphocytes % 5.1 %; MCH 32.4 pg (27.0-33.0); MCHC 35.1 % (32.0-36.0); MCV 93 fL (80-95); MPV 11.2 fL (8.0-11.0); Neutrophils % 86.9 %; Platelet Count 307 10^3/uL (130-400); RBC 4.81 10^6/uL (4.36-5.78); RDW 13.4 % (11.8-14.1); RDW-SD 45.5 fL
[2024-06-01 13:28] LABS: Lactate 4.1 mmol/L (0.6-1.4)
[2024-06-01 13:30] LABS: Absolute Basophil Count 0.08 10^3/uL (0.0-0.2); Absolute Neutrophil Count 23.91 10^3/uL (1.2-6.7); WBC 27.52 10^3/uL (4.4-10.8)
[2024-06-01 13:34] LABS: ESR 53 mm/hr (0-20)
[2024-06-01] MEDS: PIPERACILLIN/TAZO 4.5 GM in Normal Saline 100 ML IVPB (13:45)
[2024-06-01 13:46] LABS: ALT 17 U/L (16-63); AST 11 U/L (15-37); Albumin 3.9 g/dL (3.4-5.0); Alkaline Phosphatase 76 U/L (46-116); BUN 19 mg/dL (7-18); Bilirubin, Total 0.87 mg/dL (0.2-1.0); C-Reactive Protein 10.87 mg/dL (<or=0.5); CREATININE 1.1 mg/dL (0.70-1.30); Calcium 9.2 mg/dL (8.5-10.1); Chloride 95 mmol/L (98-107); Estimated GFR 75.43 (mL/min/1.73m2); Glucose 258 mg/dL (74-106); Lipase 92 U/L (16-77); Magnesium 1.7 mg/dL (1.8-2.4); Potassium 3.7 mmol/L (3.5-5.1); Sodium 132 mmol/L (136-145)
[2024-06-01 13:50] LABS: Diff Comment Agrees w/ Instrument; RBC Morphology Normal
[2024-06-01] MEDS: Omnipaque 350 MG/ML 100 ML BTL IJ (13:58)
[2024-06-01] MEDS: Normal Saline - Diluent 50 ML VIAL IJ (13:59)
[2024-06-01 14:05] LABS: Procalcitonin 0.2 ng/mL
--- OUTSIDE RECORDS SUMMARY | 2024-06-01 15:19 | XMS_ITS | Encounter Summary ---
Author Organization [facility] [place] [address] Care Team Providers Care Can Line Operator Name Role Phone Madison Tineo APRN Primary Care Provider [phone] Encounter Details Date Type Department Care Team (Latest Contact Info) Description 01/31/2021 9:33 PM EDT - 01/31/2021 11:59 PM EDT Hospital [place] [address] Discharge Disposition: Home Social History Tobacco Use [...] (01/31/2021 12:00 PM EDT) Surgical Pathology Report [id number] ? Location: OPW The signing pathologist has (i) examined the relevant preparation(s) for the specimen(s) and (ii) rendered or confirmed the diagnosis(es). . ?Surgical Pathology DIAGNOSIS Right arm, skin punch ?? biopsy: - ??Spongiotic dermatitis with eosinophils (see discussion) Electronically signed by: ??Harvey Stewart MD Verified: ??02/07/2021 ?Dermatopatholog ist Performed at: ??-[facility] Dept. of Pathology, [place], [place] DISCUSSION The findings could be compatible [...] submitted in 1 cassette labeled A1. ??ajw [facility] 01/31/2021 12:0 0 PM EDT Yariel Bowles MD PATHOLOGY/CYTOLOGY O RDERABLES [facility] [place] [place] [address] documented in this encounter Visit Diagnoses Not on filedocumented in this encounter Care Teams Can Line Operator Relationship Specialty Start Date End Date Madison Tineo, GENET [address] [place] [address] PCP - General Family Medicine 01/31/21 documented as of this encounter
--- OUTSIDE RECORDS SUMMARY | 2024-06-01 15:19 | XMS_ITS | Encounter Summary ---
[place] [address] Care Team Providers Care Media Center Assistant Name Role Phone Madison Tineo APRN Primary Care Provider [phone] Reason for Visit * Reason Comments Medication Refill Encounter Details Date Type Department Care Team (Late st Contact Info) Description 05/20/2021 Refill Dermatology at [address] [place] [address] Yariel Bowles MD [address] [facility] [place] [address] Social History Tobacco Use Types Packs/Day Years [...] on filedocumented in this encounter Care Teams Media Center Assistant Relationship Specialty Start Date End Date Madison Tineo APRN [address] [place] [address] PCP - General Family Medicine 01/31/21 documented as of this encounter
--- OUTSIDE RECORDS SUMMARY | 2024-06-01 15:19 | XMS_ITS | Encounter Summary ---
Author Organization [facility] [place] [address] Care Team Providers Care Automobile Brake Bonder Name Role Phone Madison Tineo APRN Primary Care Provider [phone] Encounter Details Date Type Department Care Team (Late st Contact Info) Description 05/26/2021 Telephone Dermatology at [address] [place] [address] Roseanna Terrazas LPN Social History [...] clinic in 1.5 months. Return call to keycase assembler Annika. Reviewed above information with her. Appointment scheduled forJuly 18. Voiced understanding. documented in this encounter Plan of Treatment Not on file documented as of this encounter Visit Diagnoses Not on filedocumented in this encounter Care Teams Automobile Brake Bonder Relationship Specialty Start Date End Date Madison Tineo APRN [address] [place] [address] PCP - General Family Medicine 01/31/21 documented as of this encounter
--- OUTSIDE RECORDS SUMMARY | 2024-06-01 15:19 | XMS_ITS | Encounter Summary ---
Author Organization [facility] [place] [address] Care Team Providers Care Cpc Name Role Phone Madison Tineo APRN Primary Care Provider [phone] Reason for Visit * Reason Comments Follow-up Encounter Details Date Type Department Care Team (Late Contact [facility]) Description 02/14/2021 10:00 AM EDT Office Visit Dermatology at [address] [place] [address] Yariel Bowles MD [address] [place] [address] [place] [address] Dermatitis Social History Tobacco Use Types Packs/Day [...] cause documented in this encounter Care Teams Cpc Relationship Specialty Start Date End Date Madison Tineo APRN [address] [place] [address] PCP - General Family Medicine 01/31/21 documented as of this encounter
--- OUTSIDE RECORDS SUMMARY | 2024-06-01 15:19 | XMS_ITS | Encounter Summary ---
Author Organization [facility] [place] [address] Care Team Providers Care Pressing Department Supervisor Name Role Phone Madison Tineo APRN Primary Care Provider [phone] Encounter Details Date Type Department Care Team (Late st Contact Info) Description 05/25/2021 Telephone Dermatology at [address] [address] Roseanna Terrazas LPN Social History [...] LPN - 05/25/2021 9:41 AM EDT Called sample case porter/pt for update: Annika & pt reports the rash is going away. No more pain. Stopped Pravastatin on 05/17/21. Currently taking cyclosporin [address] Bowles updated. documented in this encounter Plan of Treatment Not on file documented as of this encounter Visit Diagnoses Not on filedocumented in this encounter Care Teams Pressing Department Supervisor Relationship Specialty Start Date End Date Madison Tineo APRN [address] [place] [address] PCP - General Family Medicine 01/31/21 documented as of this encounter
--- OUTSIDE RECORDS SUMMARY | 2024-06-01 15:19 | XMS_ITS | Clinical Summary ---
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 Care Teams Account Developer Relationship Specialty Start Date End Date Madison Tineo, GENET [address] [place] [address] PCP - General Family Medicine 01/31/21
--- OUTSIDE RECORDS SUMMARY | 2024-06-01 15:19 | XMS_ITS | Encounter Summary ---
Author Organization [facility] [place] [address] Care Team Providers Care Direct Support Professional Caregiver Name Role Phone Madison Tineo APRN Primary Care Provider Encounter Details Date Type Department Care Team (Late st Contact Info) Description 01/31/2021 Refill Dermatology at [address] [place] [phone] Roseanna Terarzas, BARREL CHARRER HELPER Social History Tobacco Use Types Packs/Day Years [...] on filedocumented in this encounter Care Teams Direct Support Professional Caregiver Relationship Specialty Start Date End Date Madison Tineo APRN [address] [place] [address] PCP - General Family Medicine 01/31/21 documented as of this encounter
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
--- OUTSIDE RECORDS SUMMARY | 2024-06-01 15:19 | XMS_ITS | Encounter Summary ---
Author Organization [facility] [place] [address] Care Team Providers Care Chocolate Finisher Name Role Phone Madison Tineo APRN Primary Care Provider [phone] Encounter Details Date Type Department Care Team (Late st Contact Info) Description 02/14/2021 Refill Dermatology at [address] [place] [phone] Roseanna Terrazas, CANDY STARCH MOLD PRINTER Social History Tobacco Use Types Packs/Day Years [...] on filedocumented in this encounter Care Teams Chocolate Finisher Relationship Specialty Start Date End Date Madison Tineo APRN [address] [place] [address] PCP - General Family Medicine 01/31/21 documented as of this encounter
--- OUTSIDE RECORDS SUMMARY | 2024-06-01 15:19 | XMS_ITS | Encounter Summary ---
Author Organization [facility] [place] [address] Care Team Providers Care Medical Records Manager Name Role Phone Madison Tineo APRN Primary Care Provider [phone] Reason for Visit * Reason Comments Dermatitis Encounter Details Date Type Department Care Team (Late st Contact Info) Description 05/09/2021 4:45 PM EDT Office Visit Dermatology at [address] [address] Yariel Bowles MD [address] [facility] DER[facility] [place], [place] [phone] Dermatitis Social History Tobacco Use Types Packs/Day [...] cause documented in this encounter Care Teams Medical Records Manager Relationship Specialty Start Date End Date Madison Tineo APRN [address] [place] [address] [place] [address] PCP - General Family Medicine 01/31/21 documented as of this encounter
--- OUTSIDE RECORDS SUMMARY | 2024-06-01 15:19 | XMS_ITS | Encounter Summary ---
[place] [address] Care Team Providers Care Packaging Sales Name Role Phone Noman Madison GENET Primary Care Provider [phone] Reason for Referral * Consultation (Routine) - Authorized Specialty Diagnoses / Procedures Referred By Adan estrada Referred To Contact Ophthalmology Diagnoses Ptosis of eyelid, bilateral María Silva APRN [address] [place] [address] [facility] [address] [place] [phone] Referral ID Status Reason Start Date Expiration Date Visits Requested Visits Authorized [id number] Authorized Consult, Test & Treat PCP Updated and/or Approved 06/22/2023 06/22/2024 12 12 Encounter Details Date Type Department Care Team (Latest Contact Info) Description 06/28/2023 Transcribe Orders eDH Incoming Referrals [phone] María Silva APRN [address] [place], [place] [id number] Ptosis of eyelid, bilateral Social History Tobacco [...] eyelid documented in this encounter Care Teams Packaging Sales Relationship Specialty Start Date End Date Madison Tineo, FABRICATION AND ASSEMBLY SUPERVISOR [address] [place] [address] PCP - General Family Medicine 01/31/21 documented as of this encounter
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
--- OUTSIDE RECORDS SUMMARY | 2024-06-01 15:20 | XMS_ITS | Encounter Summary ---
Author Organization [facility] [place] [address] Care Team Providers Care Coal Tower Operator Name Role Phone Madison Tineo APRN Primary Care Provider [phone] Reason for Visit * Reason Comments Skin Check * Consultation (Routine) - Specialty Diagnoses / Procedures Referred By Adan estrada Referred To Contact Dermatology Diagnoses Dermatitis, unspecified Generalized skin eruption due to drugs and medicaments taken internally Dermatitis, Drug Eruption; New Patient-Notes Received Procedures Consult Madison Tineo APRN [address] [place] [address] [place] [address] Yariel Bowles MD [address] [place] [address] [place] [address] Referral ID Status Reason Start Date Expiration Date V isits Requested Visits Authorized [id number] Consult, Test & Treat PCP Updated and/or Approved 01/27/2021 07/30/2021 6 6 Encounter Details Date Type Department Care Team (Late st Contact Info) Description 01/31/2021 11:15 AM EDT Office Visit Dermatology at [address] [phone] Yariel Bowles MD [address] [place] [address] [place] [address] Dermatitis Social History Tobacco Use [...] punch biopsy was done and sent to [facility] and this apparently showed superficial perivascular dermatitis [...] cause documented in this encounter Care Teams Coal Tower Operator Relationship Specialty Start Date End Date Madison Tineo APRN [address] [place] [address] PCP - General Family Medicine 01/31/21 documented as of this encounter
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
--- OUTSIDE RECORDS SUMMARY | 2024-06-01 15:20 | XMS_ITS | Encounter Summary ---
Author Organization [facility] Address [facility] [place] [address] Care Team Providers Care Glue Spreading Machine Operator Name Role Phone Izzy Tompkins APRN Primary Care Provider Reason for Visit * Reason Comments Right Toe Pain DOI 04/21/12 Encounter Details Date Type Department Care Team (Late st Contact Info) Description 05/29/2012 10:00 AM EDT Office [place] [address] CLINIC, DR ZAMORA Fracture of toe of [...] foot documented in this encounter Care Teams Glue Spreading Machine Operator Relationship Specialty Start Date End Date Izzy Tompkins APRN [address] [place] [address] PCP - General 05/23/12 02/13/13 documented as of this encounter
--- OUTSIDE RECORDS SUMMARY | 2024-06-01 15:20 | XMS_ITS | Encounter Summary ---
Author Organization [facility] Address [facility] [place] [address] Care Team Providers Care Hide Handler Name Role Phone Izzy Tompkins OIL PIPE INSPECTOR HELPER Primary Care Provider Encounter Details Date Type Department Care Team (Latest Contact Info) Description 05/29/2012 9:05 AM EDT - 05/29/2012 11:59 PM EDT Hospital Encounter XRay at [address] [place] [address] Great Toe fracture, right Social History Tobacco [...] foot documented in this encounter Care Teams Hide Handler Relationship Specialty Start Date End Date Izzy Tompkins APRN [address] [place] [address] PCP - General 05/23/12 02/13/13 documented as of this encounter
--- OUTSIDE RECORDS SUMMARY | 2024-06-01 15:21 | XMS_ITS | Encounter Summary ---
Author Organization [facility] Address [facility] [place] [address] Care Team Providers Care Fermenting Cellar Dropper Name Role Phone Unknown Primary Care Provider Unavailabl e Encounter Details Date Type Department Care Team (Late st Contact Info) Description 04/21/2012 Orders [place] [address] Juan Wood MD [facility] [place] [address] Social History Tobacco Use Types Packs/Day Years [...] AM EDT) 04/21/2012 8:15 AM EDT Narrative [facility] - 05/15/2014 1:51 AM EDT This is a non-reportable exam. Procedure Note Kemal Smith - 05/15/2014 This is a non-reportable exam. Juan Wood MD G FILM LIBRARY ORD ERABLES RAD [address] [facility] [place] [address] documented in this encounter Visit Diagnoses Not on filedocumented in this encounter Care Teams Fermenting Cellar Dropper Relationship Specialty Start Date End Date Unknown None PCP - General 04/21/12 05/22/12 documented as of this encounter
--- OUTSIDE RECORDS SUMMARY | 2024-06-01 15:21 | XMS_ITS | Encounter Summary ---
Author Organization [facility] Address [address] [place] [address] Care Team Providers Care Chain Person Name Role Phone Madison Tineo LEAD GENERATION REPRESENTATIVE Primary Care Provider [phone] Encounter Details Date Type Department Care Team (Late Contact Info) Description 09/14/2022 Lab Requisition [facility] Pathology & Laboratory Medicine [address] [address] Outr Resulting Lab, Provider Social History Tobacco [...] Office Visit [facility] Ophthalmology [address] [phone] Princess Andino MD [address] [place] [address], [address] [place] [phone] 08/08/2024 10:00 EDT Post-op Visit [facility] Ophthalmology [address] [address] Princess Andino MD [address] [facility], [address] 5 [place] [phone] documented as of this encounter Procedures Procedure Name Priority Date/Time Associated Diagnosis Comments CHLAMYDIA/N. GONORRHOEAE AMPLIFIED NUCLEIC ACID Routine 09/14/2022 10:00 EDT documented in this encounter Results * CHLAMYDIA/N. GONORRHOEAE AMPLIFIED RNA (09/14/2022 10:00 EDT) Neisseria gonorrhoeae Result Negative Negative 09/15/2022 15:59 EDT [facility] Chlamydia trachomatis Result Negative Negative 09/15/2022 15:59 EDT [facility] Urine URINE / Unknown 09/14/2022 1 0:00 EDT 09/14/2022 22:17 EDT Provider Outr Resulting Lab MICROBIOLOGY - GENERAL ORDERABLES [facility] [address] [place] [address] documented in this encounter Visit Diagnoses Not on filedocumented in this encounter Care Teams Chain Person Relationship Specialty Start Date End Date Madison Tineo FNP [facility] [address] PCP - General 01/05/21 documented as of this encounter
--- OUTSIDE RECORDS SUMMARY | 2024-06-01 15:21 | XMS_ITS | Encounter Summary ---
Author Organization [facility] Address [address] [place] [address] Care Team Providers Care Linderman Operator Name Role Phone NomanMadison [place] Primary Care Provider [phone] Reason for Visit * Reason Comments Referral Request * Referral (Routine) - Receiving Office to Obtain Authorization Specialty Diagnoses / Procedures Referred By Adan estrada Referred To Contact Ophthalmology Diagnoses Ptosis, bilateral María [place], [place] [address] [facility] [address] [place] [address] [place] [address] [address] [place] [address] Referral ID Status Reason Start Date Expiration Date Visits Requested Visits Authorized [id number] Receiving Office to Obtain Authorization 1 1 Encounter Details Date Type Department Care Team (Late st Contact Info) Description 04/04/2024 12:45 EDT Office Visit [facility] Ophthalmology - Main [address] [phone] Princess Andino MD [address] [facility], [address] [place] [address] Social History Tobacco Use Types [...] year ago the upper lids became droopy, director case management mentions that it seems to be interfering with his vision and gate. No complaint of dry eyes, he does mention some double vision distance and near when he looks quickly, it does go away after blinking. No known fhx of drooping eyelids. No use of drops. ROSEANN 01/2024. History of CE with PCIOL left eye (01/14/24) with Dr. Chrissy KC The patient is a 63 y.o. maleReferred by PCP for evaluation of bilateral upper eyelid Ptosis. Pt reports about 1 year ago the upper lids became droopy, director case management mentions that it seems to be interfering [...] Musculoskeletal: Integumentary: Neurologic: Psychiatric: Endocrine: Hematologic: Immunologic: Er Manager: Exposures: Other: Attestation: Allergies include: Patient has [...] 07/29/2024 13:00 EDT Office Visit [facility] Ophthalmology [address] [phone] Princess Andino MD [address] [place] [phone] 08/08/2024 10:00 EDT Post-op Visit [facility] Ophthalmology [address] [phone] Princess Andino MD [address] [place] [phone] documented as of this encounter Procedures Procedure Name Priority Date/Time Associated Diagnosis Comments EXTERNAL PHOTOGRAPHY - OU - BOTH EYES Routine 04/04/2024 14:19 EDT Dermatochalasis of both upper eyelids ECHEVERRIA VF 64-2 - OU - BOTH EYES Routine 04/04/2024 14:19 EDT Dermatochalasis of both upper eyelids documented in this encounter Results * EXTERNAL PHOTOGRAPHY - OU - BOTH EYES (04/04/2024 14:19 EDT) Narrative [facility] OPHTHALMOLOGY - 04/04/2024 14:19 EDT Right Eye Findings include dermatochalasis. Left Eye Findings include dermatochalasis. Princess Andino MD OPH PHOTOGRAPHY Performing Organization Address [facility] de Phone Number [facility] OPHTHALMOLOGY * ECHEVERRIA VF 64-2 - OU - BOTH EYES (04/04/2024 14:19 EDT) Narrative [facility] OPHTHALMOLOGY - 04/04/2024 14:19 EDT Visual field: Superior 64 taped and untaped Indication: Bilateral upper eyelid Dermatochalasis Right eye: >30% improvement in superior VF with taping of the upper eyelid Left eye: >30% improvement in superior VF with taping of the upper eyelid Princess Andino MD OPH VISUAL FIELD Performing Organization Address [facility] Phone Number [facility] OPHTHALMOLOGY documented in this encounter Visit Diagnoses [...] Left eye Lids/Lashes UL Dermatochalasis, MGD UL [place] tochalasis, MGD Conjunctiva/Sclera White and quiet White and ori et Cornea Clear Clear Anterior Chamber Deep and quiet Deep and quiet Iris Normal Normal Lens NS PCIOL Fundus Exam Right eye Left eye Disc Intact Rim Intact Rim External Right eye Left eye MRD1 1 mm 1 mm MRD2 5 mm 5 mm Levator 14 mm 14 mm Care Teams Linderman Operator Relationship Specialty Start Date End Date Madison Tineo FNP Adrien [place] [address] PCP - General 01/05/21 documented as of this encounter
--- OUTSIDE RECORDS SUMMARY | 2024-06-01 15:21 | XMS_ITS | Encounter Summary ---
Author Organization [facility] Address [address] [place] [address] Care Team Providers Care Forepart Reducer Name Role Phone Madison Tineo HEALTHCARE PROF Primary Care Provider [phone] Encounter Details Date Type Department Care Team (Late st Contact Info) Description 01/05/2021 Lab Requisition [facility] Pathology & Laboratory Medicine [address] [address] Subhash Alfaro MD [address] [place] [address] Encounter for other general examination Social History [...] Info) Description 07/29/2024 13:00 EDT Office Visit [facility] Ophthalmology [address] [phone] Princess Andino MD [address] [place] [address], Level [address] [place] [phone] 08/08/2024 10:00 EDT Post-op Visit [address] [phone] Princess Andino MD 111 [facility], [address] [place] [phone] documented as of this encounter Procedures Procedure Name Priority Date/Time Associated Diagnosis Comments SURGICAL PATHOLOGY Today 01/05/2021 10 :30 EST Encounter for other general examination documented in this encounter Results * SURGICAL PATHOLOGY (01/05/2021 10:30 EST) Final Diagnosis A. 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 See comment. 01/07/2021 10:11 [facility] Diagnosis Comment The histopathologic features could represent a drug-related eruption. Given the extent of the spongiosis and scale crust, eczematous dermatitis (including allergic contact dermatitis) would also be included in the differential diagnosis. 01/07/2021 10:11 [facility] Attestation By the signature below, the attending physician certifies that they have 1) personally conducted a gross and/or microscopic examination of the described specimen(s), and/or personally interpreted the results of laboratory testing of the described specimen(s), and 2) personally rendered or confirmed the above diagnosis. 01/07/2021 10:11 [facility] at 1011 Microscopic Description Sections [...] noted. There is erythrocyte extravasation. 01/07/2021 10:11 [facility] Clinical History Macular rash; ? drug eruption lisinopril 01/07/2021 10:11 [facility] Gross Description A. The requisition accompanying the specimen is initially received mislabeled. In accordance with the Laboratory Specimen Rejection Policy and Laboratory Accountability policy, Harvey IVORY spoke with Shannan Pathology Stephanie, at [facility], who was involved with the collection [...] Jorge Gabriel 01/06/2021 14:23 01/07/2021 10:11 EST [facility] Performing Lab [facility] 10:11 EST [facility] Scanned Images 01/07/2021 10:11 EST [facility] Tissue TISSUE SPECIMEN FROM SKIN / Unknown 01/05/2021 10:30 EST 01/05/2021 17:22 EST Subhash Alfaro MD PATHOLOGY ORDERABLES [facility] [address] [place] [address] documented in this encounter Visit Diagnoses Diagnosis Encounter for other general examination documented in this encounter Care Teams Forepart Reducer Relationship Specialty Start Date End Date Madison Tineo [place] [address] [place] [address] PCP - General 01/05/21 documented as of this encounter
--- OUTSIDE RECORDS SUMMARY | 2024-06-01 15:21 | XMS_ITS | Encounter Summary ---
Author [place] [address] Care Team Providers Care Engine Tester Name Role Phone Unknown Primary Care Provider Unavailabl e Encounter Details Date Type Department Care Team (Late st Contact Info) Description 04/23/2012 1:30 PM EDT Office Visit [place] [address] Areli Mckoy, [place] Social History Tobacco Use [...] on filedocumented in this encounter Care Teams Engine Tester Relationship Specialty Start Date End Date Unknown None PCP - General 04/21/12 05/22/12 documented as of this encounter
--- OUTSIDE RECORDS SUMMARY | 2024-06-01 15:21 | XMS_ITS | Encounter Summary ---
Author Organization [facility] Address [address] [facility] [place] [address] Care Team Providers Care Director Volunteer Services Name Role Phone Unknown Primary Care Provider Unavailabl e Encounter Details Date Type Department Care Team (Late st Contact Info) Description 04/24/2012 External Results XRay at [address] [place] [address] Radha Vasques MD EMERGENCY DEPT [address] [place], [place] [address] [address] Social History Tobacco Use Types Packs/Day Years [...] on filedocumented in this encounter Care Teams Director Volunteer Services Relationship Specialty Start Date End Date Unknown None PCP - General 6/3/12 7/4/12 documented as of this encounter
--- OUTSIDE RECORDS SUMMARY | 2024-06-01 15:21 | XMS_ITS | Encounter Summary ---
Author Organization [facility] Address [facility] [place] [address] Care Team Providers Care Linotype Worker Name Role Phone Unknown Primary Care Provider Unavailabl e Reason for Visit * Reason Comments Eye Problem [facility] Encounter Details Date Type Department Care Team (Late st Contact Info) Description 04/22/2012 1:00 PM EDT Office Visit [place] [address] Vicenta Navarro MD [facility] [address] [place] [address] Facial laceration Social History Tobacco Use Types [...] complication documented in this encounter Care Teams Linotype Worker Relationship Specialty Start Date End Date Unknown None PCP - General 04/21/12 05/22/12 documented as of this encounter
--- OUTSIDE RECORDS SUMMARY | 2024-06-01 15:21 | XMS_ITS | Encounter Summary ---
Author Organization [facility] Address [address] [place] [address] Care Team Providers Care Fiber Technologist Name Role Phone Madison Tineo [place] Primary Care Provider [phone] Reason for Visit * Reason Onset Date Comments Appointment Related 10/31/2023 Encounter Details Date Type Department Care Team (Late st Contact Info) Description 10/31/2023 Telephone [facility] Ophthalmology - [address] [phone] Princess Andino MD [address] [facility], [address] [place] [address] Appointment Related Social History Tobacco [...] Info) Description 07/29/2024 13:00 EDT Office Visit [address] [phone] Princess Andino MD [address] [place] [phone] 08/08/2024 10:00 EDT Post-op Visit [address] 304131 Princess Andino MD [address] [place] [phone] documented as of this encounter Visit Diagnoses Not on filedocumented in this encounter Care Teams Fiber Technologist Relationship Specialty Start Date End Date [place] [address] PCP - General 01/05/21 documented as of this encounter
--- OUTSIDE RECORDS SUMMARY | 2024-06-01 15:21 | XMS_ITS | Encounter Summary ---
Author Organization [facility] Address [facility] [place] [address] Care Team Providers Care Shipping Point Inspector Name Role Phone Unknown Primary Care Provider Unavailabl e Encounter Details Date Type Department Care Team (Late st Contact Info) Description 04/01/2012 Orders Only [place] [address] Juan Wood MD [facility] [place] [address] Social History Tobacco Use Types Packs/Day Years [...] AM EDT) 04/01/2012 8:10 AM EDT Narrative [facility] - 05/15/2014 1:51 AM EDT This is a non-reportable exam. Procedure Note Kemal Smith - 05/15/2014 This is a non-reportable exam. Juan Wood MD G FILM LIBRARY ORD ERABLES RAD [address] [facility] [place] [address] documented in this encounter Visit Diagnoses Not on filedocumented in this encounter Care Teams Shipping Point Inspector Relationship Specialty Start Date End Date Unknown None PCP - General 04/21/12 05/22/12 documented as of this encounter
--- OUTSIDE RECORDS SUMMARY | 2024-06-01 15:21 | XMS_ITS | Encounter Summary ---
Author Organization [facility] Address [address] [place] [address] Care Team Providers Care Bench Press Operator Name Role Phone Madison Tineo FIELD CROPS HARVEST MACHINE OPERATOR Primary Care Provider [phone] Encounter Details Date Type Department Care Team (Late Contact Info) Description 09/14/2022 Lab Requisition [facility] Pathology & Laboratory Medicine [address] [address] Outr Resulting Lab, Provider Social History Tobacco [...] Info) Description 07/29/2024 13:00 EDT Office Visit [facility] Ophthalmology [address] 844471 Princess Andino MD [address] [place] [address], [address] [place] [phone] 08/08/2024 10:00 EDT Post-op Visit [facility] Ophthalmology [address] [address] Princess Andino MD [address] [facility], [address] [place] [address] documented as of this encounter Procedures Procedure Name Priority Date/Time Associated Diagnosis Comments HOLD SST Today 09/14/2022 10:00 EDT SYPHILIS SEROLOGY Today 09/14/2022 10: 00 EDT HEPATITIS C AB W REFLEX TO HCV RNA BY PCR Today 09/14/2022 10:00 EDT documented in this encounter Results * HOLD SST (09/14/2022 10:00 EDT) Hold Hold 09/14/2022 22:32 EDT [facility] Blood VENOUS BLOOD / Unknown 09/14/2022 10:00 EDT 09/14/2022 21:26 EDT Provider Outr Resulting Lab LAB INFO SER VICE AND SUPPORT & PHONE RESULT Performing Organization Address [facility]/ZIP Co de Phone Number [facility] [address] [place] [address] * SYPHILIS SEROLOGY (09/14/2022 10:00 EDT) Syphilis Serology Negative Negative 09/15/2022 11:55 EDT [facility] Blood VENOUS BLOOD / Unknown 09/14/2022 10:00 EDT 09/14/2022 21:26 EDT Provider Outr Resulting Lab IMMUNOLOGY A ND SEROLOGY ORDERABLES Performing Organization Address [facility]/ZIP Co de Phone Number [facility] [address] [place] [address] * HEPATITIS C AB W REFLEX TO HCV RNA BY PCR (09/14/2022 10:00 EDT) Hep C Antibody Negative Negative 09/15/2022 9:33 EDT [facility] Blood VENOUS BLOOD / Unknown 09/14/2022 10:00 EDT 09/14/2022 21:26 EDT Provider Outr Resulting Lab CHEMISTRY & BLOOD GAS ORDERABLES [facility] [address] [place] [address] documented in this encounter Visit Diagnoses Not on filedocumented in this encounter Care Teams Bench Press Operator Relationship Specialty Start Date End Date Madison Tine[place] [address] PCP - General 01/05/21 documented as of this encounter
--- OUTSIDE RECORDS SUMMARY | 2024-06-01 15:21 | XMS_ITS | Encounter Summary ---
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 Dilaudid SOCIAL WORKER CLINICAL - used 0.6 overnight. Scheduled Medications: ??? [...] survery today. Neuro: pain control with Dilaudid SOCIAL WORKER CLINICAL, on Ativan assessment scale for EtOH withdrawal [...] a wound check Aimee Ta DMSIII Pager: [phone] * Miscellaneous - Provider, Scanning - 04/21/2012 10:12 PM EDT * Plan of Care - Yuliana Sprague RN - 04/21/2012 5:15 PM EDT Problem: Pressure Ulcer Risk (Using Jefferson Scale) (Adult, Obstetric) Intervention: Pressure Reduction Devices Sacral mepilex applied for prevention * Consult Note - Min Boswell MD - 04/21/2012 12:29 PM EDT Images from the original note were not included. 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 05/08/2012 10:18 AM EDT SCAN, PERIPHERAL [...] STAT 04/22/2012 5:49 PM EDT CARDIAC ENZYMES ([facility]) STAT 04/22/2012 4:39 PM EDT EKG 12-LEAD STAT 04/22/2012 4:34 PM EDT Tachycardia BLOOD GAS 2 ARTERIAL Routine 04/22/2012 4:16 PM EDT XR CHEST ONE VIEW STAT 04/22/2012 3:3 7 PM EDT SCAN, PERIPHERAL BLOOD STAT 2 2:36 PM EDT DIFFERENTIAL, AUTOMATED STAT 04/22/20 12 2:36 PM EDT CARDIAC ENZYMES ([facility]) STAT 04/22/2012 2:36 PM EDT CBC (WITH [...] MD IMG DX ORDERABLES * SCAN DOC: COMMERCIAL LOAN PROCESSOR (05/08/2012 10:18 AM EDT) Anatomical Region Laterality [...] MD HEMATOLOGY ORDERABL ES Performing Organization Address [facility] de Phone Number CERNER NADEGEENNIUM * NUCLEATED RED BLOOD CELLS (05/07/2012 4:52 AM EDT) nRBC % Auto 0.0 0.0 - 0.2 % CERNER MILLENNIUM nRBC Abs Auto 0.000 0.000 - 0.012 x10(3)/mcL CERNER MILLENNIUM Blood specimen (specimen) 05/07/2012 4:52 AM EDT 05/07/2012 5:03 AM EDT Narrative Resulting Agency Comment Spec In Lab Win Cordoba MD HEMATOLOGY ORDERABL ES Performing Organization Address [facility] de Phone Number CERNER MILLENNIUM * SCAN, PERIPHERAL BLOOD (05/07/2012 4:52 AM EDT) Plat Estimate Increased CERNER MILLENNIUM RBC Morphology Abnormal CERNE R MILLENNIUM Macrocytes 6-10 /HPF CERNER MILLENNIUM Ovalocytes 1-5 /HPF CERNER MILLENNIUM Blackwell Cells 1-5 /HPF CERNER MILLENNIUM Hawk-Pronghorn Bdy Present >1/HPF CERNER MILLENNIUM Siderocytes Present >1/HPF CERNER MILLENNIUM Giant Platelets Less than 1 /HPF CE RNER MILLENNIUM Blood specimen (specimen) 05/07/2012 4:52 AM EDT 05/07/2012 5:03 AM EDT Narrative Resulting Agency Comment Spec In Lab Win Cordoba MD HEMATOLOGY ORDERABL ES Performing Organization Address [facility] de Phone Number CERNER MILLENNIUM * (ABNORMAL) [...] intervals supplied above were not validated at [facility]. Results from pediatric patients should be interpreted [...] Lab Win Cordoba MD CHEMISTRY ORDERABLE S [facility] * Urinalysis with microscopic (05/06/2012 7:30 PM [...] Appearance UA Clear Clear CERNER MILLENNIUM Spec [place] UA 1.018 1.002 - 1.030 CERNER MILLENNIUM [...] MD HEMATOLOGY ORDERABL ES Performing Organization Address [facility] de Phone Number CERNER NADEGEENNIUM * NUCLEATED RED BLOOD CELLS (05/06/2012 4:21 AM EDT) nRBC % Auto 0.0 0.0 - 0.2 % CERNER MILLENNIUM nRBC Abs Auto 0.000 0.000 - 0.012 x10(3)/mcL CERNER MILLENNIUM Blood specimen (specimen) 05/06/2012 4:21 AM EDT 05/06/2012 4:34 AM EDT Narrative Resulting Agency Comment Spec In Lab Win Cordoba MD HEMATOLOGY ORDERABL ES Performing Organization Address [facility] de Phone Number CERNER MILLENNIUM * SCAN, PERIPHERAL BLOOD (05/06/2012 4:21 AM EDT) Plat Estimate Increased CERNER MILLENNIUM RBC Morphology Abnormal CERNE R MILLENNIUM Macrocytes 6-10 /HPF CERNER MILLENNIUM Prakash Cells 1-5 /HPF CERNER MILLENNIUM Hawk-Pronghorn Bdy Present >1/HPF CERNER MILLENNIUM Siderocytes Present >1/HPF CERNER MILLENNIUM Giant Platelets Less than 1 /HPF CE RNER MILLENNIUM Blood specimen (specimen) 05/06/2012 4:21 AM EDT 05/06/2012 4:34 AM EDT Narrative Resulting Agency Comment Spec In Lab Win Cordoba MD HEMATOLOGY ORDERABL ES Performing Organization Address [facility] [[email or web address]] Co de Phone Number CERNER MILLENNIUM * [...] intervals supplied above were not validated at [facility]. Results from pediatric patients should be interpreted [...] Comment Spec In Lab Win Cordoba MD [email or web address] S Performing Organization Address [facility] de Phone Number [facility] * (ABNORMAL) Prealbumin (05/06/2012 4:21 AM EDT) Prealbumin 44(H) 20 - 40 mg/dL VILLA [employer]ERICEIUM Comment: Prealbumin levels are generally lower in the pediatric population; adult concentrations are usually attained near puberty. Blood specimen (specimen) 05/06/2012 4:21 AM EDT 05/06/2012 4:34 AM EDT Narrative Resulting Agency Comment Spec In Lab Win Cordoba MD [email or web address] S Performing Organization Address [facility] de Phone Number [facility] * (ABNORMAL) DIFFERENTIAL, MANUAL (05/05/2012 3:14 AM [...] R MILLENNIUM Polychromasia Present >5/HPF CERNER MILLENNIUM Hawk-Pronghorn Bdy Present >1/HPF CER NER MILLENNIUM Giant [...] Lab Win Cordoba MD CHEMISTRY ORDERABLE S [facility] N[facility] * Magnesium (05/05/2012 3:14 AM EDT) [...] intervals supplied above were not validated at [facility]. Results from pediatric patients should be interpreted [...] Lab Win Cordoba MD CHEMISTRY ORDERABLE S [facility] [employer] CorporationST. MARY'S HOSPITALIUM * Urinalysis with microscopic (05/04/2012 5:00 [...] Appearance UA Clear Clear CERNER MILLENNIUM Spec [place] UA 1.019 1.002 - 1.030 CERNER MILLENNIUM [...] Cordoba MD URINE ORDERABLES Performing Organization Address City/[facility]/ZIP Co de Phone Number CERNER NADEGEENNIUM * SCAN, PERIPHERAL BLOOD (05/04/2012 2:10 AM EDT) Plat Estimate Increased CERNER MILLENNIUM RBC Morphology Abnormal CERNE R MILLENNIUM Polychromasia Present >5/HPF CERNER MILLENNIUM Hawk-Pronghorn Bdy Present >1/HPF CER NER MILLENNIUM Siderocytes [...] EDT Win Cordoba MD HEMATOLOGY ORDERABL ES [facility] * (ABNORMAL) CBC (with Diff) (05/04/2012 2:10 [...] MD HEMATOLOGY ORDERABL ES Performing Organization Address [facility] de Phone Number VILLA LINN * Phosphorus (05/04/2012 2:10 AM EDT) Phosphorus 3.9 2.5 - 4.5 mg/dL VILLA LINN Blood specimen (specimen) 05/04/2012 2:10 AM EDT 05/04/2012 2:43 AM EDT Narrative Resulting Agency Comment Spec In Lab Win Cordoba MD CHEMISTRY ORDERABLE S Performing Organization Address [facility] de Phone Number [facility] * Magnesium (05/04/2012 2:10 AM EDT) Magnesium 0.82 0.69 - 1.07 mmol/L VILLA LINN Blood specimen (specimen) 05/04/2012 2:10 AM EDT 05/04/2012 2:43 AM EDT Narrative Resulting Agency Comment Spec In Lab Win Cordoba MD CHEMISTRY ORDERABLE S Performing Organization Address [facility] de Phone Number VILLA LINN * (ABNORMAL) Basic Metabolic Panel (non-fasting) (05/04/2012 2:10 AM EDT) Glucose Lvl 108 60 - 199 mg/dL [facility] N[facility]GEST. MARY'S HOSPITALSHANIQUA Comment:Diabetes: >=200 mg/d L plus symptoms BUN 14 10 - 20 mg/dL CERNER MILLENNIUM Creatinine 0.62(L) 0.80 - 1.50 mg/dL CERNER MILLENNIUM Comment: Please note that the pediatric reference intervals supplied above were not validated at [facility]. Results from pediatric patients should be interpreted [...] MD CHEMISTRY ORDERABLE S Performing Organization Address City/State/[facility] [[email or web address]] Co vt Phone Number VILLA [employer] * XR CHEST PA OR AP- 1 [...] MD HEMATOLOGY ORDERABL ES Performing Organization Address [facility] de Phone Number CERNER MILLENNIUM * NUCLEATED RED BLOOD CELLS (05/03/2012 2:32 AM EDT) nRBC % Auto 0.0 0.0 - 0.2 % CERNER MILLENNIUM nRBC Abs Auto 0.000 0.000 - 0.012 x10(3)/mcL CERNER MILLENNIUM Blood specimen (specimen) 05/03/2012 2:32 AM EDT 05/03/2012 2:50 AM EDT Narrative Resulting Agency Comment Spec In Lab Win Cordoba MD HEMATOLOGY ORDERABL ES Performing Organization Address [facility] de Phone Number CERNER MILLENNIUM * SCAN, PERIPHERAL BLOOD (05/03/2012 2:32 AM EDT) Plat Estimate Increased CERNER MILLENNIUM RBC Morphology Abnormal CERNE R MILLENNIUM Polychromasia Present >5/HPF CERNER MILLENNIUM Ovalocytes 1-5 /HPF CERNER MILLENNIUM Prakash Cells 1-5 /HPF CERNER MILLENNIUM Hawk-Pronghorn Bdy Present >1/HPF CER NER MILLENNIUM Siderocytes Present >1/HPF CERNER MILLENNIUM Giant Platelets Less than 1 /HPF CE RNER MILLENNIUM Blood specimen (specimen) 05/03/2012 2:32 AM EDT 05/03/2012 2:50 AM EDT Narrative Resulting Agency Comment Spec In Lab Win Cordoba MD HEMATOLOGY ORDERABL ES Performing Organization Address [facility]/ZIP Co de Phone Number CERNER MILLENNIUM * [...] MD HEMATOLOGY ORDERABL ES Performing Organization Address [facility] de Phone Number VILLA TYIUM * (ABNORMAL) Phosphorus (05/03/2012 2:32 AM EDT) Phosphorus 5.2(H) 2.5 - 4.5 mg/dL VILLA TYIUM Blood specimen (specimen) 05/03/2012 2:32 AM EDT 05/03/2012 2:50 AM EDT Narrative Resulting Agency Comment Spec In Lab Win Cordoba MD CHEMISTRY ORDERABLE S Performing Organization Address [facility] de Phone Number VILLA TYIUM * Magnesium (05/03/2012 2:32 AM EDT) Magnesium 0.83 0.69 - 1.07 mmol/L VILLA TYIUM Blood specimen (specimen) 05/03/2012 2:32 AM EDT 05/03/2012 2:50 AM EDT Narrative Resulting Agency Comment Spec In Lab Win Cordoba MD CHEMISTRY ORDERABLE S Performing Organization Address [facility]/ZIP Co de Phone Number CERNER MILLENNIUM * (ABNORMAL) Basic Metabolic Panel (non-fasting) (05/03/2012 2:32 AM EDT) [facility] Glucose Lvl 123 60 - 199 mg/dL CERNER MILLENNIUM Comment:Diabetes: >=200 mg/d L plus symptoms BUN 13 10 - 20 mg/dL CERNER MILLENNIUM Creatinine 0.74(L) 0.80 - 1.50 mg/dL CERNER MILLENNIUM Comment: Please note that the pediatric reference intervals supplied above were not validated at [facility]. Results from pediatric patients should be interpreted [...] MD HEMATOLOGY ORDERABL ES Performing Organization Address [facility] de Phone Number CERNER NADEGEENNIUM * NUCLEATED RED BLOOD CELLS (05/02/2012 2:37 AM EDT) nRBC % Auto 0.0 0.0 - 0.2 % CERNER MILLENNIUM nRBC Abs Auto 0.000 0.000 - 0.012 x10(3)/mcL CERNER MILLENNIUM Blood specimen (specimen) 05/02/2012 2:37 AM EDT 05/02/2012 2:46 AM EDT Narrative Resulting Agency Comment Spec In Lab Win Cordoba MD HEMATOLOGY ORDERABL ES Performing Organization Address City/[facility]/ZIP Co de Phone Number CERNER NADEGEENNIUM * [...] MD HEMATOLOGY ORDERABL ES Performing Organization Address [facility] [[email or web address]] Co de Phone Number VILLA TYIUM * Phosphorus (05/02/2012 2:37 AM EDT) Phosphorus 4.5 2.5 - 4.5 mg/dL VILLA TYIUM Blood specimen (specimen) 05/02/2012 2:37 AM EDT 05/02/2012 2:46 AM EDT Narrative Resulting Agency Comment Spec In Lab Win Cordoba MD CHEMISTRY ORDERABLE S Performing Organization Address [facility] [[email or web address]] Co de Phone Number VILLA TYIUM * Magnesium (05/02/2012 2:37 AM EDT) Magnesium 0.91 0.69 - 1.07 mmol/L CERLG TYIUM Blood specimen (specimen) 05/02/2012 2:37 AM EDT 05/02/2012 2:46 AM EDT Narrative Resulting Agency Comment Spec In Lab Win Cordoba MD CHEMISTRY ORDERABLE S Performing Organization Address [facility] [[email or web address]] Co de Phone Number VILLA TYIUM * (ABNORMAL) Basic Metabolic Panel (non-fasting) (05/02/2012 2:37 AM EDT) [facility] Signature Glucose Lvl 134 60 - 199 mg/dL CERNER MILLENNIUM Comment:Diabetes: >=200 mg/d L plus symptoms BUN 10 10 - 20 mg/dL CERNER MILLENNIUM Creatinine 0.59(L) 0.80 - 1.50 mg/dL CERNER MILLENNIUM Comment: Please note that the pediatric reference intervals supplied above were not validated at [facility]. Results from pediatric patients should be interpreted [...] MD CHEMISTRY ORDERABLE S Performing Organization Address [facility] [[email or web address]] Co de Phone Number CERLG MILLENNIUM * [...] MD HEMATOLOGY ORDERABL ES Performing Organization Address City/[facility] [[email or web address]] Co de Phone Number CERNER MILLENNIUM * [...] MD HEMATOLOGY ORDERABL ES Performing Organization Address [facility] de Phone Number VILLA TYIUM * Phosphorus (05/01/2012 4:30 AM EDT) Phosphorus 3.3 2.5 - 4.5 mg/dL VILLA TYIUM Blood specimen (specimen) 05/01/2012 4:30 AM EDT 05/01/2012 4:32 AM EDT Narrative Resulting Agency Comment Spec In Lab Win Cordoba MD CHEMISTRY ORDERABLE S Performing Organization Address [facility] de Phone Number VILLA TYIUM * Magnesium (05/01/2012 4:30 AM EDT) Magnesium 0.76 0.69 - 1.07 mmol/L VILLA TYIUM Blood specimen (specimen) 05/01/2012 4:30 AM EDT 05/01/2012 4:32 AM EDT Narrative Resulting Agency Comment Spec In Lab Win Cordoba MD CHEMISTRY ORDERABLE S Performing Organization Address [facility]/State/ZIP Co de Phone Number CERNER MILLENNIUM * (ABNORMAL) Basic Metabolic Panel (non-fasting) (05/01/2012 4:30 AM EDT) Glucose Lvl 134 60 - 199 mg/dL CERNER MILLENNIUM Comment:Diabetes: >=200 mg/d L plus symptoms BUN 9(L) 10 - 20 mg/dL CERNER MILLENNIUM Creatinine 0.50(L) 0.80 - 1.50 mg/dL CERNER MILLENNIUM Comment: Please note that the pediatric reference intervals supplied above were not validated at [facility]. Results from pediatric patients should be interpreted [...] Lab Win Cordoba MD CHEMISTRY ORDERABLE S [facility]ITALIUM * (ABNORMAL) BLOOD GAS 2 ARTERIAL (04/30/2012 5:13 AM EDT) pH Art 7.47(H) CERNER MILLENNIUM pCO2 Art 32(L) mmHg CERNER MILLENNIUM pO2 Art 86 mmHg CERNER MILLENNIUM HCO3 Art 22.7 mmol/L CERNER MILLENNIUM BE Art -1.0 mmol/L CERNER MILLENNIUM Hgb Blood Gas 11.7(L) gm/dL CERNER MILLENNIUM Comment: Total Hemoglobin (in gm/dL) ?Based on [facility] Hematology ranges: ?Age ?Reference Range Less than [...] BLOOD CELLS (04/30/2012 4:10 AM EDT) Pathologist [facility] nRBC % Auto 0.0 0.0 - 0.2 [...] intervals supplied above were not validated at [facility]. Results from pediatric patients should be interpreted [...] MD CHEMISTRY ORDERABL ES Performing Organization Address City/[facility] [[email or web address]] Co de Phone Number [facility] N[facility]ST. M[facility]ITALIUM * Magnesium (04/30/2012 4:10 AM EDT) Magnesium 0.74 0.69 - 1.07 mmol/L [facility] Blood specimen (specimen) 04/30/2012 4:10 AM EDT 04/30/2012 4:21 AM EDT Narrative Resulting Agency Comment Spec In Lab Joshua Fink MD CHEMISTRY ORDERABL ES Performing Organization Address [facility]/ZIP Co de Phone Number [facility]ST[facility]ITAL[facility] * Phosphorus (04/30/2012 4:10 AM EDT) Phosphorus 4.1 2.5 - 4.5 mg/dL [facility] Blood specimen (specimen) 04/30/2012 4:10 AM EDT 04/30/2012 4:21 AM EDT Narrative Resulting Agency Comment Spec In Lab Joshua Fink MD CHEMISTRY ORDERABL ES Performing Organization Address [facility]/ZIP Co de Phone Number VILLA TYIUM * [...] MD CHEMISTRY ORDERABL ES Performing Organization Address [facility] de Phone Number VILLA LINN * (ABNORMAL) [...] MD CHEMISTRY ORDERABL ES Performing Organization Address [facility] de Phone Number VILLA LINN * XR [...] MD HEMATOLOGY ORDERAB LES Performing Organization Address City/[facility]/ZIP Co de Phone Number CERNER MILLENNIUM * [...] MD HEMATOLOGY ORDERAB LES Performing Organization Address [facility] [[email or web address]] Co de Phone Number CERNER MILLENNIUM * (ABNORMAL) Phosphorus (04/29/2012 5:45 AM EDT) Phosphorus 4.7(H) 2.5 - 4.5 mg/dL CERNER MILLENNIUM Blood specimen (specimen) 04/29/2012 5:45 AM EDT 04/29/2012 5:47 AM EDT Narrative Resulting Agency Comment Spec In Lab Joshua Fink MD CHEMISTRY ORDERABL ES Performing Organization Address [facility] Phone Number CERNER MILLENNIUM * (ABNORMAL) Magnesium (04/29/2012 5:45 AM EDT) Magnesium 0.65(L) 0.69 - 1.07 mmol/L CERNER MILLENNIUM Blood specimen (specimen) 04/29/2012 5:45 AM EDT 04/29/2012 5:47 AM EDT Narrative Resulting Agency Comment Spec In Lab Joshua Fink MD CHEMISTRY ORDERABL ES Performing Organization Address [facility] de Phone Number CERNER MILLENNIUM * (ABNORMAL) Basic Metabolic Panel (non-fasting) (04/29/2012 5:45 AM EDT) Glucose Lvl 119 60 - 199 mg/dL CERNER MILLENNIUM Comment:Diabetes: >=200 mg/d L plus symptoms BUN 8(L) 10 - 20 mg/dL CERNER MILLENNIUM Creatinine 0.43(L) 0.80 - 1.50 mg/dL CERNER MILLENNIUM Comment: Please note that the pediatric reference intervals supplied above were not validated at [facility]. Results from pediatric patients should be interpreted [...] MD CHEMISTRY ORDERABL ES Performing Organization Address [facility] [[email or web address]] Co de Phone Number [facility] [employer] CorporationDOCTORS HOSPITAL [facility]TECA * (ABNORMAL) Prealbumin (04/29/2012 5:45 AM EDT) Prealbumin 8(L) 20 - 40 mg/dL [facility] Comment: Prealbumin levels are generally lower in the pediatric population; adult concentrations are usually attained near puberty. Blood specimen (specimen) 04/29/2012 5:45 AM EDT 04/29/2012 5:47 AM EDT Narrative Resulting Agency Comment Spec In Lab Joshua Fink MD CHEMISTRY ORDERABL ES Performing Organization Address [facility] de Phone Number CERLG LIGHTENNIUM * Potassium (04/28/2012 5:36 PM EDT) Potassium 4.1 3.5 - 5.0 mmol/L [facility] Comment: Please note: ??Patients with WBC [...] MD CHEMISTRY ORDERABL ES Performing Organization Address [facility] [[email or web address]] Co de Phone Number CERLG LIGHTENNIUM * [...] DIFFERENTIAL, AUTOMATED (04/28/2012 2:45 AM EDT) Pathologist [facility] Neutrophils % 62.5 34.0 - 71.0 % [...] MD HEMATOLOGY ORDERAB LES Performing Organization Address City/[facility]/ZIP Co de Phone Number CERLG TYIUM * NUCLEATED RED BLOOD CELLS (04/28/2012 2:45 AM EDT) nRBC % Auto 0.0 0.0 - 0.2 % CERNER MILLENNIUM nRBC Abs Auto 0.000 0.000 - 0.012 x10(3)/mcL CERNER MILLENNIUM Blood specimen (specimen) 04/28/2012 2:45 AM EDT 04/28/2012 2:50 AM EDT Narrative Resulting Agency Comment Spec In Lab Joshua Fink MD HEMATOLOGY ORDERAB LES Performing Organization Address [facility] de Phone Number CERLG TYIUM * SCAN, PERIPHERAL BLOOD (04/28/2012 2:45 AM EDT) Plat Estimate Normal CERNER MILLENNIUM RBC Morphology Normal CERNE R MILLENNIUM Giant Platelets Less than 1 /HPF CERNER NADEGEENNIUM Blood specimen (specimen) 04/28/2012 2:45 AM EDT 04/28/2012 2:50 AM EDT Narrative Resulting Agency Comment Spec In Lab Joshua Fink MD HEMATOLOGY ORDERAB LES Performing Organization Address City/[facility] [[email or web address]] Co de Phone Number CERNER NADEGEENNIUM * [...] MILLENNIUM MPV 11.5 9.0 - 12.0 fL [facility] NADEGE[facility] Blood specimen (specimen) 04/28/2012 2:45 AM [...] intervals supplied above were not validated at [facility]. Results from pediatric patients should be interpreted [...] Lab Joshua Fink MD CHEMISTRY ORDERABL ES [facility] * Potassium (04/27/2012 5:00 PM EDT) [facility] Signature Potassium 3.8 3.5 - 5.0 mmol/L [facility] Comment: Please note: ??Patients with WBC [...] MD CHEMISTRY ORDERABL ES Performing Organization Address [facility]/ZIP Co de Phone Number CERNER MILLENNIUM * (ABNORMAL) BLOOD GAS 2 ARTERIAL (04/27/2012 5:07 AM EDT) pH Art 7.43 CERNER MILLENNIUM pCO2 Art 44 mmHg CERNER MILLENNIUM pO2 Art 69(L) mmHg CERNER MILLENNIUM HCO3 Art 28.4(H) mmol/L CERNER MILLENNIUM BE Art 4.1(H) mmol/L CERNER MILLENNIUM Hgb Blood Gas 10.8(L) gm/dL CERNER MILLENNIUM Comment: Total Hemoglobin (in gm/dL) ?Based on [facility] Hematology ranges: ?Age ?Reference Range Less than [...] MILLENNIUM RBC Morphology Abnormal CERNE R MILLENNIUM Hawk-Pronghorn Bdy Present >1/HPF CER NER MILLENNIUM Pappenheimer [...] MD HEMATOLOGY ORDERAB LES Performing Organization Address [facility] [[email or web address]] Co de Phone Number VILLA TYIUM * Phosphorus (04/27/2012 3:00 AM EDT) Phosphorus 4.3 2.5 - 4.5 mg/dL VILLA TYIUM Blood specimen (specimen) 04/27/2012 3:00 AM EDT 04/27/2012 3:04 AM EDT Narrative Resulting Agency Comment Spec In Lab Joshua Fink MD CHEMISTRY ORDERABL ES Performing Organization Address [facility] de Phone Number VILLA TYIUM * Magnesium (04/27/2012 3:00 AM EDT) Magnesium 0.75 0.69 - 1.07 mmol/L [facility] TYIUM Blood specimen (specimen) 04/27/2012 3:00 AM EDT 04/27/2012 3:04 AM EDT Narrative Resulting Agency Comment Spec In Lab Joshua Fink MD CHEMISTRY ORDERABL ES Performing Organization Address [facility] [[email or web address]] Co de Phone Number VILLA TYIUM * (ABNORMAL) Basic Metabolic Panel (non-fasting) (04/27/2012 3:00 AM EDT) Glucose Lvl 105 60 - 199 mg/dL CERNER MILLENNIUM Comment:Diabetes: >=200 mg/d L plus symptoms BUN 8(L) 10 - 20 mg/dL CERNER MILLENNIUM Creatinine 0.40(L) 0.80 - 1.50 mg/dL CERNER MILLENNIUM Comment: Please note that the pediatric reference intervals supplied above were not validated at [facility]. Results from pediatric patients should be interpreted [...] Lab Joshua Fink MD CHEMISTRY ORDERABL ES [facility] * Blood culture (04/26/2012 6:52 AM EDT) Blood Culture ? Patient Name: KADEN STONER ? Ordered By: JOSHUA FINK ? MR#: [id number] ?LOC: ??ISCU ? /Sex: ??1960 (51 years), [...] Comment: Total Hemoglobin (in gm/dL) ?Based on [facility] Hematology ranges: ?Age ?Reference Range Less than [...] ? Ordered By: JOSHUA FINK ? MR#: [id number] ?LOC: ??ICUS ? /Sex: ?? 0 (51 [...] ? Ordered By: JOSHUA FINK ? MR#: [id number] ?LOC: ??ICUS ? /Sex: ??1960 (51 years), [...] Rods ? Patient: HERBIE, KADEN ? MR#: [id number] ? SUSCEPTIBILITY RESULTS ? Klebsiella pneumoniae ? [...] MD HEMATOLOGY ORDERAB LES Performing Organization Address [facility] de Phone Number CERNER MILLENNIUM * Phosphorus (04/26/2012 3:30 AM EDT) Phosphorus 3.9 2.5 - 4.5 mg/dL CERNER MILLENNIUM Blood specimen (specimen) 04/26/2012 3:30 AM EDT 04/26/2012 3:38 AM EDT Narrative Resulting Agency Comment Spec In Lab Joshua Fink MD CHEMISTRY ORDERABL ES Performing Organization Address City/[facility] [[email or web address]] Co de Phone Number CERNER MILLENNIUM * [...] intervals supplied above were not validated at [facility]. Results from pediatric patients should be interpreted [...] Lab Joshua Fink MD CHEMISTRY ORDERABL ES [facility] * Potassium (04/25/2012 8:30 PM EDT) Potassium [...] ? Ordered By: JOSHUA FINK ? MR#: [id number] ?LOC: ??ICUS ? /Sex: ??1960 (51 years), [...] ? Ordered By: JOSHUA FINK ? MR#: [id number] ?LOC: ??ICUS ? /Sex: ??1960 (51 years), [...] Comment: Total Hemoglobin (in gm/dL) ?Based on [facility] Hematology ranges: ?Age ?Reference Range Less than [...] ? Ordered By: JOSHUA FINK ? MR#: [id number] ?LOC: ??ICUS ? /Sex: ?? 0 (51 years), ? Male ? PROCEDURE: Urine Culture ?SOURCE: [facility] ? COLLECTED: 04/25/2012 06:15 ? STARTED: 04/25/2012 07:12 ? FINAL REPORT ? Final Report ? Verified: 07:04 ? No growth (Less than 1,000 cfu/ml). ? ____ [facility] Urine specimen obtained via indwelling urinary catheter (specimen) 04/25/2012 6:15 AM EDT 04/25/2012 7:12 AM EDT Narrative Resulting Agency Comment Spec In Lab Joshua Fink MD MICROBIOLOGY - GEN ERAL ORDERABLES [facility]ILLA LINN * Lower Respiratory Culture Tracheal Aspirate (04/25/2012 6:15 AM EDT) Lower Respiratory Culture ? Patient Name: KADEN STONER ? Ordered By: JOSHUA FINK ? MR#: [id number] ?LOC: ??ICUS ? /Sex: ??1960 (51 years), [...] jaimee ? Patient: KADEN STONER ? MR#: [id number] ? SUSCEPTIBILITY RESULTS ? Staphylococcus aureus ? [...] Comment: Total Hemoglobin (in gm/dL) ?Based on [facility] Hematology ranges: ?Age ?Reference Range Less than [...] CERNER MILLENNIUM Ovalocytes 1-5 /HPF CERNER MILLENNIUM Hawk-Pronghorn Bdy Present >1/HPF CER NER MILLENNIUM Pappenheimer [...] MD CHEMISTRY ORDERABL ES Performing Organization Address [facility] [[email or web address]] Co de Phone Number CERNER MILLENNIUM * (ABNORMAL) Magnesium (04/25/2012 3:00 AM EDT) Magnesium 0.64(L) 0.69 - 1.07 mmol/L CERNER MILLENNIUM Blood specimen (specimen) 04/25/2012 3:00 AM EDT 04/25/2012 3:04 AM EDT Narrative Resulting Agency Comment Spec In Lab Joshua Fink MD CHEMISTRY ORDERABL ES Performing Organization Address [facility] de Phone Number CERNER MILLENNIUM * (ABNORMAL) Basic Metabolic Panel (non-fasting) (04/25/2012 3:00 AM EDT) Glucose Lvl 152 60 - 199 mg/dL CERNER MILLENNIUM Comment:Diabetes: >=200 mg/d L plus symptoms BUN 9(L) 10 - 20 mg/dL CERNER MILLENNIUM Creatinine 0.38(L) 0.80 - 1.50 mg/dL CERNER MILLENNIUM Comment: Please note that the pediatric reference intervals supplied above were not validated at [facility]. Results from pediatric patients should be interpreted [...] CERNER MILLENNIUM Estimated GFR >60 >=60 [facility] Comment: The National Kidney Disease Education [...] Lab Joshua Fink MD CHEMISTRY ORDERABL ES [facility] * POCT GLUCOSE LAB USE ONLY (04/24/2012 10:19 PM EDT) POC Glucose 180 60 - 199 mg/dL [facility] Comment: Supplemental ranges: <110 mg/dL before meals <200 mg/dL all other times of the day Blood specimen (specimen) 04/24/2012 10:19 PM EDT 04/24/2012 10:19 PM EDT Sravan Perez MD POINT OF CARE TEST O RDDEVORA Performing Organization Address [facility] de Phone Number [facility] * POCT GLUCOSE LAB USE ONLY (04/24/2012 4:34 PM EDT) POC Glucose 173 60 - 199 mg/dL [facility] Comment: Supplemental ranges: <110 mg/dL before meals <200 mg/dL all other times of the day Blood specimen (specimen) 04/24/2012 4:34 PM EDT 04/24/2012 4:34 PM EDT Sravan Perez MD POINT OF CARE TEST O TIM Performing Organization Address [facility] de Phone Number [facility] * POCT GLUCOSE LAB USE ONLY (04/24/2012 12:10 PM EDT) POC Glucose 161 60 - 199 mg/dL [facility] Comment: Supplemental ranges: <110 mg/dL before meals <200 mg/dL all other times of the day Blood specimen (specimen) 04/24/2012 12:10 PM EDT 04/24/2012 12:10 PM EDT Sravan Perez MD POINT OF CARE TEST O RDERALEILA Performing Organization Address [facility] de Phone Number [facility] * XR CHEST PA OR AP- 1 [...] POC Glucose 173 60 - 199 mg/dL [facility] Comment: Supplemental ranges: <110 mg/dL before [...] Comment: Total Hemoglobin (in gm/dL) ?Based on [facility] Hematology ranges: ?Age ?Reference Range Less than [...] CERNER MILLENNIUM Ovalocytes 1-5 /HPF CERNER MILLENNIUM Blackwell Cells 1-5 /HPF CERNER MILLENNIUM Hawk-Pronghorn Bdy Present >1/HPF CER NER MILLENNIUM Pappenheimer [...] MD HEMATOLOGY ORDERAB LES Performing Organization Address [facility] de Phone Number [facility] * Lactic acid, plasma (04/24/2012 3:30 AM EDT) Lactate 1.2 0.5 - 2.2 mmol/L [facility] Blood specimen (specimen) 04/24/2012 3:30 AM EDT 04/24/2012 4:17 AM EDT Narrative Resulting Agency Comment Spec In Lab Joshua Fink MD CHEMISTRY ORDERABL ES Performing Organization Address [facility] Phone Number [facility] * Phosphorus (04/24/2012 3:30 AM EDT) Phosphorus 2.8 2.5 - 4.5 mg/dL [facility] Blood specimen (specimen) 04/24/2012 3:30 AM EDT 04/24/2012 4:17 AM EDT Narrative Resulting Agency Comment Spec In Lab Joshua Fink MD CHEMISTRY ORDERABL ES Performing Organization Address [facility] Phone Number [facility] * (ABNORMAL) Magnesium (04/24/2012 3:30 AM EDT) Magnesium 0.66(L) 0.69 - 1.07 mmol/L [facility] Blood specimen (specimen) 04/24/2012 3:30 AM EDT 04/24/2012 4:17 AM EDT Narrative Resulting Agency Comment Spec In Lab Joshua Fink MD CHEMISTRY ORDERABL ES Performing Organization Address [facility] de Phone Number [facility] * (ABNORMAL) Basic Metabolic Panel (non-fasting) (04/24/2012 3:30 AM EDT) Glucose Lvl 147 60 - 199 mg/dL CERNER MILLENNIUM Comment:Diabetes: >=200 mg/d L plus symptoms BUN 7(L) 10 - 20 mg/dL CERNER MILLENNIUM Creatinine 0.49(L) 0.80 - 1.50 mg/dL CERNER MILLENNIUM Comment: Please note that the pediatric reference intervals supplied above were not validated at [facility]. Results from pediatric patients should be interpreted [...] MD CHEMISTRY ORDERABL ES Performing Organization Address [facility] [[email or web address]] Co de Phone Number [facility] * Potassium (04/23/2012 1:30 PM EDT) Pathologist [facility] Potassium 4.1 3.5 - 5.0 mmol/L [facility] Comment: Please note: ??Patients with WBC [...] MD CHEMISTRY ORDERABL ES Performing Organization Address [facility] [[email or web address]] Co de Phone Number [facility] [employer] [facility] * Echocardiogram with Bubble Study (04/23/2012 1:06 PM EDT) EF 60 [facility] Anatomical Region Laterality Modality Other 04/23/2012 Narrative 04/23/2012 1:50 PM EDT Procedure: ? Transthoracic Echocardiogram Patient: ? HERBIE KADEN ?(Age): 1960(51) Med Rec#: ?[id number] ? Sex: ?M ? Site Loc: ?[facility] ? Ht / Wt: ??(cm)/74(kg) ? Pt. Loc: ? ICU ?BSA: ? Study Date: ?04/23/2012 ? Pt. Type: Inpatient Tape: ? Referring: Joshua Fink Referring: JESSICA CYR Measurement Department Chief Clerk: Kolton Lam [facility] Measurement Department Chief Clerk 2: Margot Boss Diagnosis: ??SVT (427.0) CPT Code(s): ??Echo Full (86313), ??Spectral Doppler (00509), ??Color Doppler (34749), ??Saline Contrast (000), Indication(s): ??Tachycardia Rhythm: HR [...] ? Mid-Inferior ?Normal ? Mid-Inferoseptal ?Normal ? Lynx-Septal ? Normal ? Lynx-Anterior ? Normal ? Lynx-Lateral ?Normal ? Lynx-Inferior ? Normal ? Lynx-Tip ?Normal ? Chambers ?Value ?Units (Range) ? [...] 04/23/2012 13:50:10 Images reviewed and interpretation verified [facility] Cardiac Ultrasound Laboratory Procedure Note Alvin Lyle MD - 04/23/2012 Procedure: Transthoracic Echocardiogram Patient: HERBIE CLAUDIO(Age): 1960(51) Med Rec#: [id number] Sex: M Site Loc: [facility] Ht / Wt: (cm)/74(kg) Pt. Loc: ICU BSA: Study Date: 04/23/2012 Pt. Type: Inpatient Tape: Referring: Joshua Fink Referring: JESSICA CYR Measurement Department Chief Clerk: Kolton Lam [facility] Measurement Department Chief Clerk 2: Margot Boss Diagnosis: SVT (427.0) CPT Code(s): Echo Full (50937), Spectral Doppler (78867), Color Doppler (73188), Saline Contrast (000), Indication(s): Tachycardia Rhythm: HR [...] Normal Mid-Posterolateral Normal Mid-Inferior Normal Mid-Inferoseptal Normal Lynx-Septal Normal Lynx-Anterior Normal Lynx-Lateral Normal Lynx-Inferior Normal Lynx-Tip Normal Chambers Value Units (Range) LV EF [...] 04/23/2012 13:50:10 Images reviewed and interpretation verified [facility] Cardiac Ultrasound Laboratory Joshua Fink MD ECHO ORDERABLES * (ABNORMAL) BLOOD GAS 2 ARTERIAL (04/23/2012 10:05 AM EDT) pH Art 7.43 CERNER MILLENNIUM pCO2 Art 33(L) mmHg CERNER MILLENNIUM pO2 Art 66(L) mmHg CERNER MILLENNIUM HCO3 Art 21.0 mmol/L CERNER MILLENNIUM BE Art -3.4(L) mmol/L CERNER MILLENNIUM Hgb Blood Gas 10.7(L) gm/dL CERNER MILLENNIUM Comment: Total Hemoglobin (in gm/dL) ?Based on [facility] Hematology ranges: ?Age ?Reference Range Less than [...] Text Report Department: Vascular Surgery Lab Patient: [id number] (KADEN STONER) CPT Code: 39796 ICD-9: 959.8 Referring Physician: JOSHUA FINK Indication: [...] MD VASCULAR ORDERABLE S Performing Organization Address [facility] de Phone Number [facility] * Lipase (04/23/2012 9:15 AM EDT) Lipase 8 0 - 60 unit/L CERNER MILLENNIUM Blood specimen (specimen) 04/23/2012 9:15 AM EDT 04/23/2012 9:31 AM EDT Narrative Resulting Agency Comment Spec In Lab Joshua Fink MD CHEMISTRY ORDERABL ES Performing Organization Address [facility] de Phone Number [facility] * Amylase (04/23/2012 9:15 AM EDT) Amylase 28 28 - 100 unit/L CERNER MILLENNIUM Blood specimen (specimen) 04/23/2012 9:15 AM EDT 04/23/2012 9:31 AM EDT Narrative Resulting Agency Comment Spec In Lab Joshua Fink MD CHEMISTRY ORDERABL ES Performing Organization Address [facility] de Phone Number [facility] * INTUBATION (04/23/2012 7:52 AM EDT) Narrative 04/23/2012 7:52 AM EDT Intubation Procedure Note Reason for Intubation: ?Hypoxemia. Location of Procedure: [facility]. Risks and Benefits: The risks and benefits [...] Intubation: ?? Hypoxemia. Location of Procedure: ICU [facility]. Risks and Benefits: The risks and benefits [...] the planned procedure. ?? Hand Hygiene: The wind development director did perform hand hygiene prior to arterial [...] contraindications to the plannedprocedure. Hand Hygiene: The wind development director did perform hand hygiene prior to arterial [...] ? Ordered By: BERNARDO COOLEY ? MR#: [id number] ?LOC: ??ICUS ? /Sex: ?? 0 (51 years), ? Male ? PROCEDURE: Urine Culture ?SOURCE: [facility] ? COLLECTED: 04/23/2012 05:03 ? STARTED: 04/23/2012 08:47 ? FINAL REPORT ? Final Report ? Verified: 08:27 ? No growth (Less than 1,000 cfu/ml). ? ____ [facility] Urine specimen obtained via indwelling urinary catheter (specimen) 04/23/2012 5:03 AM EDT 04/23/2012 8:47 AM EDT Narrative Resulting Agency Comment Spec In Lab Bernardo Cooley MD MICROBIOLOGY - GEN ERAL ORDERABLES [facility] * Lower Respiratory Culture Tracheal Aspirate (04/23/2012 4:32 AM EDT) Lower Respiratory Culture ? Patient Name: KADEN STONER ? Ordered By: JOSHUA FINK ? MR#: [id number] ?LOC: ??ICUS ? /Sex: ??1960 (51 years), [...] jaimee ? Patient: KADEN STONER ? MR#: [id number] ? SUSCEPTIBILITY RESULTS ? Streptococcus pneumoniae ?DEREJE [...] - GEN ERAL ORDERABLES Performing Organization Address [facility] [[email or web address]] Co de Phone Number [facility] * POCT GLUCOSE LAB USE ONLY (04/23/2012 4:24 AM EDT) POC Glucose 99 60 - 199 mg/dL [facility] Comment: Supplemental ranges: <110 mg/dL before meals <200 mg/dL all other times of the day Blood specimen (specimen) 04/23/2012 4:24 AM EDT 04/23/2012 4:24 AM EDT Sravan Perez MD POINT OF CARE TEST O RDERABLES Performing Organization Address [facility] [[email or web address]] Co vt Phone Number [facility] * XR TOES MINIMUM 2 VIEW (04/23/2012 [...] MD HEMATOLOGY ORDERAB LES Performing Organization Address [facility] [[email or web address]] Co de Phone Number CERNER NADEGEENNIUM * SCAN, PERIPHERAL BLOOD (04/23/2012 3:40 AM EDT) Plat Estimate Normal CERNER MILLENNIUM RBC Morphology Abnormal CERNE R MILLENNIUM Macrocytes 6-10 /HPF CERNER MILLENNIUM Ovalocytes 1-5 /HPF CERNER MILLENNIUM Hawk-Pronghorn Bdy Present >1/HPF CER NER MILLENNIUM Pappenheimer Bdy Present >1/HPF CER NER MILLENNIUM Comment:To be confirmed by I johnie Stain. Blood specimen (specimen) 04/23/2012 3:40 AM EDT 04/23/2012 3:46 AM EDT Narrative Resulting Agency Comment Spec In Lab Joshua Fink MD HEMATOLOGY ORDERAB LES Performing Organization Address [facility]/ZIP Co de Phone Number CERNER MILLENNIUM * [...] MD HEMATOLOGY ORDERAB LES Performing Organization Address [facility] de Phone Number [facility]ILLA TYIUM * Lactic acid, plasma (04/23/2012 3:40 AM EDT) Lactate 1.0 0.5 - 2.2 mmol/L [facility] TYIUM Blood specimen (specimen) 04/23/2012 3:40 AM EDT 04/23/2012 3:46 AM EDT Narrative Resulting Agency Comment Spec In Lab Joshua Fink MD CHEMISTRY ORDERABL ES Performing Organization Address [facility] de Phone Number [facility]ILL[facility] TYIUM * Phosphorus (04/23/2012 3:40 AM EDT) Phosphorus 3.3 2.5 - 4.5 mg/dL [facility]ILL[facility] TYIUM Blood specimen (specimen) 04/23/2012 3:40 AM EDT 04/23/2012 3:46 AM EDT Narrative Resulting Agency Comment Spec In Lab Joshua Fink MD CHEMISTRY ORDERABL ES Performing Organization Address [facility]/ZIP Co de Phone Number CERNER NADEGEENNIUM * [...] intervals supplied above were not validated at [facility]. Results from pediatric patients should be interpreted [...] Lab Joshua Fink MD CHEMISTRY ORDERABL ES [facility] * (ABNORMAL) BLOOD GAS 2 ARTERIAL (04/23/2012 1:02 AM EDT) pH Art 7.37 CERNER MILLENNIUM pCO2 Art 39 mmHg CERNER MILLENNIUM pO2 Art 97 mmHg CERNER MILLENNIUM HCO3 Art 22.2 mmol/L CERNER MILLENNIUM BE Art -3.1(L) mmol/L CERNER MILLENNIUM Hgb Blood Gas 11.6(L) gm/dL CERNER MILLENNIUM Comment: Total Hemoglobin (in gm/dL) ?Based on [facility] Hematology ranges: ?Age ?Reference Range Less than [...] Perez MD CHEMISTRY ORDERABLES Performing Organization Address [facility] de Phone Number [facility] * POCT GLUCOSE LAB USE ONLY (04/23/2012 12:21 AM EDT) POC Glucose 106 60 - 199 mg/dL [facility] Comment: Supplemental ranges: <110 mg/dL before meals <200 mg/dL all other times of the day Blood specimen (specimen) 04/23/2012 12:21 AM EDT 04/23/2012 12:21 AM EDT Sravan Perez MD POINT OF CARE TEST O RDERABLES Performing Organization Address [facility] Phone Number [facility] * XR CHEST PA OR AP- [...] Comment: Total Hemoglobin (in gm/dL) ?Based on [facility] Hematology ranges: ?Age ?Reference Range Less than [...] CERNER MILLENNIUM Ovalocytes 1-5 /HPF CERNER MILLENNIUM Hawk-Pronghorn Bdy Present >1/HPF CER NER MILLENNIUM Pappenheimer [...] ? Ordered By: JOSHUA FINK ? MR#: [id number] ?LOC: ??ICUS ? /Sex: ??1960 (51 years), [...] - BLO OD ORDERABLES Performing Organization Address City/[facility]/ZIP Co de Phone Number [facility] * Phosphorus (04/22/2012 10:50 PM EDT) Pathologist [facility] Phosphorus 3.5 2.5 - 4.5 mg/dL CERNER MILLENNIUM Blood specimen (specimen) 04/22/2012 10:50 PM EDT 04/22/2012 11:08 PM EDT Narrative Resulting Agency Comment Spec In Lab Dev Baez MD CHEMISTRY ORDERABLES Performing Organization Address [facility] [[email or web address]] Co de Phone Number [facility] T[facility] * Magnesium (04/22/2012 10:50 PM EDT) Pathologist [facility] Magnesium 0.75 0.69 - 1.07 mmol/L [facility] Blood specimen (specimen) 04/22/2012 10:50 PM EDT 04/22/2012 11:08 PM EDT Narrative Resulting Agency Comment Spec In Lab Dev Baez MD CHEMISTRY ORDERABLES Performing Organization Address [facility] [[email or web address]] Co de Phone Number [facility] K[facility]SON[facility] * (ABNORMAL) Basic Metabolic Panel (non-fasting) (04/22/2012 10:50 PM EDT) Pathologist [facility] Glucose Lvl 96 60 - 199 mg/dL [facility] MILLENNIUM Comment:Diabetes: >=200 mg/d L plus symptoms BUN 7(L) 10 - 20 mg/dL [facility] M[facility] Creatinine 0.61(L) 0.80 - 1.50 mg/dL CERNER MILLENNIUM Comment: Please note that the pediatric reference intervals supplied above were not validated at [facility]. Results from pediatric patients should be interpreted in conjunction to the patient's age, height and muscle mass. Sodium 132(L) 135 - 145 mmol/L [facility] MILLENNIUM Potassium 3.4(L) 3.5 - 5.0 mmol/L [...] Baez MD CHEMISTRY ORDERABLES Performing Organization Address [facility] [[email or web address]] Co de Phone Number CERNER MILLENNIUM * [...] MD HEMATOLOGY ORDERABLE S Performing Organization Address City/[facility]/ZIP Co de Phone Number CERLG MILLENNIUM * (ABNORMAL) APTT (04/22/2012 10:50 PM EDT) PTT 37(H) 25 - 35 sec CERNER MILLENNIUM Comment: Recommended therapeutic PTT range for full dose unfractionated heparin is 80-114 seconds. Blood specimen (specimen) 04/22/2012 10:50 PM EDT 04/22/2012 11:08 PM EDT Narrative Resulting Agency Comment Spec In Lab Dev Baez MD HEMATOLOGY ORDERABLE S Performing Organization Address [facility] de Phone Number [facility] * Prothrombin Time (04/22/2012 10:50 PM EDT) PT 13.5 11.9 - 14.7 sec [facility] Comment: [facility] Transfusion Committee Guidelines: INR less than 2.0, PTT less than OR equal to 43.5 seconds, or Fibrinogen greater than or equal to 100 mg/dl indicate adequate procoagulant activity for hemostasis in patients without underlying bleeding disorders. INR 1.0 0.9 - 1.1 [facility] Blood specimen (specimen) 04/22/2012 10:50 PM EDT 04/22/2012 11:08 PM EDT Narrative Resulting Agency Comment Spec In Lab Dev Baez MD HEMATOLOGY ORDERABLE S Performing Organization Address [facility] de Phone Number [facility] * POCT GLUCOSE LAB USE ONLY (04/22/2012 8:05 PM EDT) Pathologist [facility] POC Glucose 105 60 - 199 mg/dL [facility] Comment: Supplemental ranges: <110 mg/dL before meals <200 mg/dL all other times of the day Blood specimen (specimen) 04/22/2012 8:05 PM EDT 04/22/2012 8:05 PM EDT Sravan Perez MD POINT OF CARE TEST O RDERABLES Performing Organization Address [facility] de Phone Number [facility] * URINE HOLD (04/22/2012 7:35 PM EDT) Pathologist [facility] Urine Hold Sample in lab. [facility] Urine specimen (specimen) 04/22/2012 7:35 PM [...] Comment: Total Hemoglobin (in gm/dL) ?Based on [facility] Hematology ranges: ?Age ?Reference Range Less than [...] PM EDT Sravan Perez MD CHEMISTRY ORDERABLES [facility] MILLENNIUM * (ABNORMAL) Urinalysis with microscopic (04/22/2012 [...] Appearance UA Clear Clear CERNER MILLENNIUM Spec [place] UA >1.035(H) 1.002 - 1.030 CERNER MILLENNIUM [...] ? Ordered By: JOSHUA FINK ? MR#: [id number] ?LOC: ??ICUS ? /Sex: ??1960 (51 years), [...] ? Ordered By: JOSHUA FINK ? MR#: [id number] ?LOC: ??ICUS ? /Sex: ??1960 (51 years), [...] (ABNORMAL) Cardiac Enzymes (04/22/2012 4:39 PM EDT) [facility] Troponin-T <0.03 <=0.03 ng/mL VILLA NADEGEWU Comment: 0.03 ng/mL: Represents the 99th percentile upper reference limit for normals. >0.03 ng/mL: Elevated cardiac troponin T level indicative of myocardial damage. Diagnosis of acute, evolving or recent [place] requires a typical rise and gradual fall [...] consensus document of the Joint Society of Cardiology/[employer] College [employer]iology Committee for the redefinition of myocardial infarction. Journal of the [place] College [employer] 2000; 36: 959-969] CK, Total 997(H) 0 - 200 unit/L [facility] LINN Blood specimen (specimen) 04/22/2012 4:39 PM EDT 04/22/2012 4:42 PM EDT Narrative Resulting Agency Comment Spec In Lab Joshua Fink MD CHEMISTRY ORDERABL ES [facility] * EKG 12 Lead (04/22/2012 4:34 PM EDT) Pathologist [facility] Ventricular rate 134 BPM MUSE SYSTEM Atrial Rate 134 BPM MUSE SYSTEM P-R Interval 140 ms MUSE SYSTEM QRS Duration 96 ms MUSE SYSTEM Q-T Interval 306 ms MUSE SYSTEM QTC Calculated (Bezet) 456 ms MUSE SYSTEM Calculated P [place] 52 degrees MUSE SYSTEM Calculated R [place] 49 degrees MUSE SYSTEM Calculated T [place] 50 degrees MUSE SYSTEM INTERPRETATION Sinus tachycardia [...] Comment: Total Hemoglobin (in gm/dL) ?Based on [facility] Hematology ranges: ?Age ?Reference Range Less than [...] MD HEMATOLOGY ORDERABLE S Performing Organization Address City/[facility]/ZIP Co de Phone Number CERNER MILLENNIUM * [...] damage. Diagnosis of acute, evolving or recent [place] requires a typical rise and gradual fall [...] consensus document of the Joint Society of Cardiology/[place] [employer]iology Committee for the redefinition of myocardial infarction. Journal of the [place] College [employer]iology 2000; 36: 959-969] CK, [...] MD HEMATOLOGY ORDERABLE S Performing Organization Address [facility] [[email or web address]] Co de Phone Number CERNER MILLENNIUM * EKG 12 Lead (04/22/2012 1:44 PM EDT) Ventricular rate 124 BPM MUSE SYSTEM Atrial Rate 124 BPM MUSE SYSTEM P-R Interval 140 ms MUSE SYSTEM QRS Duration 94 ms MUSE SYSTEM Q-T Interval 314 ms MUSE SYSTEM QTC Calculated (Bezet) 451 ms MUSE SYSTEM Calculated P [place] 59 degrees MUSE SYSTEM Calculated R [place] 49 degrees MUSE SYSTEM Calculated T [place] 67 degrees MUSE SYSTEM INTERPRETATION Sinus tachycardia with Premature atrial complexes Possible Left atrial enlargement Left ventricular hypertrophy Nonspecific ST and T wave abnormality Abnormal ECG No previous ECGs available Confirmed by Leilani Marcum Mandeep S ([id number]) on 04/23/2012 9:46:29 PM MUSE SYSTEM 04/22/2012 1:44 PM EDT 04/23/2012 9:46 PM EDT Sravan Perez MD ECG ORDERABLES Performing Organization Address [facility] [[email or web address]] Co de Phone Number MUSE SYSTEM * [...] Perez MD CHEMISTRY ORDERABLES Performing Organization Address [facility]/State/ZIP Co de Phone Number CERNER [...] MD HEMATOLOGY ORDERABLE S Performing Organization Address [facility] [[email or web address]] Co de Phone Number CERNER NADEGEENNIUM * [...] of Diabetes Mellitus, Position Statement from the [place] Diabetes Association. ??Diabetes Care, Volume 33, Supplement 1, Nov 2009 BUN 6(L) 10 - 20 mg/dL CERNER MILLENNIUM Creatinine 0.50(L) 0.80 - 1.50 mg/dL CERNER MILLENNIUM Comment: Please note that the pediatric reference intervals supplied above were not validated at [facility]. Results from pediatric patients should be interpreted [...] In Lab Sravan Perez MD CHEMISTRY ORDERABLES [facility] * (ABNORMAL) CBC (with Diff) (04/22/2012 [...] of Diabetes Mellitus, Position Statement from the [place] [employer] Association. ??Diabetes Care, Volume 33, Supplement 1, Nov 2009 BUN 7(L) 10 - 20 mg/dL CERNER MILLENNIUM Creatinine 0.55(L) 0.80 - 1.50 mg/dL CERNER MILLENNIUM Comment: Please note that the pediatric reference intervals supplied above were not validated at [facility]. Results from pediatric patients should be interpreted [...] and cervical spine obtained without contrast from [facility]. ??Dr. Perez has submitted this exam [...] face, and cervical spine obtained without contrast [facility]. Dr. Perez has submitted this exam for [...] the attending Sravan Perez MD IMG OUTSIDE [facility] TATION ORDERABLES * POCT urine dipstick (04/21/2012 11:30 AM EDT) POC Sp [place] 1.002 - 1.030 POC pH, UA 5.0 [...] AM EDT) Ab Screen Interp Negative VILLA Flashpoint Expires at [id number] on: [id number] [facility] [facility] Blood specimen (specimen) 04/21/2012 11:26 AM EDT [...] CERNER MILLENNIUM Ovalocytes 1-5 /HPF CERNER MILLENNIUM [place] Cells 1-5 /HPF CERNER MILLENNIUM Blood specimen (specimen) 04/21/2012 11:16 AM EDT 04/21/2012 11:28 AM EDT Narrative Resulting Agency Comment Spec In Lab Boo Smiley MD HEMATOLOGY ORDERABLE S [facility] * Ethanol Level (04/21/2012 11:16 AM EDT) Ethanol Lvl <100 mg/L [facility] Comment: Greater than 800 mg/L (0.08%) should be considered intoxicated. 3400 to 4500 mg/L (0.34 - 0.45%) is considered severe intoxication. Greater than 5500 mg/L (0.55%) is usually fatal. Blood specimen (specimen) 04/21/2012 11:16 AM EDT 04/21/2012 11:28 AM EDT Narrative Resulting Agency Comment Spec In Lab Boo Smiley MD CHEMISTRY ORDERABLES Performing Organization Address [facility] Phone Number [facility] * APTT (04/21/2012 11:16 AM EDT) PTT 28 25 - 35 sec [facility] Comment: Recommended therapeutic PTT range for full dose unfractionated heparin is 80-114 seconds. Blood specimen (specimen) 04/21/2012 11:16 AM EDT 04/21/2012 11:28 AM EDT Narrative Resulting Agency Comment Spec In Lab Boo Smiley MD HEMATOLOGY ORDERABLE S Performing Organization Address [facility] Phone Number [facility] * Prothrombin Time (04/21/2012 11:16 AM EDT) PT 12.7 11.9 - 14.7 sec [facility] Comment: [facility] Transfusion Committee Guidelines: INR less than 2.0, [...] intervals supplied above were not validated at [facility]. Results from pediatric patients should be interpreted [...] In Lab Boo Smiley MD CHEMISTRY ORDERABLES [facility] MILLENNIUM * (ABNORMAL) CBC (with Diff) (04/21/2012 [...] MILLENNIUM MCHC 34.5 32.0 - 36.5 gm/dL [facility] MILLENNIUM Platelets 292 145 - 370 x10(3)/mcL [facility] MILLENNIUM RDWSD 53.4(H) 35.0 - 46.0 fL [facility] MILLENNIUM RDWCV 14.4 10.9 - 14.4 % [facility] MILLENNIUM MPV 10.9 9.0 - 12.0 fL [facility] Blood specimen (specimen) 04/21/2012 11:16 AM EDT 04/21/2012 11:28 AM EDT Narrative Resulting Agency Comment Spec In Lab Boo Smiley MD HEMATOLOGY ORDERABLE S [facility] * (ABNORMAL) Urinalysis with microscopic (04/21/2012 11:15 AM EDT) Glucose UA Negative Negative mg/dL [facility] Protein UA Negative mg/dL [facility] MILLENNIUM Bilirubin UA Negative Negative mg/dL [facility] Urobilinogen UA Normal mg/dL CERN MILLENNIUM pH UA 5.5 5.0 - 8.0 [facility] Blood UA Negative mg/dL [facility] Ketones UA Negative mg/dL [facility] Nitrite UA Negative [facility] MILLENNIUM Leukocytes UA Negative mcL [facility] Appearance UA Hazy(A) Clear [facility] Spec [place] UA 1.013 1.002 - 1.030 [facility] Color UA Yellow Yellow [facility] RBC UA Not Present 0 - 3 [facility] MILLENNIUM WBC UA 1 0 - 3 /HPF [facility] MILLENNIUM Bacteria UA Occasional /HPF [facility] MILLENNIUM Gran Cast UA 1(H) <=0 /LPF [facility] Uric Ac Bertha UA Moderate /HPF [facility] ER MILLENNIUM Urine specimen (specimen) 04/21/2012 11:15 AM EDT 04/21/2012 11:42 AM EDT Narrative Resulting Agency Comment Spec In Lab Boo Smiley MD URINE ORDERABLES CERNER MILLENNIUM * Rapid Qual Drug Screen, Urine ([facility]) (04/21/2012 11:15 AM EDT) U YANNI Screen [...] testing device is being used in the [facility] Chemistry Laboratory. Please contact the chemistry laboratory at [phone] with questions. Urine specimen (specimen) 04/21/2012 11:15 AM EDT 04/21/2012 11:42 AM EDT Narrative Resulting Agency Comment Spec In Lab Boo Smiley MD URINE ORDERABLES [facility] documented in this encounter Visit Diagnoses Diagnosis [...] EDT 10 mg HYDROmorphone (DILAUDID) 1 mg/mL [employer] 30 mL Intravenous, [employer] ONLY, Starting on Sun04/21/12 at 1615, Until [...] drop, Left Eye, ONCE, 1 dose, On Nesbit 04/21/12 at 1300, Routine Given by Other [...] Patch documented in this encounter Care Teams Male Model Relationship Specialty Start Date End Date Unknown None PCP - General 04/21/12 05/22/12 documented as of this encounter
--- OUTSIDE RECORDS SUMMARY | 2024-06-01 15:21 | XMS_ITS | Clinical Summary ---
Author Organization [facility] Address [address] [place] [address] Care Team Providers Care Activities Officer Name Role Phone Madison Tineo AL Primary Care Provider [phone] Allergies No known active allergies Medications Medication [...] Team Description 04/04/2024 12:45 EDT Office Visit [facility] Ophthalmology - [address] [address] Princess Andino MD from Last 3 Months [...] Info) Description 07/29/2024 13:00 EDT Office Visit [facility] Ophthalmology [address] [id number] Princess Andino MD [address] [place] [phone] 08/08/2024 10:00 EDT Post-op Visit [facility] Ophthalmology - [address] [id number] Princess Andino MD [address] [place] [phone] Health Maintenance Due Date Last Done [...] Andino MD OPHTH PHOTOGRAPHY Performing Organization Address [facility] Co de Phone Number [facility] [...] MD OPHTH VISUAL FIELD Performing Organization Address [facility] de Phone Number [facility] OPHTHALMOLOGY * HEPATITIS C AB W REFLEX TO HCV RNA BY PCR (09/14/2022 10:00 EDT) Hep C Antibody Negative Negative 09/15/2022 9:33 EDT [facility] Blood VENOUS BLOOD / Unknown 09/14/2022 10:00 EDT 09/14/2022 21:26 EDT Provider Outr Resulting Lab CHEMISTRY & BLOOD GAS ORDERABLES Performing Organization Address [facility] Co de Phone Number [facility] [address] [place] [address] from Last 3 Months or Most Recently Relevant to Health Maintenance Advance Directives For more information, please contact: [phone] * Full Code (Latest Code Status on File) Date Activated Date Inactivated Comments 05/07/2012 14:07 05/14/2012 16:17 Care Teams Activities Officer Relationship Specialty Start Date End Date Madison Tineo FNP [address] [place] [address] PCP - General 01/05/21
--- OUTSIDE RECORDS SUMMARY | 2024-06-01 15:21 | XMS_ITS | Referral Summary ---
Author Organization [facility] Address [address] [place] [address] Care Team Providers Care Production Machine Tender Name Role Phone Madison Tineo AL Primary Care Provider [phone] Encounters Date Type Department Care Team Description 04/04/2024 12:45 EDT Office Visit [facility] Ophthalmology - [address] [place] [address] [place], [place] [address] Princess Andino MD from Last 3 Months [...] Info) Description 07/29/2024 13:00 EDT Office Visit [facility] Ophthalmology [address] [phone] Princess Andino MD [address] [place] [phone] 08/08/2024 10:00 EDT Post-op Visit [address] [address]2811 Princess Andino MD [address] [place] [phone] Procedures Procedure Name Priority Date/Time Associated [...] - BOTH EYES (04/04/2024 14:19 EDT) Narrative [facility] OPHTHALMOLOGY - 04/04/2024 14:19 EDT Right Eye Findings include dermatochalasis. Left Eye Findings include dermatochalasis. Princess Andino MD OPHTH PHOTOGRAPHY [facility] OPHTHALMOLOGY * JUAN VF 64-2 - OU - BOTH EYES (04/04/2024 14:19 EDT) Narrative [facility] OPHTHALMOLOGY - 04/04/2024 14:19 EDT Visual field: Superior 64 taped and untaped Indication: Bilateral upper eyelid Dermatochalasis Right eye: >30% improvement in superior VF with taping of the upper eyelid Left eye: >30% improvement in superior VF with taping of the upper eyelid Princess Andino MD OPHTH VISUAL FIELD Performing Organization Address City/[facility]/ZIP Co de Phone Number [facility] OPHTHALMOLOGY * HEPATITIS C AB W REFLEX TO HCV RNA BY PCR (09/14/2022 10:00 EDT) Hep C Antibody Negative Negative 09/15/2022 9:33 EDT [facility] Blood VENOUS BLOOD / Unknown 09/14/2022 10:00 EDT 09/14/2022 21:26 EDT Provider Outr Resulting Lab CHEMISTRY & BLOOD GAS ORDERABLES Performing Organization Address [facility] Co de Phone Number [facility] [address] [place] [address] from Last 3 Months or Most Recently Relevant to Health Maintenance Advance Directives For more information, please contact: [phone] * Full Code (Latest Code Status on File) Date Activated Date Inactivated Comments 05/07/2012 14:07 05/14/2012 16:17 Care Teams Production Machine Tender Relationship Specialty Start Date End Date Madison Tineo [place] [address] [place] [address] PCP - General 01/05/21
--- OUTSIDE RECORDS SUMMARY | 2024-06-01 15:21 | XMS_ITS | Encounter Summary ---
Author Organization [facility] Address [address] [place] [address] Care Team Providers Care Dimensional Integration Engineer Name Role Phone Madison Tineo AIR CONDITIONING INSTALLER Primary Care Provider [phone] Encounter Details Date Type Department Care Team (Late Contact Info) Description 09/14/2022 Lab Requisition [facility] Pathology & Laboratory Medicine [address] [address] Outr Resulting Lab, Provider Social History Tobacco [...] Info) Description 07/29/2024 13:00 EDT Office Visit [facility] Ophthalmology [address] [phone] Princess Andino MD [address] [place] [address], [address] [place] [phone] 08/08/2024 10:00 EDT Post-op Visit [facility] Ophthalmology [address] [address] Princess Andino MD [address] [facility], [address] [place] [phone] documented as of this encounter Procedures Procedure Name Priority Date/Time Associated Diagnosis Comments HIV 1/2 ANTIGEN AND ANTIBODY, 4TH GENERATION Routine 09/14/2022 10:00 EDT documented in this encounter Results * HIV 1/2 ANTIGEN AND ANTIBODY, 4TH GENERATION (09/14/2022 10:00 EDT) HIV 1 and 2 Antibody/p24 Antigen, 4th Generation Negative Negative 09/15/2022 9:32 EDT [facility] Comment:If acute HIV-1 infec tion is suspected in a high risk patient, submit plasma specimen for HIV-1 RNA quantitation test. Blood VENOUS BLOOD / Unknown 09/14/2022 10:00 EDT 09/14/2022 21:27 EDT Narrative [facility] - 09/15/2022 9:32 EDT Fourth Generation assay performed on the Siemens Centaur XPT. Provider Outr Resulting Lab IMMUNOLOGY A ND SEROLOGY ORDERABLES [facility] [address] [place] [address] documented in this encounter Visit Diagnoses Not on filedocumented in this encounter Care Teams Dimensional Integration Engineer Relationship Specialty Start Date End Date Madison Tineo FNP Adrien [place] [address] PCP - General 01/05/21 documented as of this encounter
--- OUTSIDE RECORDS SUMMARY | 2024-06-01 15:21 | XMS_ITS | Encounter Summary ---
Author Organization [facility] [place] [address] Care Team Providers Care Truck Despatcher Name Role Phone Unknown Primary Care Provider Unavailabl e Encounter Details Date Type Department Care Team (Late st Contact Info) Description 04/21/2012 Orders Only [place] [phone] Juan Wood MD [facility] [place] [address] Social History Tobacco Use Types Packs/Day Years Used Date Smoking Tobacco: Never Assessed Sex and Gender Information Value Date Recorded Sex Assigned at Not on file Gender Identity Not on file Sexual Orientation Not on file documented as of this encounter Plan of Treatment Not on file documented as of this encounter Visit Diagnoses Not on filedocumented in this encounter Care Teams Truck Despatcher Relationship Specialty Start Date End Date Unknown None PCP - General 04/21/12 05/22/12 documented as of this encounter
--- OUTSIDE RECORDS SUMMARY | 2024-06-01 15:21 | XMS_ITS | Encounter Summary ---
Author Organization [facility] Address [address] [place] [address] Care Team Providers Care Reinforcing Steel Machine Operator Name Role Phone Izzy Tompkins APRN Primary Care Provider Unavailable Areli Tineoh AL Primary Care Provider [phone] Encounter Details Date Type Department Care Team (Late st Contact Info) Description 05/17/2012 Telephone [facility] Case Management - [address] [address] Ladi Gerard CSW [address] [place] [address] Social History Tobacco Use Types Packs/Day Years [...] - 05/17/2012 1124 EDT Social Work: This va underwriter notified prescription for nicotine inhaler requires prior-authorization. Approval denied until patient trials nicotine gum. Dr. Reyes initiated a referral to [facility]. This va underwriter notified patient that he needs to trial the gum; if it is ineffective, script for nicotine inhaler can be re-visited. CHRISTINE Fisher documented in this encounter Plan of Treatment Upcoming Encounters Date Type Department Care Team (Late st Contact Info) Description 07/29/2024 13:00 EDT Office Visit [address] 206171 Princess Andino MD [address] [place] [phone] 08/08/2024 10:00 EDT Post-op Visit [address] [phone] Princess Andino MD [address] [place] [phone] documented as of this encounter Visit Diagnoses Not on filedocumented in this encounter Care Teams Reinforcing Steel Machine Operator Relationship Specialty Start Date End Date Izzy Tompkins APRN PCP - General 05/07/12 01/04/21 Madison Tineo FNP [facility] [place] [address] PCP - General 01/05/21 documented as of this encounter
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
[2024-06-01] MEDS: Lactated Ringers 1,000 ML 80 ML IV (16:03)
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
--- NOTE | 2024-06-01 16:40 | W.PC.ACHO ---
Registration Status: Primary Language: Preferred Language: ED Information & Data Chief Complaint Abd Prob 06/01/24 13:24 Chief Complaint Abd Prob 06/01/24 12:27 Triage Note LLQ pain since yesterday, 06/01/24 12:16 unable to eat, nauseated but no vomiting. Last BM sunday night; poor po intake since . Pain is sharp, unsure of aggravating factors. (Last Reviewed 10/20/22 @ 11:43 by Kesha Holland MD) Hx of splenectomy Most Recent Vital Signs Temperature 37.6 C H 06/01/24 15:51 Temperature Source Tympanic 06/01/24 12:16 Pulse 87 06/01/24 15:51 Pulse Rhythm Regular 06/01/24 15:23 Pulse 91 H 06/01/24 15:01 Respiratory Rate 16 06/01/24 15:51 Respiratory Effort Normal, Non-Labored 06/01/24 15:23 Respiratory Depth Normal 06/01/24 15:23 Respiratory Pattern Normal 06/01/24 15:23 Blood Pressure 137/72 06/01/24 15:51 Blood Pressure Mean 94 06/01/24 15:01 Blood Pressure Position Sitting 06/01/24 12:16 Pulse Oximetry 95 06/01/24 15:51 Oxygen Delivery Method Room Air 06/01/24 15:51 Oxygen Flow Rate 0 06/01/24 15:51 Pain Level 8 06/01/24 15:51 Allergies lisinopril Adverse Reaction (Intermediate, Verified 03/18/24 13:11) Other (See Comment) pravastatin Adverse Reaction (Intermediate, Verified 06/01/24 12:55) ? Precautions Isolation Standard precaution 06/01/24 13:24 Active Medications Generic Name Dose Route Start Last Admin Trade Name Albinq PRN Reason Stop Dose Admin Ringer's Solution 1,000 mls @ 80 mls/hr 06/01/24 14:45 06/01/24 16:03 IV 80 mls/hr INFUSION MING Administration Iohexol 100 ml 06/01/24 14:00 06/01/24 13:58 Omnipaque 350 Mg/Ml 100 Ml Btl IJ 07/01/24 23:59 100 ml DIRECTED MING Administration Sodium Chloride 50 ml 06/01/24 14:00 06/01/24 13:59 Normal Saline - Diluent 50 Ml Vial IJ 50 ml .FOR DI USE MING Administration IV IV Catheter Type [Left Forearm Peripheral IV ] IV Catheter Gauge [Left 18 Forearm] Diagnostics 06/01/24 Range/Units 13:07 WBC 27.52 H* (4.4-10.8) 10^3/uL RBC 4.81 (4.36-5.78) 10^6/uL Hgb 15.6 (13.5-17.5) g/dL Hct 44.5 (40.0-50.0) % MCV 93 (80-95) fL MCH 32.4 (27.0-33.0) pg MCHC 35.1 (32.0-36.0) % RDW 13.4 (11.8-14.1) % Plt Count 307 (130-400) 10^3/uL MPV 11.2 H (8.0-11.0) fL Immature Gran % 0.7 % Neutrophils % 86.9 % Lymphocytes % 5.1 % Monocytes % 7.0 % Eosinophils % 0.0 % Basophils % 0.3 % Nucleated RBC % 0.0 (0.0-0.3) % Absolute Neutrophils 23.91 H (1.2-6.7) 10^3/uL Absolute Lymphocytes 1.40 (1.2-3.4) 10^3/uL Absolute Monocytes 1.93 H (0.1-0.8) 10^3/uL Absolute Eosinophils 0.00 (0.0-0.7) 10^3/uL Absolute Basophils 0.08 (0.0-0.2) 10^3/uL RBC Morphology Normal ESR 53 H (0-20) mm/hr VBG Lactate 4.1 H* (0.6-1.4) mmol/L Sodium 132 L (136-145) mmol/L Potassium 3.7 (3.5-5.1) mmol/L Chloride 95 L (98-107) mmol/L Carbon Dioxide 24.0 (21.0-32.0) mmol/L Anion Gap 13.0 H (3-11) mmol/L BUN 19 H (7-18) mg/dL Creatinine 1.1 (0.70-1.30) mg/dL Est GFR (CKD-EPI 2020) 75.43 (mL/min/1.73m2) Glucose 258 H (74-106) mg/dL Calcium 9.2 (8.5-10.1) mg/dL Magnesium 1.7 L (1.8-2.4) mg/dL Total Bilirubin 0.87 (0.2-1.0) mg/dL AST 11 L (15-37) U/L ALT 17 (16-63) U/L Alkaline Phosphatase 76 (46-116) U/L C-Reactive Protein 10.87 H (<or=0.5) mg/dL Total Protein 8.0 (6.4-8.2) g/dL Albumin 3.9 (3.4-5.0) g/dL Lipase 92 H (16-77) U/L Procalcitonin 0.2 ng/mL 06/01/24 13:35 Blood Culture - Pending Blood 06/01/24 13:30 Blood Culture - Pending Blood Intake and Output - 24 Hour Total 06/01/24 12:12 thru 06/01/24 15:52 Intake Total 1200 Balance 1200 Weight 74.843 kg Intake: IV 1200 Other: Urine Odor Foul Comment Pt states urine was very yellow and smelt very bad Voiding Methods Toilet Falls Risk Assessment History of Falls Previous History 06/01/24 15:23 Contributing Factors Impairments 06/01/24 15:23 Ambulatory Aids Uses ambulatory device + 06/01/24 15:23 Tubes/Lines With any additional score 06/01/24 15:23 Gait Evaluation W/any additional score 06/01/24 15:23 Cognition Cognitive impairment 06/01/24 15:23 Fall Total Score 103 06/01/24 15:23 Level of Risk Maximum Risk 06/01/24 15:23 v v v v v v v v v Sending and/or Receiving Nurses: Please use comment section below to note any information pertinent to the patient hand-off not included above. Information / Comments:Patient presented with RUQ pain, a fever, and inability to eat or drink that began on 05/30. Pt had not voided since Sunday which was only a dribble. After a work up, he was diagnosed with perforated appendicitis, and sepsis. Reported that patient is alert and oriented x3, lungs clear, with an occasional smokers cough, heart regular sinus rhythm, stomach tender and distended, and skin intact. Temperature 100.3, heart rate 91, BP 133/72, respiratory rate 21, and oxygen saturation in the mid to high 90's. Was administered both tylenol and ketorolac in the ER for his fever and pain, along with a liter of fluid. WBC 27.5, lactate 4.1, and glucose 258. Report received from:Annmarie Ricci
--- NOTE | 2024-06-01 16:57 | ANES.PREOP_ITS ---
General Info Date of Service Date Performed: 06/01/24 Height: 5 ft 8 in Weight: 74.843 kg Body Mass Index (BMI): 25.0 Meds Allergies and Home Medications Allergies Allergy/AdvReac Type Severity Reaction Status Date / Time lisinopril AdvReac Intermediate Other (See Verified 03/18/24 13:11 Comment) pravastatin AdvReac Intermediate ? Verified 06/01/24 12:55 Home Medication ?Medication ?Instructions ?Recorded metoprolol tartrate 100 mg tablet 100 mg PO BID 08/28/14 fluticasone propionate 44 2 puff inhalation BID 01/19/20 mcg/actuation HFA aerosol inhaler (Flovent HFA) albuterol sulfate 90 mcg/actuation 1 inh inhalation Q6H 08/01/21 aerosol inhaler (ProAir HFA) amlodipine 10 mg tablet 10 mg PO DAILY 08/01/21 triamcinolone acetonide 0.1 % 1 applic topical TID 08/01/21 topical cream acetaminophen 500 mg tablet 1,000 mg (2 x 500 mg) PO TID PRN 10/18/21 (Acetaminophen Extra Strength) PRN #60 tabs naltrexone 50 mg tablet 50 mg PO DAILY 03/18/24 naproxen 500 mg tablet (Naprosyn) 500 mg PO BID 03/18/24 Current Visit Medications: Current Medications Generic Name Dose Route Start Last Admin Trade Name Freq PRN Reason Stop Dose Admin Hydromorphone HCl 0.5 mg 06/01/24 12:36 Hydromorphone 2 Mg/Ml Syr IVP Q4H PRN PRN Ringer's Solution 1,000 mls @ 80 mls/hr 06/01/24 14:45 06/01/24 16:03 IV 80 mls/hr INFUSION MING Administration PFSH Active Problems Active Problems: Problem Status Onset Code Sepsis Acute A41.9 Perforated appendicitis Acute K35.32 Rotator cuff arthropathy of right shoulder Acute M12.811 Tendonitis of left rotator cuff Acute M75.82 CAD (coronary artery disease) Chronic I25.10 Left carpal tunnel syndrome Acute G56.02 Right rotator cuff tendonitis Chronic M75.81 Arthritis of lcqvdo-qsfwrbkku-pfklkgvfn joint Chronic M19.039 Arthritis of right acromioclavicular joint Chronic M19.011 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 S42.002K Osteoarthritis of left AC (acromioclavicular) joint Chronic M19.012 Hypertension Chronic I10 Hyperlipidemia Acute E78.5 Trigger index finger of right hand Acute M65.321 Trigger thumb of right hand Acute M65.311 Right carpal tunnel syndrome Acute G56.01 Ascending aorta dilation Acute I77.810 Leukocytosis Acute D72.829 Prediabetes Acute R73.03 COPD (chronic obstructive pulmonary disease) Chronic J44.9 Chronic depression Acute F32.9 Tobacco use disorder Acute F17.200 Hx of traumatic brain injury Acute Z87.820 Alcohol abuse Chronic F10.10 PTSD (post-traumatic stress disorder) Acute F43.10 Bilateral carpal tunnel syndrome Acute G56.03 Ulnar neuropathy at elbow of left upper extremity Acute G56.22 History of bilateral total hip arthroplasty Acute Z96.643 Surgical History Surgical History Hx of splenectomy Tobacco Smoking/Tobacco Use Status: Current every day Tobacco Type: cigarettes Alcohol Alcohol Intake: current Alcohol intake frequency: 3 or more drinks per day Alcohol type: beer Substance Use Substance use: Occasionally Substance use type: does not use Details: Per caser up he has days where is very intoxicated, and others he practices sobriety Vital Signs and Lab Results Vital Signs Most Recent Vital Signs in EMR: Most Recent Vital Signs Temp Pulse Resp BP Pulse Ox 37.6 C H 87 16 137/72 95 06/01/24 15:51 06/01/24 15:51 06/01/24 15:51 06/01/24 15:51 06/01/24 15:51 Lab Results 06/01/24 13:07 06/01/24 13:07 Blood Type / Crossmatch: 2 No Data to Display Complete Blood Count: 2 White Blood Count 27.52 10^3/uL (4.4-10.8) H* 06/01/24 13:07 Red Blood Count 4.81 10^6/uL (4.36-5.78) 06/01/24 13:07 Hemoglobin 15.6 g/dL (13.5-17.5) 06/01/24 13:07 Hematocrit 44.5 % (40.0-50.0) 06/01/24 13:07 Platelet Count 307 10^3/uL (130-400) 06/01/24 13:07 Venous Blood Lactate 4.1 mmol/L (0.6-1.4) H* 06/01/24 13:07 Complete Metabolic Panel: 2 Sodium 132 mmol/L (136-145) L 06/01/24 13:07 Potassium 3.7 mmol/L (3.5-5.1) 06/01/24 13:07 Chloride 95 mmol/L (98-107) L 06/01/24 13:07 Carbon Dioxide 24.0 mmol/L (21.0-32.0) 06/01/24 13:07 BUN 19 mg/dL (7-18) H 06/01/24 13:07 Creatinine 1.1 mg/dL (0.70-1.30) 06/01/24 13:07 Est GFR (CKD-EPI 2020) 75.43 (mL/min/1.73m2) 06/01/24 13:07 Magnesium 1.7 mg/dL (1.8-2.4) L 06/01/24 13:07 Calcium 9.2 mg/dL (8.5-10.1) 06/01/24 13:07 Albumin 3.9 g/dL (3.4-5.0) 06/01/24 13:07 Glucose 258 mg/dL (74-106) H 06/01/24 13:07 C-Reactive Protein 10.87 mg/dL (<or=0.5) H 06/01/24 13:07 Liver Function Panel: 2 Alanine Aminotransferase (ALT/SGPT) 17 U/L (16-63) 06/01/24 13: 07 Aspartate Amino Transf (AST/SGOT) 11 U/L (15-37) L 06/01/24 13: 07 Coagulation Panel: 2 No Data to Display Cardiac Panel: 2 No Data to Display Arterial Blood Gas: 2 No Data to Display Venous Blood Gas: 2 No Data to Display Pancreas Panel: 2 Lipase 92 U/L (16-77) H 06/01/24 13:07 Thyroid Panel: 2 No Data to Display Infectious Disease: 2 No Data to Display Blood Cultures: 2 No Data to Display Toxicology Panel: 2 No Data to Display Imaging and Studies Imaging and Studies Study information below may be from another EMR and interpreted by another provider. Please see original notes in EMR for more complete details. EKG Summary: EKG PATIENT NAME: Vipin Massey UNIT #: [id number] ORDERING PROVIDER: Brandon Holland M.D. PRIMARY CARE PROVIDER: MARIE GARCIA NP DATE/TIME OF SERVICE: 10/20/22 1139 : 1960 PERFORMING LOCATION: .CARD APPROVED REPORT Exam: Resting ECG Reason for Exam: CAD Patient Location: O HR:80 bpm ECG Measurements Heart Rate 80 AXIS CO 186 P 72 QRSd 135 QRS 64 QT 407 T-6 QTc 470 Conclusion Sinus rhythm...normal P axis, V-rate 50- 99 Right bundle branch block...QRSd>120, terminal axis(90,270) Voltage for left ventricular hypertrophy - <Electronically signed by BRANDON HOLLAND MD in OV> E-Sign Date: 10/20/22 E-Sign Time: 1150 Echocardiogram Summary: Patient Name: Vipin Massey Unit #: [id number] Loc: Ordering Provider: Brandon Holland M.D. Status: REG CLI Primary Care Provider: María Silva Date of Exam: 11/30/23 Sex: M Admission Date: 11/30/23 : 1960 Age: 63 APPROVED REPORT EXAM: Comprehensive 2D, Doppler, and color-flow Echocardiogram Patient Location: Out-Patient Electrical Engineering Director: Lucien Eller RDCS (AE) Indications: dilated ascending aorta Conclusion 1. LA upper limits, other chambers normal sizes. 2. Normal LV function EF 60-65%.Normal RV function. 3. Anatomically normal valves. Mild MR,TR without phtn. 4. Normal aortic root. Mildly dilated ascending aorta. 5. No pericardial effusion. Wall motion Left Ventricle The left ventricle is normal size. The left ventricular systolic function is normal. The left ventricular ejection fraction is within the normal range. There is normal left ventricular wall thickness. There is normal LV segmental wall motion. There is no ventricular septal defect visualized. LVEF is 57-60%. Right Ventricle The right ventricle is normal size. Right ventricular systolic function is grossly normal. Atria Left atrium is borderline dilated. The right atrium size is normal. The interatrial septum is intact with no evidence for an atrial septal defect. Aortic Valve The aortic valve is normal in structure. Aortic valve is trileaflet. There is no aortic valvular stenosis. No aortic regurgitation is present. Mitral Valve The mitral valve is normal in structure. No evidence of mitral valve stenosis. Mild mitral regurgitation. Tricuspid Valve The tricuspid valve is normal in structure. There is no tricuspid valve stenosis. Moderate tricuspid regurgitation.The RVSP is 29.0 mmHg. Pulmonic Valve The pulmonary valve is normal in structure. There is no pulmonic valvular stenosis. There is no pulmonic valvular regurgitation. Great Vessels The aortic root is normal in size. The ascending aorta is mildly dilated. Aortic arch is normal in caliber. IVC is normal in size and collapses >50% with inspiration. Pericardium There is no pericardial effusion. 2D Dimensions IVSD d PLAX 0.93 cm M: 0.6-1.2Ao Root d 3.50 cm M: 3.1 - 3.7 LVPW d PLAX 0.94 cm M: 0.6 - 1.2Ao Asc Diam d 3.75 cm M: 2.6 - 3.4 LVID d PLAX 4.84 cm M: 4.2 - 5.8 LVDs 3.31 cm M: 2.5 - 4.0 LV EF Teichholz 59.6 % FS31.70 % LV EDV (Teich)109.6 mL LV ESV (Teich)44.3 mL Stroke Vol Index (Teich)34.74 M-Mode TAPSE 1.52 cm (M/F) >1.7 Auto EF LV EDV O2Y013.4 mLLV EDV R2S841.5 mLLV EDV BP107.1 mL LV ESV A4C47.5 mLLV ESV A2C40.4 mLLV ESV BP43.4 mL LVEF(%) A4C56.9 %LVEF(%) A2C59.8 %LVEF(%) BP59.5 % LV SV A4C62.9 mlLV SV A2C60.1 mlLV SV BP63.7 ml LV CO A4C4.5 L/minLV CO A2C4.1 L/minLV CO BP4.3 L/min HR A4C71.71 BPMHR A2C67.80 BPMLV EDV Index (BP) LA Volume LA Length A4C4.3 cmLA Length A2C4.7 cm LA Area A4C s 14.13 cm2LA Area A2C s 12.75 cm2 LA Vol A4C A-L39.47 mLLA Vol A2C A-L29.48 mLLA Vol Biplane A-L35.6 mL LA Vol/BSA A4C A-LLA Vol/BSA A2C A-LLA Vol/BSA BP A-L 18.9 mL/m2 LA Vol A4C MOD36.6 mLLA Vol A2C MOD27.8 mLLA Vol BP MOD32.8 mL RA Volume RA Area A4C11.3 cm2RA ESV A4C (A-L)22.5mLRA Vol/BSA A4C A-L RA Length A4C4.8 cmRA ESV A4C (MOD)21.3mL LV Diastology MV E' medial0.064 (>0.07 m/s)MV E Vmax 0.68 (0.4-1.3 m/s) MV E/E' MED10.72 (<14)MV A Vmax 0.70 (0.4-1.3 m/s) MV E' lateral0.086 (>0.1 m/s)E/A Ratio 1.0 MV E/E' LAT7.98 (<14) MV E' Average0.075 m/s MV E/E'(average)9.15 Aortic Valve AoV Vmax1.28 m/sLVOT Vmax 0.82 m/s AoV Peak Grad6.5 mmHgLVOT Peak Grad 2.7 mmHg AoV Area (Vmax)1.63 [id number] VTI0.197 m AoV VTI0.316 mLVOT Mean Grad 1.4 mmHg AoV Mean Leonidas.0.89 m/sLVOT SV 50.31 mL AoV Mean Grad3.6 mmHgLVOT Diam s 1.80 cm AoV Area (VTI)1.59 cm2 Velocity Ratio 0.64 Mitral Valve MV DT 158 (160-240 msec) Pulmonary Valve PV Vmax 0.67 (0.5-1.5 m/s)RVOT Vmax 0.65 m/s PV Peak Grad 1.8 mmHgRVOT Peak Gr.1.7 mmHg PV Mean Vel0.49 m/sRVOT VTI0.133 m PV Mean Grad 1.1 mmHgRVOT Mean Gr.1.0 mmHg Tricuspid Valve RA Pressure 3.00 mmHgTR Vmax 2.55 m/s TR Peak Grad 26.0 mmHg RVSP (TR) 29.0 mmHg Ordered By: Brandon Holland M.D. CC: Dictated By: Chanda Urbina M.D. 11/30/23 8810 <Electronically signed by Chanda Urbina M.D. in OV> 11/30/23 1616 Transcribed By: Chanda Urbina MD 11/30/23 [id number] This is privileged, confidential information intended only for the provider named. Any use or distribution by any person other than this provider is strictly prohibited. If you receive this report in error, please notify us immediately at [phone] and return the original report to us at the address above. Thank-you. Anesthesia Assessment and Plan Anesthesia History Personal History: No History of Anesthesia Complications Family History: No Family History of Anesthesia Complications and Family History Unknown Exercise Tolerance Exercise Tolerance: Metabolic Equivalents>4 Pertinent Negatives Pertinent Negatives: No Symptoms of GERD Cardiac & Pulmonary Exam Cardiac Exam: Normal S1/S2 Heart Sounds Pulmonary Exam: Clear Bilateral Breath Sounds Cardiac and Pulmonary Comment:: Smoker with occ smoker?s cough Implantable Cardiac Device Does patient have a Pacemaker or an ICD?: No Airway Exam Known Difficult Airway: No Mallampati Class: 3 Mouth Opening: Normal (> 3cm) Thyromental Distance: Greater than 3 cm Neck Range of Motion: Full ROM Neck Circumference: Normal Teeth Condition: Generalized Poor Dentition Airway Comments: None loose per patient ASA Classification ASA Score: ASA 3 Emergency Case?: Yes NPO Status NPO Status: NPO Clears >2 hours, Solids >8 hours Anesthesia Plan Resuscitation Status: Full Code Anesthesia Technique: General Anesthesia Airway Planned: Endotracheal Tube Monitors Used: Standard Monitors Preoperative Comments:: Acute perforated appendicitis. 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
[2024-06-01 17:16] LABS: Bilirubin Negative (Negative); Blood Negative (Negative); Clarity Clear (Clear); Glucose Negative (Negative); Ketones Trace mg/dL (Negative); Leukocyte Esterase Negative (Negative); Nitrite Negative (Negative); Urobilinogen 0.2 mg/dL (Up to 0.2)
[2024-06-01 17:26] LABS: Bacteria Negative HPF (Negative); C & S Indicated? No; Casts Negative LPF (Negative); Crystals Negative HPF (Negative); Epithelial Cells Rare HPF (Negative); Mucus Negative (Negative); Other Cells Few Transitional (Negative); RBC Negative HPF (0-2); WBC 0-2 HPF (0-5)
[2024-06-01] MEDS: Lactated Ringers 1,000 ML 30 ML IV (17:29)
--- NOTE | 2024-06-01 18:20 | NUR.NOTE ---
Nursing Note: Patient's wallet was placed in the safe
--- NOTE | 2024-06-01 18:55 | APP_PTH ---
PATIENT: Vipin Massey LOC: [place] Cope#:[id number] AGE/SX: 63/M ROOM: 226 RE06/01/[address]: Rito Lawson MD : 1960 BED: A DIS: 06/04/2024 SPEC #: [id number] RECD: 06/02/24 12:43 STATUS: SOUGabbi REQ #: [id number] FENG: 06/01/24 18:[address]: Rito Lawson DEPT: Surgical Specimen RECD BY: Shannan Cortez ENTERED: 06/02/24 12:44 SP TYPE: Appendix OTHR DR: Unknown,Unknown Tissues: 1 - APPENDIX NOT INCIDENTAL Procedures: GROSS AND MICRO LEVEL 3 Comments: [id number]
[2024-06-01] MEDS: Bupivacaine 0.25% Pres-Free W/EPI 30 ML VIAL (19:03)
--- NOTE | 2024-06-01 19:08 | ROE_ITS ---
Date of service: 06/01/24 Time of Service: 19:08 Operative Note Operative Note DATE OF PROCEDURE: 06/01/24 PRE-OP DIAGNOSIS: Acute perforated appendicitis POST-OP DIAGNOSIS: same PROCEDURE: Laparoscopic appendectomy SURGEON: Rito Lawson FINANCIAL ACCOUNTING MANAGER: Vipin Joy ANESTHESIA TYPE: General LMA/ETT Refer to Anesthesia Record ESTIMATED BLOOD LOSS: 25 PATHOLOGY: other (Appendix) COMPLICATIONS: None Patient was transported to: PACU Patient's condition: stable Indications: Vipin is a 63-year-old male with acute onset of abdominal pain. A leukocytosis and lactic acidosis, and a CT scan that supported the diagnosis of acute perforated appendicitis. With peritonitis, and signs of sepsis, I felt operative intervention was the safest option since he had no good target for percutaneous drainage. Findings: Acute perforated appendicitis Procedure Description: After the induction of general anesthesia, I prepped and draped the anterior abdominal wall in the usual fashion. There was an umbilical hernia that was easily reducible. I anesthetized the umbilicus with a generous field block, and incised the skin before dissecting down onto the fascial defect. This defect was opened slightly longitudinally in order to accommodate a 12 mm port. Port was placed into the peritoneal cavity, and the peritoneum was insufflated. There were some adhesions mostly in the upper abdomen, but the lower midline was clear. I anesthetized the skin here, and introduced a 5 mm trocar in the suprapubic position under the direct vision of the laparoscope. Next, by way of the suprapubic port, I perform some gentle dissection of some anterior abdominal wall adhesions using combination of blunt dissection as well as LigaSure. I was able to clear the area around the umbilicus, and a safe area in the left lower abdomen through which I placed another 5 mm port. Next, we placed Vipin in some Trendelenburg position with the left side down. There was small bowel adherent to the right lower quadrant that was erythematous and quite inflamed. It was carefully dissected free. There were some interloop abscesses that were opened, and once the small bowel was mobilized up out of the right lower quadrant, we came down onto a small cavity of feculent peritonitis. The mesoappendix and appendiceal mid body and tip were adherent to the right lower quadrant sidewall. Dissection was used to free this up. There was clearly a perforation of the midportion of the appendix. I was able to grasp the appendix proximal to this more toward its origin. With this controlled, I divided the mesoappendix with sequential fires of the LigaSure down onto the appendiceal base. Although the tissue was a little bit inflamed here, it appeared healthy enough to hold the staple line. Therefore, using a Endo MURRAY stapler with a purple load, I divided the appendix off of the cecum. With the appendix free, was placed in Endo Catch bag. The staple line was examined. It was hemostatic, and appeared healthy enough to heal. Next, I copiously irrigated the right lower quadrant and deep pelvis with 4 L of normal saline solution. Once the effluent was mostly running clear, I placed a round surgical drain into the right lower quadrant across the pelvis and brought it out through the left lower abdomen port site. The 5 mm suprapubic port was removed and was hemostatic. The 12 mm port and appendix in the Endo Catch bag were then removed by way of the umbilical incision. The umbilical fascia was grasped with Laya clamps, and the midline fascia was closed with interrupted 0 Vicryl sutures. Skin and soft tissues were irrigated, and the skin was closed with running subcuticular stitch. The drain was affixed in place to the skin with a nylon suture. The drain was placed to close suction bulb drainage. Band-Aids were applied, the patient was allowed awaken from anesthesia prior to transfer to the recovery unit.
--- NOTE | 2024-06-01 19:34 | W.ANESPOSTOP ---
Postoperative Evaluation Date, Time and Location Date Performed: 06/01/24 Time Performed: 19:34 Patient Location: PACU Vital Signs Most Recent Imported Vital Signs: Most Recent Vital Signs Temp Pulse Resp BP Pulse Ox 36.5 C 94 H 20 93/72 L 92 06/01/24 19:16 06/01/24 19:26 06/01/24 19:26 06/01/24 19:26 06/01/24 19:26 Pain Score Most Recent Pain Score: Most Recent Pain Score Pain Level 8 06/01/24 15:51 No Pain at this time unless coughing. Patient educated to brace abdomen with pillow. Assessment Mental Status: Arousable with meaningful communication Airway and Respiratory Function: Abnormal Respiratory exam (See explanation) (Requiring 2lpm at this point) and Patient has been admitted and is receiving care as an inpatient Cardiovascular Function: Hemodynamically Stable Hydration Status: Adequately Hydrated Nausea & Vomiting: No Nausea or Vomiting Pain: Pt. Denies Any Pain Peripheral Nerve Block: Patient did not receive a nerve block
[2024-06-01] MEDS: PIPERACILLIN/TAZO 3.375 GM in Normal Saline 50 ML IVPB (20:46)
[2024-06-01] MEDS: Enoxaparin 40 MG/0.4 ML SYR SC (20:46)
[2024-06-01] MEDS: Normal Saline Flush 10 ML SYR IVP (20:47)
[2024-06-01] MEDS: Lactated Ringers 1,000 ML 75 ML IV (21:14)
[2024-06-01] MEDS: traMADol 50 MG TAB PO (21:29)
[2024-06-01 22:25] LABS: Anion Gap 9.1 mmol/L (3-11); BUN 16 mg/dL (7-18); CO2 26.9 mmol/L (21.0-32.0); CREATININE 0.8 mg/dL (0.70-1.30); Calcium 8.2 mg/dL (8.5-10.1); Chloride 99 mmol/L (98-107); Estimated GFR 99.44 (mL/min/1.73m2); Glucose 162 mg/dL (74-106); Potassium 3.6 mmol/L (3.5-5.1); Sodium 135 mmol/L (136-145)
[2024-06-02] MEDS: Albuterol HFA 8 GM 60 PUFF INH IH (01:31)
[2024-06-02] MEDS: ACETAMINOPHEN 1,000 MG/100 ML BTL 400 MG IVPB ×3 (03:00→20:22)
[2024-06-02] MEDS: PIPERACILLIN/TAZO 3.375 GM in Normal Saline 50 ML IVPB ×4 (03:00→20:22)
[2024-06-02 06:38] LABS: Abs Immature Grans 0.19 10^3/uL (0.0-0.06); Absolute Monocyte Count 1.48 10^3/uL (0.1-0.8); Basophils % 0.5 %; HCT 37.6 % (40.0-50.0); HGB 13.1 g/dL (13.5-17.5); Immature Grans % 0.6 %; Lymphocytes % 8.1 %; MCH 32.6 pg (27.0-33.0); MCHC 34.8 % (32.0-36.0); MCV 94 fL (80-95); MPV 10.8 fL (8.0-11.0); Monocytes % 4.9 %; Neutrophils % 85.9 %; Platelet Count 260 10^3/uL (130-400); RBC 4.02 10^6/uL (4.36-5.78); RDW 13.7 % (11.8-14.1); RDW-SD 47.5 fL
[2024-06-02 06:41] LABS: Absolute Basophil Count 0.15 10^3/uL (0.0-0.2); Absolute Lymphocyte Count 2.45 10^3/uL (1.2-3.4); Absolute Neutrophil Count 26.02 10^3/uL (1.2-6.7)
[2024-06-02 06:43] LABS: WBC 30.29 10^3/uL (4.4-10.8)
[2024-06-02] MEDS: traMADol 50 MG TAB PO ×2 (06:48→12:12)
[2024-06-02 06:51] LABS: ALT 11 U/L (16-63); AST 12 U/L (15-37); Albumin 2.8 g/dL (3.4-5.0); Alkaline Phosphatase 58 U/L (46-116); Anion Gap 12.3 mmol/L (3-11); BUN 13 mg/dL (7-18); Bilirubin, Total 1.35 mg/dL (0.2-1.0); CO2 25.7 mmol/L (21.0-32.0); CREATININE 0.7 mg/dL (0.70-1.30); Calcium 8.5 mg/dL (8.5-10.1); Chloride 99 mmol/L (98-107); Estimated GFR 103.53 (mL/min/1.73m2); Glucose 156 mg/dL (74-106); Potassium 3.5 mmol/L (3.5-5.1); Sodium 137 mmol/L (136-145); Total Protein 6.3 g/dL (6.4-8.2)
[2024-06-02 06:54] LABS: Diff Comment Agrees w/ Instrument; RBC Morphology Normal
[2024-06-02 07:39] VITALS: BP 115/72; PULSE 85; RESP 18; TEMP 36.9; O2SAT 94
[2024-06-02] MEDS: Psyllium PKT 1 EACH PO (08:20)
[2024-06-02] MEDS: Metoprolol 50 MG TAB 100 MG PO ×2 (08:20→20:21)
[2024-06-02] MEDS: amLODIPine 10 MG TAB PO (08:20)
[2024-06-02] MEDS: Naltrexone 50 MG TAB PO (08:20)
[2024-06-02] MEDS: Mometasone 220 MCG 14 DOSE INHALER 1 PUFF IH (08:39)
[2024-06-02 08:40] VITALS: O2SAT 91
[2024-06-02] MEDS: Normal Saline Flush 10 ML SYR IVP ×2 (09:06→20:23)
[2024-06-02 09:08] VITALS: O2SAT 93
--- NOTE | 2024-06-02 09:56 | PDOC.CMIN ---
Date of service: 06/02/24 Time of Service: 09:56 Care Management Initial Assmt Initial Assessment Reason for Hospitalization: ruptured appendix Functional Status/Living Situation Patient Presentation: Vipin was sitting up in bed when CM met with him. He was polite and agreeable to conversation. Vipin stated that he is having a lot of pain since his surgery last evening. He does know that he can ask for pain medication when needed. Vipin is in the [facility] program for people with a TBI. He has a caregiver with him in his room and receives 40 hours of caregiver support a week. He also has a employment evaluator/case manager. Vipin is fairly independent with ADLs and does not need to use a cane or a walker for ambulatory assistance. Town of Residence: [place] Resides with: Alone and Other (has 40 hours of caregiver services/week) Significant Other/Family: Local (Vipin has one child, a daughter, who lives in [place]. He also has 4 granddaughters and 2 great grandchildren) Caregiver/Guardian: has caregivers Employment Status: Disabled Instrumental Activities of Daily Living (ADLs): Independent Medications Medication Management: No Issues/Barriers identified Physical Functioning/Mobility Assistive Device: none Advance Directives Advance Directives: Do you have an Advance Directive: N 08/28/14 14:01 AD On File at [facility]: N 08/28/14 14:01 Date Asked 06/01/24 06/01/24 12:26 AD Date Reviewed COLST On File at [facility] COLST Date Scanned Code Status Resuscitation Status Full Code Portal Pt does not currently have a portal and education provided: No Insurance Coverage/Financial Issues Insurance: Medicaid ACO Member: Yes Care Team Visit Care Team Role Provider Type Unknown Unknown Primary Care Provider STAFF PHYSICIAN DIANEL[facility] PHYSICIANS TRIMMING OPERATOR Rito Lawson MD Admit Provider [facility] STAFF PHYSICIAN Attending Provider Discharge Potential Discharge Needs: PCP F/U Appt (may need to establish with PCP) Anticipated Barriers to Discharge: Medical Status Patient/Family Education Needs: Review discharge instructions, discuss Ask Me Three Transportation: Private vehicle Plan: Anticipate vipin will be discharged home, possibly with new home health services, when medically cleared. He will follow up with surgery and transport with family. CM will follow and continue to assess for discharge needs. 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) Injection: 01/08/23; 01/19/2020; 02/26/2019 Hypertension (Chronic) Hyperlipidemia (Acute) Trigger index finger of right hand (Acute) Injection: 06/02/2021 Trigger thumb of right hand (Acute) Injection: 06/02/2021 S/P Release: 01/04/2022 Right carpal tunnel syndrome (Acute) S/P ECTR: 01/04/2022 Ascending aorta dilation (Acute) Leukocytosis (Acute) Prediabetes (Acute) COPD (chronic obstructive pulmonary disease) (Chronic) Chronic depression (Acute) Tobacco use disorder (Acute) Hx of traumatic brain injury (Acute) Alcohol abuse (Chronic) PTSD (post-traumatic stress disorder) (Acute) Bilateral carpal tunnel syndrome (Acute) Ulnar neuropathy at elbow of left upper extremity (Acute) History of bilateral total hip arthroplasty (Acute) DOS: 08/10/21 Surgical History Hx of splenectomy Social History Smoking/Tobacco Use Status: Current every day Tobacco Type: cigarettes Smoking risk assessment performed?: Yes Alcohol Intake: current Alcohol Intake frequency: 3 or more drinks per day Alcohol type: beer Drug use: Occasionally Substance use type: does not use Details: Per employment evaluator/case manager he has days where is very intoxicated, and others he practices sobriety Housing: house Current gender identity: male Do you feel safe at home: Yes Do you feel safe in your relationship?: Yes SDOH(Care Management) Screening Will the Patient Participate in the Screening?: Declined to provide
--- NOTE | 2024-06-02 10:39 | PGE_ITS ---
Date of Service Date of service: 06/02/24 Time of Service: 10:39 Assessment and Plan Assessment and plan (1) Chronic depression: Status: Acute (2) Alcohol abuse: Status: Chronic (3) Hypertension: Status: Chronic Qualifiers: Hypertension type: primary hypertension Qualified Code(s): I10 - Essential (primary) hypertension (4) CAD (coronary artery disease): Status: Chronic (5) Ascending aorta dilation: Status: Acute (6) Hyperlipidemia: Status: Acute (7) Prediabetes: Status: Acute (8) Perforated appendicitis: Status: Acute Assessment and plan: Postop day 1. Status post laparoscopic appendectomy for ruptured appendicitis with drain placement Antibiotics: Zosyn DVT: Lovenox Pain control: Tylenol/Toradol scheduled. And as needed p.o. Ultram -Soft diet -Encourage ambulation -Acapella for secretion management -Labs reviewed. Repeat labs and hand -Patient is going to be here for a few days for IV antibiotics and until white count is trending down -Supportive care (9) Leukocytosis: Status: Acute (10) Sepsis: Status: Acute (11) Hx of traumatic brain injury: Status: Acute (12) COPD (chronic obstructive pulmonary disease): Status: Chronic (13) Tobacco use disorder: Status: Acute Subjective Subjective Interval history since last seen: Pt is doing well. no headaches. No CP or SOB. no productive cough. no dysuria. no leg pain or swelling. He did eat breakfast but he does not have any appetite. He is passing gas. He has been able to urinate. He is complaining of pain at the incision sites He has not been up walking in the hallways. I strongly encouraged him to do this and I did discuss this with nursing. Exam Narrative Exam Narrative: PHYSICAL EXAM GENERAL APPEARANCE: Alert, healthy appearance, oriented, x 3,? in no acute distress HYDRATION: Well hydrated HEAD, EYES, EARS, NECK, THROAT: Head is normocephalic, pupils equal, round, reactive to light and accommodation, ocular movement intact, sclera clear and no jaundice. ?Dentition intact. No sore throat.? No jaw pain. No thrush LUNGS: normal respiration/normal chest excursion. Expiratory wheeze at the base of both lungs. ?HEART: Regular rate and rhythm. no murmurs EXTREMITY: No edema or cyanosis.? no leg pain, redness, swelling.? ABDOMEN: He does have bowel sounds but they are decreased. Blood coming out of the drain is seropurulent. Incisions are dressed with no strikethrough Objective Last Vital Signs Temp 36.9 C 06/02/24 07:39 Pulse 85 06/02/24 07:39 Resp 18 06/02/24 07:39 BP 115/72 06/02/24 07:39 Pulse Ox 93 06/02/24 09:08 Laboratory Results - last 24 hr 06/01/24 06/01/24 06/01/24 13:07 15:57 22:07 WBC 27.52 H* RBC 4.81 Hgb 15.6 Hct 44.5 MCV 93 MCH 32.4 MCHC 35.1 RDW 13.4 Plt Count 307 MPV 11.2 H Immature Gran % 0.7 Neutrophils % 86.9 Lymphocytes % 5.1 Monocytes % 7.0 Eosinophils % 0.0 Basophils % 0.3 Nucleated RBC % 0.0 Absolute Neutrophils 23.91 H Absolute Lymphocytes 1.40 Absolute Monocytes 1.93 H Absolute Eosinophils 0.00 Absolute Basophils 0.08 RBC Morphology Normal ESR 53 H VBG Lactate 4.1 H* Sodium 132 L 135 L Potassium 3.7 3.6 Chloride 95 L 99 Carbon Dioxide 24.0 26.9 Anion Gap 13.0 H 9.1 BUN 19 H 16 Creatinine 1.1 0.8 Est GFR (CKD-EPI 2020) 75.43 99.44 Glucose 258 H 162 H Calcium 9.2 8.2 L Magnesium 1.7 L Total Bilirubin 0.87 AST 11 L ALT 17 Alkaline Phosphatase 76 C-Reactive Protein 10.87 H Total Protein 8.0 Albumin 3.9 Lipase 92 H Procalcitonin 0.2 Urine Color Yellow Urine Clarity Clear Urine pH 6.0 Ur Specific [place] 1.010 Urine Protein 30 H Urine Ketones Trace H Urine Blood Negative Urine Nitrite Negative Urine Bilirubin Negative Urine Urobilinogen 0.2 Ur Leukocyte Esterase Negative Urine RBC Negative Urine WBC 0-2 Ur Epithelial Cells Rare Urine Crystals Negative Urine Bacteria Negative Urine Casts Negative Urine Mucus Negative Urine Other Few Transitional Ur Culture Indicated? No Urine Glucose Negative 06/02/24 06:30 WBC 30.29 H* RBC 4.02 L Hgb 13.1 L D Hct 37.6 L MCV 94 MCH 32.6 MCHC 34.8 RDW 13.7 Plt Count 260 MPV 10.8 Immature Gran % 0.6 Neutrophils % 85.9 Lymphocytes % 8.1 Monocytes % 4.9 Eosinophils % 0.0 Basophils % 0.5 Nucleated RBC % 0.0 Absolute Neutrophils 26.02 H Absolute Lymphocytes 2.45 Absolute Monocytes 1.48 H Absolute Eosinophils 0.00 Absolute Basophils 0.15 RBC Morphology Normal ESR VBG Lactate Sodium 137 Potassium 3.5 Chloride 99 Carbon Dioxide 25.7 Anion Gap 12.3 H BUN 13 Creatinine 0.7 Est GFR (CKD-EPI 2020) 103.53 Glucose 156 H Calcium 8.5 Magnesium Total Bilirubin 1.35 H AST 12 L ALT 11 L Alkaline Phosphatase 58 C-Reactive Protein Total Protein 6.3 L Albumin 2.8 L Lipase Procalcitonin Urine Color Urine Clarity Urine pH Ur Specific [place] Urine Protein Urine Ketones Urine Blood Urine Nitrite Urine Bilirubin Urine Urobilinogen Ur Leukocyte Esterase Urine RBC Urine WBC Ur Epithelial Cells Urine Crystals Urine Bacteria Urine Casts Urine Mucus Urine Other Ur Culture Indicated? Urine Glucose PAWSS Have you Been Recently Intoxicated or Drunk Within the Last 30 days?: No Have you Ever Experienced Previous Episodes of Alcohol Withdrawal?: No Have you ever Experienced Withdrawal Seizures?: No Have you ever Experienced Delirium Tremens(DT)s?: No Have you ever undergone Alcohol Rehabilitation Treatment (i.e, inpt ot outpatient treatment programs)?: No Have you ever Experienced Blackouts?: No Have you ever Combined Alcohol with other Downers within the last 90 days?: No Have you ever Combined Alcohol with any other Substance of Abuse during the last 90 days?: No Positive Blood Alcohol level on Presentation? [PCS.BAL]: No Evidence of Increased Autonomic Activity (i.e. HR>120, tremor, sweating, agitation, nausea)?: No Result: 0 Time Spent with Patient Time Spent with Patient: 25-34 minutes Time was spent: preparing to see the patient(eg.review tests), obtaining and/or reviewing separately otained hiistory, ordering medications,tests, procedures, referring, communicating with other health home care nurse, indepentently interpreting results, counseling the patient, care coordination and other
[2024-06-02] MEDS: Ketorolac 15 MG/ML VIAL IVP ×2 (13:44→20:21)
[2024-06-02 15:15] VITALS: BP 125/75; PULSE 79; RESP 18; TEMP 37.2; O2SAT 93
[2024-06-02] MEDS: Lactated Ringers 1,000 ML 75 ML IV (17:44)
[2024-06-02] MEDS: Enoxaparin 40 MG/0.4 ML SYR SC (20:22)
[2024-06-02 23:33] VITALS: BP 131/73; PULSE 77; RESP 19; TEMP 36.1; O2SAT 92
[2024-06-03] MEDS: Ketorolac 15 MG/ML VIAL IVP ×4 (03:00→19:43)
[2024-06-03] MEDS: ACETAMINOPHEN 1,000 MG/100 ML BTL 400 MG IVPB ×3 (03:00→19:43)
[2024-06-03] MEDS: Ondansetron 4 MG/2 ML VIAL IVP (03:05)
[2024-06-03] MEDS: PIPERACILLIN/TAZO 3.375 GM in Normal Saline 50 ML IVPB ×4 (03:05→19:45)
[2024-06-03 06:52] LABS: Abs Immature Grans 0.18 10^3/uL (0.0-0.06); Absolute Basophil Count 0.09 10^3/uL (0.0-0.2); Absolute Lymphocyte Count 1.93 10^3/uL (1.2-3.4); Absolute Monocyte Count 1.44 10^3/uL (0.1-0.8); Basophils % 0.4 %; Eosinophils % 0.5 %; HCT 36.5 % (40.0-50.0); HGB 12.9 g/dL (13.5-17.5); Immature Grans % 0.8 %; Lymphocytes % 8.6 %; MCH 32.7 pg (27.0-33.0); MCHC 35.3 % (32.0-36.0); MCV 93 fL (80-95); MPV 11.8 fL (8.0-11.0); Monocytes % 6.4 %; Neutrophils % 83.3 %; Platelet Count 238 10^3/uL (130-400); RBC 3.94 10^6/uL (4.36-5.78); RDW 13.6 % (11.8-14.1); RDW-SD 46.5 fL; WBC 22.45 10^3/uL (4.4-10.8)
[2024-06-03 06:54] LABS: Absolute Eosinophil Count 0.11 10^3/uL (0.0-0.7)
[2024-06-03 07:21] LABS: C-Reactive Protein > 25.00 mg/dL (<or=0.5)
[2024-06-03 07:27] VITALS: BP 140/81; PULSE 76; RESP 20; TEMP 36.7; O2SAT 90
--- NOTE | 2024-06-03 07:49 | W.PM.PROGNOT ---
Date of Service Date of service: 06/03/24 Time of Service: 07:49 Assessment and Plan Assessment and plan (1) Alcohol abuse: Status: Chronic (2) Hypertension: Status: Chronic Qualifiers: Hypertension type: primary hypertension Qualified Code(s): I10 - Essential (primary) hypertension (3) CAD (coronary artery disease): Status: Chronic (4) Ascending aorta dilation: Status: Acute (5) Hyperlipidemia: Status: Acute (6) Prediabetes: Status: Acute (7) Perforated appendicitis: Status: Acute Assessment and plan: POD#2 Patient had some nausea and vomiting earlier this morning. This seems to resolve. Etiology He has good bowel sounds today. Flatplate of the abdomen does not show any obstructions I do not feel needs NG tube at this time. He needs to be up and walking. And need to get his bowels moving/ continue supportive care. (8) Leukocytosis: Status: Acute (9) Sepsis: Status: Acute (10) COPD (chronic obstructive pulmonary disease): Status: Chronic (11) Tobacco use disorder: Status: Acute (12) Hypokalemia due to excessive gastrointestinal loss of potassium: Status: Acute Subjective Subjective Interval history since last seen: Patient had severe nausea and vomiting earlier this a.m. This time I see him he is feeling better. He did receive some Compazine and a dose of milk of magnesia. He is passing gas but has not moved his bowels. Nausea is better and he would like to try a cup of coffee. No CP or SOB. no productive cough. no dysuria. no leg pain or swelling. Exam Const Other: PHYSICAL EXAM GENERAL APPEARANCE: Alert, healthy appearance, oriented, x 3,? in no acute distress HYDRATION: Well hydrated HEAD, EYES, EARS, NECK, THROAT: Head is normocephalic, pupils equal, round, reactive to light and accommodation, ocular movement intact, sclera clear and no jaundice. ?Dentition intact. LUNGS: normal respiration/normal chest excursion. ?Clear to auscultation bilaterally. ?No wheeze. ?HEART: Regular rate and rhythm. no murmurs EXTREMITY: No edema or cyanosis.? no leg pain, redness, swelling.? ABDOMEN: good BS. Incisions are c/d/i Normal bowel sounds.?? Objective Last Vital Signs Temp 36.7 C 06/03/24 07:27 Pulse 76 06/03/24 07:27 Resp 20 06/03/24 07:27 BP 140/81 06/03/24 07:27 Pulse Ox 90 L 06/03/24 07:27 Laboratory Results - last 24 hr 06/03/24 05:35 WBC 22.45 H RBC 3.94 L Hgb 12.9 L Hct 36.5 L MCV 93 MCH 32.7 MCHC 35.3 RDW 13.6 Plt Count 238 MPV 11.8 H Immature Gran % 0.8 Neutrophils % 83.3 Lymphocytes % 8.6 Monocytes % 6.4 Eosinophils % 0.5 Basophils % 0.4 Nucleated RBC % 0.0 Absolute Neutrophils 18.70 H Absolute Lymphocytes 1.93 Absolute Monocytes 1.44 H Absolute Eosinophils 0.11 Absolute Basophils 0.09 C-Reactive Protein > 25.00 H PAWSS Have you Been Recently Intoxicated or Drunk Within the Last 30 days?: No Have you Ever Experienced Previous Episodes of Alcohol Withdrawal?: No Have you ever Experienced Withdrawal Seizures?: No Have you ever Experienced Delirium Tremens(DT)s?: No Have you ever undergone Alcohol Rehabilitation Treatment (i.e, inpt ot outpatient treatment programs)?: No Have you ever Experienced Blackouts?: No Have you ever Combined Alcohol with other Downers within the last 90 days?: No Have you ever Combined Alcohol with any other Substance of Abuse during the last 90 days?: No Positive Blood Alcohol level on Presentation? [PCS.BAL]: No Evidence of Increased Autonomic Activity (i.e. HR>120, tremor, sweating, agitation, nausea)?: No Result: 0 Time Spent with Patient Time Spent with Patient: <25 minutes Time was spent: preparing to see the patient(eg.review tests), obtaining and/or reviewing separately otained hiistory, ordering medications,tests, procedures, referring, communicating with other health residential care officer, indepentently interpreting results, counseling the patient, care coordination and other
[2024-06-03 07:58] LABS: Lab Add On Test DONE
--- NOTE | 2024-06-03 08:05 | DI.RAD_ITS ---
Exam(s) XR ABDOMEN FLAT UPRIGHT EXAM: XR ABDOMEN FLAT UPRIGHT CLINICAL HISTORY: postop ileus. TECHNIQUE: 2D digital imaging was performed. COMPARISON: CT CT THORAX ABD/PEL CTA from 06/01/2024 FINDINGS: Two views-supine and upright There is a surgical drain in place with its distal tip in the right lower quadrant. The bowel gas pa ttern is nonspecific. No evidence of bowel obstruction. Small amount of free air subjacent to the r ight hemidiaphragm seen on the upright view, consistent with postop status. No abnormal calcificatio ns seen. Regional bones unremarkable. Vascular calcification noted in the iliac arteries. IMPRESSION: No bowel obstruction. DATA REPOSITORY: RADIATION DOSE DELIVERED:
[2024-06-03 08:10] LABS: Anion Gap 10.1 mmol/L (3-11); BUN 11 mg/dL (7-18); CO2 24.9 mmol/L (21.0-32.0); CREATININE 0.8 mg/dL (0.70-1.30); Calcium 8.3 mg/dL (8.5-10.1); Chloride 98 mmol/L (98-107); Estimated GFR 99.44 (mL/min/1.73m2); Glucose 135 mg/dL (74-106); Magnesium 1.7 mg/dL (1.8-2.4); Potassium 3.3 mmol/L (3.5-5.1); Sodium 133 mmol/L (136-145)
[2024-06-03] MEDS: Mometasone 220 MCG 14 DOSE INHALER 1 PUFF IH (08:16)
[2024-06-03] MEDS: amLODIPine 10 MG TAB PO (09:21)
[2024-06-03] MEDS: Metoprolol 50 MG TAB 100 MG PO ×2 (09:22→19:43)
[2024-06-03] MEDS: Normal Saline Flush 10 ML SYR IVP ×2 (09:23→19:44)
[2024-06-03] MEDS: Naltrexone 50 MG TAB PO (09:23)
[2024-06-03] MEDS: POTASSIUM CHLORIDE 10 MEQ/100 ML BAG 100 MEQ IVINF (09:24)
[2024-06-03] MEDS: Lactated Ringers 1,000 ML 100 ML IV (09:24)
[2024-06-03] MEDS: Psyllium PKT 1 EACH PO (09:24)
[2024-06-03] MEDS: Milk of Magnesia 30 ML CUP PO (09:41)
--- NOTE | 2024-06-03 10:09 | PDOC.CMPRO ---
Date of service: 06/03/24 Time of Service: 10:09 Care Management Progress Note Progress Note Text Progress Note Text: Jasmine was sitting up in a chair watching TV when CM met with him. He appeared to be in good spirits and stated that he is feeling much better than yesterday. He shared that he has less pain and was able to tolerate a clear liquid lunch. Jasmine informed CM that he believes he will need to remain in the hospital for at least another couple of days. His caregiver was in the room as well and reported that the surgeon told them he would need IV antibiotics for at least another 2-3 days. Jasmine stated that he would be agreeable to home health services if recommended at discharge. Discharge Potential Discharge Needs: Surgical F/U Appt Anticipated Barriers to Discharge: None Identified Patient/Family Education Needs: Review discharge instructions, discuss Ask Me Three Transportation: Private vehicle Plan: Anticipate jasmine will be discharged home, possibly with new home health services, when medically cleared. He will follow up with surgery and transport with family. CM will follow and continue to assess for discharge needs. SDOH(Care Management) Screening Will the Patient Participate in the Screening?: Declined to provide
--- NOTE | 2024-06-03 13:34 | PHA.REVIEW2 ---
Pharmacy Admission Review Admission Clinical Review Admission Pharmacy Review: Hypokalemia due to excessive gastrointestinal loss of potassium (Acute) Sepsis (Acute) Perforated appendicitis (Acute) Hyperlipidemia (Acute) Ascending aorta dilation (Acute) Leukocytosis (Acute) Prediabetes (Acute) Chronic depression (Acute) Tobacco use disorder (Acute) Hx of traumatic brain injury (Acute) lisinopril Adverse Reaction (Intermediate, Verified 03/18/24 13:11) Other (See Comment) pravastatin Adverse Reaction (Intermediate, Verified 06/01/24 12:55) ? Resuscitation Status Full Code Height 5 ft 8 in Weight 74.843 kg Pharmacy Admission Review Renal Dosing Renal Dosing: BUN 11 mg/dL (7-18) 06/03/24 05:35 Creatinine 0.8 mg/dL (0.70-1.30) 06/03/24 05:35 Medications needing adjustments: Reviewed (CrCl 80.04 mL/min) List of meds needing interventions: Current medications are okay Anticoagulation Anticoagulation: Hgb 12.9 g/dL (13.5-17.5) L 06/03/24 05:35 Hct 36.5 % (40.0-50.0) L 06/03/24 05:35 Plt Count 238 10^3/uL (130-400) 06/03/24 05:35 Creatinine 0.8 mg/dL (0.70-1.30) 06/03/24 05:35 DVT Prophylaxis: Reviewed (Hgb decreased from 13.1 to 12.9) Medications: Enoxaparin (40mg daily) Relevant Labs Relevant Labs: ESR 53 mm/hr (0-20) H 06/01/24 13:07 Sodium 133 mmol/L (136-145) L 06/03/24 05:35 Potassium 3.3 mmol/L (3.5-5.1) L 06/03/24 05:35 Chloride 98 mmol/L (98-107) 06/03/24 05:35 Magnesium 1.7 mg/dL (1.8-2.4) L 06/03/24 05:35 C-Reactive Protein > 25.00 mg/dL (<or=0.5) H 06/03/24 05:35 Electrolytes, C-Reactive P, ESR: Reviewed (Na 133, K 3.3 - repleting, Mg 1.7, glucose 135) Cardiac Review BP, HR, EF%: Reviewed (BP and HR WNL, Ox 90) QTc Review QTc: Reviewed (470 from 10/20/22 - most recent EKG on file) IV to PO Switch IV Medications: Reviewed (Tylenol, ketorolac, ondansetron, Zosyn, prochlorperazine - per progress note, patient had severe nausea and vomiting today) Home Meds Home Med List reviewed: Reviewed Relevent Home Meds Not ordered & why?: Flovent (non-formulary - has order for Asmanex), naproxen (PRN), triamcinolone cream Current Meds Current Medication Order Review: Reviewed Pharmacy Antibiotic Review Relevant Labs: Relevant Labs 06/03/24 05:35 C-Reactive Protein > 25.00 H WBC 22.45 10^3/uL (4.4-10.8) H 06/03/24 05:35 Procalcitonin 0.2 ng/mL 06/01/24 13:07 Temperature 36.7 C Microbiology 06/01/24 13:35 Blood Culture - Preliminary Blood NO GROWTH 24 HOURS 06/01/24 13:30 Blood Culture - Preliminary Blood NO GROWTH 24 HOURS Pharmacy Antibiotic Activity: C/S review and Reviewed, no change Comments: Patient is on day 2 of Zosyn 3.375g q6h for sepsis/perforated appendicitis. Patient is POD#2. WBC decreased from 30.29 to 22.45.
[2024-06-03 14:55] VITALS: BP 118/74; PULSE 81; RESP 18; TEMP 37.2; O2SAT 95
--- NOTE | 2024-06-03 17:28 | CHAPLAIN ---
iVpin was sitting up in the chair when I visited. He had someone with him, identified as a caregiver by Care Management. Vipin said woke up with a pain in his lower right side and when he touched it, it felt worse. He said he thought it was his appendix, because he'd seen that in a movie, so he came to the ER. He's feeling better today after his surgery. He thinks he'll be here for a few days getting antibiotics. I explained my role and offered support.
[2024-06-03] MEDS: Enoxaparin 40 MG/0.4 ML SYR SC (19:44)
[2024-06-03 23:16] VITALS: TEMP 37
[2024-06-04] MEDS: Prochlorperazine 10 MG/2 ML VIAL 5 MG IVP (01:32)
[2024-06-04] MEDS: Ketorolac 15 MG/ML VIAL IVP ×3 (01:33→13:40)
[2024-06-04] MEDS: PIPERACILLIN/TAZO 3.375 GM in Normal Saline 50 ML IVPB ×3 (02:12→14:27)
[2024-06-04] MEDS: Lactated Ringers 1,000 ML 100 ML IV (02:40)
[2024-06-04] MEDS: ACETAMINOPHEN 1,000 MG/100 ML BTL 400 MG IVPB (03:54)
[2024-06-04 06:45] LABS: Abs Immature Grans 0.14 10^3/uL (0.0-0.06); HCT 35.1 % (40.0-50.0); HGB 12.3 g/dL (13.5-17.5); MCH 32.4 pg (27.0-33.0); MCV 92 fL (80-95); MPV 11.7 fL (8.0-11.0); Platelet Count 260 10^3/uL (130-400); RDW 13.5 % (11.8-14.1); RDW-SD 46.1 fL; WBC 21.71 10^3/uL (4.4-10.8)
[2024-06-04 07:03] LABS: BUN 6 mg/dL (7-18); C-Reactive Protein 22.93 mg/dL (<or=0.5); CREATININE 0.7 mg/dL (0.70-1.30); Chloride 100 mmol/L (98-107); Estimated GFR 103.53 (mL/min/1.73m2); Glucose 129 mg/dL (74-106); Magnesium 1.7 mg/dL (1.8-2.4); Potassium 3.3 mmol/L (3.5-5.1); Sodium 135 mmol/L (136-145)
[2024-06-04 07:04] LABS: Absolute Eosinophil Count 0.43 10^3/uL (0.0-0.7); Absolute Lymphocyte Count 2.61 10^3/uL (1.2-3.4); Absolute Monocyte Count 1.95 10^3/uL (0.1-0.8); Absolute Neutrophil Count 16.72 10^3/uL (1.2-6.7)
[2024-06-04 07:05] LABS: Diff Comment Manual Differential; RBC Morphology Normal
[2024-06-04] MEDS: Mometasone 220 MCG 14 DOSE INHALER 1 PUFF IH (07:36)
[2024-06-04 07:51] VITALS: BP 147/70; PULSE 91; RESP 20; TEMP 37.2; O2SAT 89
[2024-06-04] MEDS: amLODIPine 10 MG TAB PO (08:20)
[2024-06-04] MEDS: Metoprolol 50 MG TAB 100 MG PO (08:20)
[2024-06-04] MEDS: Naltrexone 50 MG TAB PO (08:21)
[2024-06-04] MEDS: Normal Saline Flush 10 ML SYR IVP ×3 (08:21→14:28)
[2024-06-04] MEDS: Psyllium PKT 1 EACH PO (08:22)
--- NOTE | 2024-06-04 10:41 | W.PM.PROGNOT ---
Date of Service Date of service: 06/04/24 Time of Service: 10:42 Assessment and Plan Assessment and plan (1) Alcohol abuse: Status: Chronic (2) Hypertension: Status: Chronic Qualifiers: Hypertension type: primary hypertension Qualified Code(s): I10 - Essential (primary) hypertension (3) CAD (coronary artery disease): Status: Chronic (4) Ascending aorta dilation: Status: Acute (5) Hyperlipidemia: Status: Acute (6) Prediabetes: Status: Acute (7) Perforated appendicitis: Status: Acute Assessment and plan: POD #3 Encouraged continued ambulation and activity OOB. Advanced to regular diet Continue use of incentive spirometer. Good PO fluid intake. SOLEDAD drain with serosanginous drainage. WBC slowly trending downward Possible d/c home later today. He will keep the SOLEDAD drain in place and will need to follow up with the surgical office. (8) Leukocytosis: Status: Acute (9) Sepsis: Status: Acute (10) COPD (chronic obstructive pulmonary disease): Status: Chronic (11) Tobacco use disorder: Status: Acute (12) Hypokalemia due to excessive gastrointestinal loss of potassium: Status: Acute Subjective Subjective Interval history since last seen: Arrive with the patient resting in bed. He states he is very hungry and has only had clear liquids this far. He states his abdomen continues to be very sore, however he does feeling better. Denies any nausea or vomiting. Exam Const General: cooperative and comfortable Orientation: alert and oriented x3 Resp Effort & Inspection: normal respiratory effort, no audible wheezes and no cough GI Inspection: distended Palpation: soft, guarding and tender (RLQ ) Other: SOLEDAD drain in place with serosanginous drainage. Objective Last Vital Signs Temp 37.2 C 06/04/24 07:51 Pulse 91 H 06/04/24 07:51 Resp 20 06/04/24 07:51 BP 147/70 H 06/04/24 07:51 Pulse Ox 89 L 06/04/24 07:51 Laboratory Results - last 24 hr 06/04/24 06/04/24 05:35 05:35 WBC 21.71 H RBC 3.80 L Hgb 12.3 L Hct 35.1 L MCV 92 MCH 32.4 MCHC 35.0 RDW 13.5 Plt Count 260 MPV 11.7 H Immature Gran % 0.0 Neutrophils % 77.0 Lymphocytes % 12.0 Monocytes % 9.0 Eosinophils % 2.0 Basophils % 0.0 Nucleated RBC % 0.0 Absolute Neutrophils 16.72 H Absolute Lymphocytes 2.61 Absolute Monocytes 1.95 H Absolute Eosinophils 0.43 Absolute Basophils 0.00 RBC Morphology Normal Sodium 135 L Potassium 3.3 L Chloride 100 Carbon Dioxide 26.0 Anion Gap 9.0 BUN 6 L Creatinine 0.7 Est GFR (CKD-EPI 2020) 103.53 Glucose 129 H Calcium 8.0 L Magnesium 1.7 L C-Reactive Protein Cancelled 22.93 H PAWSS Have you Been Recently Intoxicated or Drunk Within the Last 30 days?: No Have you Ever Experienced Previous Episodes of Alcohol Withdrawal?: No Have you ever Experienced Withdrawal Seizures?: No Have you ever Experienced Delirium Tremens(DT)s?: No Have you ever undergone Alcohol Rehabilitation Treatment (i.e, inpt ot outpatient treatment programs)?: No Have you ever Experienced Blackouts?: No Have you ever Combined Alcohol with other Downers within the last 90 days?: No Have you ever Combined Alcohol with any other Substance of Abuse during the last 90 days?: No Positive Blood Alcohol level on Presentation? [PCS.BAL]: No Evidence of Increased Autonomic Activity (i.e. HR>120, tremor, sweating, agitation, nausea)?: No Result: 0 Time Spent with Patient Time Spent with Patient: <25 minutes Time was spent: preparing to see the patient(eg.review tests), obtaining and/or reviewing separately otained hiistory and counseling the patient
[2024-06-04 13:59] VITALS: O2SAT 94
[2024-06-04 14:48] VITALS: BP 142/71; PULSE 91; RESP 20; TEMP 37.5; O2SAT 93
--- NOTE | 2024-06-04 15:04 | W.PM.DS.N ---
Date of service: 06/04/24 Time of Service: 15:05 DS: Diagnosis Discharge Diagnosis (1) CAD (coronary artery disease): Status: Chronic (2) Ascending aorta dilation: Status: Acute (3) Hyperlipidemia: Status: Acute (4) Prediabetes: Status: Acute (5) Perforated appendicitis: Status: Acute (6) Leukocytosis: Status: Acute (7) Sepsis: Status: Acute (8) COPD (chronic obstructive pulmonary disease): Status: Chronic (9) Tobacco use disorder: Status: Acute (10) Hypokalemia due to excessive gastrointestinal loss of potassium: Status: Acute Discharge Plan Disposition Patient Disposition: Home Condition: Improving Discharge Details Reason For Visit: Perforated Appendicitis, Sepsis Admit Date/Time: 06/01/24 14:37 Admit Provider: Rito Lawson Attending Provider: Rito Lawson Primary Care Provider: Unknown,Unknown Hospital Course Hospital Course: Vipin is 63 years old, and he comes to the hospital with acute onset of abdominal pain. He had a leukocytosis to 30,000, and a CT scan that demonstrated acute perforated appendicitis. There is no target for drainage, and he was brought to the operating room for laparoscopic appendectomy. He tolerated the procedure well, and his diet was advanced thereafter. He had some expected pain after surgery, but this quickly improved as he mobilized. His leukocytosis began to improve, he was discharged home with outpatient follow-up instructions Home Meds and New Rx's Prescriptions: New tramadol 50 mg tablet 50 mg PO Q8H PRNQty: 12 0RF Rx Instructions: Take 1 tablet by mouth up to every 8 hours if needed for more severe pain. amoxicillin-pot clavulanate 875-125 mg tablet 1 tab PO BID Qty: 6 0RF Rx Instructions: Take 1 tablet by mouth in the morning, and 1 tablet by mouth in the evening. Continued fluticasone propionate [Flovent HFA] 44 mcg/actuation HFA aerosol inhaler 2 puff IH BID naltrexone 50 mg tablet 50 mg PO DAILY naproxen [Naprosyn] 500 mg tablet 500 mg PO BID amlodipine 10 mg tablet 10 mg PO DAILY albuterol sulfate [ProAir HFA] 90 mcg/actuation HFA aerosol inhaler 1 inh inhalation Q6H triamcinolone acetonide 0.1 % cream 1 applic topical TID metoprolol tartrate 100 MG tablet 100 mg PO BID acetaminophen [Acetaminophen Extra Strength] 500 MG tablet 1,000 mg PO TID PRN PRNQty: 60 3RF Discharge Instructions Instructions: Appendectomy, Laparoscopic Surgery (DC) Additional Instructions: Vipin, it was a real pleasure meeting you, and I am glad that you have been feeling better. But you probably remember, you came to the hospital with perforated appendicitis. You underwent a surgery to remove your appendix, and he seemed to be making a nice recovery so far. Like we talked about before you were discharged, expect to have some bruising over the surgical sites over the next few days. That is extremely common and nothing to worry about. I would like to know if this incisions turn bright red, or there is any milky discharge from them. Those may indicate infection and need to be treated sooner than your scheduled follow-up. I would like you to take your temperature once in the morning and once in the evening every day. You should also take it if you are feeling feverish. If your temperature exceeds 100 degrees, please let me know. You have a drain in the area where the appendix was perforated and where we did the surgery. The bulb suction device on the drainage should always be indented, indicating that it is not getting fluid out. If you notice that the bulb was completely blown up like a hand grenade, then it either has lost suction or needs to be adjusted, or it can be emptied. To empty the drain, on cork it, flip it upside down, and drainage into a measuring cup. Write down the volume that comes out. Then flush that fluid down the toilet. Squeeze down the bulb, and replace the cork. At the very least, you should empty it 1 time per day. Again, please keep track of how much comes out. You can and should wash the incisions with warm soapy water at least once per day. Do not soak them underwater in a bathtub, just rinse them clean in the shower. I provided a prescription for stronger pain medication if you need it. However, Tylenol and ibuprofen should be your first medications to try. I also provided a prescription for a combination of antibiotics called amoxicillin clavulanic acid. Will take 1 pill in the morning, and 1 pill in the evening. Will get 3 more days of therapy. If you need anything at all or have any questions, please do not hesitate to call or ask at any point. 1. Resume all of your regular medications. 2. You can use heating pads and ice packs over the incisions if needed for pain. 3. Alternate [id number] Tylenol and ibuprofen if needed for pain. Use the prescription for tramadol if you need that for more severe pain. 4. Leave bandage in place for 24 hours, then remove. 5. Shower with warm soapy water. Pat dry. Use a bandaid if needed to protect your clothing. 6. No soaking or tub baths until I see you in the office. 7. No heavy lifting until I see you in the office. 8.Call the office (or go directly to the emergency room after hours) if you notice any of the following: Develop chills (warm to touch), or if you have a thermometer and your temperature is above 101 Difficulty breathing or difficultly swallowing Persistent vomiting Any bleeding ? exceeding one tablespoon 9. Call your physician if the site where your intravenous was started becomes red, swollen, painful, and warm to touch. Referrals: Rito Lawson MD [ [facility] STAFF PHYSICIAN] - (June 10 at 10:15 AM) Activity:: No heavy lifting Equipment/Supplies:: Specimen cup Diet:: As Tolerated DS: Summary Time Spent with Patient providing and/or coordinating discharge services: Greater than 30 minutes Status at Discharge Functional status at discharge: independent ambulation Overall status at discharge: patient is progressing back to baseline Mental Status: mental status grossly normal Speech and Movement: speech and movement normal Mood: congruent mood Affect: normal affect Quality:SDOH Health Related Social Needs: No Data to Display Exam GI Other: Abdomen is soft and nontender. He is slightly distended. Incisions are clean, and there are no signs of infection. Psych Mental Status: mental status grossly normal Speech and Movement: speech and movement normal Mood: congruent mood Affect: normal affect DS: Data Vitals/I&O Vitals and I&O: Vital Signs Temperature 99.5 F 06/04/24 14:48 Temperature Source Temporal Artery Scan 06/04/24 14:48 Pulse 91 H 06/04/24 14:48 Pulse Rhythm Regular 06/04/24 09:00 Pulse 91 H 06/01/24 15:01 Respiratory Rate 20 06/04/24 14:48 Respiratory Effort Normal 06/04/24 09:00 Respiratory Depth Normal 06/04/24 09:00 Respiratory Pattern Normal 06/04/24 09:00 Blood Pressure 142/71 H 06/04/24 14:48 Blood Pressure Mean 94 06/01/24 15:01 Blood Pressure Position Sitting 06/01/24 12:16 Pulse Oximetry 93 06/04/24 14:48 Respiratory End-tidal CO2 33 06/01/24 19:34 Oxygen Delivery Method Room Air 06/04/24 14:48 Oxygen Flow Rate 0 06/04/24 14:48 Pain Level 0 06/04/24 13:40 Comment RN notified. 06/04/24 07:51 Intake & Output 06/03/24 06/04/24 06/04/24 23:59 11:59 23:59 Intake Total 300 / 1650 1675 / 1675 Output Total 35 / 1000 1830 / 1830 Balance 265 / 650 -155 / -155 Intake: IV 300 / 1650 1675 / 1675 Output: Drainage 35 / 100 80 / 80 Left Lower Abdomen 35 / 100 80 / 80 Urine 1750 / 1750 Other: Urine Color Yellow Pale Yellow Urine Appearance Clear Clear Urine Odor None Comment patient stated that he voided. patient voided in bathroom independently Stool Size Copious Stool Characteristics Formed Brown Voiding Methods Toilet Toilet Data Completed and Pending Labs on day of discharge: Labs from last 24 hours 06/04/24 06/04/24 05:35 05:35 WBC 21.71 H RBC 3.80 L Hgb 12.3 L Hct 35.1 L MCV 92 MCH 32.4 MCHC 35.0 RDW 13.5 Plt Count 260 MPV 11.7 H Immature Gran % 0.0 Neutrophils % 77.0 Lymphocytes % 12.0 Monocytes % 9.0 Eosinophils % 2.0 Basophils % 0.0 Nucleated RBC % 0.0 Absolute Neutrophils 16.72 H Absolute Lymphocytes 2.61 Absolute Monocytes 1.95 H Absolute Eosinophils 0.43 Absolute Basophils 0.00 RBC Morphology Normal Sodium 135 L Potassium 3.3 L Chloride 100 Carbon Dioxide 26.0 Anion Gap 9.0 BUN 6 L Creatinine 0.7 Est GFR (CKD-EPI 2020) 103.53 Glucose 129 H Calcium 8.0 L Magnesium 1.7 L C-Reactive Protein 22.93 H Cancelled Preliminary micro results at discharge 06/01/24 13:35 Blood Culture - Preliminary Blood NO GROWTH 48 HOURS 06/01/24 13:30 Blood Culture - Preliminary Blood NO GROWTH 48 HOURS PFSH All Active Problems Hypokalemia due to excessive gastrointestinal loss of potassium (Acute) Sepsis (Acute) Perforated appendicitis (Acute) Rotator cuff arthropathy of right shoulder (Acute) Subacromial Depo-Medrol injection: 01/08/2023 Tendonitis of left rotator cuff (Acute) Subacromial Depo-Medrol injection: 01/08/2023 CAD (coronary artery disease) (Chronic) Left carpal tunnel syndrome (Acute) Right rotator cuff tendonitis (Chronic) Injections: 02/26/2019; 09/18/2018 Arthritis of tktutm-yvlzkmgub-fetpdidcr joint (Chronic) Arthritis of right acromioclavicular joint (Chronic) depo medrol 01/08/23 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) Injection: 01/08/23; 01/19/2020; 02/26/2019 Hypertension (Chronic) Hyperlipidemia (Acute) Trigger index finger of right hand (Acute) Injection: 06/02/2021 Trigger thumb of right hand (Acute) Injection: 06/02/2021 S/P Release: 01/04/2022 Right carpal tunnel syndrome (Acute) S/P ECTR: 01/04/2022 Ascending aorta dilation (Acute) Leukocytosis (Acute) Prediabetes (Acute) COPD (chronic obstructive pulmonary disease) (Chronic) Chronic depression (Acute) Tobacco use disorder (Acute) Hx of traumatic brain injury (Acute) Alcohol abuse (Chronic) PTSD (post-traumatic stress disorder) (Acute) Bilateral carpal tunnel syndrome (Acute) Ulnar neuropathy at elbow of left upper extremity (Acute) History of bilateral total hip arthroplasty (Acute) DOS: 08/10/21 Surgical History Hx of splenectomy Social History Smoking/Tobacco Use Status: Current every day Tobacco Type: cigarettes Smoking risk assessment performed?: Yes Alcohol Intake: current Alcohol Intake frequency: 3 or more drinks per day Alcohol type: beer Drug use: Occasionally Substance use type: does not use Details: Per human services case manager he has days where is very intoxicated, and others he practices sobriety Housing: house Current gender identity: male Do you feel safe at home: Yes Do you feel safe in your relationship?: Yes Time Spent with Patient Time Spent with Patient: 45-69 minutes Time was spent: preparing to see the patient(eg.review tests), indepentently interpreting results, counseling the patient and care coordination
--- NOTE | 2024-06-04 17:09 | PDOC.CMDIS ---
Date of service: 06/04/24 Time of Service: 17:09 LACE Index Scoring Tool Questions: Length of Stay (in days): 3 Was the patient admitted via the E.D.?: Yes Comorbidities: Chronic Pulmonary Disease E.D. Visits: 1 Answers: Total Score: 9 Risk of Readmission: Low Risk Care Management Discharge Plan Reason for Hospitalization: perforated appendix Discharge Plan: Vipin will be discharged home with a resumption of his caregiver support. He will follow up with surgery and transport with his caregiver. He has a follow up visit scheduled with Surgical Services on 06/10/24 at 10:15 am. Patient/Family Education Needs: Review of discharge instructions, activity, limitations, follow up plan, wound care and discuss Ask Me Three. SDMD Health Related Social Needs: No Data to Display
== END 2024-06-04 16:47 | disposition home or self-care (01) ==
LOC: ER 15:08 → MS 17:25
PROVIDERS: Surgery; Admitting Provider Surgery; Emergency Provider Physician Assistant; Visit Provider Surgery
PROC: 0DTJ4ZZ Resection of Appendix, Percutaneous Endoscopic Approach (ICD-10-PCS; CPT 44970; principal; 2024-06-01 17:15)
DX: A41.9 Sepsis, unspecified organism (principal); K35.32 Acute appendicitis with perforation, localized peritonitis, and gangrene, without abscess; F10.10 Alcohol abuse, uncomplicated; F32.9 Major depressive disorder, single episode, unspecified; I25.10 Atherosclerotic heart disease of native coronary artery without angina pectoris; I10 Essential (primary) hypertension; I77.810 Thoracic aortic ectasia; E78.5 Hyperlipidemia, unspecified; R73.03 Prediabetes; D72.829 Elevated white blood cell count, unspecified; Z87.820 Personal history of traumatic brain injury; F17.210 Nicotine dependence, cigarettes, uncomplicated; J44.9 Chronic obstructive pulmonary disease, unspecified; E87.6 Hypokalemia; Z79.899 Other long term (current) drug therapy; Z90.81 Acquired absence of spleen
CPT/HCPCS: 44970; 36415; 71275; 80048; 80053; 83690; 84145; 85652; 87040; 94640; 96361; 96365; 96366; 96367; 96368; 96372; 96375; 99285; J1650; 74019; 74174; 81003; 81015; 83605; 83735; 85025; 86140; 88304; 94664; 94760; G0378; J0131; J0780; J1171; J1885; J2001; J2250; J2371; J2405; J2543; J2704; J3480; J3490

== ENCOUNTER 2024-08-21 14:53 | Outpatient (REF) | payer MEDICAID, SELFPAY ==
[2024-08-21 14:53] LABS: Hemoglobin A1C 6.1 % (<5.7)
[2024-08-21 15:35] LABS: ALT 21 U/L (16-63); AST 16 U/L (15-37); Albumin 4.1 g/dL (3.4-5.0); Alkaline Phosphatase 78 U/L (46-116); Anion Gap 11.8 mmol/L (3-11); BUN 11 mg/dL (7-18); Bilirubin, Total 0.46 mg/dL (0.2-1.0); CO2 25.2 mmol/L (21.0-32.0); CREATININE 0.8 mg/dL (0.70-1.30); Calcium 9.5 mg/dL (8.5-10.1); Calculated LDL 114 mg/dL (<100); Chloride 100 mmol/L (98-107); Cholesterol 204 mg/dL (<200); Estimated GFR 98.83 (mL/min/1.73m2); Glucose 167 mg/dL (74-106); HDL Cholesterol 38 mg/dL (40-60); Potassium 4.1 mmol/L (3.5-5.1); Sodium 137 mmol/L (136-145); Total Protein 7.3 g/dL (6.4-8.2); Triglyceride 260 mg/dL (<150)
== END 2024-08-21 14:54 | disposition home or self-care (01) ==
LOC: NCHCN 14:53
PROVIDERS: PCP Nurse Practitioner Family; Visit Provider Nurse Practitioner Family
DX: R73.03 Prediabetes; Z12.5 Encounter for screening for malignant neoplasm of prostate
CPT/HCPCS: 80053; 80061; 84153; 83036

== ENCOUNTER 2024-11-04 15:51 | Outpatient (REF) | payer MEDICAID, SELFPAY ==
[2024-11-04 15:56] LABS: HCT 43.2 % (40.0-50.0); HGB 14.6 g/dL (13.5-17.5); MCH 31.8 pg (27.0-33.0); MCHC 33.8 % (32.0-36.0); MCV 94 fL (80-95); MPV 11.9 fL (8.0-11.0); Platelet Count 329 10^3/uL (130-400); RBC 4.59 10^6/uL (4.36-5.78); RDW 13.9 % (11.8-14.1); RDW-SD 48.5 fL; WBC 12.78 10^3/uL (4.4-10.8)
[2024-11-04 16:37] LABS: Folate 7.8 ng/mL (8.6-20.0); TSH (W/Ref FT4) 1.19 uIU/mL (0.36-3.74); Vitamin B12 338 pg/mL (193-986)
[2024-11-05 16:02] LABS: Albumin 62.1 % (55.8-66.1); Albumin g/dL 4.3 g/dL (3.6-5.2); Comment (See Note); Monoclonal Spike 3.5 % (None Seen); Monoclonal Spike g/dL 0.2 g/dL (None Seen); Total Protein 6.9 g/dL (6.3-8.2)
[2024-11-05 16:25] LABS: Immunotyping, Serum (See Note)
[2024-11-10 10:43] LABS: Kappa Free Light Chain 1.18 mg/dL (0.33-1.94)
== END 2024-11-04 15:52 | disposition home or self-care (01) ==
LOC: NCHCN 15:51
PROVIDERS: PCP Nurse Practitioner Family; Visit Provider Family Medicine
DX: R20.2 Paresthesia of skin (principal)
CPT/HCPCS: 85027; 82607; 82746; 83883; 84165; 84443; 86320

== ENCOUNTER 2024-11-26 03:26 | Outpatient (CLI) | payer MEDICAID, SELFPAY ==
--- NOTE | 2024-11-26 | DI.RAD_ITS ---
Exam(s) XR KNEE RT 3V AP,LAT,THERESE EXAM: XR KNEE RT 3V AP,LAT,THERESE CLINICAL HISTORY: M25.561 Pain in RT knee. TECHNIQUE: 2D digital imaging was performed of the right knee. Three views obtained. AP, lateral an d PA tunnel views were obtained. COMPARISON: There are no priors for comparison. FINDINGS: BONES: No acute fracture is present. No bony destructive lesion is seen. JOINTS: There is mild narrowing of the medial femoral tibial joint space. The joint spaces are other mensah well maintained. There does appear to be a small joint effusion. SOFT TISSUE: There is a well corticated osseous density adjacent to the medial femoral condyle which is chronic. Atherosclerotic calcification is present. IMPRESSION: Mild narrowing of the medial femoral tibial joint space. Small joint effusion. DATA REPOSITORY: RADIATION DOSE DELIVERED:
== END 2024-11-26 03:46 ==
LOC: DI 03:27
PROVIDERS: PCP Nurse Practitioner Family; Visit Provider Family Medicine
DX: M25.561 Pain in right knee (principal)
CPT/HCPCS: 73562

== ENCOUNTER 2025-02-04 12:47 | Outpatient (REF) | payer MEDICAID, SELFPAY ==
[2025-02-04 21:16] LABS: Abs Immature Grans 0.08 10^3/uL (0.0-0.06); Absolute Basophil Count 0.17 10^3/uL (0.0-0.2); Absolute Eosinophil Count 0.47 10^3/uL (0.0-0.7); Absolute Monocyte Count 1.36 10^3/uL (0.1-0.8); Eosinophils % 2.8 %; HCT 43.1 % (40.0-50.0); HGB 15.1 g/dL (13.5-17.5); Immature Grans % 0.5 %; Lymphocytes % 24.3 %; MCH 32.4 pg (27.0-33.0); MCV 93 fL (80-95); MPV 11.5 fL (8.0-11.0); Monocytes % 8.1 %; Neutrophils % 63.3 %; Platelet Count 347 10^3/uL (130-400); RBC 4.66 10^6/uL (4.36-5.78); RDW 13.8 % (11.8-14.1); RDW-SD 46.6 fL; WBC 16.78 10^3/uL (4.4-10.8)
[2025-02-04 21:28] LABS: Absolute Lymphocyte Count 4.08 10^3/uL (1.2-3.4); Absolute Neutrophil Count 10.62 10^3/uL (1.2-6.7)
[2025-02-04 22:14] LABS: ALT 19 U/L (16-63); AST 22 U/L (15-37); Albumin 4.4 g/dL (3.4-5.0); Alkaline Phosphatase 76 U/L (46-116); Anion Gap 8.1 mmol/L (3-11); BUN 15 mg/dL (7-18); Bilirubin, Total 0.5 mg/dL (0.2-1.0); CO2 27.9 mmol/L (21.0-32.0); CREATININE 0.7 mg/dL (0.70-1.30); Calcium 9.6 mg/dL (8.5-10.1); Calculated LDL 130 mg/dL (<100); Chloride 102 mmol/L (98-107); Cholesterol 206 mg/dL (<200); Estimated GFR 102.89 (mL/min/1.73m2); Glucose 101 mg/dL (74-106); HDL Cholesterol 43 mg/dL (>or=40); Potassium 4.2 mmol/L (3.5-5.1); Sodium 138 mmol/L (136-145); Triglyceride 165 mg/dL (<150)
== END 2025-02-04 12:48 | disposition home or self-care (01) ==
LOC: NCHCN 12:47
PROVIDERS: PCP Nurse Practitioner Family; Visit Provider Nurse Practitioner Family
DX: I10 Essential (primary) hypertension (principal); E78.5 Hyperlipidemia, unspecified; R73.03 Prediabetes; D47.2 Monoclonal gammopathy
CPT/HCPCS: 80053; 80061; 83036; 85025

== ENCOUNTER 2025-02-27 00:19 | Outpatient (CLI) | payer MEDICAID, SELFPAY ==
--- NOTE | 2025-02-27 | DI.CTLCSR_ITS ---
Exam(s) CT CHEST LUNG CANCER SCREEN EXAM: CT CHEST LUNG CANCER SCREEN CLINICAL HISTORY: F17.210 Nicotine dependence,cigarettes TECHNIQUE: Imaging Protocol: Axial computed tomography images with coronal and sagittal reformatted images were created and reviewed. Lung Computer Aided Detection (CAD) was utilized. COMPARISON: CT CT CHEST LUNG CANCER SCREEN from 07/28/[address] THORAX ABD/PEL CTA from 06/01/2024 FINDINGS: Tracheobronchial tree: Patent where visualized. No bronchiectasis. Pulmonary parenchyma: No consolidation or dominant measurable mass. No architectural distortion. Ther e are few tiny calcified granuloma. Lung Nodules: No suspicious nodules are seen. Mediastinum and Karen: No dominant adenopathy or fluid collection. The esophagus is unremarkable.There are calcified lymph nodes in the mediastinum. Thyroid gland: Unremarkable. Lymph nodes: Unremarkable. Pleura: No effusion or pneumothorax. Heart: The heart is not dilated. Two vessel coronary artery calcification is present. No pericardial effusion. Aorta: Thoracic aorta non-dilated.Atherosclerotic calcification is present. Upper abdomen: Unremarkable. Soft Tissues: Unremarkable. Bones: Within normal limits. There are old bilateral rib fracture deformities. IMPRESSION: No suspicious pulmonary nodules. Lung RADS Cat 1 - Negative: No nodules and definitely benign nodules Lung-RADS 1.0 CATEGORIES: Category 0 - Prior chest CT exam(s) being located for comparison. Category 1 - Annual screening in 12 months. No nodules or definitely benign nodules. Category 2 - Annual screening in 12 months. Benign appearance. Nodules with low likelihood of becomin g active cancer. Category 3 - 6-month follow-up. Probably benign. Short-term follow-up suggested. Nodules with low lik elihood of becoming active cancer. Category 4A - 3-month follow-up and CT/PET if >8 mm in size. Suspicious finding. Findings which requi re additional testing. Category 4B - Findings which require additional testing and tissue sampling. Suspicious finding. Category 4X - Category 3 or 4 nodules with additional features or imaging findings that increases the suspicion of malignancy. Modifier S- Potentially clinically significant finding. (Non lung cancer) RADIATION DOSE DELIVERED: 30.31mGy.cm Total DLP 30.31mGy.cmTotal DLP DATA REPOSITORY: All CT scans at this facility are submitted to the National Radiology Data Registry (NRDR) Dose Index Registry (DIR) with the [employer] ([employer]). RADIATION OPTIMIZATION: All CT scans at this facility use at least one of these dose optimization te chniques: automated exposure control; mA and/or kV adjustment per patient size (includes targeted exa ms where dose is matched to clinical indication); or iterative reconstruction.
== END 2025-02-27 00:39 ==
LOC: DI 00:20
PROVIDERS: PCP Nurse Practitioner Family; Visit Provider Nurse Practitioner Family
DX: Z12.2 Encounter for screening for malignant neoplasm of respiratory organs (principal); F17.210 Nicotine dependence, cigarettes, uncomplicated
CPT/HCPCS: 71271

== ENCOUNTER 2025-03-19 09:23 | Outpatient (CLI) | payer MEDICAID, SELFPAY ==
[2025-03-19 09:24] LABS: Abs Immature Grans 0.05 10^3/uL (0.0-0.06); Absolute Basophil Count 0.16 10^3/uL (0.0-0.2); Absolute Eosinophil Count 0.34 10^3/uL (0.0-0.7); Absolute Neutrophil Count 10.19 10^3/uL (1.2-6.7); Eosinophils % 2.2 %; HCT 43.8 % (40.0-50.0); HGB 15.1 g/dL (13.5-17.5); Immature Grans % 0.3 %; Lymphocytes % 23.4 %; MCH 32.8 pg (27.0-33.0); MCHC 34.5 % (32.0-36.0); MCV 95 fL (80-95); MPV 10.4 fL (8.0-11.0); Monocytes % 7.7 %; Neutrophils % 65.4 %; Platelet Count 335 10^3/uL (130-400); RDW 13.6 % (11.8-14.1); RDW-SD 48.2 fL; WBC 15.58 10^3/uL (4.4-10.8)
[2025-03-19 09:25] LABS: Absolute Lymphocyte Count 3.65 10^3/uL (1.2-3.4)
[2025-03-19 10:05] LABS: ALT 24 U/L (16-63); AST 17 U/L (15-37); Albumin 4.2 g/dL (3.4-5.0); Alkaline Phosphatase 77 U/L (46-116); Anion Gap 5.8 mmol/L (3-11); BUN 16 mg/dL (7-18); Bilirubin, Total 0.5 mg/dL (0.2-1.0); CO2 30.2 mmol/L (21.0-32.0); CREATININE 0.8 mg/dL (0.70-1.30); Calcium 9.4 mg/dL (8.5-10.1); Chloride 101 mmol/L (98-107); Estimated GFR 98.83 (mL/min/1.73m2); Glucose 122 mg/dL (74-106); Potassium 4.4 mmol/L (3.5-5.1); Sodium 137 mmol/L (136-145); Total Protein 7.9 g/dL (6.4-8.2); Vitamin B12 1100 pg/mL (193-986)
[2025-03-19 10:08] LABS: Folate > 20.0 ng/mL (8.6-20.0)
[2025-03-20 13:13] LABS: Albumin 60.6 % (55.8-66.1); Albumin g/dL 4.5 g/dL (3.6-5.2); Comment (See Note); Monoclonal Spike 3.7 % (None Seen); Monoclonal Spike g/dL 0.3 g/dL (None Seen); Total Protein 7.4 g/dL (6.3-8.2)
== END 2025-03-19 09:24 | disposition home or self-care (01) ==
LOC: LBO 09:23
PROVIDERS: PCP Nurse Practitioner Family; Visit Provider Internal Medicine Hematology & Oncology
DX: D47.2 Monoclonal gammopathy (principal); E53.8 Deficiency of other specified B group vitamins
CPT/HCPCS: 36415; 80053; 82607; 82746; 84165; 85025

== ENCOUNTER 2025-05-11 08:54 | Day surgery (SDC) | payer MEDICAID, SELFPAY ==
--- NOTE | 2025-05-10 20:43 | W.PM.DSUDISC ---
Date of service: 05/11/25 Discharge Plan Disposition Patient Disposition: Home Condition: Good Discharge Details Reason For Visit: screening colonoscopy Attending Provider: Rito Lawson Primary Care Provider: María Silva Home Meds and New Rx's Prescriptions: Continued naltrexone 50 mg tablet 50 mg PO DAILY naproxen [Naprosyn] 500 mg tablet 500 mg PO BID amlodipine 10 mg tablet 10 mg PO DAILY albuterol sulfate [ProAir HFA] 90 mcg/actuation HFA aerosol inhaler 1 inh inhalation Q6H metoprolol tartrate 100 MG tablet 100 mg PO BID acetaminophen [Acetaminophen Extra Strength] 500 MG tablet 1,000 mg PO TID PRN PRNQty: 60 3RF Discontinued bisacodyl [Dulcolax (bisacodyl)] 5 mg tablet,delayed release (DR/EC) 5 mg PO ONCE Qty: 4 0RF Rx Instructions: Take per colonoscopy instructions provided by ordering providers office polyethylene glycol 3350 17 gram/dose powder 17 g PO ONCE Qty: 238 0RF Rx Instructions: Take per colonoscopy instructions provided by ordering providers office No Action vitamin B complex Tablet 1 tab PO .M-W-F folic acid 1 mg tablet 1 mg PO .-W- Discharge Instructions Instructions: Diverticulosis Additional Instructions: Vipin, it was good seeing you today, and I hope you feel well when you get home. Everything went very smoothly. Your prep was great, and I could see everything fine. I saw no signs of any tumors or polyps today. Incidentally, you do have diverticulosis. Diverticula are weak spots in the muscular layer of the colon wall. This causes little pockets or pouches to form. These can result in painful flareups, typically in the left lower part of the abdomen known as diverticulitis. I appears never give you any trouble. I will attach some basic information here about typical approaches to diverticulosis. Since her colonoscopy is otherwise negative, I recommended 10-year follow-up for your next test. 1. If tolerated, consume a soft, low fiber diet for 1-2 days. [address] not drive, drink alcohol, operate machinery, make critical decisions, or do activities that require coordination or balance for 24 hours. 3. Because air was put into your colon during the procedure, expelling air from your rectum (passing gas or farting) is normal. 4. You may not have a bowel movement for 1-3 days because of the colonoscopy prep. This is normal. 5. Go directly to the emergency room if you notice any of the following: Develop chills (warm to touch), or if you have a thermometer and your temperature is above 101 Difficulty breathing or difficultly swallowing Persistent vomiting Severe abdominal pain, other than gas cramps Severe chest pain Black, tarry stools Any bleeding ? exceeding one tablespoon 6. Call your physician if the site where your intravenous was started becomes red, swollen, painful, and warm to touch. 7. Your physician has reviewed your pre-procedure medications. Please continue to take those medications as previously ordered. You will be given specific information/education regarding any changes to your medications before leaving. Stand Alone Forms: Anesthesia Discharge InstFemi Garrido (DSU) Activity:: Activity as Tolerated Diet:: As Tolerated Discharge Orders Discharge Orders: Discharge Order (Routine); Ordered 05/10/25 Ordered By: Rito Lawson DS: Diagnosis Discharge Diagnosis (1) Screen for colon cancer: Status: Acute Asessment and Plan: Diverticulosis; otherwise negative screening colonoscopy. 10-year follow-up
--- NOTE | 2025-05-10 20:44 | COLE_ITS ---
Date of service: 05/11/25 Time of Service: 11:42 Colonoscopy Report Date of procedure: 05/11/25 Pre-op diagnosis general: screening colonocsopy Post-op diagnosis procedure note: other (Diverticulosis) Procedure: colonoscopy Surgeon: Rito Lawson Anesthesia Type: General:No Airway Estimated blood loss (mL): 0 Pathology: none sent Complications: None Disposition: same day Indications: Vipin is a 64 year old man who needs a screening colonoscopy Prep: Miralax/Dulcolax Procedure Start Time: 11:13 Procedure End Time: 11:32 Retraction Time: 9 Findings: Diverticulosis; otherwise negative screening colonoscopy Procedure Description: After the induction of anesthesia, and with the patient in left lateral decubitus position, I began by performing an external anorectal exam.? Perineum and skin were normal, as was the anal verge.? There was no evidence of external hemorrhoids.? Next, I performed a digital rectal exam.? I did not appreciate any abnormal findings.? Next, I advanced a colonoscope into the rectal vault.? I performed retroflexion.? This appeared normal.? Using insufflation, I then advanced the colonoscope beyond the rectal folds and into the sigmoid colon before advancing towards the cecum.? The scope was noted to be in the cecum by identification of the ileocecal valve and appendiceal orifice.? I then began withdrawing the colonoscope using repeated irrigation as necessary for full evaluation of the colonic mucosa. There is sigmoid diverticulosis. ?Once the scope was withdrawn to the level of the rectum, great care was taken to examine portions of the rectal folds.? Finally, the scope was withdrawn and the patient was brought to the same-day surgery recovery unit as the anesthetic wore off. ?The findings and instructions were shared with the patient prior to discharge. Calamus Bowel Prep Calamus Bowel Prep Right Colon: 3 Left Colon: 2 Transverse Colon: 3 Total Score: 8
[2025-05-11 09:11] VITALS: BP 148/74; PULSE 71; RESP 18; TEMP 36.2; O2SAT 95
[2025-05-11] MEDS: Lactated Ringers 1,000 ML 80 ML IV (09:55)
[2025-05-11 10:39] VITALS: BMI 26.5
--- NOTE | 2025-05-11 10:39 | W.ANESPRE ---
General Info Date of Service Date Performed: 05/11/25 Height: 5 ft 8 in Weight: 79.2 kg Body Mass Index (BMI): 26.5 Surgical Procedure: Operation Date: 05/11/25 10:35 Proposed Procedure Side Surgeon pam Lawson MD Meds Allergies and Home Medications Allergies Allergy/AdvReac Type Severity Reaction Status Date / Time lisinopril AdvReac Intermediate Other (See Verified 05/11/25 09:30 Comment) pravastatin AdvReac Intermediate Skin Rash Verified 05/11/25 09:30 Home Medication ?Medication ?Instructions ?Recorded metoprolol tartrate 100 mg tablet 100 mg PO BID 08/28/14 albuterol sulfate 90 mcg/actuation 1 inh inhalation Q6H 08/01/21 aerosol inhaler (ProAir HFA) amlodipine 10 mg tablet 10 mg PO DAILY 08/01/21 acetaminophen 500 mg tablet 1,000 mg (2 x 500 mg) PO TID PRN 10/18/21 (Acetaminophen Extra Strength) PRN #60 tabs naltrexone 50 mg tablet 50 mg PO DAILY 03/18/24 naproxen 500 mg tablet (Naprosyn) 500 mg PO BID 03/18/24 folic acid 1 mg tablet 1 mg PO .--05/11/25 vitamin B complex 1 tab PO .-05/11/25 Current Visit Medications: Current Medications Generic Name Dose Route Start Last Admin Trade Name Freq PRN Reason Stop Dose Admin Ringer's Solution 1,000 mls @ 80 mls/hr 05/11/25 06:00 05/11/25 09:55 IV 05/11/25 23:59 80 mls/hr INFUSION MING Administration IV Miscellaneous Supplies 1 each 05/11/25 06:00 Iv Access IV 05/11/25 23:59 DIRECTED MING Sodium Chloride 0 ml 05/11/25 06:00 Normal Saline Flush 10 Ml Syr IV 05/11/25 23:59 PRN PRN Sodium Chloride 0 ml 05/11/25 06:00 Normal Saline 10 Ml Vial IJ 05/11/25 23:59 DIRECTED PRN Sterile Water 0 ml 05/11/25 06:00 Water,Injection,Sterile 10 Ml Vial IJ 05/11/25 23:59 DIRECTED PRN PFSH Active Problems Active Problems: Problem Status Onset Code Screen for colon cancer Acute Z12.11 Rotator cuff arthropathy of right shoulder Acute M12.811 Tendonitis of left rotator cuff Acute M75.82 CAD (coronary artery disease) Chronic I25.10 Left carpal tunnel syndrome Acute G56.02 Right rotator cuff tendonitis Chronic M75.81 Arthritis of nsqkyf-msvxtigas-axhrcvdjx joint Chronic M19.039 Arthritis of right acromioclavicular joint Chronic M19.011 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 S42.002K Osteoarthritis of left AC (acromioclavicular) joint Chronic M19.012 Hypertension Chronic I10 Hyperlipidemia Acute E78.5 Trigger index finger of right hand Acute M65.321 Trigger thumb of right hand Acute M65.311 Right carpal tunnel syndrome Acute G56.01 Ascending aorta dilation Acute I77.810 Leukocytosis Acute D72.829 Prediabetes Acute R73.03 COPD (chronic obstructive pulmonary disease) Chronic J44.9 Chronic depression Acute F32.9 Tobacco use disorder Acute F17.200 Hx of traumatic brain injury Acute Z87.820 Alcohol abuse Chronic F10.10 PTSD (post-traumatic stress disorder) Acute F43.10 Bilateral carpal tunnel syndrome Acute G56.03 Ulnar neuropathy at elbow of left upper extremity Acute G56.22 History of bilateral total hip arthroplasty Acute Z96.643 Medical History Medical History (Updated 05/11/25 @ 09:39 by Zaynab Galloway) Hypokalemia due to excessive gastrointestinal loss of potassium Medical History Comments:: Patient denies alcohol for past 3 years; says he smokes marijauna daily, had 1 hit this a.m. Preop: Per hospice case manager he has days where is very intoxicated, and others he practices sobriety Surgical History Surgical History (Updated 05/11/25 @ 09:59 by Zaynab Galloway) Hx of splenectomy Tobacco Smoking/Tobacco Use Status: Current every day Tobacco Type: cigarettes Alcohol Alcohol Intake: former Substance Use Substance use: Daily Substance use type: does not use Details: Patient denies alcohol for past 3 years; says he smokes marijauna daily, had 1 hit this a.m. Preop: Per hospice case manager he has days where is very intoxicated, and others he practices sobriety Vital Signs and Lab Results Vital Signs Most Recent Vital Signs in EMR: Most Recent Vital Signs Temp Pulse Resp BP Pulse Ox 36.2 C L 71 18 148/74 H 95 05/11/25 09:11 05/11/25 09:11 05/11/25 09:11 05/11/25 09:11 05/11/25 09:11 Imaging and Studies Imaging and Studies Study information below may be from another EMR and interpreted by another provider. Please see original notes in EMR for more complete details. EKG Summary: EKG PATIENT NAME: Vipin Massey UNIT #: [id number] ORDERING PROVIDER: Brandon Holland M.D. PRIMARY CARE PROVIDER: MARIE GARCIA NP DATE/TIME OF SERVICE: 10/20/22 1139 : 1960 PERFORMING LOCATION: .CARD APPROVED REPORT Exam: Resting ECG Reason for Exam: CAD Patient Location: O HR:80 bpm ECG Measurements Heart Rate 80 AXIS SD 186 P 72 QRSd 135 QRS 64 QT 407 T-6 QTc 470 Conclusion Sinus rhythm...normal P axis, V-rate 50- 99 Right bundle branch block...QRSd>120, terminal axis(90,270) Voltage for left ventricular hypertrophy <Electronically signed by BRANDON HOLLAND MD in OV> E-Sign Date: 10/20/22 E-Sign Time: 1150 Echocardiogram Summary: Patient Name: Vipin Massey Unit #: [id number] Loc: Ordering Provider: Brandon Holland M.D. Status: REG CLI Primary Care Provider: María Silva Date of Exam: 11/30/23 Sex: M Admission Date: 11/30/23 : 1960 Age: 63 APPROVED REPORT EXAM: Comprehensive 2D, Doppler, and color-flow Echocardiogram Patient Location: Out-Patient Elementary Instructional Coach: Lucien Eller RDCS (AE) Indications: dilated ascending aorta Conclusion 1. LA upper limits, other chambers normal sizes. 2. Normal LV function EF 60-65%.Normal RV function. 3. Anatomically normal valves. Mild MR,TR without phtn. 4. Normal aortic root. Mildly dilated ascending aorta. 5. No pericardial effusion. Wall motion Left Ventricle The left ventricle is normal size. The left ventricular systolic function is normal. The left ventricular ejection fraction is within the normal range. There is normal left ventricular wall thickness. There is normal LV segmental wall motion. There is no ventricular septal defect visualized. LVEF is 57-60%. Right Ventricle The right ventricle is normal size. Right ventricular systolic function is grossly normal. Atria Left atrium is borderline dilated. The right atrium size is normal. The interatrial septum is intact with no evidence for an atrial septal defect. Aortic Valve The aortic valve is normal in structure. Aortic valve is trileaflet. There is no aortic valvular stenosis. No aortic regurgitation is present. Mitral Valve The mitral valve is normal in structure. No evidence of mitral valve stenosis. Mild mitral regurgitation. Tricuspid Valve The tricuspid valve is normal in structure. There is no tricuspid valve stenosis. Moderate tricuspid regurgitation.The RVSP is 29.0 mmHg. Pulmonic Valve The pulmonary valve is normal in structure. There is no pulmonic valvular stenosis. There is no pulmonic valvular regurgitation. Great Vessels The aortic root is normal in size. The ascending aorta is mildly dilated. Aortic arch is normal in caliber. IVC is normal in size and collapses >50% with inspiration. Pericardium There is no pericardial effusion. 2D Dimensions IVSD d PLAX 0.93 cm M: 0.6-1.2Ao Root d 3.50 cm M: 3.1 - 3.7 LVPW d PLAX 0.94 cm M: 0.6 - 1.2Ao Asc Diam d 3.75 cm M: 2.6 - 3.4 LVID d PLAX 4.84 cm M: 4.2 - 5.8 LVDs 3.31 cm M: 2.5 - 4.0 LV EF Teichholz 59.6 % FS31.70 % LV EDV (Teich)109.6 mL LV ESV (Teich)44.3 mL Stroke Vol Index (Teich)34.74 M-Mode TAPSE 1.52 cm (M/F) >1.7 Auto EF LV EDV T9O851.4 mLLV EDV D4U053.5 mLLV EDV BP107.1 mL LV ESV A4C47.5 mLLV ESV A2C40.4 mLLV ESV BP43.4 mL LVEF(%) A4C56.9 %LVEF(%) A2C59.8 %LVEF(%) BP59.5 % LV SV A4C62.9 mlLV SV A2C60.1 mlLV SV BP63.7 ml LV CO A4C4.5 L/minLV CO A2C4.1 L/minLV CO BP4.3 L/min HR A4C71.71 BPMHR A2C67.80 BPMLV EDV Index (BP) LA Volume LA Length A4C4.3 cmLA Length A2C4.7 cm LA Area A4C s 14.13 cm2LA Area A2C s 12.75 cm2 LA Vol A4C A-L39.47 mLLA Vol A2C A-L29.48 mLLA Vol Biplane A-L35.6 mL LA Vol/BSA A4C A-LLA Vol/BSA A2C A-LLA Vol/BSA BP A-L 18.9 mL/m2 LA Vol A4C MOD36.6 mLLA Vol A2C MOD27.8 mLLA Vol BP MOD32.8 mL RA Volume RA Area A4C11.3 cm2RA ESV A4C (A-L)22.5mLRA Vol/BSA A4C A-L RA Length A4C4.8 cmRA ESV A4C (MOD)21.3mL LV Diastology MV E' medial0.064 (>0.07 m/s)MV E Vmax 0.68 (0.4-1.3 m/s) MV E/E' MED10.72 (<14)MV A Vmax 0.70 (0.4-1.3 m/s) MV E' lateral0.086 (>0.1 m/s)E/A Ratio 1.0 MV E/E' LAT7.98 (<14) MV E' Average0.075 m/s MV E/E'(average)9.15 Aortic Valve AoV Vmax1.28 m/sLVOT Vmax 0.82 m/s AoV Peak Grad6.5 mmHgLVOT Peak Grad 2.7 mmHg AoV Area (Vmax)1.63 tz2RLMF VTI0.197 m AoV VTI0.316 mLVOT Mean Grad 1.4 mmHg AoV Mean Leonidas.0.89 m/sLVOT SV 50.31 mL AoV Mean Grad3.6 mmHgLVOT Diam s 1.80 cm AoV Area (VTI)1.59 cm2 Velocity Ratio 0.64 Mitral Valve MV DT 158 (160-240 msec) Pulmonary Valve PV Vmax 0.67 (0.5-1.5 m/s)RVOT Vmax 0.65 m/s PV Peak Grad 1.8 mmHgRVOT Peak Gr.1.7 mmHg PV Mean Vel0.49 m/sRVOT VTI0.133 m PV Mean Grad 1.1 mmHgRVOT Mean Gr.1.0 mmHg Tricuspid Valve RA Pressure 3.00 mmHgTR Vmax 2.55 m/s TR Peak Grad 26.0 mmHg RVSP (TR) 29.0 mmHg Ordered By: Brandon Holland M.D. CC: Dictated By: Chanda Urbina M.D. 11/30/23 [id number] <Electronically signed by Chanda Urbina M.D. in [facility]> 11/30/23 1616 Transcribed By: Chanda Urbina MD 11/30/23 [id number] This is privileged, confidential information intended only for the provider named. Any use or distribution by any person other than this provider is strictly prohibited. If you receive this report in error, please notify us immediately at [phone] and return the original report to us at the address above. Thank-you. Anesthesia Assessment and Plan Anesthesia History Personal History: No History of Anesthesia Complications Family History: No Family History of Anesthesia Complications and Family History Unknown Exercise Tolerance Exercise Tolerance: Metabolic Equivalents>4 Pertinent Negatives Pertinent Negatives: No Symptoms of GERD Cardiac & Pulmonary Exam Cardiac Exam: Normal S1/S2 Heart Sounds Pulmonary Exam: Clear Bilateral Breath Sounds Implantable Cardiac Device Does patient have a Pacemaker or an ICD?: No Airway Exam Known Difficult Airway: No Mallampati Class: 3 Mouth Opening: Normal (> 3cm) Thyromental Distance: Greater than 3 cm Neck Range of Motion: Full ROM Neck Circumference: Normal Teeth Condition: Generalized Poor Dentition Airway Comments: None loose per patient ASA Classification ASA Score: ASA 2 Emergency Case?: No NPO Status NPO Status: NPO Clears >2 hours, Solids >8 hours Anesthesia Plan Resuscitation Status: Full Code Anesthesia Technique: General Anesthesia Airway Planned: Natural Airway Monitors Used: Standard Monitors
[2025-05-11 11:42] VITALS: BP 102/65; PULSE 71; RESP 15; TEMP 36.4; O2SAT 94
--- NOTE | 2025-05-11 12:01 | W.ANESPOSTOP ---
Postoperative Evaluation Date, Time and Location Date Performed: 05/11/25 Time Performed: 12:01 Patient Location: Day Surgery Unit Vital Signs Most Recent Imported Vital Signs: Most Recent Vital Signs Temp Pulse Resp BP Pulse Ox 36.4 C L 71 15 102/65 94 05/11/25 11:42 05/11/25 11:42 05/11/25 11:42 05/11/25 11:42 05/11/25 11:42 Pain Score Most Recent Pain Score: Most Recent Pain Score Pain Level 0 05/11/25 09:11 Assessment Mental Status: Awake (Alert & Oriented to Patient Baseline) Airway and Respiratory Function: Patent airway with normal (patient baseline) respiratory exam Cardiovascular Function: Hemodynamically Stable Hydration Status: Adequately Hydrated Nausea & Vomiting: No Nausea or Vomiting Pain: Pt. Denies Any Pain Peripheral Nerve Block: Patient did not receive a nerve block
[2025-05-11 12:22] VITALS: BP 154/78; PULSE 76; RESP 17; TEMP 36; O2SAT 97
== END 2025-05-11 12:29 | disposition home or self-care (01) ==
LOC: SUR 08:55
PROVIDERS: PCP Nurse Practitioner Family; Visit Provider Surgery
PROC: 0DJD8ZZ Inspection of Lower Intestinal Tract, Via Natural or Artificial Opening Endoscopic (ICD-10-PCS; CPT 45378; principal; 2025-05-11 10:30)
DX: Z12.11 Encounter for screening for malignant neoplasm of colon (principal); K57.30 Diverticulosis of large intestine without perforation or abscess without bleeding
CPT/HCPCS: 45378; J2003; J2704

== ENCOUNTER 2025-07-30 14:58 | Outpatient (REF) | payer MEDICARE, MEDICAID, SELFPAY ==
[2025-07-30 15:36] LABS: Abs Immature Grans 0.06 10^3/uL (0.0-0.06); HCT 43.0 % (40.0-50.0); HGB 15.1 g/dL (13.5-17.5); Immature Grans % 0.4 %; MCH 32.6 pg (27.0-33.0); MCHC 35.1 % (32.0-36.0); MCV 93 fL (80-95); MPV 11.9 fL (8.0-11.0); Platelet Count 298 10^3/uL (130-400); RBC 4.63 10^6/uL (4.36-5.78); RDW 13.7 % (11.8-14.1); RDW-SD 46.9 fL; WBC 15.62 10^3/uL (4.4-10.8)
[2025-07-30 18:04] LABS: Hemoglobin A1C 6.1 % (<5.7)
[2025-07-30 18:35] LABS: ALT 34 U/L (16-63); AST 28 U/L (15-37); Albumin 4.3 g/dL (3.4-5.0); Alkaline Phosphatase 75 U/L (46-116); Anion Gap 13.3 mmol/L (3-11); BUN 13 mg/dL (7-18); Bilirubin, Total 0.5 mg/dL (0.2-1.0); CO2 22.7 mmol/L (21.0-32.0); Calcium 9.5 mg/dL (8.5-10.1); Chloride 99 mmol/L (98-107); Estimated GFR 107.13 (mL/min/1.73m2); Glucose 101 mg/dL (74-106); Potassium 4.5 mmol/L (3.5-5.1); Sodium 135 mmol/L (136-145); Total Protein 7.3 g/dL (6.4-8.2); Vitamin B12 808 pg/mL (193-986)
[2025-07-30 18:38] LABS: Folate > 20.0 ng/mL (8.6-20.0)
[2025-07-30 21:44] LABS: Total Protein 7.4 g/dL (6.3-8.2)
[2025-07-31 13:28] LABS: Albumin 60.2 % (55.8-66.1); Albumin g/dL 4.5 g/dL (3.6-5.2); Alpha 1 g/dL 0.30 g/dL (0.15-0.40); Alpha 2 g/dL 0.90 g/dL (0.50-1.00); Beta g/dL 0.90 g/dL (0.60-1.20); Gamma g/dL 0.90 g/dL (0.60-1.60); Monoclonal Spike g/dL 0.3 g/dL (None Seen)
== END 2025-07-30 14:59 | disposition home or self-care (01) ==
LOC: NCHCN 14:58
PROVIDERS: PCP Nurse Practitioner Family; Visit Provider Nurse Practitioner Family
DX: R73.03 Prediabetes (principal); D53.1 Other megaloblastic anemias, not elsewhere classified; D47.2 Monoclonal gammopathy
CPT/HCPCS: 80053; 82607; 82746; 83036; 84165; 85025